=== PATIENT | male | born 1950 | race Caucasian/White ===

== ENCOUNTER → 2016-08-03 | Outpatient (CLI) | payer MEDICARE, MEDICAID ==
[~2016-08-03] MED LIST: /ACETCOD2T PO; /RANI15TA PO; /WARF5TA PO; ALLO100T PO; AMIT8CAP4 PO; BACL10TA2 PO; CELE10TA PO; CIPR500T89 PO; CITA20TA2 PO; CLOP75TA2 PO; COLA100C PO; COUM1TAB17 PO; CYCL10TA PO; EYEDRO OU; FLEX10TA2 PO; FLOM5CAP PO; GABA400C PO; HYDR-3713 PO; LIDO4CRE2 EX; LOVE0.8I SC; MIRA3350 PO; MIRA33504 PO; NEUR600T PO; OMEG100011 PO; OMEG10002 PO; PRAV40TA2 PO; RANI15TA PO; SALINE EYE OU; SOMA250T PO; TRAM50TA2 PO; VALI5TAB PO; VOLT1GEL24 TD; WARF-18 PO; miralax PO; stool softener PO
--- NOTE | 2016-08-25 00:33 | ECWPNPC ---
PATIENT NAME: MARY MOODY : 1950 GENDER: MALE VISIT DATE: 08/03/2016 DISCHARGE DATE: 08/03/16 1048 VISIT LOCKED DATE TIME: PHYSICIAN: SKYLAR FERGUSON RESOURCE: SKYLAR FERGUSON REASON FOR APPOINTMENT 1. BACK HISTORY OF PRESENT ILLNESS HISTORY OF PRESENT ILLNESS: PAIN THE PATIENT DESCRIBES THE PAIN... FALL RISK SCREENING: SCREENING :NO FALLS IN THE PAST YEAR TODAY'S VISIT: NOTES: SAW DR JO FOR FURTHER EVALUATION FOR POSSIBLE LUMBAR FUSION - THEY THOUGHT IT OVER AND DECIDED NOT TO PROCEDE WITH THIS. PT REPORTS THAT HE HAS BEEN HAVING INCREASING DISCOMFORT ACROSS LOW BACK. NOTES THAT IT IS VERY TIGHT AND VERY DIFFICULT TO MOVE. NO RECENT FALLS. SOME DIFFICULTY WITH GETTING TO SLEEP BUT TAKES LONG AFTERNOON NAP. CURRENT MEDICATIONS TAKING NFTSO-9-URND ETHYL ESTERS 1 GM CAPSULE ORAL DAILY, NOTES: 05/15/16799 TAKING POLYETHYLENE GLYCOL 3350 POWDER ORAL Q 3 DAYS, NOTES: 05/14/16799 TAKING ALLOPURINOL 100 MG TABLET TAKE 1 TABLET BY MOUTH ONCE DAILY ORAL , NOTES: 05/15/16799 TAKING TAMSULOSIN HCL 0.4 MG CAPSULE ORAL DAILY, NOTES: 05/14/161999 TAKING WARFARIN SODIUM 5 MG TABLET TAKE 1 TABLET BY MOUTH ONCE DAILY ORAL , NOTES: 05/14/161699 TAKING PRAVASTATIN SODIUM 40 MG TABLET ORAL Q P.M., NOTES: 05/14/161999 TAKING GABAPENTIN 600 MG TABLET TAKE 1 TABLET BY MOUTH THREE TIMES A DAY ORAL , NOTES: 05/14/161699 TAKING CITALOPRAM HYDROBROMIDE 20 MG TABLET TAKE 1 TABLET BY MOUTH ONCE DAILY ORAL , NOTES: 05/14/161999 TAKING RANITIDINE HCL 150 MG TABLET ORAL BID, NOTES: 05/15/16799 TAKING VALIUM 5 MG TABLET 1 TABLET NEEDED ORALLY TWICE A DAY, NOTES: 05/14/161999 TAKING BACLOFEN 10 MG TABLET 1 TAB ORAL TID FOR SPASM TAKING LIDOCAINE 5 % OINTMENT 1 STRIP EXTERNAL Q 6 HRS PRN PAIN - APPLY TO LOW BACK TAKING TRAMADOL HCL 50 MG TABLET 1 TAB ORALLY EVERY 6 HOURS NEEDED/MMD#4 TAKING ALBUTEROL SULFATE (2.5 MG/3ML) 0.083% NEBULIZATION SOLUTION 3 ML INHALATION THREE TIMES A DAY PRN MEDICATION LIST REVIEWED AND RECONCILED WITH THE PATIENT PAST MEDICAL HISTORY 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 SOCIAL HISTORY GENERAL: TOBACCO USE ARE YOU A:NONSMOKER LEARNING BARRIERS / SPECIAL NEEDS ORIENTED TO PLAN OF CARE: PATIENT, PAIN MANAGEMENT PATIENT, ORIENTED TO PLAN OF CARE: PATIENT, PAIN MANAGEMENT PATIENT. NEW PATIENT PAIN DIARY TODAY'S VISITNOTES FROM 0-10, WHAT LEVEL IS YOUR PAIN TODAY?0 PAIN CLINIC PFS, CLERGY, PUBLIC HEALTH REFERRALS PFS REFERRAL NEEDED?NO CLERGY REFERRAL NEEDED?NO PUBLIC HEALTH REFERRAL NEEDED?NO WAS THE PROVIDER NOTIFIED OF ANY PERTINENT INFO?NO PFS REFERRAL NEEDED?NO CLERGY REFERRAL NEEDED?NO PUBLIC HEALTH REFERRAL NEEDED?NO WAS THE PROVIDER NOTIFIED OF ANY PERTINENT INFO?NO REVIEW OF SYSTEMS CONSTITUTIONAL: ANY CHANGE IN YOUR MEDICAL CONDITION? NO . CHILLS NO . FEVER NO . INFECTION: DO YOU HAVE NEW INFECTIONS? NO . DO YOU HAVE HISTORY OF MRSA? NO . MUSCULOSKELETAL: ANY NEW PATTERNS OF PAIN OR NUMBNESS? NO . GASTROENTEROLOGY: ANY NEW CHANGE IN BOWEL CONTROL? NO . GENITOURINARY: ANY NEW CHANGE IN BLADDER CONTROL? NO . IS THERE A CHANCE YOU COULD BE ? NO . HEMATOLOGY/LYMPH: DO YOU TAKE ANY BLOOD THINNERS? (FOR EXAMPLE- COUMADIN, PLAVIX, AGGRENOX, PLATEL, PRADAXA, OR XARELTO) YES . WHEN WAS YOUR LAST DOSE? DATE: TIME: . NEUROLOGY: HAVE YOU FALLEN IN THE PAST 6 MONTHS? NO . ANY NEW EXTREMITY NUMBNESS OR WEAKNESS? NO . STROKES NO NEW STROKE SYMPTOMS . CARDIOLOGY: DO YOU HAVE A PACEMAKER OR DEFIBRILLATOR? NO . CHEST PAIN PATIENT DENIES . RESPIRATORY: HAVE YOU BEEN SICK IN THE PAST WEEK? YES PNEUMONIA LEFT LUNG, ON ANTIBIOTIC(CEFUROXIME X 10 DAYS, ZPACK) AND PREDNISONE, ALSO ALBUTEROL NEB PRN . FEVER NO . FLU LIKE SYMPTOMS? NO . COUGH YES, YELLOW SPUTUM , WHITE SPUTUM , PRODUCTIVE BUT IMPROVING. ABX FINISHED TODAY . INTEGUMENTARY: DO YOU HAVE ANY RASHES OR OPEN SORES? NO . ALLERGIC/IMMUNO: ARE YOU ALLERGIC TO SHELLFISH OR IV DYE? NO . ANY NEW ALLERGIES? NO . PSYCHIATRIC: DO YOU HAVE THOUGHTS OF HURTING YOURSELF OR SOMEONE ELSE? NO . ARE YOU ABUSED, NEGLECTED, OR IN AN UNSAFE ENVIRONMENT? NO . ENDOCRINOLOGY: ARE YOU DIABETIC? NO . OTHER: DO YOU NEED ANY PRESCRIPTIONS? YES LIDOCAINE, TRAMADOL . IF YES, PLEASE LIST: ____ . ANY NEW PROBLEMS WITH YOUR MEDICATIONS? NO . WHEN DID YOU LAST EAT? ____ . WHEN DID YOU LAST DRINK? ____ . WHAT DID YOU LAST DRINK? ____ . NAME OF PERSON DRIVING YOU HOME? ____ . DO YOU HAVE ANY OTHER QUESTIONS OR CONCERNS NO . REVIEWED BY: PROVIDER: SKYLAR REDMAN . VITAL SIGNS WT 219 LBS, HT 5 FT 8 IN, BMI 33.30 INDEX, BP 136/86 MM HG, HR 77 /MIN, RR 16 /MIN, TEMP 97.4 F, OXYGEN SAT % 95, NA INITIALS TL 1003, REVIEWED BY: AD. EXAMINATION GENERAL EXAMINATION: PSYCHSPEACH MONOTONE, ALERT , ORIENTED X 3 , APPROPRIATE MOOD AND AFFECT . LUNGS:BILATERAL SCATTERD WHEEZES. SLIGHT DECREASE AT BASES.. MUSCULOSKELETAL:TENDER OVER LUMBAR PARAVEREBRAL MUSCLES, RIGHT GREATER THAN LEFT. CANE USED FOR BALANCE., TRIGGER POINTS:, ELICITED WITH PALPATION OVER LUMBAR PARAVERTEBRAL MUSCLES AND INTO THE SECRUM. RESTRICTION OF ROM IN THIS AREA. ASSESSMENTS LOW BACK PAIN - M54.5 (PRIMARY) MYALGIA - M79.1 LUMBAR FACET ARTHROPATHY - M46.96 TREATMENT LOW BACK PAIN REFILL TRAMADOL HCL TABLET, 50 MG, 1 TAB, ORALLY, EVERY 6 HOURS NEEDED/MMD#4, 30 DAYS, 120, REFILLS 2 REFILL LIDOCAINE OINTMENT, 5 %, 1 STRIP, EXTERNAL, Q 6 HRS PRN PAIN - APPLY TO LOW BACK, 30 DAY(S), 3 TUBE, REFILLS 2 TRIGGER POINT 3 + SKYLAR MARCIAL 08/03/2016 10:28:38 AM > LOW BACK, RIGHT SIDE NOTES: CONTINUE EXERCISES AND STRETCHES DO NOT STOP COUMADIN FOR INJECTION,TRIGGER POINT INJECTION MATERIAL WAS PRINTED,TRIGGER POINT INJECTION: YOUR EXPERIENCE MATERIAL WAS PRINTED, FALLS CARE PLAN: 1. RECOMMEND REMOVING ALL THROW RUGS. 2. RECOMMEND NIGHT LIGHTS 3. RECOMMEND WEARING RUBBER SOLED SHOES AND TO NOT GO BAREFOOT. 4.. ADVISED TO CHANGE POSITION SLOWLY FROM SUPINE TO STANDING TO AVOID DIZZINESS. 5. ADVISED TO USE ASSISTIVE DEVICE SUCH CANE OR WALKER 6. USE [employer] OR KEEP PORTABLE PHONE READILY AVAILABLE, #128 - SCREENING BMI AND F/U PLAN IN : BMI ABOVE NORMAL TODAY. DISCUSSED WITH PATIENT NUTRITIONAL FOOD CHOICES TO ASSIST WITH WEIGHT LOSS. RECCOMMENDED REDUCING SALT, SUGAR, SODA INTAKE. RECOMMEND INCREASE ACTIVITY TO INCLUDE WALKING ON A REGULAR BASIS. PROCEDURE CODES FA211 ESTABILISHED PATIENT [facility] CHARGE G8783 BP SCR PRFRM RCMDD DEFIND SCR INTVL G8730 PAIN ASSESS POS TOOL F/U PLAN DOC 3016F PT SCRND UNHLTHY [place] USE 1124F ACP DISCUSS-NO DSCNMKR DOCD 1036F TOBACCO NON-USER 0518F FALL PLAN OF CARE DOCD G8427 DOC MEDS VERIFIED W/PT OR RE G8417 BMI >=30 CALCUATE W/FOLLOWUP 3288F FALL RISK ASSESSMENT DOCD FOLLOW UP AFTER INJECTION (REASON: CHECK AUTH FOR LUMBAR TPI - ON COUMADIN) ELECTRONICALLY SIGNED BY JOSH GANN ON 08/24/2016 AT 01:42 PM EST DISCLAIMER : THIS IS A VISIT SUMMARY EXTRACTED FROM THE [employer] CHART. IT IS NOT A COPY OF THE [employer] PROGRESS NOTE. MTDD
== END ==
LOC: M PAIN 09:20
PROVIDERS: ATTEND Nurse Practitioner Family
DX: Z09 Encounter for follow-up examination after completed treatment for conditions other than malignant neoplasm (principal); G89.29 Other chronic pain; M54.5 Low back pain; M79.1 Myalgia; M46.96 Unspecified inflammatory spondylopathy, lumbar region; I69.951 Hemiplegia and hemiparesis following unspecified cerebrovascular disease affecting right dominant side; G62.9 Polyneuropathy, unspecified; E78.00 Pure hypercholesterolemia, unspecified; F32.9 Major depressive disorder, single episode, unspecified; M48.00 Spinal stenosis, site unspecified; Z79.01 Long term (current) use of anticoagulants; Z79.891 Long term (current) use of opiate analgesic; Z79.899 Other long term (current) drug therapy

== ENCOUNTER → 2016-08-14 | Outpatient (CLI) | payer MEDICARE, MEDICAID ==
[~2016-08-14] MED LIST changes: +BUPIVACAINE HCL 0.25% 10 ML VIAL As Ordered ONE; +BUPIVACAINE HCL 0.25% 30 ML VIAL As Ordered ONE; +TRIAMCINOLONE ACETONIDE SUSP 40 MG/ML VIAL (J3301) As Ordered ONE
--- NOTE | 2016-08-19 23:46 | ECWPNPC ---
PATIENT NAME: MARY MOODY : 1950 GENDER: MALE VISIT DATE: 08/14/2016 DISCHARGE DATE: 08/14/16 1149 VISIT LOCKED DATE TIME: PHYSICIAN: PRATEEK CARRILLO RESOURCE: PRATEEK CARRILLO REASON FOR APPOINTMENT 1. TPI HISTORY OF PRESENT ILLNESS HISTORY OF PRESENT ILLNESS: PAIN THE PATIENT DESCRIBES THE PAIN... FALL RISK SCREENING: SCREENING :NO FALLS IN THE PAST YEAR CURRENT MEDICATIONS TAKING QUERU-5-RMZF ETHYL ESTERS 1 GM CAPSULE ORAL DAILY, NOTES: 08/13/16 0600 TAKING POLYETHYLENE GLYCOL 3350 POWDER ORAL Q 3 DAYS, NOTES: 08/13/16 06 TAKING ALLOPURINOL 100 MG TABLET TAKE 1 TABLET BY MOUTH ONCE DAILY ORAL , NOTES: 08/13/16 06 TAKING TAMSULOSIN HCL 0.4 MG CAPSULE ORAL DAILY, NOTES: 08/13/16 0600 TAKING WARFARIN SODIUM 5 MG TABLET TAKE 1 TABLET BY MOUTH ONCE DAILY ORAL , NOTES: 08/13/16 1800 TAKING PRAVASTATIN SODIUM 40 MG TABLET ORAL Q P.M., NOTES: 08/13/16 1800 TAKING GABAPENTIN 600 MG TABLET TAKE 1 TABLET BY MOUTH THREE TIMES A DAY ORAL , NOTES: 08/13/16 1800 TAKING CITALOPRAM HYDROBROMIDE 20 MG TABLET TAKE 1 TABLET BY MOUTH ONCE DAILY ORAL , NOTES: 08/13/16 1800 TAKING RANITIDINE HCL 150 MG TABLET ORAL BID, NOTES: 08/13/16 1800 TAKING VALIUM 5 MG TABLET 1 TABLET NEEDED ORALLY TWICE A DAY, NOTES: 08/12/16 TAKING BACLOFEN 10 MG TABLET 1 TAB ORAL TID FOR SPASM, NOTES: 08/13/162099 TAKING ALBUTEROL SULFATE (2.5 MG/3ML) 0.083% NEBULIZATION SOLUTION 3 ML INHALATION THREE TIMES A DAY PRN, NOTES: NONE RECENTLY TAKING TRAMADOL HCL 50 MG TABLET 1 TAB ORALLY EVERY 6 HOURS NEEDED/MMD#4, NOTES: 08/13/161999 TAKING LIDOCAINE 5 % OINTMENT 1 STRIP EXTERNAL Q 6 HRS PRN PAIN - APPLY TO LOW BACK, NOTES: 08/13/161999 MEDICATION LIST REVIEWED AND RECONCILED WITH THE PATIENT PAST MEDICAL HISTORY 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 SOCIAL HISTORY GENERAL: TOBACCO USE ARE YOU A:NONSMOKER LEARNING BARRIERS / SPECIAL NEEDS ORIENTED TO PLAN OF CARE: PATIENT, PAIN MANAGEMENT PATIENT, ORIENTED TO PLAN OF CARE: PATIENT, PAIN MANAGEMENT PATIENT. NEW PATIENT PAIN DIARY TODAY'S VISITNOTES FROM 0-10, WHAT LEVEL IS YOUR PAIN TODAY?0 PAIN CLINIC PFS, CLERGY, PUBLIC HEALTH REFERRALS PFS REFERRAL NEEDED?NO CLERGY REFERRAL NEEDED?NO PUBLIC HEALTH REFERRAL NEEDED?NO WAS THE PROVIDER NOTIFIED OF ANY PERTINENT INFO?NO PFS REFERRAL NEEDED?NO CLERGY REFERRAL NEEDED?NO PUBLIC HEALTH REFERRAL NEEDED?NO WAS THE PROVIDER NOTIFIED OF ANY PERTINENT INFO?NO REVIEW OF SYSTEMS CONSTITUTIONAL: ANY CHANGE IN YOUR MEDICAL CONDITION? NO . CHILLS NO . FEVER NO . INFECTION: DO YOU HAVE NEW INFECTIONS? NO . DO YOU HAVE HISTORY OF MRSA? NO . MUSCULOSKELETAL: ANY NEW PATTERNS OF PAIN OR NUMBNESS? NO . GASTROENTEROLOGY: ANY NEW CHANGE IN BOWEL CONTROL? NO . GENITOURINARY: ANY NEW CHANGE IN BLADDER CONTROL? NO . IS THERE A CHANCE YOU COULD BE ? NO . HEMATOLOGY/LYMPH: DO YOU TAKE ANY BLOOD THINNERS? (FOR EXAMPLE- COUMADIN, PLAVIX, AGGRENOX, PLATEL, PRADAXA, OR XARELTO) YES COUMADIN . WHEN WAS YOUR LAST DOSE? DATE: TIME: 08/13/161799 . NEUROLOGY: HAVE YOU FALLEN IN THE PAST 6 MONTHS? NO . ANY NEW EXTREMITY NUMBNESS OR WEAKNESS? NO . CARDIOLOGY: DO YOU HAVE A PACEMAKER OR DEFIBRILLATOR? NO . RESPIRATORY: HAVE YOU BEEN SICK IN THE PAST WEEK? NO . FEVER NO . FLU LIKE SYMPTOMS? NO . COUGH NO . INTEGUMENTARY: DO YOU HAVE ANY RASHES OR OPEN SORES? NO . ALLERGIC/IMMUNO: ARE YOU ALLERGIC TO SHELLFISH OR IV DYE? NO . ANY NEW ALLERGIES? NO . PSYCHIATRIC: DO YOU HAVE THOUGHTS OF HURTING YOURSELF OR SOMEONE ELSE? NO . ARE YOU ABUSED, NEGLECTED, OR IN AN UNSAFE ENVIRONMENT? NO . ENDOCRINOLOGY: ARE YOU DIABETIC? NO . OTHER: DO YOU NEED ANY PRESCRIPTIONS? NO . IF YES, PLEASE LIST: ____ . ANY NEW PROBLEMS WITH YOUR MEDICATIONS? NO . WHEN DID YOU LAST EAT? ____08/13/16 1800 . WHEN DID YOU LAST DRINK? ____08/13/161999 . WHAT DID YOU LAST DRINK? ____COFFEE . NAME OF PERSON DRIVING YOU HOME? ____SANDY . DO YOU HAVE ANY OTHER QUESTIONS OR CONCERNS NO . REVIEWED BY: PROVIDER: . VITAL SIGNS WT 215 LBS, HT 5 FT 8 IN, BMI 32.69 INDEX, BP 120/79 MM HG, HR 64 /MIN, RR 16 /MIN, TEMP 96.0 F, OXYGEN SAT % 93%, NA INITIALS SC 09:01, REVIEWED BY: MLF. ASSESSMENTS MYALGIA - M79.1 (PRIMARY) PROCEDURES PN TRIGGER POINT INJECTION WITH STEROIDS PRE PROCEDURE DIAGNOSIS 1. MYALGIA 2. PAIN AT RIGHT LOWER BACK AREA POST PROCEDURE DIAGNOSIS 1. MYALGIA 2. PAIN AT RIGHT LOWER BACK AREA PROCEDURE TRIGGER POINT INJECTION AT RIGHT LOWER BACK AREA SURGEON DR. PRATEEK CARRILLO CERTIFIED SURGICAL FIRST ASSISTANT NONE ANESTHESIA LOCAL PRE PROCEDURE NOTE THE PATIENT HAS A HISTORY OF CHRONIC PAIN AT THE RIGHT LOWER BACK AREA. I EVALUATE THE PATIENT AND REVIEWED THE CHART. THERE IS EVIDENCE OF BANDS OF TISSUE WITH RESTRICTION OF MOVEMENT AND PRESENCE OF TRIGGER POINT AT THE AFFECTED AREA. I WENT OVER THE RISKS, ALTERNATIVES, AND BENEFITS ASSOCIATED WITH THIS PROCEDURE. THE PATIENT WOULD LIKE TO PROCEED AND GIVE CONSENT TO PERFORMED THE PROCEDURE. THE PATIENT DENIES UNEXPLAINABLE WEIGHT LOSS, FEVER, CHILLS, OR NEW CHANGES IN URINARY OR BOWEL CONTROL DESCRIPTION OF PROCEDURE THE PATIENT WAS BROUGHT TO THE PROCEDURE ROOM AND PLACED IN THE SITTING POSITION. THE AREA WAS CLEANED WITH ALCOHOL. THE PROCEDURE WAS DONE USING ASEPTIC STERILE TECHNIQUE. I CHECKED LATERALITY AND THE LEVEL WHERE THE PROCEDURE WAS GOING TO BE PERFORMED WITH THE PATIENT AND THE SUPPORTING STAFF AT THE MOMENT OF THE TIME OUT IN THE PROCEDURE ROOM. USING A 25-GAUGE NEEDLE, TRIGGER POINTS WERE INJECTED AT THE RIGHT LOWER BACK AREA WITH A TOTAL OF 40 ML OF BUPIVACAINE 0.25% AND KENALOG 40 MG. THERE WAS NO EVIDENCE OF BLOOD, PARESTHESIA OR CEREBROSPINAL FLUID DURING THE PROCEDURE. THE PATIENT WAS SENT TO THE RECOVERY ROOM. THE PATIENT WAS MOVING THE EXTREMITIES AND DOING WELL. THERE WAS NO COMPLICATION DURING THE PROCEDURE POST PROCEDURE NOTE THE PATIENT WILL BE SEEN IN A FOLLOW UP IN THE NEXT FEW WEEKS. INSTRUCTIONS WERE GIVEN, QUESTIONS WERE ANSWERED, AND THE PATIENT EXPRESSED UNDERSTANDING AND AGREES WITH THE PLAN. INSTRUCTIONS WERE GIVEN, QUESTIONS WERE ANSWERED, PATIENT REPORTS UNDERSTANDING AND AGREES WITH THE PLAN. I, MO BISWAS, DOCUMENTED THE ABOVE INFORMATION ACTING A SCRIBE FOR DR. CARRILLO. I HAVE REVIEWED THE ABOVE DOCUMENT, WRITTEN BY MO CARL AND I VERIFY THAT IT IS ACCURATE. PROCEDURE CODES 57967 INJ TRIGGER POINT /2 MUSCL FOLLOW UP 3 WEEKS ELECTRONICALLY SIGNED BY PRATEEK CARRILLO MD ON 08/19/2016 AT 07:52 PM EST DISCLAIMER : THIS IS A VISIT SUMMARY EXTRACTED FROM THE [employer] CHART. IT IS NOT A COPY OF THE [employer] PROGRESS NOTE. INO
== END ==
LOC: M PAIN 09:00
PROVIDERS: ATTEND Anesthesiology
DX: G89.29 Other chronic pain (principal); M79.1 Myalgia; M54.5 Low back pain; Z79.891 Long term (current) use of opiate analgesic; Z79.899 Other long term (current) drug therapy; Z09 Encounter for follow-up examination after completed treatment for conditions other than malignant neoplasm; Z86.73 Personal history of transient ischemic attack (TIA), and cerebral infarction without residual deficits; G62.9 Polyneuropathy, unspecified; E78.00 Pure hypercholesterolemia, unspecified; F32.9 Major depressive disorder, single episode, unspecified; M48.00 Spinal stenosis, site unspecified
CPT/HCPCS: 20552; J3301

== ENCOUNTER 2016-09-18 15:50 | Emergency (ER) | payer MEDICAID, MEDICARE ==
[~2016-09-18] VITALS: Ht 172.7 cm; Wt 99.3 kg
[~2016-09-18 15:50] MED LIST changes: -BUPIVACAINE HCL 0.25% 10 ML VIAL As Ordered ONE; -BUPIVACAINE HCL 0.25% 30 ML VIAL As Ordered ONE; -TRIAMCINOLONE ACETONIDE SUSP 40 MG/ML VIAL (J3301) As Ordered ONE
[2016-09-18 18:44] LABS: MEAN CORPUSCULAR HEMOGLOBIN 30.7 pg (27.0-33.0); MEAN CORPUSCULAR HGB CONC 34.1 g/dl (32.0-36.5); RED CELL DISTRIBUTION WIDTH 13.1 % (11.5-14.5); WHITE BLOOD COUNT 6.5 K/mm3 (4.0-10.0)
[2016-09-18 18:49] LABS: INR 1.7
--- NOTE | 2016-09-18 19:20 | REPUSA ---
CLINICAL HISTORY: Right upper extremity edema COMMENTS: Real time sonography with duplex doppler of the right upper extremity was performed with attention to the major deep venous structures. The right internal jugular, cephalic, basilic, radial and ulnar veins all reveal complete lumen compr essibility without intraluminal thrombus. The right subclavian and axillary veins are also clear of t hrombus. There is normal spontaneous phasic flow and augmentation throughout the deep veins. IMPRESSION: No evidence of DVT in the right upper extremity. Thank you for your kind referral of this patient. Continuing I 11
[2016-09-18 19:46] VITALS: BP 138/79
== END 2016-09-18 19:59 | disposition home or self-care (01) ==
LOC: M ED 18:40
DX: M54.12 Radiculopathy, cervical region (principal); I25.2 Old myocardial infarction; Z79.01 Long term (current) use of anticoagulants

== ENCOUNTER → 2016-09-25 | Outpatient (CLI) | payer MEDICARE, MEDICAID ==
--- NOTE | 2016-09-29 00:23 | ECWPNPC ---
PATIENT NAME: MARY MOODY : 1950 GENDER: MALE VISIT DATE: 09/25/2016 DISCHARGE DATE: 09/25/16940 VISIT LOCKED DATE TIME: PHYSICIAN: SKYLAR FERGUSON RESOURCE: SKYLAR FERGUSON REASON FOR APPOINTMENT 1. POST PROCEDURE, BACK HISTORY OF PRESENT ILLNESS HISTORY OF PRESENT ILLNESS: PAIN THE PATIENT DESCRIBES THE PAIN... FALL RISK SCREENING: SCREENING :NO FALLS IN THE PAST YEAR TODAY'S VISIT: NOTES: RATES PAIN TODAY 4/10 IN LOW BACK. DESCRIBES PAIN CONSTANT AND ACHING . IS S/P TRIGGER POINT INJECTION ON 08/14/16 TO THE LOW BACK AREA. THIS DECREASED THE PAIN IN THIS AREA BU GREATER THAN 50%.. HAS RECENTLY BEEN HAVING SHOOTING PAIN AND NUMBNESS TO THE RIGHT ARM.HAS NOTED SOME RESTRICTION IN MOVEMENT IN RIGHT SHOULDER. . CURRENT MEDICATIONS TAKING HLHDN-2-MIUY ETHYL ESTERS 1 GM CAPSULE ORAL DAILY, NOTES: 08/13/16 0600 TAKING POLYETHYLENE GLYCOL 3350 POWDER ORAL Q 3 DAYS, NOTES: 08/13/16 0600 TAKING ALLOPURINOL 100 MG TABLET TAKE 1 TABLET BY MOUTH ONCE DAILY ORAL , NOTES: 08/13/16 06 TAKING TAMSULOSIN HCL 0.4 MG CAPSULE ORAL DAILY, NOTES: 08/13/16 0600 TAKING WARFARIN SODIUM 5 MG TABLET TAKE 1 TABLET BY MOUTH ONCE DAILY ORAL , NOTES: 08/13/16 1800 TAKING PRAVASTATIN SODIUM 40 MG TABLET ORAL Q P.M., NOTES: 08/13/16 1800 TAKING GABAPENTIN 600 MG TABLET TAKE 1 TABLET BY MOUTH THREE TIMES A DAY ORAL , NOTES: 08/13/16 1800 TAKING CITALOPRAM HYDROBROMIDE 20 MG TABLET TAKE 1 TABLET BY MOUTH ONCE DAILY ORAL , NOTES: 08/13/16 1800 TAKING RANITIDINE HCL 150 MG TABLET ORAL BID, NOTES: 08/13/16 1800 TAKING VALIUM 5 MG TABLET 1 TABLET NEEDED ORALLY TWICE A DAY, NOTES: 08/12/16 TAKING BACLOFEN 10 MG TABLET 1 TAB ORAL TID FOR SPASM, NOTES: 08/13/162099 TAKING ALBUTEROL SULFATE (2.5 MG/3ML) 0.083% NEBULIZATION SOLUTION 3 ML INHALATION THREE TIMES A DAY PRN, NOTES: NONE RECENTLY TAKING TRAMADOL HCL 50 MG TABLET 1 TAB ORALLY EVERY 6 HOURS NEEDED/MMD#4, NOTES: 08/13/161999 TAKING LIDOCAINE 5 % OINTMENT 1 STRIP EXTERNAL Q 6 HRS PRN PAIN - APPLY TO LOW BACK, NOTES: 08/13/161999 MEDICATION LIST REVIEWED AND RECONCILED WITH THE PATIENT PAST MEDICAL HISTORY 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 SOCIAL HISTORY GENERAL: TOBACCO USE ARE YOU A:NONSMOKER LEARNING BARRIERS / SPECIAL NEEDS ORIENTED TO PLAN OF CARE: PATIENT, PAIN MANAGEMENT PATIENT, ORIENTED TO PLAN OF CARE: PATIENT, PAIN MANAGEMENT PATIENT. NEW PATIENT PAIN DIARY TODAY'S VISITNOTES FROM 0-10, WHAT LEVEL IS YOUR PAIN TODAY?0 PAIN CLINIC PFS, CLERGY, PUBLIC HEALTH REFERRALS PFS REFERRAL NEEDED?NO CLERGY REFERRAL NEEDED?NO PUBLIC HEALTH REFERRAL NEEDED?NO WAS THE PROVIDER NOTIFIED OF ANY PERTINENT INFO?NO PFS REFERRAL NEEDED?NO CLERGY REFERRAL NEEDED?NO PUBLIC HEALTH REFERRAL NEEDED?NO WAS THE PROVIDER NOTIFIED OF ANY PERTINENT INFO?NO REVIEW OF SYSTEMS CONSTITUTIONAL: ANY CHANGE IN YOUR MEDICAL CONDITION? YES 09/18/16 ED VISIT FOR NECK PAIN THAT RADIATED TO RIGHT ARM. . CHILLS NO . FEVER NO . INFECTION: DO YOU HAVE NEW INFECTIONS? NO . DO YOU HAVE HISTORY OF MRSA? NO . MUSCULOSKELETAL: ANY NEW PATTERNS OF PAIN OR NUMBNESS? YES PT STATES NEW RIGHT SIDED NECK PAIN THAT RADIATES TO RIGHT HAND. ALSO NOTES TINGLING WITH PAIN IN RIGHT HAND. STATES STARTED 2 WKS AGO. . GASTROENTEROLOGY: ANY NEW CHANGE IN BOWEL CONTROL? NO . GENITOURINARY: ANY NEW CHANGE IN BLADDER CONTROL? NO . IS THERE A CHANCE YOU COULD BE ? NO . HEMATOLOGY/LYMPH: DO YOU TAKE ANY BLOOD THINNERS? (FOR EXAMPLE- COUMADIN, PLAVIX, AGGRENOX, PLATEL, PRADAXA, OR XARELTO) YES COUMADIN . WHEN WAS YOUR LAST DOSE? DATE: TIME: . NEUROLOGY: HAVE YOU FALLEN IN THE PAST 6 MONTHS? NO . ANY NEW EXTREMITY NUMBNESS OR WEAKNESS? YES RIGHT SIDED NECK PAIN THAT RADIATES TO RIGHT ARM/HAND WITH TINGLING IN RIGHT HAND X 2 WKS. . CARDIOLOGY: DO YOU HAVE A PACEMAKER OR DEFIBRILLATOR? NO . RESPIRATORY: HAVE YOU BEEN SICK IN THE PAST WEEK? NO . FEVER NO . FLU LIKE SYMPTOMS? NO . COUGH NO . INTEGUMENTARY: DO YOU HAVE ANY RASHES OR OPEN SORES? NO . ALLERGIC/IMMUNO: ARE YOU ALLERGIC TO SHELLFISH OR IV DYE? NO . ANY NEW ALLERGIES? NO . PSYCHIATRIC: DO YOU HAVE THOUGHTS OF HURTING YOURSELF OR SOMEONE ELSE? NO . ARE YOU ABUSED, NEGLECTED, OR IN AN UNSAFE ENVIRONMENT? NO . ENDOCRINOLOGY: ARE YOU DIABETIC? NO . OTHER: DO YOU NEED ANY PRESCRIPTIONS? NO . IF YES, PLEASE LIST: ____ . ANY NEW PROBLEMS WITH YOUR MEDICATIONS? NO . WHEN DID YOU LAST EAT? ____ . WHEN DID YOU LAST DRINK? ____ . WHAT DID YOU LAST DRINK? ____ . NAME OF PERSON DRIVING YOU HOME? ____ . DO YOU HAVE ANY OTHER QUESTIONS OR CONCERNS NO . UROLOGY: GENERAL NOCTURIA X 3. SLEEP IS IMPAIRED TO THIS . REVIEWED BY: PROVIDER: SKYLAR REDMAN . VITAL SIGNS WT 215.8 LBS, HT 5 FT 8 IN, BMI 32.81 INDEX, BP 117/83 MM HG, HR 67 /MIN, RR 18 /MIN, TEMP 95.8 F, OXYGEN SAT % 97%, REVIEWED BY: MLF. EXAMINATION GENERAL EXAMINATION: PSYCHSPEACH MONOTONE, ALERT , ORIENTED X 3 , APPROPRIATE MOOD AND AFFECT . LUNGS:BILATERAL SCATTERD WHEEZES. SLIGHT DECREASE AT BASES.. MUSCULOSKELETAL:TENDER OVER LUMBAR PARAVEREBRAL MUSCLES, RIGHT GREATER THAN LEFT. CANE USED FOR BALANCE., TRIGGER POINTS:, ELICITED WITH PALPATION OVER LUMBAR PARAVERTEBRAL MUSCLES AND INTO THE SECRUM. RESTRICTION OF ROM IN THIS AREA. ASSESSMENTS MYALGIA - M79.1 (PRIMARY) LOW BACK PAIN - M54.5 LUMBAR FACET ARTHROPATHY - M46.96 CERVICALGIA - M54.2 TREATMENT MYALGIA LRY SPINE CERVICAL W/AP/FLEX/[id number] TRIGGER POINT 3 + SKYLAR MARCIAL 09/25/2016 9:24:59 AM > NECK, RIGHT SHOULDER AREA NOTES: CALL WHEN REFILLS NEEDED. DO NOT HOLD COUMADIN FOR INJECTION THERAPY,TRIGGER POINT INJECTION MATERIAL WAS PRINTED, FALLS CARE PLAN: 1. RECOMMEND REMOVING ALL THROW RUGS. 2. RECOMMEND NIGHT LIGHTS 3. RECOMMEND WEARING RUBBER SOLED SHOES AND TO NOT GO BAREFOOT. 4.. ADVISED TO CHANGE POSITION SLOWLY FROM SUPINE TO STANDING TO AVOID DIZZINESS. 5. ADVISED TO USE ASSISTIVE DEVICE SUCH CANE OR WALKER 6. USE [employer] OR KEEP PORTABLE PHONE READILY AVAILABLE, #128 - SCREENING BMI AND F/U PLAN IN : BMI ABOVE NORMAL TODAY. DISCUSSED WITH PATIENT NUTRITIONAL FOOD CHOICES TO ASSIST WITH WEIGHT LOSS. RECCOMMENDED REDUCING SALT, SUGAR, SODA INTAKE. RECOMMEND INCREASE ACTIVITY TO INCLUDE WALKING ON A REGULAR BASIS. PROCEDURE CODES FA211 ESTABILISHED PATIENT [facility] F[facility] CHARGE L5124 PAIN ASSESS POS TOOL F/U PLAN DOC G8427 DOC MEDS VERIFIED W/PT OR RE FA211 ESTABILISHED PATIENT [facility] FAC[facility] CHARGE T1030 BP SCR PRFRM RCMDD DEFIND SCR INTVL 3016F PT SCRND UNHLTHY [place] USE 1124F ACP DISCUSS-NO DSCNMKR DOCD 1036F TOBACCO NON-USER 0518F FALL PLAN OF CARE DOCD G8417 BMI >=30 CALCUATE W/FOLLOWUP 3288F FALL RISK ASSESSMENT DOCD DISPOSITION & COMMUNICATION FOLLOW UP AFTER INJECTION (REASON: CHECK AUTH FOR TRIGGER POINTS) ELECTRONICALLY SIGNED BY JOSH GANN ON 09/28/2016 AT 07:30 PM EDT DISCLAIMER : THIS IS A VISIT SUMMARY EXTRACTED FROM THE [employer] CHART. IT IS NOT A COPY OF THE [employer] PROGRESS NOTE. MTDD
== END ==
LOC: M PAIN 08:40
PROVIDERS: ATTEND Nurse Practitioner Family
DX: Z09 Encounter for follow-up examination after completed treatment for conditions other than malignant neoplasm (principal); G89.29 Other chronic pain; M79.1 Myalgia; M54.5 Low back pain; M46.96 Unspecified inflammatory spondylopathy, lumbar region; M54.2 Cervicalgia; I69.920 Aphasia following unspecified cerebrovascular disease; G62.9 Polyneuropathy, unspecified; E78.00 Pure hypercholesterolemia, unspecified; F32.9 Major depressive disorder, single episode, unspecified; M48.00 Spinal stenosis, site unspecified; Z79.01 Long term (current) use of anticoagulants; Z79.891 Long term (current) use of opiate analgesic; Z79.899 Other long term (current) drug therapy

== ENCOUNTER → 2016-10-15 | Outpatient (CLI) | payer MEDICARE, MEDICAID ==
[~2016-10-15] MED LIST changes: +BUPIVACAINE HCL 0.25% 10 ML VIAL As Ordered ONE; +BUPIVACAINE HCL 0.25% 30 ML VIAL As Ordered ONE; -COLA100C PO; +COLA100C3 PO; +TRIAMCINOLONE ACETONIDE SUSP 40 MG/ML VIAL (J3301) As Ordered ONE; +diazePAM 5 MG TAB As Ordered ONE; +oxyCODONE 5MG TAB As Ordered ONE
--- NOTE | 2016-10-21 23:41 | ECWPNPC ---
PATIENT NAME: MARY MOODY : 1950 GENDER: MALE VISIT DATE: 10/15/2016 DISCHARGE DATE: 10/15/16 1556 VISIT LOCKED DATE TIME: PHYSICIAN: PRATEEK CARRILLO RESOURCE: PRATEEK CARRILLO REASON FOR APPOINTMENT 1. BACK HISTORY OF PRESENT ILLNESS HISTORY OF PRESENT ILLNESS: PAIN THE PATIENT DESCRIBES THE PAIN... FALL RISK SCREENING: SCREENING :NO FALLS IN THE PAST YEAR CURRENT MEDICATIONS TAKING [id number]-6-[id number] ETHYL ESTERS 1 GM CAPSULE ORAL DAILY, NOTES: 10/15 8AM TAKING POLYETHYLENE GLYCOL 3350 POWDER ORAL Q 3 DAYS, NOTES: 10/15 8AM TAKING ALLOPURINOL 100 MG TABLET TAKE 1 TABLET BY MOUTH ONCE DAILY ORAL , NOTES: 10/15 8AM TAKING TAMSULOSIN HCL 0.4 MG CAPSULE ORAL DAILY, NOTES: 10/14 6PM TAKING WARFARIN SODIUM 5 MG TABLET TAKE 1 TABLET BY MOUTH ONCE DAILY ORAL , NOTES: 10/14 6PM TAKING PRAVASTATIN SODIUM 40 MG TABLET ORAL Q P.M., NOTES: 10/14 6PM TAKING GABAPENTIN 600 MG TABLET TAKE 1 TABLET BY MOUTH THREE TIMES A DAY ORAL , NOTES: 10/15 8AM TAKING CITALOPRAM HYDROBROMIDE 20 MG TABLET TAKE 1 TABLET BY MOUTH ONCE DAILY ORAL , NOTES: 08/13/16 80787/ 6PM TAKING RANITIDINE HCL 150 MG TABLET ORAL BID, NOTES: 10/15 8AM TAKING VALIUM 5 MG TABLET 1 TABLET NEEDED ORALLY TWICE A DAY, NOTES: WHEN NEEDED TAKING BACLOFEN 10 MG TABLET 1 TAB ORAL TID FOR SPASM, NOTES: 10/15 8AM TAKING ALBUTEROL SULFATE (2.5 MG/3ML) 0.083% NEBULIZATION SOLUTION 3 ML INHALATION THREE TIMES A DAY PRN, NOTES: NONE RECENTLY TAKING TRAMADOL HCL 50 MG TABLET 1 TAB ORALLY EVERY 6 HOURS NEEDED/MMD#4, NOTES: 10/14 6PM TAKING LIDOCAINE 5 % OINTMENT 1 STRIP EXTERNAL Q 6 HRS PRN PAIN - APPLY TO LOW BACK, NOTES: 10/14 6PM MEDICATION LIST REVIEWED AND RECONCILED WITH THE PATIENT PAST MEDICAL HISTORY 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 SOCIAL HISTORY GENERAL: PAIN CLINIC PFS, CLERGY, PUBLIC HEALTH REFERRALS CLERGY REFERRAL NEEDED?NO WAS THE PROVIDER NOTIFIED OF ANY PERTINENT INFO?NO PFS REFERRAL NEEDED?NO PUBLIC HEALTH REFERRAL NEEDED?NO PATIENT: ____. REVIEW OF SYSTEMS CONSTITUTIONAL: ANY CHANGE IN YOUR MEDICAL CONDITION? NO . CHILLS NO . FEVER NO . INFECTION: DO YOU HAVE NEW INFECTIONS? NO . DO YOU HAVE HISTORY OF MRSA? NO . MUSCULOSKELETAL: ANY NEW PATTERNS OF PAIN OR NUMBNESS? NO . GASTROENTEROLOGY: ANY NEW CHANGE IN BOWEL CONTROL? NO . GENITOURINARY: ANY NEW CHANGE IN BLADDER CONTROL? NO . IS THERE A CHANCE YOU COULD BE ? NO . HEMATOLOGY/LYMPH: DO YOU TAKE ANY BLOOD THINNERS? (FOR EXAMPLE- COUMADIN, PLAVIX, AGGRENOX, PLATEL, PRADAXA, OR XARELTO) COUMADIN 10/14 6:30PM . WHEN WAS YOUR LAST DOSE? DATE: TIME: . NEUROLOGY: HAVE YOU FALLEN IN THE PAST 6 MONTHS? NO . ANY NEW EXTREMITY NUMBNESS OR WEAKNESS? NO . CARDIOLOGY: DO YOU HAVE A PACEMAKER OR DEFIBRILLATOR? NO . RESPIRATORY: HAVE YOU BEEN SICK IN THE PAST WEEK? NO . FEVER NO . FLU LIKE SYMPTOMS? NO . COUGH NO . INTEGUMENTARY: DO YOU HAVE ANY RASHES OR OPEN SORES? NO . ALLERGIC/IMMUNO: ARE YOU ALLERGIC TO SHELLFISH OR IV DYE? NO . ANY NEW ALLERGIES? NO . PSYCHIATRIC: DO YOU HAVE THOUGHTS OF HURTING YOURSELF OR SOMEONE ELSE? NO . ARE YOU ABUSED, NEGLECTED, OR IN AN UNSAFE ENVIRONMENT? NO . ENDOCRINOLOGY: ARE YOU DIABETIC? NO . OTHER: DO YOU NEED ANY PRESCRIPTIONS? NO . IF YES, PLEASE LIST: ____ . ANY NEW PROBLEMS WITH YOUR MEDICATIONS? NO . WHEN DID YOU LAST EAT? 10/15 8AM . WHEN DID YOU LAST DRINK? 10/15 8:30AM . WHAT DID YOU LAST DRINK? COFFEE . NAME OF PERSON DRIVING YOU HOME? ONEIL- . DO YOU HAVE ANY OTHER QUESTIONS OR CONCERNS NO . REVIEWED BY: PROVIDER: . VITAL SIGNS WT 212.0 LBS, HT 68", BMI 32.23 INDEX, BP 133/75 MM HG, HR 66 /MIN, RR 16 /MIN, TEMP 98.1 F, OXYGEN SAT % 94%, SAFE IN ENV? (Y/N) Y, NA INITIALS TL 1418, REVIEWED BY: HENRRY. ASSESSMENTS MYALGIA - M79.1 (PRIMARY) PROCEDURES PN TRIGGER POINT INJECTION WITH STEROIDS PRE PROCEDURE DIAGNOSIS 1. MYALGIA 2. PAIN AT RIGHT SHOULDER AREA AND RIGHT NECK AREA POST PROCEDURE DIAGNOSIS 1. MYALGIA 2. PAIN AT RIGHT SHOULDER AREA AND RIGHT NECK AREA PROCEDURE TRIGGER POINT INJECTION AT RIGHT SHOULDER AREA AND RIGHT NECK AREA SURGEON DR. PRATEEK CARRILLO FUTURES TRADER NONE ANESTHESIA LOCAL PRE PROCEDURE NOTE THE PATIENT HAS A HISTORY OF CHRONIC PAIN AT THE RIGHT SHOULDER AREA AND RIGHT NECK AREA. I EVALUATE THE PATIENT AND REVIEWED THE CHART. THERE IS EVIDENCE OF BANDS OF TISSUE WITH RESTRICTION OF MOVEMENT AND PRESENCE OF TRIGGER POINT AT THE AFFECTED AREA. I WENT OVER THE RISKS, ALTERNATIVES, AND BENEFITS ASSOCIATED WITH THIS PROCEDURE. THE PATIENT WOULD LIKE TO PROCEED AND GIVE CONSENT TO PERFORMED THE PROCEDURE. THE PATIENT DENIES UNEXPLAINABLE WEIGHT LOSS, FEVER, CHILLS, OR NEW CHANGES IN URINARY OR BOWEL CONTROL DESCRIPTION OF PROCEDURE THE PATIENT WAS BROUGHT TO THE PROCEDURE ROOM AND PLACED IN THE SITTING POSITION. THE AREA WAS CLEANED WITH ALCOHOL. THE PROCEDURE WAS DONE USING ASEPTIC STERILE TECHNIQUE. I CHECKED LATERALITY AND THE LEVEL WHERE THE PROCEDURE WAS GOING TO BE PERFORMED WITH THE PATIENT AND THE SUPPORTING STAFF AT THE MOMENT OF THE TIME OUT IN THE PROCEDURE ROOM. USING A 25-GAUGE NEEDLE, TRIGGER POINTS WERE INJECTED AT THE RIGHT SHOULDER AREA AND RIGHT NECK AREA WITH A TOTAL OF 40 ML OF BUPIVACAINE 0.25% AND KENALOG 40 MG. THERE WAS NO EVIDENCE OF BLOOD, PARESTHESIA OR CEREBROSPINAL FLUID DURING THE PROCEDURE. THE PATIENT WAS SENT TO THE RECOVERY ROOM. THE PATIENT WAS MOVING THE EXTREMITIES AND DOING WELL. THERE WAS NO COMPLICATION DURING THE PROCEDURE POST PROCEDURE NOTE THE PATIENT WILL BE SEEN IN A FOLLOW UP IN THE NEXT FEW WEEKS. INSTRUCTIONS WERE GIVEN, QUESTIONS WERE ANSWERED, AND THE PATIENT EXPRESSED UNDERSTANDING AND AGREES WITH THE PLAN. I, MO BISWAS, DOCUMENTED THE ABOVE INFORMATION ACTING A SCRIBE FOR DR. CARRILLO. I HAVE REVIEWED THE ABOVE DOCUMENT, WRITTEN BY MO CARL AND I VERIFY THAT IT IS ACCURATE. PROCEDURE CODES 11193 INJECT TRIGGER POINTS 3/> DISPOSITION & COMMUNICATION FOLLOW UP 3 WEEKS ELECTRONICALLY SIGNED BY PRATEEK CARRILLO MD ON 10/21/2016 AT 09:28 PM EDT DISCLAIMER : THIS IS A VISIT SUMMARY EXTRACTED FROM THE [employer] CHART. IT IS NOT A COPY OF THE [employer] PROGRESS NOTE. [facility] HEALTH SERVICESLuis M
== END ==
LOC: M PAIN 14:20
PROVIDERS: ATTEND Anesthesiology
DX: G89.29 Other chronic pain (principal); M79.1 Myalgia; M54.2 Cervicalgia; M25.511 Pain in right shoulder; Z79.891 Long term (current) use of opiate analgesic; Z79.899 Other long term (current) drug therapy
CPT/HCPCS: 20552; J3301

== ENCOUNTER → 2016-11-16 | Outpatient (CLI) | payer MEDICARE, MEDICAID ==
[~2016-11-16] MED LIST changes: -BUPIVACAINE HCL 0.25% 10 ML VIAL As Ordered ONE; -BUPIVACAINE HCL 0.25% 30 ML VIAL As Ordered ONE; -TRIAMCINOLONE ACETONIDE SUSP 40 MG/ML VIAL (J3301) As Ordered ONE; -diazePAM 5 MG TAB As Ordered ONE; -oxyCODONE 5MG TAB As Ordered ONE
--- NOTE | 2016-12-10 23:59 | ECWPNPC ---
PATIENT NAME: MARY MOODY : 1950 GENDER: MALE VISIT DATE: 11/16/2016 DISCHARGE DATE: 11/16/16 1056 VISIT LOCKED DATE TIME: PHYSICIAN: SKYLAR FERGUSON RESOURCE: SKYLAR FERGUSON REASON FOR APPOINTMENT 1. POST TPI HISTORY OF PRESENT ILLNESS HISTORY OF PRESENT ILLNESS: PAIN THE PATIENT DESCRIBES THE PAIN... FALL RISK SCREENING: SCREENING :NO FALLS IN THE PAST YEAR TODAY'S VISIT: NOTES: S/P TPI TO RIGHT SHOULDER AND NECK COMPLETED ON 10/15/16 WITH GOOD IMPROVEMENT TO NECK AND SHOULDER AREA PAIN. IS HAVING SOME PAIN IN LOW BACK. RATES PAIN 5/10. CAN ONLY WALK A SHORT DISTANCE. DOES USE CANE FOR SUPPRT.. CURRENT MEDICATIONS TAKING [id number]-[id number] ETHYL ESTERS 1 GM CAPSULE ORAL DAILY, NOTES: 10/15 8AM TAKING POLYETHYLENE GLYCOL 3350 POWDER ORAL Q 3 DAYS, NOTES: 10/15 8AM TAKING ALLOPURINOL 100 MG TABLET TAKE 1 TABLET BY MOUTH ONCE DAILY ORAL , NOTES: 10/15 8AM TAKING TAMSULOSIN HCL 0.4 MG CAPSULE ORAL DAILY, NOTES: 10/14 6PM TAKING WARFARIN SODIUM 5 MG TABLET TAKE 1 TABLET BY MOUTH ONCE DAILY ORAL , NOTES: 10/14 6PM TAKING PRAVASTATIN SODIUM 40 MG TABLET ORAL Q P.M., NOTES: 10/14 6PM TAKING GABAPENTIN 600 MG TABLET TAKE 1 TABLET BY MOUTH THREE TIMES A DAY ORAL , NOTES: 10/15 8AM TAKING CITALOPRAM HYDROBROMIDE 20 MG TABLET TAKE 1 TABLET BY MOUTH ONCE DAILY ORAL , NOTES: 08/13/16 99273/2 6PM TAKING RANITIDINE HCL 150 MG TABLET ORAL BID, NOTES: 10/15 8AM TAKING VALIUM 5 MG TABLET 1 TABLET NEEDED ORALLY TWICE A DAY, NOTES: WHEN NEEDED TAKING BACLOFEN 10 MG TABLET 1 TAB ORAL TID FOR SPASM, NOTES: 10/15 8AM TAKING ALBUTEROL SULFATE (2.5 MG/3ML) 0.083% NEBULIZATION SOLUTION 3 ML INHALATION THREE TIMES A DAY PRN, NOTES: NONE RECENTLY TAKING TRAMADOL HCL 50 MG TABLET 1 TAB ORALLY EVERY 6 HOURS NEEDED/MMD#4, NOTES: 10/14 6PM TAKING LIDOCAINE 5 % OINTMENT 1 STRIP EXTERNAL Q 6 HRS PRN PAIN - APPLY TO LOW BACK, NOTES: 10/14 6PM MEDICATION LIST REVIEWED AND RECONCILED WITH THE PATIENT PAST MEDICAL HISTORY 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 REVIEW OF SYSTEMS CONSTITUTIONAL: ANY CHANGE IN YOUR MEDICAL CONDITION? NO . CHILLS NO . FEVER NO . INFECTION: DO YOU HAVE NEW INFECTIONS? NO . DO YOU HAVE HISTORY OF MRSA? NO . MUSCULOSKELETAL: ANY NEW PATTERNS OF PAIN OR NUMBNESS? YES PT HAD TPI RIGHT SHOULDER/RIGHT NECK AREA 10/15/16. REPORTS GOOD RESULTS FOR A MONTH, WITH PAIN DOWN TO A 10/22. . GASTROENTEROLOGY: ANY NEW CHANGE IN BOWEL CONTROL? NO . GENITOURINARY: ANY NEW CHANGE IN BLADDER CONTROL? NO . IS THERE A CHANCE YOU COULD BE ? NO . HEMATOLOGY/LYMPH: DO YOU TAKE ANY BLOOD THINNERS? (FOR EXAMPLE- COUMADIN, PLAVIX, AGGRENOX, PLATEL, PRADAXA, OR XARELTO) YES . WHEN WAS YOUR LAST DOSE? DATE: TIME: . NEUROLOGY: HAVE YOU FALLEN IN THE PAST 6 MONTHS? NO . ANY NEW EXTREMITY NUMBNESS OR WEAKNESS? NO . CARDIOLOGY: DO YOU HAVE A PACEMAKER OR DEFIBRILLATOR? NO . RESPIRATORY: HAVE YOU BEEN SICK IN THE PAST WEEK? NO . FEVER NO . FLU LIKE SYMPTOMS? NO . COUGH NO . INTEGUMENTARY: DO YOU HAVE ANY RASHES OR OPEN SORES? NO . ALLERGIC/IMMUNO: ARE YOU ALLERGIC TO SHELLFISH OR IV DYE? NO . ANY NEW ALLERGIES? NO . PSYCHIATRIC: DO YOU HAVE THOUGHTS OF HURTING YOURSELF OR SOMEONE ELSE? NO . ARE YOU ABUSED, NEGLECTED, OR IN AN UNSAFE ENVIRONMENT? NO . ENDOCRINOLOGY: ARE YOU DIABETIC? NO . OTHER: DO YOU NEED ANY PRESCRIPTIONS? NO . IF YES, PLEASE LIST: ____ . ANY NEW PROBLEMS WITH YOUR MEDICATIONS? NO . WHEN DID YOU LAST EAT? ____ . WHEN DID YOU LAST DRINK? ____ . WHAT DID YOU LAST DRINK? ____ . NAME OF PERSON DRIVING YOU HOME? ____ . DO YOU HAVE ANY OTHER QUESTIONS OR CONCERNS NO . REVIEWED BY: PROVIDER: SKYLAR FERGUSON CULTURED [employer] MAKER . VITAL SIGNS WT 217.6 LBS, HT 68", BMI 33.08 INDEX, BP 137/79 MM HG, HR 76 /MIN, RR 16 /MIN, TEMP 97.7 F, OXYGEN SAT % 93%, SAFE IN ENV? (Y/N) YES, NA INITIALS AW 0944, REVIEWED BY: DANA. EXAMINATION GENERAL EXAMINATION: PSYCHSPEACH MONOTONE, ALERT , ORIENTED X 3 , APPROPRIATE MOOD AND AFFECT . LUNGS:BILATERAL SCATTERD WHEEZES. SLIGHT DECREASE AT BASES.. MUSCULOSKELETAL:TENDER OVER LUMBAR PARAVEREBRAL MUSCLES, RIGHT GREATER THAN LEFT. CANE USED FOR BALANCE., TRIGGER POINTS:, ELICITED WITH PALPATION OVER LUMBAR PARAVERTEBRAL MUSCLES AND INTO THE SECRUM. RESTRICTION OF ROM IN THIS AREA. ASSESSMENTS MYALGIA - M79.1 (PRIMARY) LOW BACK PAIN - M54.5 LUMBAR FACET ARTHROPATHY - M46.96 CERVICALGIA - M54.2 TREATMENT MYALGIA REFILL GABAPENTIN TABLET, 600 MG, TAKE 1 TABLET BY MOUTH THREE TIMES A DAY, ORAL, THREE TIMES A DAY, 90, 270, REFILLS 3 NOTES: CONTINUE EXERCISES AND DSTRETCHES. PROCEDURE CODES FA211 ESTABILISHED PATIENT [facility] CHARGE G8730 PAIN ASSESS POS TOOL F/U PLAN DOC G8427 DOC MEDS VERIFIED W/PT OR RE DISPOSITION & COMMUNICATION FOLLOW UP 3 MONTHS ELECTRONICALLY SIGNED BY JOSH GANN ON 12/10/2016 AT 05:09 PM EDT DISCLAIMER : THIS IS A VISIT SUMMARY EXTRACTED FROM THE [employer] CHART. IT IS NOT A COPY OF THE [employer] PROGRESS NOTE. [employer]
== END ==
LOC: M PAIN 09:40
PROVIDERS: ATTEND Nurse Practitioner Family
DX: M79.1 Myalgia (principal); M54.5 Low back pain; M46.96 Unspecified inflammatory spondylopathy, lumbar region; M54.2 Cervicalgia; Z79.891 Long term (current) use of opiate analgesic; Z79.899 Other long term (current) drug therapy

== ENCOUNTER → 2017-02-13 | Outpatient (CLI) | payer MEDICARE, MEDICAID ==
[~2017-02-13] MED LIST changes: +CIPR-249 PO; -CIPR500T89 PO; -COLA100C3 PO; +COLA100C5 PO; +VOLT1GEL15 TD; -VOLT1GEL24 TD
--- NOTE | 2017-03-09 23:39 | ECWPNPC ---
PATIENT NAME: MARY MOODY : 1950 GENDER: MALE VISIT DATE: 02/13/2017 DISCHARGE DATE: 02/13/17 1239 VISIT LOCKED DATE TIME: PHYSICIAN: SKYLAR FERGUSON RESOURCE: SKYLAR FERGUSON HISTORY OF PRESENT ILLNESS HISTORY OF PRESENT ILLNESS: PAIN THE PATIENT DESCRIBES THE PAIN... FALL RISK SCREENING: SCREENING :NO FALLS IN THE PAST YEAR TODAY'S VISIT: NOTES: RATES PAIN TODAY 7/10 PAIN IS IN RIGHT ANTERIOR SHOULDER AND LOW BACK RIGHT SIDE. TRAMADOL HEL WITH PAIN CONTROL. HAS NO ADVERSE SIDE EFFECTS FROM THIS. GABAPENTIN WAS INCREASED TO 800MG.. CURRENT MEDICATIONS TAKING GVPUU-1-EORX ETHYL ESTERS 1 GM CAPSULE ORAL DAILY TAKING POLYETHYLENE GLYCOL 3350 POWDER ORAL Q 3 DAYS TAKING ALLOPURINOL 100 MG TABLET TAKE 1 TABLET BY MOUTH ONCE DAILY ORAL TAKING TAMSULOSIN HCL 0.4 MG CAPSULE ORAL DAILY TAKING WARFARIN SODIUM 5 MG TABLET TAKE 1 TABLET BY MOUTH ONCE DAILY ORAL TAKING PRAVASTATIN SODIUM 40 MG TABLET ORAL Q P.M. TAKING CITALOPRAM HYDROBROMIDE 20 MG TABLET TAKE 1 TABLET BY MOUTH ONCE DAILY ORAL TAKING RANITIDINE HCL 150 MG TABLET ORAL BID TAKING VALIUM 5 MG TABLET 1 TABLET NEEDED ORALLY TWICE A DAY TAKING ALBUTEROL SULFATE (2.5 MG/3ML) 0.083% NEBULIZATION SOLUTION 3 ML INHALATION THREE TIMES A DAY PRN TAKING TRAMADOL HCL 50 MG TABLET 1 TAB ORALLY EVERY 6 HOURS NEEDED/MMD#4 TAKING LIDOCAINE 5 % OINTMENT 1 STRIP EXTERNAL Q 6 HRS PRN PAIN - APPLY TO LOW BACK TAKING GABAPENTIN 800 MG TABLET ORALLY THREE TIMES A DAY TAKING BACLOFEN 10 MG TABLET 1 TAB ORAL TID FOR SPASM MEDICATION LIST REVIEWED AND RECONCILED WITH THE PATIENT PAST MEDICAL HISTORY 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 REVIEW OF SYSTEMS REVIEWED BY: PROVIDER: SKYLAR REDMAN . CONSTITUTIONAL: ANY CHANGE IN YOUR MEDICAL CONDITION? YES, CURRENTLY BEING CHECKED FOR MS. GOES TO [facility] ON THE FOR TESTING . CHILLS NO . FEVER NO . INFECTION: DO YOU HAVE NEW INFECTIONS? NO . DO YOU HAVE HISTORY OF MRSA? NO . MUSCULOSKELETAL: ANY NEW PATTERNS OF PAIN OR NUMBNESS? NO . GASTROENTEROLOGY: ANY NEW CHANGE IN BOWEL CONTROL? NO . GENITOURINARY: ANY NEW CHANGE IN BLADDER CONTROL? NO . IS THERE A CHANCE YOU COULD BE ? NO . HEMATOLOGY/LYMPH: DO YOU TAKE ANY BLOOD THINNERS? (FOR EXAMPLE- COUMADIN, PLAVIX, AGGRENOX, PLATEL, PRADAXA, OR XARELTO) YES . WHEN WAS YOUR LAST DOSE? DATE: TIME: . NEUROLOGY: HAVE YOU FALLEN IN THE PAST 6 MONTHS? NO . ANY NEW EXTREMITY NUMBNESS OR WEAKNESS? NO . CARDIOLOGY: DO YOU HAVE A PACEMAKER OR DEFIBRILLATOR? NO . RESPIRATORY: HAVE YOU BEEN SICK IN THE PAST WEEK? NO . FEVER NO . FLU LIKE SYMPTOMS? NO . COUGH NO . INTEGUMENTARY: DO YOU HAVE ANY RASHES OR OPEN SORES? NO . ALLERGIC/IMMUNO: ARE YOU ALLERGIC TO SHELLFISH OR IV DYE? NO . ANY NEW ALLERGIES? NO . PSYCHIATRIC: DO YOU HAVE THOUGHTS OF HURTING YOURSELF OR SOMEONE ELSE? NO . ARE YOU ABUSED, NEGLECTED, OR IN AN UNSAFE ENVIRONMENT? NO . ENDOCRINOLOGY: ARE YOU DIABETIC? NO . OTHER: DO YOU NEED ANY PRESCRIPTIONS? NO . IF YES, PLEASE LIST: ____ . ANY NEW PROBLEMS WITH YOUR MEDICATIONS? NO . WHEN DID YOU LAST EAT? ____ . WHEN DID YOU LAST DRINK? ____ . WHAT DID YOU LAST DRINK? ____ . NAME OF PERSON DRIVING YOU HOME? ____ . DO YOU HAVE ANY OTHER QUESTIONS OR CONCERNS NO . VITAL SIGNS WT 215 LBS, HT 68", BMI 32.69 INDEX, BP 123/80 MM HG, HR 66 /MIN, RR 16 /MIN, TEMP 98.3 F, OXYGEN SAT % 93%, NA INITIALS AW 1144, REVIEWED BY: NL. EXAMINATION GENERAL EXAMINATION: PSYCHSPEACH MONOTONE, ALERT , ORIENTED X 3 , APPROPRIATE MOOD AND AFFECT . LUNGS:BILATERAL SCATTERD WHEEZES. SLIGHT DECREASE AT BASES.. MUSCULOSKELETAL:TENDER OVER LUMBAR PARAVEREBRAL MUSCLES, RIGHT GREATER THAN LEFT. CANE USED FOR BALANCE., TRIGGER POINTS:, ELICITED WITH PALPATION OVER LUMBAR PARAVERTEBRAL MUSCLES AND INTO THE SECRUM. RESTRICTION OF ROM IN THIS AREA. ASSESSMENTS MYALGIA - M79.1 (PRIMARY) LOW BACK PAIN - M54.5 LUMBAR FACET ARTHROPATHY - M46.96 CERVICALGIA - M54.2 TREATMENT MYALGIA START PERCOCET TABLET, 5-325 MG, 1 TABLET NEEDED, ORALLY, DAILY NEEDED FOR SEVERE PAIN MDD=1, 30 DAY(S), 20, REFILLS 0 REFILL TRAMADOL HCL TABLET, 50 MG, 1 TAB, ORALLY, EVERY 6 HOURS NEEDED/MMD#4, 30 DAYS, 120, REFILLS 2 TRIGGER POINT 3 + SKYLAR MARCIAL 02/13/2017 12:24:29 PM > ALONG INCISION TO LOW BACKRIGHT SIDE NOTES: WILL GET AUTH FROM PCP BENITO CEJA AT [facility] TO PUT COUMDIN ON HOLD. DO NOT STOP COUMADIN FOR TRIGGERS. CLINICAL NOTES: ISTOP REGISTRY REVIEWED AND DEMNOSTRATES COMPLLIANCE. BRINGS IN MEDICATIONS WHICH IS APPROPRIATE FOR WHAT WAS DISPENSED. PREVENTIVE MEDICINE DISCUSSED PRE PROCEDURE CARE WITH PT AND FAMILY / UNDERSTANDING EXPRESSED. PROCEDURE CODES FA211 ESTABILISHED PATIENT [facility] FACILITY CHARGE [id number] PAIN ASSESS POS TOOL F/U PLAN DOC G8427 DOC MEDS VERIFIED W/PT OR RE DISPOSITION & COMMUNICATION FOLLOW UP AFTER INJECTION (REASON: CHECK AUTH FOR TPI) ELECTRONICALLY SIGNED BY JOSH GANN ON 03/09/2017 AT 02:37 PM EDT DISCLAIMER : THIS IS A VISIT SUMMARY EXTRACTED FROM THE [employer] CHART. IT IS NOT A COPY OF THE [employer] PROGRESS NOTE. MTDD
== END ==
LOC: M PAIN 11:00
PROVIDERS: ATTEND Nurse Practitioner Family
DX: M79.1 Myalgia (principal); M54.5 Low back pain; M46.96 Unspecified inflammatory spondylopathy, lumbar region; M54.2 Cervicalgia; Z79.891 Long term (current) use of opiate analgesic; Z79.899 Other long term (current) drug therapy; Z79.01 Long term (current) use of anticoagulants

== ENCOUNTER → 2017-02-27 | Outpatient (CLI) | payer MEDICARE, MEDICAID ==
[~2017-02-27] MED LIST changes: +BUPIVACAINE HCL 0.25% 10 ML VIAL As Ordered ONE; +BUPIVACAINE HCL 0.25% 30 ML VIAL As Ordered ONE; +TRIAMCINOLONE ACETONIDE SUSP 40 MG/ML VIAL (J3301) As Ordered ONE; +diazePAM 5 MG TAB As Ordered ONE; +oxyCODONE 5MG TAB As Ordered ONE
--- NOTE | 2017-03-03 23:48 | ECWPNPC ---
PATIENT NAME: MARY MOODY : 1950 GENDER: MALE VISIT DATE: 02/27/2017 DISCHARGE DATE: 02/27/171534 VISIT LOCKED DATE TIME: PHYSICIAN: PRATEEK CARRILLO RESOURCE: PRATEEK CARRILLO REASON FOR APPOINTMENT 1. TPI RIGHT SHOULDER AND BILATERAL LOWER BACK HISTORY OF PRESENT ILLNESS HISTORY OF PRESENT ILLNESS: PAIN THE PATIENT DESCRIBES THE PAIN... FALL RISK SCREENING: SCREENING :NO FALLS IN THE PAST YEAR CURRENT MEDICATIONS TAKING [id number]-1-[id number] ETHYL ESTERS 1 GM CAPSULE ORAL DAILY, NOTES: 02-27-17899 TAKING POLYETHYLENE GLYCOL 3350 POWDER ORAL Q 3 DAYS, NOTES: 02-27-17899 TAKING ALLOPURINOL 100 MG TABLET TAKE 1 TABLET BY MOUTH ONCE DAILY ORAL , NOTES: 02-27-17899 TAKING TAMSULOSIN HCL 0.4 MG CAPSULE ORAL DAILY, NOTES: 02-27-17899 TAKING WARFARIN SODIUM 5 MG TABLET TAKE 1 TABLET BY MOUTH ONCE DAILY ORAL , NOTES: 02-26-17 6PM TAKING PRAVASTATIN SODIUM 40 MG TABLET ORAL Q P.M., NOTES: 02-26-17 6PM TAKING CITALOPRAM HYDROBROMIDE 20 MG TABLET TAKE 1 TABLET BY MOUTH ONCE DAILY ORAL , NOTES: 02-26-17 6PM TAKING RANITIDINE HCL 150 MG TABLET ORAL BID, NOTES: 02-27-17899 TAKING VALIUM 5 MG TABLET 1 TABLET NEEDED ORALLY TWICE A DAY, NOTES: NONE TODAY TAKING ALBUTEROL SULFATE (2.5 MG/3ML) 0.083% NEBULIZATION SOLUTION 3 ML INHALATION THREE TIMES A DAY PRN, NOTES: NONE TAKING GABAPENTIN 800 MG TABLET ORALLY THREE TIMES A DAY, NOTES: 02-27-17899 TAKING BACLOFEN 10 MG TABLET 1 TAB ORAL TID FOR SPASM, NOTES: 02-27-17899 TAKING PERCOCET 5-325 MG TABLET 1 TABLET NEEDED ORALLY DAILY NEEDED FOR SEVERE PAIN MDD=1, NOTES: NONE TAKING TRAMADOL HCL 50 MG TABLET 1 TAB ORALLY EVERY 6 HOURS NEEDED/MMD#4, NOTES: 02-27-17899 TAKING LIDOCAINE 5 % OINTMENT 1 STRIP EXTERNAL Q 6 HRS PRN PAIN - APPLY TO LOW BACK, NOTES: 02-26-17 PM MEDICATION LIST REVIEWED AND RECONCILED WITH THE PATIENT PAST MEDICAL HISTORY 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 REVIEW OF SYSTEMS REVIEWED BY: PROVIDER: . CONSTITUTIONAL: ANY CHANGE IN YOUR MEDICAL CONDITION? NO . CHILLS NO . FEVER NO . INFECTION: DO YOU HAVE NEW INFECTIONS? NO . DO YOU HAVE HISTORY OF MRSA? NO . MUSCULOSKELETAL: ANY NEW PATTERNS OF PAIN OR NUMBNESS? NO . GASTROENTEROLOGY: ANY NEW CHANGE IN BOWEL CONTROL? NO . GENITOURINARY: ANY NEW CHANGE IN BLADDER CONTROL? NO . IS THERE A CHANCE YOU COULD BE ? NO . HEMATOLOGY/LYMPH: DO YOU TAKE ANY BLOOD THINNERS? (FOR EXAMPLE- COUMADIN, PLAVIX, AGGRENOX, PLATEL, PRADAXA, OR XARELTO) YES, COUMADIN . WHEN WAS YOUR LAST DOSE? DATE: TIME: 02-26-17 6PM . NEUROLOGY: HAVE YOU FALLEN IN THE PAST 6 MONTHS? NO . ANY NEW EXTREMITY NUMBNESS OR WEAKNESS? NO . CARDIOLOGY: DO YOU HAVE A PACEMAKER OR DEFIBRILLATOR? NO . RESPIRATORY: HAVE YOU BEEN SICK IN THE PAST WEEK? NO . FEVER NO . FLU LIKE SYMPTOMS? NO . COUGH NO . INTEGUMENTARY: DO YOU HAVE ANY RASHES OR OPEN SORES? NO . ALLERGIC/IMMUNO: ARE YOU ALLERGIC TO SHELLFISH OR IV DYE? NO . ANY NEW ALLERGIES? NO . PSYCHIATRIC: DO YOU HAVE THOUGHTS OF HURTING YOURSELF OR SOMEONE ELSE? NO . ARE YOU ABUSED, NEGLECTED, OR IN AN UNSAFE ENVIRONMENT? NO . ENDOCRINOLOGY: ARE YOU DIABETIC? NO . OTHER: DO YOU NEED ANY PRESCRIPTIONS? YES . IF YES, PLEASE LIST: LIDOCAINE. NEEDS PRIOR AUTH . ANY NEW PROBLEMS WITH YOUR MEDICATIONS? NO . WHEN DID YOU LAST EAT? 02-27-17899 . WHEN DID YOU LAST DRINK? 02-27-17899 . WHAT DID YOU LAST DRINK? WATER . NAME OF PERSON DRIVING YOU HOME? ONEIL . DO YOU HAVE ANY OTHER QUESTIONS OR CONCERNS NO . VITAL SIGNS WT 215 LBS, HT 68", BMI 32.69 INDEX, BP 110/66 MM HG, HR 73 /MIN, RR 16 /MIN, TEMP 98.3 F, OXYGEN SAT % 92%, NA INITIALS AW 1344, REVIEWED BY: CM. ASSESSMENTS MYALGIA - M79.1 (PRIMARY) PROCEDURES PN TRIGGER POINT INJECTION WITH STEROIDS PRE PROCEDURE DIAGNOSIS 1. MYALGIA 2. PAIN AT RIGHT SHOULDER AND BILATERAL LOWER BACK POST PROCEDURE DIAGNOSIS 1. MYALGIA 2. PAIN AT RIGHT SHOULDER AND BILATERAL LOWER BACK PROCEDURE TRIGGER POINT INJECTION AT RIGHT SHOULDER AND AT BILATERAL LOWER BACK AREA SURGEON DR. PRATEEK CARRILLO GUARD SUPERVISOR NONE ANESTHESIA LOCAL PRE PROCEDURE NOTE THE PATIENT HAS A HISTORY OF CHRONIC PAIN AT THE RIGHT SHOULDER AREA AND AT THE RIGHT AND LEFT LOWER BACK AREA. I EVALUATE THE PATIENT AND REVIEWED THE CHART. THERE IS EVIDENCE OF BANDS OF TISSUE WITH RESTRICTION OF MOVEMENT AND PRESENCE OF TRIGGER POINT AT THE AFFECTED AREA. I WENT OVER THE RISKS, ALTERNATIVES, AND BENEFITS ASSOCIATED WITH THIS PROCEDURE. THE PATIENT WOULD LIKE TO PROCEED AND GIVE CONSENT TO PERFORMED THE PROCEDURE. THE PATIENT DENIES UNEXPLAINABLE WEIGHT LOSS, FEVER, CHILLS, OR NEW CHANGES IN URINARY OR BOWEL CONTROL DESCRIPTION OF PROCEDURE THE PATIENT WAS BROUGHT TO THE PROCEDURE ROOM AND PLACED IN THE SITTING POSITION. THE AREA WAS CLEANED WITH ALCOHOL. THE PROCEDURE WAS DONE USING ASEPTIC STERILE TECHNIQUE. I CHECKED LATERALITY AND THE LEVEL WHERE THE PROCEDURE WAS GOING TO BE PERFORMED WITH THE PATIENT AND THE SUPPORTING STAFF AT THE MOMENT OF THE TIME OUT IN THE PROCEDURE ROOM. USING A 25-GAUGE NEEDLE, TRIGGER POINTS WERE INJECTED AT THE RIGHT SHOULDER AREA AND AT THE RIGHT AND LEFT LOWER BACK AREA WITH A TOTAL OF 40 ML OF BUPIVACAINE 0.25% AND KENALOG 40 MG. THERE WAS NO EVIDENCE OF BLOOD, PARESTHESIA OR CEREBROSPINAL FLUID DURING THE PROCEDURE. THE PATIENT WAS SENT TO THE RECOVERY ROOM. THE PATIENT WAS MOVING THE EXTREMITIES AND DOING WELL. THERE WAS NO COMPLICATION DURING THE PROCEDURE POST PROCEDURE NOTE THE PATIENT WILL BE SEEN IN A FOLLOW UP IN THE NEXT FEW WEEKS. INSTRUCTIONS WERE GIVEN, QUESTIONS WERE ANSWERED, AND THE PATIENT EXPRESSED UNDERSTANDING AND AGREES WITH THE PLAN. I YOVANI TRIPATHI DOCUMENTED THE ABOVE INFORMATION ACTING A EXTRUDER OPERATOR HELPER FOR DR. CARRILLO. I HAVE REVIEWED THE ABOVE DOCUMENT WRITTEN BY YOVANI TRIPATHI SCRIBDawna AND I VERIFY THAT IT IS ACCURATE. PROCEDURE CODES 32642 INJECT TRIGGER POINTS 3/> DISPOSITION & COMMUNICATION FOLLOW UP 3 WEEKS ELECTRONICALLY SIGNED BY PRATEEK CARRILLO MD ON 03/03/2017 AT 12:53 PM EDT DISCLAIMER : THIS IS A VISIT SUMMARY EXTRACTED FROM THE [employer] CHART. IT IS NOT A COPY OF THE [employer] PROGRESS NOTE. [facility]
== END ==
LOC: M PAIN 13:30
PROVIDERS: ATTEND Anesthesiology
DX: G89.29 Other chronic pain (principal); M79.1 Myalgia; M25.511 Pain in right shoulder; M54.5 Low back pain; Z79.891 Long term (current) use of opiate analgesic; Z79.01 Long term (current) use of anticoagulants; Z79.899 Other long term (current) drug therapy
CPT/HCPCS: 20553; J3301

== ENCOUNTER → 2017-03-13 | Outpatient (CLI) | payer MEDICARE, MEDICAID ==
[~2017-03-13] MED LIST changes: -BUPIVACAINE HCL 0.25% 10 ML VIAL As Ordered ONE; -BUPIVACAINE HCL 0.25% 30 ML VIAL As Ordered ONE; -TRIAMCINOLONE ACETONIDE SUSP 40 MG/ML VIAL (J3301) As Ordered ONE; -diazePAM 5 MG TAB As Ordered ONE; -oxyCODONE 5MG TAB As Ordered ONE
--- NOTE | 2017-03-27 01:22 | ECWPNPC ---
PATIENT NAME: MARY MOODY : 1950 GENDER: MALE VISIT DATE: 03/13/2017 DISCHARGE DATE: 03/13/17 0916 VISIT LOCKED DATE TIME: PHYSICIAN: SKYLAR FERGUSON RESOURCE: SKYLAR FERGUSON REASON FOR APPOINTMENT 1. POST TPI HISTORY OF PRESENT ILLNESS HISTORY OF PRESENT ILLNESS: PAIN THE PATIENT DESCRIBES THE PAIN... FALL RISK SCREENING: SCREENING :NO FALLS IN THE PAST YEAR TODAY'S VISIT: NOTES: RATES PAIN LEVEL TODAY 5/10. IS S/P TRIGGER POINT INJECTIONS TO RIGHT SHOULDER AND BILATERAL LOW BACK WITH STEROIDS COMPLETED ON 02/27/17. IS NOTING IMPROVEMENT IN PAIN OVER RIGHT SCAPULA . TODAY NOTES THE WORST PAIN IS CENTERED IN RIGHT AC JOINT AND IS WORSE WITH MOVEMENT. SOME IMPROVEMET IN PIN IN LOW BACK MUSCLES BUT AREA IS STILL SENSITVE. SLEEP IS FAIRLY GOOD - NOCTURIA X 2. . CURRENT MEDICATIONS TAKING [id number] ETHYL ESTERS 1 GM CAPSULE ORAL DAILY TAKING POLYETHYLENE GLYCOL 3350 POWDER ORAL Q 3 DAYS TAKING ALLOPURINOL 100 MG TABLET TAKE 1 TABLET BY MOUTH ONCE DAILY ORAL TAKING TAMSULOSIN HCL 0.4 MG CAPSULE ORAL DAILY TAKING WARFARIN SODIUM 5 MG TABLET TAKE 1 TABLET BY MOUTH ONCE DAILY ORAL TAKING PRAVASTATIN SODIUM 40 MG TABLET ORAL Q P.M. TAKING CITALOPRAM HYDROBROMIDE 20 MG TABLET TAKE 1 TABLET BY MOUTH ONCE DAILY ORAL TAKING RANITIDINE HCL 150 MG TABLET ORAL BID TAKING VALIUM 5 MG TABLET 1 TABLET NEEDED ORALLY TWICE A DAY TAKING ALBUTEROL SULFATE (2.5 MG/3ML) 0.083% NEBULIZATION SOLUTION 3 ML INHALATION THREE TIMES A DAY PRN TAKING GABAPENTIN 800 MG TABLET ORALLY THREE TIMES A DAY TAKING BACLOFEN 10 MG TABLET 1 TAB ORAL TID FOR SPASM TAKING PERCOCET 5-325 MG TABLET 1 TABLET NEEDED ORALLY DAILY NEEDED FOR SEVERE PAIN MDD=1 TAKING TRAMADOL HCL 50 MG TABLET 1 TAB ORALLY EVERY 6 HOURS NEEDED/MMD#4 TAKING LIDOCAINE 5 % OINTMENT 1 STRIP EXTERNAL Q 6 HRS PRN PAIN - APPLY TO LOW BACK MEDICATION LIST REVIEWED AND RECONCILED WITH THE PATIENT PAST MEDICAL HISTORY 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 SURGICAL HISTORY L4-5 AND L3-4 DECOMPRESSIVE LUMBAR SPINE SURGURY RIGHT ROTATOR CUFF SURGURY REVIEW OF SYSTEMS REVIEWED BY: PROVIDER: SKYLAR LESTERP . CONSTITUTIONAL: ANY CHANGE IN YOUR MEDICAL CONDITION? NO . CHILLS NO . FEVER NO . INFECTION: DO YOU HAVE NEW INFECTIONS? NO . DO YOU HAVE HISTORY OF MRSA? NO . MUSCULOSKELETAL: ANY NEW PATTERNS OF PAIN OR NUMBNESS? NO . GASTROENTEROLOGY: ANY NEW CHANGE IN BOWEL CONTROL? NO . GENITOURINARY: ANY NEW CHANGE IN BLADDER CONTROL? NO . IS THERE A CHANCE YOU COULD BE ? NO . HEMATOLOGY/LYMPH: DO YOU TAKE ANY BLOOD THINNERS? (FOR EXAMPLE- COUMADIN, PLAVIX, AGGRENOX, PLATEL, PRADAXA, OR XARELTO) YES, COUMADIN . WHEN WAS YOUR LAST DOSE? DATE: TIME: . NEUROLOGY: HAVE YOU FALLEN IN THE PAST 6 MONTHS? NO . ANY NEW EXTREMITY NUMBNESS OR WEAKNESS? NO . CARDIOLOGY: DO YOU HAVE A PACEMAKER OR DEFIBRILLATOR? NO . RESPIRATORY: HAVE YOU BEEN SICK IN THE PAST WEEK? NO . FEVER NO . FLU LIKE SYMPTOMS? NO . COUGH NO . INTEGUMENTARY: DO YOU HAVE ANY RASHES OR OPEN SORES? NO . ALLERGIC/IMMUNO: ARE YOU ALLERGIC TO SHELLFISH OR IV DYE? NO . ANY NEW ALLERGIES? NO . PSYCHIATRIC: DO YOU HAVE THOUGHTS OF HURTING YOURSELF OR SOMEONE ELSE? NO . ARE YOU ABUSED, NEGLECTED, OR IN AN UNSAFE ENVIRONMENT? NO . ENDOCRINOLOGY: ARE YOU DIABETIC? NO . OTHER: DO YOU NEED ANY PRESCRIPTIONS? YES, [place] WAS ORDERED BUT PT STILL HASN'T RECEIVED IT YET FOR PRIOR AUTHORIZATION&NBSP;. IF YES, PLEASE LIST: &NBSP;&NBSP; ____&NBSP;. ANY NEW PROBLEMS WITH YOUR MEDICATIONS? &NBSP;&NBSP; NO&NBSP;. WHEN DID YOU LAST EAT? &NBSP;&NBSP; ____&NBSP;. WHEN DID YOU LAST DRINK? &NBSP;&NBSP; ____&NBSP;. WHAT DID YOU LAST DRINK? &NBSP;&NBSP; ____&NBSP;. NAME OF PERSON DRIVING YOU HOME? &NBSP;&NBSP; ____&NBSP;. DO YOU HAVE ANY OTHER QUESTIONS OR CONCERNS &NBSP;&NBSP; NO&NBSP;. VITAL SIGNS WT 214 LBS, HT 68", BMI 32.54 INDEX, BP 120/76 MM HG, HR 63 /MIN, RR 16 /MIN, TEMP 977.6 F, OXYGEN SAT % 92, REVIEWED BY: EM. EXAMINATION GENERAL EXAMINATION: PSYCHSPEACH MONOTONE, ALERT , ORIENTED X 3 , APPROPRIATE MOOD AND AFFECT . LUNGS:BILATERAL SCATTERD WHEEZES. SLIGHT DECREASE AT BASES.. MUSCULOSKELETAL:TENDER OVER LUMBAR PARAVERTEBRAL MUSCLES, RIGHT GREATER THAN LEFT. CANE USED FOR BALANCE., TRIGGER POINTS:, ELICITED WITH PALPATION OVER LUMBAR PARAVERTEBRAL MUSCLES AND INTO THE SACRUM. RESTRICTION OF ROM IN THIS AREA. ASSESSMENTS MYALGIA - M79.1 (PRIMARY) LOW BACK PAIN - M54.5 TREATMENT MYALGIA REFILL LIDOCAINE CREAM, 4 %, ONE APPLICATION, EXTERNALLY, Q 6 HRS PRN PAIN - APPLY TO LOW BACK, 30 DAY(S), 3 TUBE, REFILLS 2 TRIGGER POINT 3 + SKYLAR MARCIAL 03/13/2017 9:06:22 AM > LOW BACK NOTES: CALL TO GET APPOINTMENT AT [facility] FOR SHOULDER JOINT. PROCEDURE CODES FA211 ESTABILISHED PATIENT [facility] FACILITY CHARGE G8730 PAIN ASSESS POS TOOL F/U PLAN DOC G8427 DOC MEDS VERIFIED W/PT OR RE DISPOSITION & COMMUNICATION FOLLOW UP SCHED TPI FOR LATE MAR (REASON: CHECK AUTH FOR TPI) ELECTRONICALLY SIGNED BY JOSH GANN ON 03/26/2017 AT 08:48 AM EDT DISCLAIMER : THIS IS A VISIT SUMMARY EXTRACTED FROM THE [employer] [facility] CHART. IT IS NOT A COPY OF THE [employer] PROGRESS NOTE. INO
== END ==
LOC: M PAIN 08:30
PROVIDERS: ATTEND Nurse Practitioner Family
DX: M79.1 Myalgia (principal); M54.5 Low back pain; E78.00 Pure hypercholesterolemia, unspecified; F32.9 Major depressive disorder, single episode, unspecified; I69.891 Dysphagia following other cerebrovascular disease; I69.898 Other sequelae of other cerebrovascular disease; G62.9 Polyneuropathy, unspecified; Z79.01 Long term (current) use of anticoagulants; Z79.891 Long term (current) use of opiate analgesic; Z79.899 Other long term (current) drug therapy

== ENCOUNTER → 2017-05-22 | Outpatient (CLI) | payer MEDICARE, MEDICAID ==
--- NOTE | 2017-06-13 01:47 | ECWPNPC ---
PATIENT NAME: MARY MOODY : 1950 GENDER: MALE VISIT DATE: 05/22/2017 DISCHARGE DATE: 05/22/17 1242 VISIT LOCKED DATE TIME: PHYSICIAN: SKYLAR FERGUSON RESOURCE: SKYLAR FERGUSON REASON FOR APPOINTMENT 1. POST PROCEDURE HISTORY OF PRESENT ILLNESS HISTORY OF PRESENT ILLNESS: PAIN THE PATIENT DESCRIBES THE PAIN... FALL RISK SCREENING: SCREENING :NO FALLS IN THE PAST YEAR TODAY'S VISIT: NOTES: S/P TPI WITH GOOD IMPROVEMENT IN PAIN IN LOW BACK ABLE TO WALK FARTHER AND STAND LONGER. CURRENT MEDICATIONS TAKING [id number] ETHYL ESTERS 1 GM CAPSULE ORAL DAILY TAKING POLYETHYLENE GLYCOL 3350 POWDER ORAL Q 3 DAYS TAKING ALLOPURINOL 100 MG TABLET TAKE 1 TABLET BY MOUTH ONCE DAILY ORAL TAKING TAMSULOSIN HCL 0.4 MG CAPSULE ORAL DAILY TAKING WARFARIN SODIUM 5 MG TABLET TAKE 1 TABLET BY MOUTH ONCE DAILY ORAL TAKING PRAVASTATIN SODIUM 40 MG TABLET ORAL Q P.M. TAKING CITALOPRAM HYDROBROMIDE 20 MG TABLET TAKE 1 TABLET BY MOUTH ONCE DAILY ORAL TAKING RANITIDINE HCL 150 MG TABLET ORAL BID TAKING VALIUM 5 MG TABLET 1 TABLET NEEDED ORALLY TWICE A DAY TAKING ALBUTEROL SULFATE (2.5 MG/3ML) 0.083% NEBULIZATION SOLUTION 3 ML INHALATION THREE TIMES A DAY PRN TAKING GABAPENTIN 800 MG TABLET ORALLY DAILY TAKING PERCOCET 5-325 MG TABLET 1 TABLET NEEDED ORALLY DAILY NEEDED FOR SEVERE PAIN MDD=1 TAKING TRAMADOL HCL 50 MG TABLET 1 TAB ORALLY EVERY 6 HOURS NEEDED/MMD#4 TAKING LIDOCAINE 4 % CREAM ONE APPLICATION EXTERNALLY Q 6 HRS PRN PAIN - APPLY TO LOW BACK TAKING BACLOFEN 10 MG TABLET 1 TAB ORAL TID FOR SPASM TAKING LYRICA 100 MG CAPSULE 1 CAPSULE ORALLY BID MEDICATION LIST REVIEWED AND RECONCILED WITH THE PATIENT PAST MEDICAL HISTORY STROKE WITH RIGHT SIDED WEAKNESS AND SPEECH APHASIA ALSO CHRONIC NUMBNESS AND TINGLING TO RIGHTLEG AND FOOT PERIPHERAL NEUROPATHY HYPECHOLESTEROLEMIA DEPRESSION SPINAL STENOSIS ALLERGIES NO[ALLERGIES VERIFIED] REVIEW OF SYSTEMS REVIEWED BY: PROVIDER: . CONSTITUTIONAL: ANY CHANGE IN YOUR MEDICAL CONDITION? NO . CHILLS NO . FEVER NO . INFECTION: DO YOU HAVE NEW INFECTIONS? NO . DO YOU HAVE HISTORY OF MRSA? NO . MUSCULOSKELETAL: ANY NEW PATTERNS OF PAIN OR NUMBNESS? NO . GASTROENTEROLOGY: ANY NEW CHANGE IN BOWEL CONTROL? NO . GENITOURINARY: ANY NEW CHANGE IN BLADDER CONTROL? NO . IS THERE A CHANCE YOU COULD BE ? NO . HEMATOLOGY/LYMPH: DO YOU TAKE ANY BLOOD THINNERS? (FOR EXAMPLE- COUMADIN, PLAVIX, AGGRENOX, PLATEL, PRADAXA, OR XARELTO) YES, COUMADIN . WHEN WAS YOUR LAST DOSE? DATE: TIME: . NEUROLOGY: HAVE YOU FALLEN IN THE PAST 6 MONTHS? NO . ANY NEW EXTREMITY NUMBNESS OR WEAKNESS? NO . CARDIOLOGY: DO YOU HAVE A PACEMAKER OR DEFIBRILLATOR? NO . RESPIRATORY: HAVE YOU BEEN SICK IN THE PAST WEEK? NO . FEVER NO . FLU LIKE SYMPTOMS? NO . COUGH NO . INTEGUMENTARY: DO YOU HAVE ANY RASHES OR OPEN SORES? NO . ALLERGIC/IMMUNO: ARE YOU ALLERGIC TO SHELLFISH OR IV DYE? NO . ANY NEW ALLERGIES? NO . PSYCHIATRIC: DO YOU HAVE THOUGHTS OF HURTING YOURSELF OR SOMEONE ELSE? NO . ARE YOU ABUSED, NEGLECTED, OR IN AN UNSAFE ENVIRONMENT? NO . ENDOCRINOLOGY: ARE YOU DIABETIC? NO . OTHER: DO YOU NEED ANY PRESCRIPTIONS? NO . IF YES, PLEASE LIST: ____ . ANY NEW PROBLEMS WITH YOUR MEDICATIONS? NO . WHEN DID YOU LAST EAT? ____ . WHEN DID YOU LAST DRINK? ____ . WHAT DID YOU LAST DRINK? ____ . NAME OF PERSON DRIVING YOU HOME? ____ . DO YOU HAVE ANY OTHER QUESTIONS OR CONCERNS NO . VITAL SIGNS WT 214.2 LBS, HT 68", BMI 32.57 INDEX, BP 105/80 MM HG, HR 60 /MIN, RR 16 /MIN, TEMP 96.8 F, OXYGEN SAT % 94%, NA INITIALS TL 1158. EXAMINATION GENERAL EXAMINATION: MUSCULOSKELETAL:MIN TO NO PAIN WITH PALPATION OVER LOW BACK. CANE USED FOR BALANCE. ASSESSMENTS MYALGIA - M79.1 (PRIMARY) LOW BACK PAIN - M54.5 TREATMENT MYALGIA TRIGGER POINT 3 + SKYLAR MARCIAL 05/22/2017 12:34:27 PM > LOW BACK NOTES: CONTINUE WALKING TOLERATED. CALL IF SCRIPTS NEEDED. OK TO TRY BIOFREEZE TO BACK IF NEEDED. PROCEDURE CODES FA211 ESTABILISHED PATIENT [facility] CHARGE DISPOSITION & COMMUNICATION FOLLOW UP JUL FOR TPI (REASON: CHECK AUTH FOR TPI FOR JULY) ELECTRONICALLY SIGNED BY JOSH GANN ON 06/11/2017 AT 08:36 AM EST DISCLAIMER : THIS IS A VISIT SUMMARY EXTRACTED FROM THE [employer] CHART. IT IS NOT A COPY OF THE [employer] PROGRESS NOTE. INO
== END ==
LOC: M PAIN 11:00
PROVIDERS: ATTEND Nurse Practitioner Family
DX: M79.1 Myalgia (principal); M54.5 Low back pain; Z79.891 Long term (current) use of opiate analgesic; Z79.899 Other long term (current) drug therapy; Z79.01 Long term (current) use of anticoagulants

== ENCOUNTER → 2017-07-17 | Outpatient (CLI) | payer MEDICARE, MEDICAID ==
[~2017-07-17] MED LIST changes: -/ACETCOD2T PO; -/RANI15TA PO; -/WARF5TA PO; -ALLO100T PO; -AMIT8CAP4 PO; -BACL10TA2 PO; +BUPIVACAINE HCL 0.25% 10 ML VIAL As Ordered; +BUPIVACAINE HCL 0.25% 30 ML VIAL As Ordered; -CELE10TA PO; -CIPR-249 PO; -CITA20TA2 PO; -CLOP75TA2 PO; -COLA100C5 PO; -COUM1TAB17 PO; -CYCL10TA PO; -EYEDRO OU; -FLEX10TA2 PO; -FLOM5CAP PO; -GABA400C PO; -HYDR-3713 PO; -LIDO4CRE2 EX; -LOVE0.8I SC; -MIRA3350 PO; -MIRA33504 PO; -NEUR600T PO; -OMEG100011 PO; -OMEG10002 PO; -PRAV40TA2 PO; -RANI15TA PO; -SALINE EYE OU; -SOMA250T PO; -TRAM50TA2 PO; +TRIAMCINOLONE ACETONIDE SUSP 40 MG/ML VIAL (J3301) As Ordered; -VALI5TAB PO; -VOLT1GEL15 TD; -WARF-18 PO; +diazePAM 5 MG TAB As Ordered; -miralax PO; +oxyCODONE 5MG TAB As Ordered; -stool softener PO
== END ==
LOC: M PAIN 13:00
DX: G89.29 Other chronic pain (principal); M54.5 Low back pain; M79.1 Myalgia; E78.00 Pure hypercholesterolemia, unspecified; F32.9 Major depressive disorder, single episode, unspecified; M48.07 Spinal stenosis, lumbosacral region; I69.951 Hemiplegia and hemiparesis following unspecified cerebrovascular disease affecting right dominant side; Z79.01 Long term (current) use of anticoagulants; Z79.899 Other long term (current) drug therapy
CPT/HCPCS: J3301

== ENCOUNTER → 2017-07-31 | Outpatient (CLI) | payer MEDICARE, MEDICAID | LOC: M PAIN 10:00 | DX: M79.1 Myalgia (principal); M54.5 Low back pain; I69.351 Hemiplegia and hemiparesis following cerebral infarction affecting right dominant side; R47.01 Aphasia; G90.09 Other idiopathic peripheral autonomic neuropathy; E78.00 Pure hypercholesterolemia, unspecified; F32.9 Major depressive disorder, single episode, unspecified; M48.00 Spinal stenosis, site unspecified; Z79.01 Long term (current) use of anticoagulants; Z79.899 Other long term (current) drug therapy; Z86.79 Personal history of other diseases of the circulatory system | CPT/HCPCS: G0463 ==

== ENCOUNTER → 2017-11-01 | Outpatient (CLI) | payer MEDICARE, MEDICAID | END | disposition home or self-care (01) | LOC: M PAIN 10:45 | DX: M79.1 Myalgia (principal); G89.29 Other chronic pain; G62.9 Polyneuropathy, unspecified; E78.00 Pure hypercholesterolemia, unspecified; F33.9 Major depressive disorder, recurrent, unspecified; M48.00 Spinal stenosis, site unspecified; Z86.73 Personal history of transient ischemic attack (TIA), and cerebral infarction without residual deficits; Z79.899 Other long term (current) drug therapy; Z79.01 Long term (current) use of anticoagulants | CPT/HCPCS: J3301 ==

== ENCOUNTER → 2017-11-18 | Outpatient (CLI) | payer MEDICARE, MEDICAID | LOC: M PAIN 11:30 | DX: M79.1 Myalgia (principal); M54.5 Low back pain; G62.9 Polyneuropathy, unspecified; E78.00 Pure hypercholesterolemia, unspecified; F32.9 Major depressive disorder, single episode, unspecified; Z79.01 Long term (current) use of anticoagulants; Z79.899 Other long term (current) drug therapy; Z86.73 Personal history of transient ischemic attack (TIA), and cerebral infarction without residual deficits; Z86.79 Personal history of other diseases of the circulatory system | CPT/HCPCS: G0463 ==

== ENCOUNTER → 2018-02-12 | Outpatient (CLI) | payer MEDICARE, MEDICAID | LOC: M PAIN 09:45 | DX: M79.1 Myalgia (principal); M54.5 Low back pain; G62.9 Polyneuropathy, unspecified; E78.00 Pure hypercholesterolemia, unspecified; F32.9 Major depressive disorder, single episode, unspecified; Z79.01 Long term (current) use of anticoagulants; Z79.899 Other long term (current) drug therapy; Z86.73 Personal history of transient ischemic attack (TIA), and cerebral infarction without residual deficits | CPT/HCPCS: G0463 ==

== ENCOUNTER → 2018-02-28 | Outpatient (CLI) | payer MEDICARE, MEDICAID | LOC: M PAIN 10:00 | DX: G89.29 Other chronic pain (principal); M79.1 Myalgia; E78.00 Pure hypercholesterolemia, unspecified; F32.9 Major depressive disorder, single episode, unspecified; Z79.01 Long term (current) use of anticoagulants; Z79.891 Long term (current) use of opiate analgesic; Z79.899 Other long term (current) drug therapy | CPT/HCPCS: J3301 ==

== ENCOUNTER → 2018-04-30 | Outpatient (CLI) | payer MEDICARE, MEDICAID | LOC: M PAIN 09:45 | DX: M79.18 Myalgia, other site (principal); M54.5 Low back pain; I69.351 Hemiplegia and hemiparesis following cerebral infarction affecting right dominant side; G62.9 Polyneuropathy, unspecified; E78.00 Pure hypercholesterolemia, unspecified; F32.9 Major depressive disorder, single episode, unspecified; Z79.01 Long term (current) use of anticoagulants; Z79.899 Other long term (current) drug therapy | CPT/HCPCS: G0463 ==

== ENCOUNTER → 2018-07-02 | Outpatient (CLI) | payer MEDICARE, MEDICAID ==
[~2018-07-02] MED LIST changes: +/ACETCOD2T PO; +/RANI15TA PO; +/WARF5TA PO; +ALLO100T PO; +AMIT8CAP4 PO; +BACL10TA2 PO; -BUPIVACAINE HCL 0.25% 10 ML VIAL As Ordered; +BUPIVACAINE HCL 0.25% 10 ML VIAL As Ordered ONE; -BUPIVACAINE HCL 0.25% 30 ML VIAL As Ordered; +BUPIVACAINE HCL 0.25% 30 ML VIAL As Ordered ONE; +CELE10TA PO; +CIPR-249 PO; +CITA20TA2 PO; +CLOP75TA2 PO; +COLA100C5 PO; +COUM1TAB17 PO; +CYCL10TA PO; +EYEDRO OU; +FLEX10TA2 PO; +FLOM0.4C39 PO; +GABA400C PO; +HYDR-3713 PO; +LIDO4CRE2 EX; +LOVE0.8I SC; +MIRA3350 PO; +MIRA33504 PO; +NEUR600T PO; +OMEG100011 PO; +OMEG10002 PO; +PRAV40TA2 PO; +RANI15TA PO; +SALINE EYE OU; +SOMA250T PO; +TRAM50TA2 PO; -TRIAMCINOLONE ACETONIDE SUSP 40 MG/ML VIAL (J3301) As Ordered; +TRIAMCINOLONE ACETONIDE SUSP 40 MG/ML VIAL (J3301) As Ordered ONE; +VALI5TAB PO; +VOLT1GEL15 TD; +WARF-18 PO; -diazePAM 5 MG TAB As Ordered; +diazePAM 5 MG TAB As Ordered ONE; +miralax PO; -oxyCODONE 5MG TAB As Ordered; +oxyCODONE 5MG TAB As Ordered ONE; +stool softener PO
--- NOTE | 2018-07-21 00:10 | ECWPNPC ---
PATIENT NAME: MARY MOODY : 1950 GENDER: MALE VISIT DATE: 07/02/2018 DISCHARGE DATE: 07/02/18 1052 VISIT LOCKED DATE TIME: PHYSICIAN: PRATEEK CARRILLO MD RESOURCE: PRATEEK CARRILLO MD REASON FOR APPOINTMENT 1. TPI HISTORY OF PRESENT ILLNESS HISTORY OF PRESENT ILLNESS: PAIN THE PATIENT DESCRIBES THE PAIN... FALL RISK SCREENING: SCREENING :NO FALLS IN THE PAST YEAR CURRENT MEDICATIONS TAKING [id number] ETHYL ESTERS 1 GM CAPSULE ORAL TWICE DAILY, NOTES: 07/01 1830 TAKING POLYETHYLENE GLYCOL 3350 POWDER ORAL Q 3 DAYS, NOTES: 07/01 1000 TAKING ALLOPURINOL 100 MG TABLET TAKE 1 TABLET BY MOUTH ONCE DAILY ORAL , NOTES: 07/01 1000 TAKING TAMSULOSIN HCL 0.4 MG CAPSULE ORAL DAILY, NOTES: 07/01 1000 TAKING WARFARIN SODIUM 5 MG TABLET TAKE 1 TABLET BY MOUTH ONCE DAILY ORAL , NOTES: 07/01 1830 TAKING PRAVASTATIN SODIUM 40 MG TABLET ORAL Q P.M., NOTES: 07/01 1830 TAKING CITALOPRAM HYDROBROMIDE 20 MG TABLET TAKE 1 TABLET BY MOUTH ONCE DAILY ORAL , NOTES: 07/01 1830 TAKING RANITIDINE HCL 150 MG TABLET ORAL BID, NOTES: 07/01 1830 TAKING VALIUM 5 MG TABLET 1 TABLET NEEDED ORALLY TWICE A DAY, NOTES: 07/01 1830 TAKING ALBUTEROL SULFATE (2.5 MG/3ML) 0.083% NEBULIZATION SOLUTION 3 ML INHALATION THREE TIMES A DAY PRN, NOTES: NONE RECENT TAKING PERCOCET 5-325 MG TABLET 1 TABLET NEEDED ORALLY DAILY NEEDED FOR SEVERE PAIN MDD=1, NOTES: NONE RECENT TAKING LIDOCAINE 4 % CREAM ONE APPLICATION EXTERNALLY Q 6 HRS PRN PAIN - APPLY TO LOW BACK, NOTES: 07/01 1830 TAKING LYRICA 100 MG CAPSULE 1 CAPSULE ORALLY BID, NOTES: 07/01 1830 TAKING TRAMADOL HCL 50 MG TABLET 1 TAB ORALLY EVERY 6 HOURS NEEDED/MMD#4, NOTES: 07/01 1830 TAKING BACLOFEN 10 MG TABLET 1 TAB ORAL TID FOR SPASM, NOTES: 07/01 1830 MEDICATION LIST REVIEWED AND RECONCILED WITH THE PATIENT PAST MEDICAL HISTORY STROKE WITH RIGHT SIDED WEAKNESS AND SPEECH APHASIA ALSO CHRONIC NUMBNESS AND TINGLING TO RIGHTLEG AND FOOT PERIPHERAL NEUROPATHY HYPECHOLESTEROLEMIA DEPRESSION SPINAL STENOSIS TIA ALLERGIES N.K.D.A. SURGICAL HISTORY L4-5 AND L3-4 DECOMPRESSIVE LUMBAR SPINE SURGURY RIGHT ROTATOR CUFF SURGURY FAMILY HISTORY FATHER: 82 YRS, DIAGNOSED WITH STROKE MOTHER: 59 YRS, DIAGNOSED WITH CANCER 2DAUGHTER(S) - HEALTHY. MOM-LUNG CABROTHER-- HAD MS. SOCIAL HISTORY GENERAL: TOBACCO USE ARE YOU A:NONSMOKER ALCOHOL SCREENING DID YOU HAVE A DRINK CONTAINING ALCOHOL IN THE PAST YEAR?NO POINTS0 INTERPRETATIONNEGATIVE RECREATIONAL DRUG USE DRUG USE?NO CAFFEINE CAFFEINE USE?NO RESTORATIONIST [id number] [employer]ANG[employer] LANGUAGES SPOKEN:SWEDISH EDUCATION LEVEL OF EDUCATION:HIGH SCHOOL LEARNING BARRIERS / SPECIAL NEEDS BARRIERS TO LEARNING?NO HEARING IMPAIRED?YES : HARD OF HEARING BILATERAL EARS VISION IMPAIRED?YES :CORRECTIVE LENSES COGNITIVELY IMPAIRED?NO READINESS TO LEARN?YES LEARNING PREFERENCES?YES :TAPES/VIDEOS, DEMONSTRATION/VERBAL INSTRUCTION LEARNING CAPABILITIES PRESENT?YES EMOTIONAL BARRIERS?NO SPECIAL DEVICES?YES :CANE NEWSPAPER WRITER NEEDED?NO DOMESTIC VIOLENCE DO YOU FEEL SAFE IN YOUR ENVIRONMENT?YES NEW PATIENT PAIN DIARY FROM 0-10, WHAT LEVEL IS YOUR PAIN TODAY?6 PAIN CLINIC PFS, CLERGY, PUBLIC HEALTH REFERRALS PFS REFERRAL NEEDED?NO CLERGY REFERRAL NEEDED?NO PUBLIC HEALTH REFERRAL NEEDED?NO WAS THE PROVIDER NOTIFIED OF ANY PERTINENT INFO? N/A HAS THE PATIENT BEEN EDUCATED REGARDING HIS/HER PLAN OF CARE?YES HAS THE PATIENT BEEN EDUCATED REGARDING PAIN, THE RISK FOR PAIN, THE IMPORTANCE OF EFFECTIVE PAIN MANAGEMENT, AND THE PAIN ASSESSMENT PROCESS?YES ADVANCE DIRECTIVE ADVANCE DIRECTIVE DISCUSSED WITH PATIENT:YES 07/02/18 PT HAS HCP AND POA -SKY [phone] REVIEWED WITH PATIENT 04/30/18 1051 07/02/18 REVIEWED WITH PT. AD. HOSPITALIZATION/MAJOR DIAGNOSTIC PROCEDURE TORN ROTATOR CUFF STROKE SURGERIES REVIEW OF SYSTEMS REVIEWED BY: PROVIDER: . CONSTITUTIONAL: ANY CHANGE IN YOUR MEDICAL CONDITION? NO . CHILLS NO . FEVER NO . INFECTION: DO YOU HAVE NEW INFECTIONS? NO . DO YOU HAVE HISTORY OF MRSA? NO . MUSCULOSKELETAL: ANY NEW PATTERNS OF PAIN OR NUMBNESS? NO . GASTROENTEROLOGY: ANY NEW CHANGE IN BOWEL CONTROL? NO . GENITOURINARY: ANY NEW CHANGE IN BLADDER CONTROL? NO . IS THERE A CHANCE YOU COULD BE ? NO . HEMATOLOGY/LYMPH: DO YOU TAKE ANY BLOOD THINNERS? (FOR EXAMPLE- COUMADIN, PLAVIX, AGGRENOX, PLATEL, PRADAXA, OR XARELTO) YES COUMADIN . WHEN WAS YOUR LAST DOSE? DATE: TIME: 07/01/181829 . NEUROLOGY: HAVE YOU FALLEN IN THE PAST 6 MONTHS? NO . ANY NEW EXTREMITY NUMBNESS OR WEAKNESS? NO . CARDIOLOGY: DO YOU HAVE A PACEMAKER OR DEFIBRILLATOR? NO . RESPIRATORY: HAVE YOU BEEN SICK IN THE PAST WEEK? NO . FEVER NO . FLU LIKE SYMPTOMS? NO . COUGH NO . INTEGUMENTARY: DO YOU HAVE ANY RASHES OR OPEN SORES? NO . ALLERGIC/IMMUNO: ARE YOU ALLERGIC TO SHELLFISH OR IV DYE? NO . ANY NEW ALLERGIES? NO . PSYCHIATRIC: DO YOU HAVE THOUGHTS OF HURTING YOURSELF OR SOMEONE ELSE? NO . ARE YOU ABUSED, NEGLECTED, OR IN AN UNSAFE ENVIRONMENT? NO . ENDOCRINOLOGY: ARE YOU DIABETIC? NO . OTHER: DO YOU NEED ANY PRESCRIPTIONS? NO . IF YES, PLEASE LIST: ____ . ANY NEW PROBLEMS WITH YOUR MEDICATIONS? NO . WHEN DID YOU LAST EAT? 07/01 1830 . WHEN DID YOU LAST DRINK? 07/01 2200 . WHAT DID YOU LAST DRINK? WATER . NAME OF PERSON DRIVING YOU HOME? -[facility] . DO YOU HAVE ANY OTHER QUESTIONS OR CONCERNS NO PT HAS NOT HAD ANY VACCINES IN THE PAST [address] CARRILLO AWARE THAT PT TOOK ALLOPURINOL YEST. HE DISCUSSED HOLDING THIS FOR 3 DAYS PRIOR AND 3 DAYS AFTER PROCEDURE NEXT TIME AND PT AND VERBALIZED UNDERSTANDING. OKAY TO PROCEED TODAY WITH TRIGGER POINT INJECTIONS . VITAL SIGNS WT 216.4 LBS, HT 68", BMI 32.90 INDEX, BP 125/75 MM HG, HR 62 /MIN, RR 16 /MIN, TEMP 97.0 F, OXYGEN SAT % 92%, SAFE IN ENV? (Y/N) Y, NA INITIALS OH 08:32, REVIEWED BY: AD. ASSESSMENTS MYALGIA, OTHER SITE - M79.18 (PRIMARY) PROCEDURES PN TRIGGER POINT INJECTION WITH STEROIDS PRE PROCEDURE DIAGNOSIS 1. MYALGIA 2. PAIN AT RIGHT SHOULDER AREA AND BILATERAL LOW BACK AREA POST PROCEDURE DIAGNOSIS 1. MYALGIA 2. PAIN AT RIGHT SHOULDER AREA AND BILATERAL LOW BACK AREA PROCEDURE TRIGGER POINT INJECTION AT RIGHT SHOULDER AREA AND BILATERAL LOW BACK AREA SURGEON DR. PRATEEK CARRILLO ALTERNATIVE FINANCING SPECIALIST NONE ANESTHESIA LOCAL PRE PROCEDURE NOTE THE PATIENT HAS A HISTORY OF CHRONIC PAIN AT THE RIGHT SHOULDER AREA AND RIGHT AND LEFT LOW BACK AREA. I EVALUATE THE PATIENT AND REVIEWED THE CHART. THERE IS EVIDENCE OF BANDS OF TISSUE WITH RESTRICTION OF MOVEMENT AND PRESENCE OF TRIGGER POINT AT THE AFFECTED AREA. I WENT OVER THE RISKS, ALTERNATIVES, AND BENEFITS ASSOCIATED WITH THIS PROCEDURE. THE PATIENT WOULD LIKE TO PROCEED AND GIVE CONSENT TO PERFORMED THE PROCEDURE. THE PATIENT DENIES UNEXPLAINABLE WEIGHT LOSS, FEVER, CHILLS, OR NEW CHANGES IN URINARY OR BOWEL CONTROL DESCRIPTION OF PROCEDURE THE PATIENT WAS BROUGHT TO THE PROCEDURE ROOM AND PLACED IN THE SITTING POSITION. THE AREA WAS CLEANED WITH ALCOHOL. THE PROCEDURE WAS DONE USING ASEPTIC STERILE TECHNIQUE. I CHECKED LATERALITY AND THE LEVEL WHERE THE PROCEDURE WAS GOING TO BE PERFORMED WITH THE PATIENT AND THE SUPPORTING STAFF AT THE MOMENT OF THE TIME OUT IN THE PROCEDURE ROOM. USING A 25-GAUGE NEEDLE, TRIGGER POINTS WERE INJECTED AT THE RIGHT SHOULDER AREA AND RIGHT AND LEFT LOW BACK AREA WITH A TOTAL OF 40 ML OF BUPIVACAINE 0.25% AND KENALOG 40 MG. THERE WAS NO EVIDENCE OF BLOOD, PARESTHESIA OR CEREBROSPINAL FLUID DURING THE PROCEDURE. THE PATIENT WAS SENT TO THE RECOVERY ROOM. THE PATIENT WAS MOVING THE EXTREMITIES AND DOING WELL. THERE WAS NO COMPLICATION DURING THE PROCEDURE POST PROCEDURE NOTE THE PATIENT WILL BE SEEN IN A FOLLOW UP IN THE NEXT FEW WEEKS. INSTRUCTIONS WERE GIVEN, QUESTIONS WERE ANSWERED, AND THE PATIENT EXPRESSED UNDERSTANDING AND AGREES WITH THE PLAN. I, TEMO HU, DOCUMENTED THE ABOVE INFORMATION ACTING A SCRIBE FOR DR. CARRILLO. I HAVE REVIEWED THE ABOVE DOCUMENT, WRITTEN BY TEMO CARL AND I VERIFY THAT IT IS ACCURATE. PROCEDURE CODES 45179 INJECT TRIGGER POINTS 3/> DISPOSITION & COMMUNICATION FOLLOW UP 3 WEEKS ELECTRONICALLY SIGNED BY PRATEEK CARRILLO MD, MD ON 07/20/2018 AT 02:11 PM EST DISCLAIMER : THIS IS A VISIT SUMMARY EXTRACTED FROM THE [employer] CHART. IT IS NOT A COPY OF THE [employer] PROGRESS NOTE. INO
== END ==
LOC: M PAIN 08:30
PROVIDERS: ATTEND Anesthesiology
DX: M79.18 Myalgia, other site (principal); I69.351 Hemiplegia and hemiparesis following cerebral infarction affecting right dominant side; I69.320 Aphasia following cerebral infarction; I69.398 Other sequelae of cerebral infarction; G62.9 Polyneuropathy, unspecified; E78.00 Pure hypercholesterolemia, unspecified; F32.9 Major depressive disorder, single episode, unspecified; Z79.01 Long term (current) use of anticoagulants; Z79.899 Other long term (current) drug therapy
CPT/HCPCS: 20553; J3301

== ENCOUNTER → 2018-08-04 | Outpatient (CLI) | payer MEDICARE, MEDICAID ==
[~2018-08-04] MED LIST changes: -BUPIVACAINE HCL 0.25% 10 ML VIAL As Ordered ONE; -BUPIVACAINE HCL 0.25% 30 ML VIAL As Ordered ONE; -TRIAMCINOLONE ACETONIDE SUSP 40 MG/ML VIAL (J3301) As Ordered ONE; -diazePAM 5 MG TAB As Ordered ONE; -oxyCODONE 5MG TAB As Ordered ONE
--- NOTE | 2018-08-06 01:57 | ECWPNPC ---
PATIENT NAME: MARY MOODY : 1950 GENDER: MALE VISIT DATE: 08/04/2018 DISCHARGE DATE: 08/04/18 1443 VISIT LOCKED DATE TIME: PHYSICIAN: ALEJANDRO MALDONADO RESOURCE: ALEJANDRO MALDONADO REASON FOR APPOINTMENT 1. POST TPI PT OF SW HISTORY OF PRESENT ILLNESS HISTORY OF PRESENT ILLNESS: HERE FOR F/U OF CHRONIC RIGHT NECK AREA AND ACROSS LOW BACK.KRYSTINA FOR POST PROCEDURE F/U.HAD TPI ON 07/02/18 RIGHT SHOULDER AND BILATERAL LOW BACK.FINDS TPI HELPFUL AT REDUCING PAIN AND THEN PAIN GRADUALLY RETURNS TO BASELINE.USING TRAMADOL 50MG QID FOR CHRONIC PAIN AND FINDS THIS SOMEWHAT HELPFUL.DISCUSSED TREATMENT OPTIONS.RATING PAIN VAS 5/10. PAIN THE PATIENT DESCRIBES THE PAIN... FALL RISK SCREENING: SCREENING :NO FALLS IN THE PAST YEAR CURRENT MEDICATIONS TAKING [id number] ETHYL ESTERS 1 GM CAPSULE ORAL TWICE DAILY TAKING POLYETHYLENE GLYCOL 3350 POWDER ORAL Q 3 DAYS TAKING ALLOPURINOL 100 MG TABLET TAKE 1 TABLET BY MOUTH ONCE DAILY ORAL TAKING TAMSULOSIN HCL 0.4 MG CAPSULE ORAL DAILY TAKING WARFARIN SODIUM 5 MG TABLET TAKE 1 TABLET BY MOUTH ONCE DAILY ORAL TAKING PRAVASTATIN SODIUM 40 MG TABLET ORAL Q P.M. TAKING CITALOPRAM HYDROBROMIDE 20 MG TABLET TAKE 1 TABLET BY MOUTH ONCE DAILY ORAL TAKING RANITIDINE HCL 150 MG TABLET ORAL BID TAKING VALIUM 5 MG TABLET 1 TABLET NEEDED ORALLY TWICE A DAY TAKING ALBUTEROL SULFATE (2.5 MG/3ML) 0.083% NEBULIZATION SOLUTION 3 ML INHALATION THREE TIMES A DAY PRN, NOTES: NONE RECENT TAKING PERCOCET 5-325 MG TABLET 1 TABLET NEEDED ORALLY DAILY NEEDED FOR SEVERE PAIN MDD=1, NOTES: NONE RECENT TAKING LIDOCAINE 4 % CREAM ONE APPLICATION EXTERNALLY Q 6 HRS PRN PAIN - APPLY TO LOW BACK, NOTES: 07/01 1830 TAKING LYRICA 100 MG CAPSULE 1 CAPSULE ORALLY BID, NOTES: 07/01 1830 TAKING TRAMADOL HCL 50 MG TABLET 1 TAB ORALLY EVERY 6 HOURS NEEDED/MMD#4, NOTES: 07/01 1830 TAKING BACLOFEN 10 MG TABLET 1 TAB ORAL TID FOR SPASM, NOTES: 07/01 1830 MEDICATION LIST REVIEWED AND RECONCILED WITH THE PATIENT PAST MEDICAL HISTORY STROKE WITH RIGHT SIDED WEAKNESS AND SPEECH APHASIA ALSO CHRONIC NUMBNESS AND TINGLING TO RIGHTLEG AND FOOT PERIPHERAL NEUROPATHY HYPECHOLESTEROLEMIA DEPRESSION SPINAL STENOSIS TIA ALLERGIES N.K.D.A. SURGICAL HISTORY L4-5 AND L3-4 DECOMPRESSIVE LUMBAR SPINE SURGURY RIGHT ROTATOR CUFF SURGURY FAMILY HISTORY FATHER: 82 YRS, DIAGNOSED WITH STROKE MOTHER: 59 YRS, DIAGNOSED WITH CANCER 2DAUGHTER(S) - HEALTHY. MOM-LUNG CABROTHER-- HAD MS. HOSPITALIZATION/MAJOR DIAGNOSTIC PROCEDURE TORN ROTATOR CUFF STROKE SURGERIES REVIEW OF SYSTEMS REVIEWED BY: PROVIDER: ALEJANDRO REDMAN . CONSTITUTIONAL: ANY CHANGE IN YOUR MEDICAL CONDITION? INCREASED RIGHT SHOULDER . CHILLS NO . FEVER NO . INFECTION: DO YOU HAVE NEW INFECTIONS? NO . DO YOU HAVE HISTORY OF MRSA? NO . MUSCULOSKELETAL: ANY NEW PATTERNS OF PAIN OR NUMBNESS? NO . GASTROENTEROLOGY: ANY NEW CHANGE IN BOWEL CONTROL? NO . GENITOURINARY: ANY NEW CHANGE IN BLADDER CONTROL? NO . IS THERE A CHANCE YOU COULD BE ? NO . HEMATOLOGY/LYMPH: DO YOU TAKE ANY BLOOD THINNERS? (FOR EXAMPLE- COUMADIN, PLAVIX, AGGRENOX, PLATEL, PRADAXA, OR XARELTO) NO . WHEN WAS YOUR LAST DOSE? DATE: TIME: . NEUROLOGY: HAVE YOU FALLEN IN THE PAST 6 MONTHS? NO . ANY NEW EXTREMITY NUMBNESS OR WEAKNESS? NO . CARDIOLOGY: DO YOU HAVE A PACEMAKER OR DEFIBRILLATOR? NO . RESPIRATORY: HAVE YOU BEEN SICK IN THE PAST WEEK? NO . FEVER NO . FLU LIKE SYMPTOMS? NO . COUGH NO . INTEGUMENTARY: DO YOU HAVE ANY RASHES OR OPEN SORES? NO . ALLERGIC/IMMUNO: ARE YOU ALLERGIC TO SHELLFISH OR IV DYE? NO . ANY NEW ALLERGIES? NO . PSYCHIATRIC: DO YOU HAVE THOUGHTS OF HURTING YOURSELF OR SOMEONE ELSE? NO . ARE YOU ABUSED, NEGLECTED, OR IN AN UNSAFE ENVIRONMENT? NO . ENDOCRINOLOGY: ARE YOU DIABETIC? NO . OTHER: DO YOU NEED ANY PRESCRIPTIONS? NO . IF YES, PLEASE LIST: ____ . ANY NEW PROBLEMS WITH YOUR MEDICATIONS? NO . WHEN DID YOU LAST EAT? ____ . WHEN DID YOU LAST DRINK? ____ . WHAT DID YOU LAST DRINK? ____ . NAME OF PERSON DRIVING YOU HOME? ____ . DO YOU HAVE ANY OTHER QUESTIONS OR CONCERNS NO . VITAL SIGNS WT 217 LBS, HT 68", BMI 32.99 INDEX, BP 125/70 MM HG, HR 70 /MIN, RR 16 /MIN, TEMP 97.5 F, OXYGEN SAT % 94%, NA INITIALS SC 13:13. EXAMINATION GENERAL EXAMINATION: GENERAL APPEARANCE:AWAKE,ALERT ,PLEAASANT . PSYCHAFFECT NORMAL . LUNGS:LUNG CASEY ARE CLEAR TO AUSCULTATION BILATERALLY. GOOD MOVEMENT OF AIR . HEART:S1, S2 IN A REGULAR RATE AND RHYTHM. NO SIGNIFICANT MURMURS, RUBS OR GALLOPS NOTED . MUSCULOSKELETAL:MUSCLE STRENGTH TESTING 4/5 BILATERAL LOWER EXTREMITIES. LUMBAR SACRAL SPINETRIGGER POINTS:, ELICITED WITH PALPATION OVER RIGHT LUMBAR PARAVERTEBRAL MUSCLES. RESTRICTION OF ROM IN THIS AREA NOTED. ASSESSMENTS MYALGIA - M79.1 (PRIMARY) LOW BACK PAIN - M54.5 TREATMENT MYALGIA CONTINUE TRAMADOL HCL TABLET, 50 MG, 1 TAB, ORALLY, EVERY 6 HOURS NEEDED/MMD#4, NOTES: 07/01 1830 CONTINUE BACLOFEN TABLET, 10 MG, 1 TAB, ORAL, TID FOR SPASM, NOTES: 07/01 1830 NOTES: TPI LOW BACK BILAT., ISTOP REGISTRY REVIEWED AND DEMONSTRATES COMPLLIANCE. , [facility] NARCOTIC AGREEMENT WAS REVIEWED AND SIGNED TODAY BY THE PATIENT. SEE ATTACHED DOCUMENT FOR FULL DETAILS; SPECIFIC ISSUES WERE REVIEWED: 1) KEEP PAIN MEDS IN THEIR ORIGINAL BOTTLES AND ANY WEEKLY PLANNERS ARE TO BE BROUGHT TO THE PAIN CENTER AT EVERY VISIT. 2) THE PATIENT IS NOT TO INCREASE DOSING OR TIMING OF THEIR PAIN MEDICATION WITHOUT SPECIFIC DIRECTION OF THEIR PAIN CENTERPROVIDER (NOT ER OR OTHER PROVIDERS). 3) ALL PAIN MEDS ARE TO BE KEPT SECURED, IN A LOCKED BOX. 4) NO PAIN MEDS ARE TO BE SHARED WITH ANY OTHER PERSON FOR ANY REASON. 5) NO PAIN MEDS MAY BE TAKEN FROM ANY FRIENDS OR RELATIVES FOR ANY REASON 6) NO MEDS OR SUBSTANCES WHICH ARE NOT LEGAL ARE TO BE USED- NO MARIJUANA, NO COCAINE, AMPHETAMINES, HEROIN, OR OTHERS ARE EVER TO BE USED. 7)URINE TESTING IS DONE TO ACCOUNT FOR MEDS AND SUBSTANCES BEING TAKEN AND WILL BE DONE RANDOMLY. PROCEDURE CODES [id number] ESTABILISHED PATIENT [facility] CHARGE DISPOSITION & COMMUNICATION FOLLOW UP POST (REASON: TPI LOW BACK BILAT.) ELECTRONICALLY SIGNED BY FEROZ HIGGINBOTHAM ON 08/04/2018 AT 02:41 PM EST DISCLAIMER : THIS IS A VISIT SUMMARY EXTRACTED FROM THE [employer] CHART. IT IS NOT A COPY OF THE [employer] PROGRESS NOTE. INO
== END ==
LOC: M PAIN 13:30
PROVIDERS: ATTEND Nurse Practitioner Family
DX: M79.10 Myalgia, unspecified site (principal); M54.5 Low back pain; I69.351 Hemiplegia and hemiparesis following cerebral infarction affecting right dominant side; R47.01 Aphasia; G90.09 Other idiopathic peripheral autonomic neuropathy; E78.00 Pure hypercholesterolemia, unspecified; F32.9 Major depressive disorder, single episode, unspecified; Z79.01 Long term (current) use of anticoagulants; Z79.899 Other long term (current) drug therapy

== ENCOUNTER → 2018-09-01 | Outpatient (CLI) | payer OTHER, MEDICARE, MEDICAID ==
[~2018-09-01] MED LIST changes: -/ACETCOD2T PO; -/RANI15TA PO; -/WARF5TA PO; +ACET1TAB15 PO; +BUPIVACAINE HCL 0.25% 10 ML VIAL As Ordered ONE; +BUPIVACAINE HCL 0.25% 30 ML VIAL As Ordered ONE; +RANI1TAB17 PO; +TRIAMCINOLONE ACETONIDE SUSP 40 MG/ML VIAL (J3301) As Ordered ONE; +diazePAM 5 MG TAB As Ordered ONE; +oxyCODONE 5MG TAB As Ordered ONE
--- NOTE | 2018-09-16 01:45 | ECWPNPC ---
PATIENT NAME: MARY MOODY : 1950 GENDER: MALE VISIT DATE: 09/01/2018 DISCHARGE DATE: 09/01/18 1118 VISIT LOCKED DATE TIME: PHYSICIAN: PRATEEK CARRILLO MD RESOURCE: PRATEEK CARRILLO MD REASON FOR APPOINTMENT 1. TPI HISTORY OF PRESENT ILLNESS HISTORY OF PRESENT ILLNESS: PAIN THE PATIENT DESCRIBES THE PAIN... FALL RISK SCREENING: SCREENING : NO FALLS IN THE PAST YEAR. CURRENT MEDICATIONS TAKING [id number]-[id number] ETHYL ESTERS 1 GM CAPSULE ORAL TWICE DAILY, NOTES: 08-31 6:30PM TAKING POLYETHYLENE GLYCOL 3350 POWDER ORAL Q 3 DAYS, NOTES: 08/31 7AM TAKING ALLOPURINOL 100 MG TABLET TAKE 1 TABLET BY MOUTH ONCE DAILY ORAL , NOTES: 08/31 7AM TAKING TAMSULOSIN HCL 0.4 MG CAPSULE ORAL DAILY, NOTES: 08/31 7AM TAKING WARFARIN SODIUM 5 MG TABLET TAKE 1 TABLET BY MOUTH ONCE DAILY ORAL , NOTES: 08-31 6:30PM TAKING PRAVASTATIN SODIUM 40 MG TABLET ORAL Q P.M., NOTES: 08/31 6PM TAKING CITALOPRAM HYDROBROMIDE 20 MG TABLET TAKE 1 TABLET BY MOUTH ONCE DAILY ORAL , NOTES: 08/31 6PM TAKING RANITIDINE HCL 150 MG TABLET ORAL BID, NOTES: 08/31 6PM TAKING VALIUM 5 MG TABLET 1 TABLET NEEDED ORALLY TWICE A DAY, NOTES: 4 DAYS AGO TAKING ALBUTEROL SULFATE (2.5 MG/3ML) 0.083% NEBULIZATION SOLUTION 3 ML INHALATION THREE TIMES A DAY PRN, NOTES: NONE RECENT TAKING PERCOCET 5-325 MG TABLET 1 TABLET NEEDED ORALLY DAILY NEEDED FOR SEVERE PAIN MDD=1, NOTES: 5 DAYS TAKING LIDOCAINE 4 % CREAM ONE APPLICATION EXTERNALLY Q 6 HRS PRN PAIN - APPLY TO LOW BACK, NOTES: 08/300 TAKING LYRICA 100 MG CAPSULE 1 CAPSULE ORALLY BID, NOTES: 08/31 7PM TAKING TRAMADOL HCL 50 MG TABLET 1 TAB ORALLY EVERY 6 HOURS NEEDED/MMD#4, NOTES: 08/31 7PM TAKING BACLOFEN 10 MG TABLET 1 TAB ORAL TID FOR SPASM, NOTES: 08/31 7PM MEDICATION LIST REVIEWED AND RECONCILED WITH THE PATIENT PAST MEDICAL HISTORY STROKE WITH RIGHT SIDED WEAKNESS AND SPEECH APHASIA ALSO CHRONIC NUMBNESS AND TINGLING TO RIGHTLEG AND FOOT PERIPHERAL NEUROPATHY HYPECHOLESTEROLEMIA DEPRESSION SPINAL STENOSIS TIA ALLERGIES N.K.D.A. SURGICAL HISTORY L4-5 AND L3-4 DECOMPRESSIVE LUMBAR SPINE SURGURY RIGHT ROTATOR CUFF SURGURY FAMILY HISTORY FATHER: 82 YRS, DIAGNOSED WITH STROKE MOTHER: 59 YRS, DIAGNOSED WITH CANCER 2DAUGHTER(S) - HEALTHY. MOM-LUNG CABROTHER-- HAD MS. SOCIAL HISTORY GENERAL: TOBACCO USE ARE YOU A:NONSMOKER ALCOHOL SCREENING DID YOU HAVE A DRINK CONTAINING ALCOHOL IN THE PAST YEAR?NO POINTS0 INTERPRETATIONNEGATIVE RECREATIONAL DRUG USE DRUG USE?NO CAFFEINE CAFFEINE USE?NO YAZIDI [id number] [employer] LANGUAGE LANGUAGES SPOKEN:LITHUANIAN EDUCATION LEVEL OF EDUCATION:HIGH SCHOOL LEARNING BARRIERS / SPECIAL NEEDS BARRIERS TO LEARNING?NO HEARING IMPAIRED?YES : HARD OF HEARING BILATERAL EARS VISION IMPAIRED?YES :CORRECTIVE LENSES COGNITIVELY IMPAIRED?NO READINESS TO LEARN?YES LEARNING PREFERENCES?YES :TAPES/VIDEOS, DEMONSTRATION/VERBAL INSTRUCTION LEARNING CAPABILITIES PRESENT?YES EMOTIONAL BARRIERS?NO 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 BOOKS NEEDED?NO DOMESTIC VIOLENCE DO YOU FEEL SAFE IN YOUR ENVIRONMENT?YES NEW PATIENT PAIN DIARY FROM 0-10, WHAT LEVEL IS YOUR PAIN TODAY?6 PAIN CLINIC PFS, CLERGY, PUBLIC HEALTH REFERRALS PFS REFERRAL NEEDED?NO CLERGY REFERRAL NEEDED?NO PUBLIC HEALTH REFERRAL NEEDED?NO WAS THE PROVIDER NOTIFIED OF ANY PERTINENT INFO?YES N/A HAS THE PATIENT BEEN EDUCATED REGARDING HIS/HER PLAN OF CARE?YES HAS THE PATIENT BEEN EDUCATED REGARDING PAIN, THE RISK FOR PAIN, THE IMPORTANCE OF EFFECTIVE PAIN MANAGEMENT, AND THE PAIN ASSESSMENT PROCESS?YES ADVANCE DIRECTIVE ADVANCE DIRECTIVE DISCUSSED WITH PATIENT:YES PT HAS HCP AND POA -SKY [phone] REVIEWED WITH PATIENT 04/30/18 1051 JS07/02/18 REVIEWED WITH PT. AD. HOSPITALIZATION/MAJOR DIAGNOSTIC PROCEDURE TORN ROTATOR CUFF STROKE SURGERIES REVIEW OF SYSTEMS REVIEWED BY: PROVIDER: . CONSTITUTIONAL: ANY CHANGE IN YOUR MEDICAL CONDITION? NO . CHILLS NO . FEVER NO . INFECTION: DO YOU HAVE NEW INFECTIONS? NO . DO YOU HAVE HISTORY OF MRSA? NO . MUSCULOSKELETAL: ANY NEW PATTERNS OF PAIN OR NUMBNESS? NO . GASTROENTEROLOGY: ANY NEW CHANGE IN BOWEL CONTROL? NO . GENITOURINARY: ANY NEW CHANGE IN BLADDER CONTROL? NO . IS THERE A CHANCE YOU COULD BE ? NO . HEMATOLOGY/LYMPH: DO YOU TAKE ANY BLOOD THINNERS? (FOR EXAMPLE- COUMADIN, PLAVIX, AGGRENOX, PLATEL, PRADAXA, OR XARELTO) YES, COUMADIN 08-31-18 1830 LAST DOSE . WHEN WAS YOUR LAST DOSE? DATE: TIME: . NEUROLOGY: HAVE YOU FALLEN IN THE PAST 12 MONTHS? NO . ANY NEW EXTREMITY NUMBNESS OR WEAKNESS? NO . CARDIOLOGY: DO YOU HAVE A PACEMAKER OR DEFIBRILLATOR? NO . RESPIRATORY: HAVE YOU BEEN SICK IN THE PAST WEEK? NO . FEVER NO . FLU LIKE SYMPTOMS? NO . COUGH NO . INTEGUMENTARY: DO YOU HAVE ANY RASHES OR OPEN SORES? NO . ALLERGIC/IMMUNO: ARE YOU ALLERGIC TO IV DYE? NO . ANY NEW ALLERGIES? NO . PSYCHIATRIC: DO YOU HAVE THOUGHTS OF HURTING YOURSELF OR SOMEONE ELSE? NO . ARE YOU ABUSED, NEGLECTED, OR IN AN UNSAFE ENVIRONMENT? NO . ENDOCRINOLOGY: ARE YOU DIABETIC? NO . OTHER: DO YOU NEED ANY PRESCRIPTIONS? NO . IF YES, PLEASE LIST: ____ . ANY NEW PROBLEMS WITH YOUR MEDICATIONS? NO . WHEN DID YOU LAST EAT? 08-31-18 6:30PM . WHEN DID YOU LAST DRINK? 08-31-18 10PM . WHAT DID YOU LAST DRINK? WATER . NAME OF PERSON DRIVING YOU HOME? ONEIL - . DO YOU HAVE ANY OTHER QUESTIONS OR CONCERNS NO . VITAL SIGNS WT 217 LBS, HT 68", BMI 32.99 INDEX, BP 133/72 MM HG, HR 61 /MIN, RR 16 /MIN, TEMP 97.6 F, OXYGEN SAT % 93%, SAFE IN ENV? (Y/N) Y, NA INITIALS AW 0932, REVIEWED BY: DS. ASSESSMENTS MYALGIA, OTHER SITE - M79.18 (PRIMARY) PROCEDURES PN TRIGGER POINT INJECTION WITH STEROIDS PRE PROCEDURE DIAGNOSIS 1. MYALGIA 2. PAIN AT RIGHT SHOULDER AREA AND RIGHT LOW BACK AREA POST PROCEDURE DIAGNOSIS 1. MYALGIA 2. PAIN AT RIGHT SHOULDER AREA AND RIGHT LOW BACK AREA PROCEDURE TRIGGER POINT INJECTION AT RIGHT SHOULDER AREA AND RIGHT LOW BACK AREA SURGEON DR. PRATEEK CARRILLO AUTOMATIC PACKER OPERATOR NONE ANESTHESIA LOCAL PRE PROCEDURE NOTE THE PATIENT HAS A HISTORY OF CHRONIC PAIN AT THE RIGHT SHOULDER AREA AND RIGHT LOW BACK AREA. I EVALUATE THE PATIENT AND REVIEWED THE CHART. THERE IS EVIDENCE OF BANDS OF TISSUE WITH RESTRICTION OF MOVEMENT AND PRESENCE OF TRIGGER POINT AT THE AFFECTED AREA. I WENT OVER THE RISKS, ALTERNATIVES, AND BENEFITS ASSOCIATED WITH THIS PROCEDURE. THE PATIENT WOULD LIKE TO PROCEED AND GIVE CONSENT TO PERFORMED THE PROCEDURE. THE PATIENT DENIES UNEXPLAINABLE WEIGHT LOSS, FEVER, CHILLS, OR NEW CHANGES IN URINARY OR BOWEL CONTROL DESCRIPTION OF PROCEDURE THE PATIENT WAS BROUGHT TO THE PROCEDURE ROOM AND PLACED IN THE SITTING POSITION. THE AREA WAS CLEANED WITH ALCOHOL. THE PROCEDURE WAS DONE USING ASEPTIC STERILE TECHNIQUE. I CHECKED LATERALITY AND THE LEVEL WHERE THE PROCEDURE WAS GOING TO BE PERFORMED WITH THE PATIENT AND THE SUPPORTING STAFF AT THE MOMENT OF THE TIME OUT IN THE PROCEDURE ROOM. USING A 25-GAUGE NEEDLE, TRIGGER POINTS WERE INJECTED AT THE RIGHT SHOULDER AREA AND RIGHT LOW BACK AREA WITH A TOTAL OF 40 ML OF BUPIVACAINE 0.25% AND KENALOG 40 MG. THERE WAS NO EVIDENCE OF BLOOD, PARESTHESIA OR CEREBROSPINAL FLUID DURING THE PROCEDURE. THE PATIENT WAS SENT TO THE RECOVERY ROOM. THE PATIENT WAS MOVING THE EXTREMITIES AND DOING WELL. THERE WAS NO COMPLICATION DURING THE PROCEDURE POST PROCEDURE NOTE THE PATIENT WILL BE SEEN IN A FOLLOW UP IN THE NEXT FEW WEEKS. INSTRUCTIONS WERE GIVEN, QUESTIONS WERE ANSWERED, AND THE PATIENT EXPRESSED UNDERSTANDING AND AGREES WITH THE PLAN. I, TEMO HU, DOCUMENTED THE ABOVE INFORMATION ACTING A SCRIBE FOR DR. CARRILLO. I HAVE REVIEWED THE ABOVE DOCUMENT, WRITTEN BY TEMO KURTZIBDawna AND I VERIFY THAT IT IS ACCURATE. PROCEDURE CODES 96590 INJ TRIGGER POINT 07/16 [facility] [place] [facility] COMMUNICATION FOLLOW UP 3 WEEKS ELECTRONICALLY SIGNED BY PRATEEK CARRILLO MD, MD ON 09/15/2018 AT 09:39 PM EST DISCLAIMER : THIS IS A VISIT SUMMARY EXTRACTED FROM THE [facility] CHART. IT IS NOT A COPY OF THE [facility] PROGRESS NOTE. MTDLuis M
== END ==
LOC: M PAIN 09:30
PROVIDERS: ATTEND Anesthesiology
DX: M79.18 Myalgia, other site (principal); M25.511 Pain in right shoulder; M54.5 Low back pain; I69.351 Hemiplegia and hemiparesis following cerebral infarction affecting right dominant side; G62.9 Polyneuropathy, unspecified; E78.00 Pure hypercholesterolemia, unspecified; F32.9 Major depressive disorder, single episode, unspecified; Z79.01 Long term (current) use of anticoagulants; Z79.899 Other long term (current) drug therapy
CPT/HCPCS: 20552; J3301

== ENCOUNTER → 2018-10-07 | Outpatient (CLI) | payer MEDICARE, MEDICAID ==
[~2018-10-07] MED LIST changes: -BUPIVACAINE HCL 0.25% 10 ML VIAL As Ordered ONE; -BUPIVACAINE HCL 0.25% 30 ML VIAL As Ordered ONE; -TRIAMCINOLONE ACETONIDE SUSP 40 MG/ML VIAL (J3301) As Ordered ONE; -diazePAM 5 MG TAB As Ordered ONE; -oxyCODONE 5MG TAB As Ordered ONE
--- NOTE | 2018-10-21 00:55 | ECWPNPC ---
PATIENT NAME: MARY MOODY : 1950 GENDER: MALE VISIT DATE: 10/07/2018 DISCHARGE DATE: 10/07/18 1055 VISIT LOCKED DATE TIME: PHYSICIAN: ALEJANDRO MALDONADO RESOURCE: ALEJANDRO MALDONADO REASON FOR APPOINTMENT 1. POST TPI HISTORY OF PRESENT ILLNESS HISTORY OF PRESENT ILLNESS: HERE FOR POST PROCEDURE F/U.HAD TPI RIGHT SHOULDER AND LOW BACK ON 09/01/18.CONTINUES TO BENEFIT FROM INJECTION.USING TRAMADOL 50MG Q6H PRN THAT IS HELPFUL.REPORTING ADEQUATE SLEEP AND ABILITY TO TOLERATE ADL"S WITH CURRENT MEDICATION FOR CHRONIC PAIN. PAIN THE PATIENT DESCRIBES THE PAIN... FALL RISK SCREENING: SCREENING :NO FALLS REPORTED IN THE LAST YEAR CURRENT MEDICATIONS TAKING SMYMT-2-HGSI ETHYL ESTERS 1 GM CAPSULE ORAL TWICE DAILY TAKING POLYETHYLENE GLYCOL 3350 POWDER ORAL Q 3 DAYS TAKING ALLOPURINOL 100 MG TABLET TAKE 1 TABLET BY MOUTH ONCE DAILY ORAL TAKING TAMSULOSIN HCL 0.4 MG CAPSULE ORAL DAILY TAKING WARFARIN SODIUM 5 MG TABLET TAKE 1 TABLET BY MOUTH ONCE DAILY ORAL TAKING PRAVASTATIN SODIUM 40 MG TABLET ORAL Q P.M. TAKING CITALOPRAM HYDROBROMIDE 20 MG TABLET TAKE 1 TABLET BY MOUTH ONCE DAILY ORAL TAKING RANITIDINE HCL 150 MG TABLET ORAL BID TAKING VALIUM 5 MG TABLET 1 TABLET NEEDED ORALLY TWICE A DAY TAKING ALBUTEROL SULFATE (2.5 MG/3ML) 0.083% NEBULIZATION SOLUTION 3 ML INHALATION THREE TIMES A DAY PRN TAKING PERCOCET 5-325 MG TABLET 1 TABLET NEEDED ORALLY DAILY NEEDED FOR SEVERE PAIN MDD=1 TAKING LIDOCAINE 4 % CREAM ONE APPLICATION EXTERNALLY Q 6 HRS PRN PAIN - APPLY TO LOW BACK TAKING TRAMADOL HCL 50 MG TABLET 1 TAB ORALLY EVERY 6 HOURS NEEDED/MMD#4 TAKING BACLOFEN 10 MG TABLET 1 TAB ORAL TID FOR SPASM TAKING LYRICA 100 MG CAPSULE 1 CAPSULE ORALLY BID MEDICATION LIST REVIEWED AND RECONCILED WITH THE PATIENT PAST MEDICAL HISTORY STROKE WITH RIGHT SIDED WEAKNESS AND SPEECH APHASIA ALSO CHRONIC NUMBNESS AND TINGLING TO RIGHTLEG AND FOOT PERIPHERAL NEUROPATHY HYPECHOLESTEROLEMIA DEPRESSION SPINAL STENOSIS TIA ALLERGIES N.K.D.A. SURGICAL HISTORY L4-5 AND L3-4 DECOMPRESSIVE LUMBAR SPINE SURGURY RIGHT ROTATOR CUFF SURGURY FAMILY HISTORY FATHER: 82 YRS, DIAGNOSED WITH STROKE MOTHER: 59 YRS, CANCER 2DAUGHTER(S) - HEALTHY. MOM-LUNG CA\\NBROTHER-- HAD MS. SOCIAL HISTORY GENERAL: TOBACCO USE ARE YOU A:NONSMOKER LATEX QUESTIONNAIRE LATEX ALLERGY : HAVE YOU EVER DEVELOPED ANY TYPE OF REACTION AFTER HANDLING LATEX PRODUCTS SUCH RUBBER GLOVES, CONDOMS, DIAPHRAGMS, BALLOONS, SOCKS, OR UNDERWEAR?NO LATEX ALLERGY : HAVE YOU EVER DEVELOPED ANY TYPE OF REACTION DURING OR AFTER DENTAL APPOINTMENT, VAGINAL/RECTAL EXAMINATION, SURGICAL PROCEDURE, OR ANY OTHER EXPOSURE?NO LATEX RISK : HAVE YOU EVER HAD ANY DIFFICULTY BREATHING OR HIVES AFTER EATING OR HANDLING ANY FRUITS, OR VEGETABLES; SUCH KIWI, BANANAS, STONE FRUITS, OR CHESTNUTSNO LATEX RISK : DO YOU HAVE A PREVIOUS PERSONAL HISTORY OF MORE THAN NINE SURGERIES, SPINA BIFIDA, OR REPEATED CATHERTIZATIONS? NO LATEX RISK : ARE YOU FREQUENTLY EXPOSED TO LATEX PRODUCTS IN YOUR OCCUPATION?NO DATE ASKED : 10/07/2018 ALCOHOL SCREENING DID YOU HAVE A DRINK CONTAINING ALCOHOL IN THE PAST YEAR?NO POINTS0 INTERPRETATIONNEGATIVE RECREATIONAL DRUG USE DRUG USE?NO CAFFEINE CAFFEINE USE?NO AMISH [id number] [employer] LANGUAGE LANGUAGES SPOKEN:FRENCH EDUCATION LEVEL OF EDUCATION:HIGH SCHOOL LEARNING BARRIERS / SPECIAL NEEDS BARRIERS TO LEARNING?NO HEARING IMPAIRED?YES : HARD OF HEARING BILATERAL EARS VISION IMPAIRED?YES :CORRECTIVE LENSES COGNITIVELY IMPAIRED?NO READINESS TO LEARN?YES LEARNING PREFERENCES?YES :TAPES/VIDEOS, DEMONSTRATION/VERBAL INSTRUCTION LEARNING CAPABILITIES PRESENT?YES EMOTIONAL BARRIERS?NO 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 NEEDED?NO DOMESTIC VIOLENCE DO YOU FEEL SAFE IN YOUR ENVIRONMENT?YES NEW PATIENT PAIN DIARY FROM 0-10, WHAT LEVEL IS YOUR PAIN TODAY?6 PAIN CLINIC PFS, CLERGY, PUBLIC HEALTH REFERRALS PFS REFERRAL NEEDED?NO CLERGY REFERRAL NEEDED?NO PUBLIC HEALTH REFERRAL NEEDED?NO WAS THE PROVIDER NOTIFIED OF ANY PERTINENT INFO?YES N/A HAS THE PATIENT BEEN EDUCATED REGARDING HIS/HER PLAN OF CARE?YES HAS THE PATIENT BEEN EDUCATED REGARDING PAIN, THE RISK FOR PAIN, THE IMPORTANCE OF EFFECTIVE PAIN MANAGEMENT, AND THE PAIN ASSESSMENT PROCESS?YES ADVANCE DIRECTIVE ADVANCE DIRECTIVE DISCUSSED WITH PATIENT:YES PT HAS HCP AND POA -SKY [phone] REVIEWED WITH PATIENT 04/30/18 1051 JS07/02/18 REVIEWED WITH PT. BUBBAWED WITH PATIENT 10/07/18 1037 JS. HOSPITALIZATION/MAJOR DIAGNOSTIC PROCEDURE TORN ROTATOR CUFF STROKE SURGERIES REVIEW OF SYSTEMS REVIEWED BY: PROVIDER: ALEJANDRO REDMAN . CONSTITUTIONAL: ANY CHANGE IN YOUR MEDICAL CONDITION? NO . CHILLS NO . FEVER NO . INFECTION: DO YOU HAVE NEW INFECTIONS? NO . DO YOU HAVE HISTORY OF MRSA? NO . MUSCULOSKELETAL: ANY NEW PATTERNS OF PAIN OR NUMBNESS? NO . GASTROENTEROLOGY: ANY NEW CHANGE IN BOWEL CONTROL? NO . GENITOURINARY: ANY NEW CHANGE IN BLADDER CONTROL? NO . IS THERE A CHANCE YOU COULD BE ? NO . HEMATOLOGY/LYMPH: DO YOU TAKE ANY BLOOD THINNERS? (FOR EXAMPLE- COUMADIN, PLAVIX, AGGRENOX, PLATEL, PRADAXA, OR XARELTO) YES, COUMADIN . WHEN WAS YOUR LAST DOSE? DATE: 10/06/18TIME: 1830 . NEUROLOGY: HAVE YOU FALLEN IN THE PAST 12 MONTHS? NO . ANY NEW EXTREMITY NUMBNESS OR WEAKNESS? NO . CARDIOLOGY: DO YOU HAVE A PACEMAKER OR DEFIBRILLATOR? NO . RESPIRATORY: HAVE YOU BEEN SICK IN THE PAST WEEK? NO . FEVER NO . FLU LIKE SYMPTOMS? NO . COUGH NO . INTEGUMENTARY: DO YOU HAVE ANY RASHES OR OPEN SORES? NO . ALLERGIC/IMMUNO: ARE YOU ALLERGIC TO IV DYE? NO . ANY NEW ALLERGIES? NO . PSYCHIATRIC: DO YOU HAVE THOUGHTS OF HURTING YOURSELF OR SOMEONE ELSE? NO . ARE YOU ABUSED, NEGLECTED, OR IN AN UNSAFE ENVIRONMENT? NO . ENDOCRINOLOGY: ARE YOU DIABETIC? NO . OTHER: DO YOU NEED ANY PRESCRIPTIONS? NO . IF YES, PLEASE LIST: ____ . ANY NEW PROBLEMS WITH YOUR MEDICATIONS? NO . WHEN DID YOU LAST EAT? ____ . WHEN DID YOU LAST DRINK? ____ . WHAT DID YOU LAST DRINK? ____ . NAME OF PERSON DRIVING YOU HOME? ____ . DO YOU HAVE ANY OTHER QUESTIONS OR CONCERNS NO . VITAL SIGNS WT 216.8 LBS, HT 68", BMI 32.96 INDEX, BP 114/73 MM HG, HR 72 /MIN, RR 18 /MIN, TEMP 97.5 F, OXYGEN SAT % 95%, SAFE IN ENV? (Y/N) YES, NA INITIALS MD 10:22, REVIEWED BY: ILENE. EXAMINATION GENERAL EXAMINATION: GENERAL APPEARANCE:AWAKE,ALERT ,PLEAASANT . PSYCHAFFECT NORMAL . LUNGS:LUNG CASEY ARE CLEAR TO AUSCULTATION BILATERALLY. GOOD MOVEMENT OF AIR . HEART:S1, S2 IN A REGULAR RATE AND RHYTHM. NO SIGNIFICANT MURMURS, RUBS OR GALLOPS NOTED . ASSESSMENTS MYALGIA - M79.1 (PRIMARY) LOW BACK PAIN - M54.5 TREATMENT MYALGIA CONTINUE TRAMADOL HCL TABLET, 50 MG, 1 TAB, ORALLY, EVERY 6 HOURS NEEDED/MMD#4 CONTINUE BACLOFEN TABLET, 10 MG, 1 TAB, ORAL, TID FOR SPASM CONTINUE LYRICA CAPSULE, 100 MG, 1 CAPSULE, ORALLY, BID NOTES: ISTOP REGISTRY REVIEWED AND DEMONSTRATES COMPLLIANCE. BRINGS IN MEDICATIONS WHICH IS APPROPRIATE FOR WHAT WAS DISPENSED. RECENT URINE TOXICOLOGY REVIEWED. NO UNAUTHORIZED MEDICATIONS. NO ILLICIT SUBSTANCES AND PRESCRIBED MEDICATIONS WERE PRESENT. , RISKS AND BENEFITS OF NARCOTIC/OPIOD MEDICATIONS WERE REVIEWED WITH PATIENT - THIS INCLUDES BUT IS NOT LIMITED TO RISK OF DEPENDANCE/DEVELOPMENT OF ADDICTION, MOOD DISTURBANCE AND DEPRESSION, OSTEOPOROSIS, HORMONAL AND LABIDAL CHANGES, RESPIRATORY DEPRESSION AND . PATIENT IS ADVISED NOT TO DRIVE OR DRINK ALCOHOL WHILE ON THESE MEDICATIONS. PROCEDURE CODES FA211 ESTABILISHED PATIENT [facility] CHARGE DISPOSITION & COMMUNICATION FOLLOW UP 3 MONTHS ELECTRONICALLY SIGNED BY FEROZ HIGGINBOTHAM ON 10/20/2018 AT 04:37 PM EDT DISCLAIMER : THIS IS A VISIT SUMMARY EXTRACTED FROM THE [facility] CHART. IT IS NOT A COPY OF THE [facility] PROGRESS NOTE. INO
== END ==
LOC: M PAIN 09:45
PROVIDERS: ATTEND Nurse Practitioner Family
DX: M79.18 Myalgia, other site (principal); M54.5 Low back pain; Z86.79 Personal history of other diseases of the circulatory system; G62.9 Polyneuropathy, unspecified; E78.00 Pure hypercholesterolemia, unspecified; Z86.59 Personal history of other mental and behavioral disorders; Z79.01 Long term (current) use of anticoagulants; Z79.899 Other long term (current) drug therapy

== ENCOUNTER 2018-12-18 20:58 | Emergency (ER) | payer MEDICAID, MEDICARE ==
[~2018-12-18] VITALS: Ht 170.2 cm; Wt 98.6 kg
[2018-12-18] MEDS ORDERED: PREG100CA PO (21:07)
[2018-12-18] MEDS ORDERED: MORPHINE 2 MG/ML 1ML SYRINGE (J2270) IV ONE (23:00)
[2018-12-19 00:18] LABS: BASO # 0.1 10^3/uL (0.0-0.2); BASO % 0.7 % (0.0-1.0); EOS # 0.4 10^3/uL (0.0-0.50); EOS % 5.2 % (0.0-3.0); HEMATOCRIT 45.4 % (42.0-52.0); HEMOGLOBIN 15.4 g/dl (13.5-17.5); LYMPH # 2.4 10^3/uL (1.5-4.5); LYMPH % 33.5 % (24.0-44.0); MEAN CORPUSCULAR HEMOGLOBIN 30.6 pg (27.0-33.0); MEAN CORPUSCULAR HGB CONC 33.9 g/dl (32.0-36.5); MEAN CORPUSCULAR VOLUME 90.3 fl (80.0-96.0); MONO # 0.7 10^3/uL (0.0-0.8); MONO % 9.1 % (0.0-5.0); NEUTROPHILS # 3.7 10^3/uL (1.8-7.7); NEUTROPHILS % 50.9 % (36.0-66.0); PLATELET COUNT, AUTOMATED 131 10^3/uL (150-450); RED BLOOD COUNT 5.03 10^6/uL (4.30-6.10); WHITE BLOOD COUNT 7.3 10^3/uL (4.0-10.0)
--- NOTE | 2018-12-19 00:25 | REPVR ---
EXAM: CT Abdomen and Pelvis Without Contrast EXAM DATE/TIME: 12/18/2018 11:12 PM CLINICAL HISTORY: 68 years old, male; Abdominal pain; Flank; Right; Additional Info: R flank pain TECHNIQUE: Imaging protocol: Axial computed tomography images of the abdomen and pelvis without contrast. Coronal and sagittal reformatted images were created and reviewed. Radiation optimization: All CT scans at this facility use at least one of these dose optimization techniques: automated exposure control; mA and/or kV adjustment per patient size (includes targeted exams where dose is matched to clinical indication); or iterative reconstruction. COMPARISON: CT ABD PELVIS WITH CONTRAST 09/19/2015 2:25 PM FINDINGS: Lungs: Dependent atelectasis in the lung. Coronary arteries: Mild coronary artery calcification. ABDOMEN: Liver: Normal. No mass. Gallbladder and bile ducts: Normal. No calcified stones. No ductal dilation. Pancreas: Normal. No ductal dilation. Spleen: Normal. No splenomegaly. Adrenals: Normal. No mass. Kidneys and ureters: Normal. No hydronephrosis. Stomach and bowel: Sigmoid diverticulosis without diverticulitis. Copious stool throughout the colon. No abnormal bowel dilatation. No abnormal bowel wall thickening. Appendix: The appendix is not seen. However, there is no evidence of appendicitis. PELVIS: Bladder: Unremarkable as visualized. Reproductive: Prostate is moderately enlarged. ABDOMEN and PELVIS: Intraperitoneal space: Normal. No free air. No significant fluid collection. Bones/joints: Severe degenerative spine. Severe spondylitic spinal stenosis at L3-L4. No acute fracture. Soft tissues: Unremarkable. Vasculature: Mild calcified atherosclerotic disease. No aortic aneurysm. Lymph nodes: Normal. No enlarged lymph nodes. IMPRESSION: 1. No hydronephrosis or renal stones. 2. Copious stool throughout the colon. 3. Sigmoid diverticulosis without diverticulitis. 4. Prostate is moderately enlarged. Electronically signed by: Evelin Styles On 12/19/2018 00:24:53 AM
[2018-12-19 00:32] LABS: ALBUMIN 3.5 GM/DL (3.2-5.2); ALT/SGPT 48 U/L (12-78); BILIRUBIN,DIRECT 0.1 MG/DL (0.0-0.2); BILIRUBIN,TOTAL 0.5 MG/DL (0.2-1.0); BLOOD UREA NITROGEN 14 MG/DL (7-18); CALCIUM LEVEL 8.2 MG/DL (8.8-10.2); CARBON DIOXIDE LEVEL 26 MEQ/L (21-32); CHLORIDE LEVEL 109 MEQ/L (98-107); CREATININE FOR GFR 0.94 MG/DL (0.70-1.30); GLOMERULAR FILTRATION RATE > 60.0 (>49); GLUCOSE, FASTING 110 MG/DL (70-100); LIPASE 162 U/L (73-393); POTASSIUM SERUM 4.1 MEQ/L (3.5-5.1); SODIUM LEVEL 142 MEQ/L (136-145); TOTAL PROTEIN 6.4 GM/DL (6.4-8.2)
[2018-12-19 01:30] VITALS: BP 133/70
--- NOTE | 2018-12-19 09:13 | REP ---
PELVIS AND RIGHT HIP: AP view of the pelvis and AP and frog leg views of the right hip are performed. There is no acute fracture or dislocation. There is mild degenerative change at each hip joint more so on the right than on the left, with joint space narrowing, subchondral sclerosis and spurring. There is mild sclerosis at the sacroiliac joints. Electronically Signed by Calderon Sam MD 12/22/2018 05:01 P
== END 2018-12-19 02:02 | disposition home or self-care (01) ==
LOC: M ED 20:58
DX: M25.551 Pain in right hip (principal); Z86.73 Personal history of transient ischemic attack (TIA), and cerebral infarction without residual deficits; G90.09 Other idiopathic peripheral autonomic neuropathy; M48.00 Spinal stenosis, site unspecified; I69.351 Hemiplegia and hemiparesis following cerebral infarction affecting right dominant side; Z79.01 Long term (current) use of anticoagulants; Z79.899 Other long term (current) drug therapy
CPT/HCPCS: 36415; 51701; 73502; 74176; 80048; 80076; 81001; 83690; 85025; 96374; 99284; J2270

== ENCOUNTER → 2019-01-22 | Outpatient (CLI) | payer MEDICARE, MEDICAID ==
[~2019-01-22] MED LIST changes: +PREG100CA PO
== END ==
LOC: M PAIN 10:00
PROVIDERS: ATTEND Nurse Practitioner Family
DX: M54.5 Low back pain (principal); Z53.21 Procedure and treatment not carried out due to patient leaving prior to being seen by health care provider

== ENCOUNTER → 2019-01-28 | Outpatient (CLI) | payer MEDICARE, MEDICAID ==
--- NOTE | 2019-02-12 00:41 | ECWPNPC ---
PATIENT NAME: MARY MOODY : 1950 GENDER: MALE VISIT DATE: 01/28/2019 DISCHARGE DATE: 01/28/19 0959 VISIT LOCKED DATE TIME: PHYSICIAN: ALEJANDRO MALDONADO RESOURCE: ALEJANDRO MALDONADO REASON FOR APPOINTMENT 1. BACK/SHOULDER HISTORY OF PRESENT ILLNESS HISTORY OF PRESENT ILLNESS: HERE FOR F/U OF CHRONIC RIGHT NECK AREA AND ACROSS LOW BACK.HAD TPI ON 09/25/18 RIGHT SHOULDER AND BILATERAL LOW BACK.PAIN HAS ESCALATED OVER THE PAST 3 MONTHS.FINDS TPI HELPFUL AT REDUCING PAIN .USING TRAMADOL 50MG QID FOR CHRONIC PAIN AND FINDS THIS SOMEWHAT HELPFUL.DISCUSSED TREATMENT OPTIONS.RATING PAIN VAS 7/10. PAIN THE PATIENT DESCRIBES THE PAIN... THE PATIENT DESCRIBES THE PAIN... FALL RISK SCREENING: SCREENING :NO FALLS REPORTED IN THE LAST YEAR CURRENT MEDICATIONS TAKING [id number] ETHYL ESTERS 1 GM CAPSULE ORAL TWICE DAILY TAKING POLYETHYLENE GLYCOL 3350 POWDER ORAL Q 3 DAYS TAKING ALLOPURINOL 100 MG TABLET TAKE 1 TABLET BY MOUTH ONCE DAILY ORAL TAKING TAMSULOSIN HCL 0.4 MG CAPSULE ORAL DAILY TAKING WARFARIN SODIUM 5 MG TABLET TAKE 1 TABLET BY MOUTH ONCE DAILY ORAL TAKING PRAVASTATIN SODIUM 40 MG TABLET ORAL Q P.M. TAKING CITALOPRAM HYDROBROMIDE 20 MG TABLET TAKE 1 TABLET BY MOUTH ONCE DAILY ORAL TAKING RANITIDINE HCL 150 MG TABLET ORAL BID TAKING VALIUM 5 MG TABLET 1 TABLET NEEDED ORALLY TWICE A DAY TAKING ALBUTEROL SULFATE (2.5 MG/3ML) 0.083% NEBULIZATION SOLUTION 3 ML INHALATION THREE TIMES A DAY PRN TAKING PERCOCET 5-325 MG TABLET 1 TABLET NEEDED ORALLY DAILY NEEDED FOR SEVERE PAIN MDD=1 TAKING LYRICA 100 MG CAPSULE 1 CAPSULE ORALLY BID TAKING BACLOFEN 10 MG TABLET 1 TAB ORAL NEEDED TID FOR SPASM TAKING TRAMADOL HCL 50 MG TABLET 1 TAB ORALLY EVERY 6 HOURS NEEDED/MMD#4 NOT-TAKING LIDOCAINE 4 % CREAM ONE APPLICATION EXTERNALLY Q 6 HRS PRN PAIN - APPLY TO LOW BACK MEDICATION LIST REVIEWED AND RECONCILED WITH THE PATIENT PAST MEDICAL HISTORY STROKE WITH RIGHT SIDED WEAKNESS AND SPEECH APHASIA ALSO CHRONIC NUMBNESS AND TINGLING TO RIGHTLEG AND FOOT PERIPHERAL NEUROPATHY HYPECHOLESTEROLEMIA DEPRESSION SPINAL STENOSIS TIA ALLERGIES N.K.D.A. SURGICAL HISTORY L4-5 AND L3-4 DECOMPRESSIVE LUMBAR SPINE SURGURY RIGHT ROTATOR CUFF SURGURY FAMILY HISTORY FATHER: 82 YRS, DIAGNOSED WITH STROKE MOTHER: 59 YRS, CANCER 2DAUGHTER(S) - HEALTHY. MOM-LUNG CA\\NBROTHER-- HAD MS. SOCIAL HISTORY GENERAL: TOBACCO USE ARE YOU A:NONSMOKER EDUCATION LEVEL OF EDUCATION:HIGH SCHOOL LANGUAGE LANGUAGES SPOKEN:[place] DOMESTIC VIOLENCE DO YOU FEEL SAFE IN YOUR ENVIRONMENT?YES NEW PATIENT PAIN DIARY FROM 0-10, WHAT LEVEL IS YOUR PAIN TODAY?6 RECREATIONAL DRUG USE DRUG USE?NO LEARNING BARRIERS / SPECIAL NEEDS BARRIERS TO LEARNING?NO HEARING IMPAIRED?YES : HARD OF HEARING BILATERAL EARS VISION IMPAIRED?YES :CORRECTIVE LENSES COGNITIVELY IMPAIRED?NO READINESS TO LEARN?YES LEARNING PREFERENCES?YES :TAPES/VIDEOS, DEMONSTRATION/VERBAL INSTRUCTION LEARNING CAPABILITIES PRESENT?YES EMOTIONAL BARRIERS?NO SPECIAL DEVICES?YES :CANE ECONOMIC MANAGER NEEDED?NO PAIN CLINIC PFS, CLERGY, PUBLIC HEALTH REFERRALS PFS REFERRAL NEEDED?NO CLERGY REFERRAL NEEDED?NO PUBLIC HEALTH REFERRAL NEEDED?NO WAS THE PROVIDER NOTIFIED OF ANY PERTINENT INFO?YES N/A HAS THE PATIENT BEEN EDUCATED REGARDING HIS/HER PLAN OF CARE?YES HAS THE PATIENT BEEN EDUCATED REGARDING PAIN, THE RISK FOR PAIN, THE IMPORTANCE OF EFFECTIVE PAIN MANAGEMENT, AND THE PAIN ASSESSMENT PROCESS?YES LATEX QUESTIONNAIRE LATEX ALLERGY : HAVE YOU EVER DEVELOPED ANY TYPE OF REACTION AFTER HANDLING LATEX PRODUCTS SUCH RUBBER GLOVES, CONDOMS, DIAPHRAGMS, BALLOONS, SOCKS, OR UNDERWEAR?NO LATEX ALLERGY : HAVE YOU EVER DEVELOPED ANY TYPE OF REACTION DURING OR AFTER DENTAL APPOINTMENT, VAGINAL/RECTAL EXAMINATION, SURGICAL PROCEDURE, OR ANY OTHER EXPOSURE?NO LATEX RISK : HAVE YOU EVER HAD ANY DIFFICULTY BREATHING OR HIVES AFTER EATING OR HANDLING ANY FRUITS, OR VEGETABLES; SUCH KIWI, BANANAS, STONE FRUITS, OR CHESTNUTSNO LATEX RISK : DO YOU HAVE A PREVIOUS PERSONAL HISTORY OF MORE THAN NINE SURGERIES, SPINA BIFIDA, OR REPEATED CATHERIZATIONS? NO LATEX RISK : ARE YOU FREQUENTLY EXPOSED TO LATEX PRODUCTS IN YOUR OCCUPATION?NO DATE ASKED : 10/07/2018 CAFFEINE CAFFEINE USE?NO ADVANCE DIRECTIVE ADVANCE DIRECTIVE DISCUSSED WITH PATIENT:YES PT HAS HCP AND POA -SKY [phone] PROTESTANT [id number] JUDAISM ALCOHOL SCREENING DID YOU HAVE A DRINK CONTAINING ALCOHOL IN THE PAST YEAR?NO POINTS0 INTERPRETATIONNEGATIVE REVIEWED WITH PATIENT 04/30/18 1051 JS07/02/18 REVIEWED WITH PT. ADREVIEWED WITH PATIENT 10/07/18 1037 JSREVIEWED WITH PT 01/28/19 0932 BV. HOSPITALIZATION/MAJOR DIAGNOSTIC PROCEDURE TORN ROTATOR CUFF STROKE SURGERIES REVIEW OF SYSTEMS REVIEWED BY: PROVIDER: ALEJANDRO REDMAN . CONSTITUTIONAL: ANY CHANGE IN YOUR MEDICAL CONDITION? NO . CHILLS NO . FEVER NO . INFECTION: DO YOU HAVE NEW INFECTIONS? NO . DO YOU HAVE HISTORY OF MRSA? NO . MUSCULOSKELETAL: ANY NEW PATTERNS OF PAIN OR NUMBNESS? NO . GASTROENTEROLOGY: ANY NEW CHANGE IN BOWEL CONTROL? NO . GENITOURINARY: ANY NEW CHANGE IN BLADDER CONTROL? NO . IS THERE A CHANCE YOU COULD BE ? NO . HEMATOLOGY/LYMPH: DO YOU TAKE ANY BLOOD THINNERS? (FOR EXAMPLE- COUMADIN, PLAVIX, AGGRENOX, PLATEL, PRADAXA, OR XARELTO) NO . WHEN WAS YOUR LAST DOSE? DATE: TIME: . NEUROLOGY: HAVE YOU FALLEN IN THE PAST 12 MONTHS? NO . ANY NEW EXTREMITY NUMBNESS OR WEAKNESS? NO . CARDIOLOGY: DO YOU HAVE A PACEMAKER OR DEFIBRILLATOR? NO . RESPIRATORY: HAVE YOU BEEN SICK IN THE PAST WEEK? NO . FEVER NO . FLU LIKE SYMPTOMS? NO . COUGH NO . INTEGUMENTARY: DO YOU HAVE ANY RASHES OR OPEN SORES? NO . ALLERGIC/IMMUNO: ARE YOU ALLERGIC TO IV DYE? NO . ANY NEW ALLERGIES? NO . PSYCHIATRIC: DO YOU HAVE THOUGHTS OF HURTING YOURSELF OR SOMEONE ELSE? NO . ARE YOU ABUSED, NEGLECTED, OR IN AN UNSAFE ENVIRONMENT? NO . ENDOCRINOLOGY: ARE YOU DIABETIC? NO . OTHER: DO YOU NEED ANY PRESCRIPTIONS? YES, TRAMADOL, BACLOFEN . IF YES, PLEASE LIST: ____ . ANY NEW PROBLEMS WITH YOUR MEDICATIONS? NO . WHEN DID YOU LAST EAT? ____ . WHEN DID YOU LAST DRINK? ____ . WHAT DID YOU LAST DRINK? ____ . NAME OF PERSON DRIVING YOU HOME? ____ . DO YOU HAVE ANY OTHER QUESTIONS OR CONCERNS NO . VITAL SIGNS WT 219.2 LBS, HT 68", BMI 33.33 INDEX, BP 118/68 MM HG, HR 66 /MIN, RR 18 /MIN, TEMP 97.6 F, OXYGEN SAT % 91%, NA INITIALS AW 0915, REVIEWED BY: BV. EXAMINATION GENERAL EXAMINATION: GENERALAWAKE,ALERT ,PLEAASANT . PSYCHAFFECT NORMAL . LUNGS:LUNG CASEY ARE CLEAR TO AUSCULTATION BILATERALLY. GOOD MOVEMENT OF AIR . HEART:S1, S2 IN A REGULAR RATE AND RHYTHM. NO SIGNIFICANT MURMURS, RUBS OR GALLOPS NOTED . MUSCULOSKELETAL:MUSCLE STRENGTH TESTING 4/5 BILATERAL LOWER EXTREMITIES. LUMBAR SACRAL SPINETRIGGER POINTS:, ELICITED WITH PALPATION OVER RIGHT LUMBAR PARAVERTEBRAL MUSCLES. RESTRICTION OF ROM IN THIS AREA NOTED. ASSESSMENTS MYALGIA, OTHER SITE - M79.18 (PRIMARY) MYALGIA OF MUSCLE OF NECK - M79.18 TREATMENT MYALGIA, OTHER SITE REFILL TRAMADOL HCL TABLET, 50 MG, 1 TAB, ORALLY, EVERY 6 HOURS NEEDED/MMD#4, 30 DAYS, 120, REFILLS 2 REFILL BACLOFEN TABLET, 10 MG, 1 TAB, ORAL NEEDED, TID FOR SPASM, 30 DAYS, 90, REFILLS 2 NOTES: TPI RIGHT NECK AND RIGHT LOW BACK, ISTOP REGISTRY REVIEWED AND DEMONSTRATES COMPLLIANCE. PREVENTIVE MEDICINE PAIN CLINIC TEACHING: PROCEDURE TEACHING PT GIVEN WRITTEN AND VERBAL PRE PROCEDURE INSTRUCTIONS. BOTH PT AND VERBALIZE UNDERSTANDING OF ALL INSTRUCTIONS. TERESA VILLALOBOS 01/28/2019 9:58:33 AM > . PROCEDURE CODES FA211 ESTABILISHED PATIENT [facility] CHARGE DISPOSITION & COMMUNICATION FOLLOW UP POST (REASON: TPI RIGHT NECK AND RIGHT LOW BACK) ELECTRONICALLY SIGNED BY FEROZ HIGGINBOTHAM ON 02/11/2019 AT 03:56 PM EDT DISCLAIMER : THIS IS A VISIT SUMMARY EXTRACTED FROM THE [employer] CHART. IT IS NOT A COPY OF THE [employer] PROGRESS NOTE. MTDD
== END ==
LOC: M PAIN 09:15
PROVIDERS: ATTEND Nurse Practitioner Family
DX: M79.18 Myalgia, other site (principal); E78.00 Pure hypercholesterolemia, unspecified; F32.9 Major depressive disorder, single episode, unspecified; M48.00 Spinal stenosis, site unspecified; I69.351 Hemiplegia and hemiparesis following cerebral infarction affecting right dominant side; I69.320 Aphasia following cerebral infarction; Z79.01 Long term (current) use of anticoagulants; Z79.891 Long term (current) use of opiate analgesic; Z79.899 Other long term (current) drug therapy

== ENCOUNTER → 2019-03-17 | Outpatient (CLI) | payer MEDICARE, MEDICAID ==
[~2019-03-17] MED LIST changes: +BUPIVACAINE HCL 0.25% 10 ML VIAL As Ordered ONE; +BUPIVACAINE HCL 0.25% 30 ML VIAL As Ordered ONE; +TRIAMCINOLONE ACETONIDE SUSP 40 MG/ML VIAL (J3301) As Ordered ONE; +diazePAM 5 MG TAB As Ordered ONE; +oxyCODONE 5MG TAB As Ordered ONE
--- NOTE | 2019-03-29 23:23 | ECWPNPC ---
PATIENT NAME: MARY MOODY : 1950 GENDER: MALE VISIT DATE: 03/17/2019 DISCHARGE DATE: 03/17/19 1002 VISIT LOCKED DATE TIME: PHYSICIAN: PRATEEK CARRILLO MD RESOURCE: PRATEEK CARRILLO MD REASON FOR APPOINTMENT 1. TPI RIGHT SHOULDER AND RIGHT LOW BACK HISTORY OF PRESENT ILLNESS HISTORY OF PRESENT ILLNESS: PAIN THE PATIENT DESCRIBES THE PAIN... FALL RISK SCREENING: SCREENING :NO FALLS REPORTED IN THE LAST YEAR CURRENT MEDICATIONS TAKING [id number] ETHYL ESTERS 1 GM CAPSULE ORAL TWICE DAILY TAKING POLYETHYLENE GLYCOL 3350 POWDER ORAL Q 3 DAYS TAKING ALLOPURINOL 100 MG TABLET TAKE 1 TABLET BY MOUTH ONCE DAILY ORAL TAKING TAMSULOSIN HCL 0.4 MG CAPSULE ORAL DAILY TAKING WARFARIN SODIUM 5 MG TABLET TAKE 1 TABLET BY MOUTH ONCE DAILY ORAL , NOTES: LAST TAKEN 03/16/19 1830 TAKING PRAVASTATIN SODIUM 40 MG TABLET ORAL Q P.M. TAKING CITALOPRAM HYDROBROMIDE 20 MG TABLET TAKE 1 TABLET BY MOUTH ONCE DAILY ORAL TAKING RANITIDINE HCL 150 MG TABLET ORAL BID TAKING VALIUM 5 MG TABLET 1 TABLET NEEDED ORALLY TWICE A DAY TAKING ALBUTEROL SULFATE (2.5 MG/3ML) 0.083% NEBULIZATION SOLUTION 3 ML INHALATION THREE TIMES A DAY PRN TAKING LYRICA 100 MG CAPSULE 1 CAPSULE ORALLY BID TAKING TRAMADOL HCL 50 MG TABLET 1 TAB ORALLY EVERY 6 HOURS NEEDED/MMD#4 TAKING BACLOFEN 10 MG TABLET 1 TAB ORAL NEEDED TID FOR SPASM NOT-TAKING PERCOCET 5-325 MG TABLET 1 TABLET NEEDED ORALLY DAILY NEEDED FOR SEVERE PAIN MDD=1 NOT-TAKING LIDOCAINE 4 % CREAM ONE APPLICATION EXTERNALLY Q 6 HRS PRN PAIN - APPLY TO LOW BACK MEDICATION LIST REVIEWED AND RECONCILED WITH THE PATIENT PAST MEDICAL HISTORY STROKE WITH RIGHT SIDED WEAKNESS AND SPEECH APHASIA ALSO CHRONIC NUMBNESS AND TINGLING TO RIGHTLEG AND FOOT PERIPHERAL NEUROPATHY HYPECHOLESTEROLEMIA DEPRESSION SPINAL STENOSIS TIA ALLERGIES N.K.D.A. SURGICAL HISTORY L4-5 AND L3-4 DECOMPRESSIVE LUMBAR SPINE SURGURY RIGHT ROTATOR CUFF SURGURY FAMILY HISTORY FATHER: 82 YRS, DIAGNOSED WITH UNSPECIFIED CEREBRAL ARTERY OCCLUSION WITH CEREBRAL INFARCTION MOTHER: 59 YRS, OTHER MALIGNANT NEOPLASM OF UNSPECIFIED SITE 2DAUGHTER(S) - HEALTHY. MOM-LUNG CA\\NBROTHER-- HAD MS. SOCIAL HISTORY GENERAL: TOBACCO USE ARE YOU A:NONSMOKER EDUCATION LEVEL OF EDUCATION:HIGH SCHOOL LANGUAGE LANGUAGES SPOKEN:[place] DOMESTIC VIOLENCE DO YOU FEEL SAFE IN YOUR ENVIRONMENT?YES NEW PATIENT PAIN DIARY FROM 0-10, WHAT LEVEL IS YOUR PAIN TODAY?6 RECREATIONAL DRUG USE DRUG USE?NO LEARNING BARRIERS / SPECIAL NEEDS BARRIERS TO LEARNING?NO HEARING IMPAIRED?YES VISION IMPAIRED?YES COGNITIVELY IMPAIRED?NO : HARD OF HEARING BILATERAL EARS :CORRECTIVE LENSES READINESS TO LEARN?YES LEARNING PREFERENCES?YES :TAPES/VIDEOS, DEMONSTRATION/VERBAL INSTRUCTION LEARNING CAPABILITIES PRESENT?YES EMOTIONAL BARRIERS?NO SPECIAL DEVICES?YES :CANE COMMUNICATIONS COORDINATOR NEEDED?NO PAIN CLINIC PFS, CLERGY, PUBLIC HEALTH REFERRALS PFS REFERRAL NEEDED?NO CLERGY REFERRAL NEEDED?NO PUBLIC HEALTH REFERRAL NEEDED?NO WAS THE PROVIDER NOTIFIED OF ANY PERTINENT INFO?YES N/A HAS THE PATIENT BEEN EDUCATED REGARDING HIS/HER PLAN OF CARE?YES HAS THE PATIENT BEEN EDUCATED REGARDING PAIN, THE RISK FOR PAIN, THE IMPORTANCE OF EFFECTIVE PAIN MANAGEMENT, AND THE PAIN ASSESSMENT PROCESS?YES LATEX QUESTIONNAIRE LATEX ALLERGY : HAVE YOU EVER DEVELOPED ANY TYPE OF REACTION AFTER HANDLING LATEX PRODUCTS SUCH RUBBER GLOVES, CONDOMS, DIAPHRAGMS, BALLOONS, SOCKS, OR UNDERWEAR?NO LATEX ALLERGY : HAVE YOU EVER DEVELOPED ANY TYPE OF REACTION DURING OR AFTER DENTAL APPOINTMENT, VAGINAL/RECTAL EXAMINATION, SURGICAL PROCEDURE, OR ANY OTHER EXPOSURE?NO DATE ASKED : 10/07/2018 LATEX RISK : HAVE YOU EVER HAD ANY DIFFICULTY BREATHING OR HIVES AFTER EATING OR HANDLING ANY FRUITS, OR VEGETABLES; SUCH KIWI, BANANAS, STONE FRUITS, OR CHESTNUTSNO LATEX RISK : DO YOU HAVE A PREVIOUS PERSONAL HISTORY OF MORE THAN NINE SURGERIES, SPINA BIFIDA, OR REPEATED CATHERIZATIONS? NO LATEX RISK : ARE YOU FREQUENTLY EXPOSED TO LATEX PRODUCTS IN YOUR OCCUPATION?NO CAFFEINE CAFFEINE USE?NO ADVANCE DIRECTIVE ADVANCE DIRECTIVE DISCUSSED WITH PATIENT:YES PT HAS HCP AND POA -SKY [phone] RESTORATIONISM [id number] DENOMINATIONAL ALCOHOL SCREENING DID YOU HAVE A DRINK CONTAINING ALCOHOL IN THE PAST YEAR?NO POINTS0 INTERPRETATIONNEGATIVE REVIEWED WITH PATIENT 04/30/18 1051 JS07/02/18 REVIEWED WITH PT. ADREVIEWED WITH PATIENT 10/07/18 1037 JSREVIEWED WITH PT 01/28/19 0928 BVREVIEWED WITH PT 03/17/19 0900 BV. HOSPITALIZATION/MAJOR DIAGNOSTIC PROCEDURE TORN ROTATOR CUFF STROKE SURGERIES REVIEW OF SYSTEMS REVIEWED BY: PROVIDER: . CONSTITUTIONAL: ANY CHANGE IN YOUR MEDICAL CONDITION? NO . CHILLS NO . FEVER NO . INFECTION: DO YOU HAVE NEW INFECTIONS? NO . DO YOU HAVE HISTORY OF MRSA? NO . MUSCULOSKELETAL: ANY NEW PATTERNS OF PAIN OR NUMBNESS? NO . GASTROENTEROLOGY: ANY NEW CHANGE IN BOWEL CONTROL? NO . GENITOURINARY: ANY NEW CHANGE IN BLADDER CONTROL? NO . IS THERE A CHANCE YOU COULD BE ? NO . HEMATOLOGY/LYMPH: DO YOU TAKE ANY BLOOD THINNERS? (FOR EXAMPLE- COUMADIN, PLAVIX, AGGRENOX, PLATEL, PRADAXA, OR XARELTO) YES, COUMADIN 03/16/19 1830 . WHEN WAS YOUR LAST DOSE? DATE: TIME: . NEUROLOGY: HAVE YOU FALLEN IN THE PAST 12 MONTHS? NO . ANY NEW EXTREMITY NUMBNESS OR WEAKNESS? NO . CARDIOLOGY: DO YOU HAVE A PACEMAKER OR DEFIBRILLATOR? NO . RESPIRATORY: HAVE YOU BEEN SICK IN THE PAST WEEK? NO . FEVER NO . FLU LIKE SYMPTOMS? NO . COUGH NO . INTEGUMENTARY: DO YOU HAVE ANY RASHES OR OPEN SORES? NO . ALLERGIC/IMMUNO: ARE YOU ALLERGIC TO IV DYE? NO . ANY NEW ALLERGIES? NO . PSYCHIATRIC: DO YOU HAVE THOUGHTS OF HURTING YOURSELF OR SOMEONE ELSE? NO . ARE YOU ABUSED, NEGLECTED, OR IN AN UNSAFE ENVIRONMENT? NO . ENDOCRINOLOGY: ARE YOU DIABETIC? NO . OTHER: DO YOU NEED ANY PRESCRIPTIONS? NO . IF YES, PLEASE LIST: ____ . ANY NEW PROBLEMS WITH YOUR MEDICATIONS? NO . WHEN DID YOU LAST EAT? ____ . WHEN DID YOU LAST DRINK? ____ . WHAT DID YOU LAST DRINK? ____ . NAME OF PERSON DRIVING YOU HOME? ____ . DO YOU HAVE ANY OTHER QUESTIONS OR CONCERNS NO . VITAL SIGNS WT 215.8 LBS, HT 68", BMI 32.81 INDEX, BP 111/73 MM HG, HR 66 /MIN, RR 18 /MIN, TEMP 97.3 F, OXYGEN SAT % 94%, NA INITIALS SC 09:04, REVIEWED BY: BV. ASSESSMENTS MYALGIA, OTHER SITE - M79.18 (PRIMARY) PROCEDURES PN TRIGGER POINT INJECTION WITH STEROIDS PRE PROCEDURE DIAGNOSIS 1. MYALGIA 2. PAIN AT RIGHT SHOULDER AREA AND RIGHT LUMBAR AREA. POST PROCEDURE DIAGNOSIS 1. MYALGIA 2. PAIN AT RIGHT SHOULDER AREA AND RIGHT LUMBAR AREA. PROCEDURE TRIGGER POINT INJECTION AT RIGHT SHOULDER AREA AND RIGHT LUMBAR AREA. SURGEON DR. PRATEEK CARRILLO SERGER NONE ANESTHESIA LOCAL PRE PROCEDURE NOTE THE PATIENT HAS A HISTORY OF CHRONIC PAIN AT THE RIGHT SHOULDER AREA AND RIGHT LUMBAR AREA. I EVALUATED THE PATIENT AND REVIEWED THE CHART. THERE IS EVIDENCE OF BANDS OF TISSUE WITH RESTRICTION OF MOVEMENT AND PRESENCE OF TRIGGER POINT AT THE AFFECTED AREA. I WENT OVER THE RISKS, ALTERNATIVES, AND BENEFITS ASSOCIATED WITH THIS PROCEDURE. THE PATIENT WOULD LIKE TO PROCEED AND GIVES CONSENT TO PERFORM THE PROCEDURE. THE PATIENT DENIES UNEXPLAINABLE WEIGHT LOSS, FEVER, CHILLS, OR NEW CHANGES IN URINARY OR BOWEL CONTROL DESCRIPTION OF PROCEDURE THE PATIENT WAS BROUGHT TO THE PROCEDURE ROOM AND PLACED IN THE SITTING POSITION. THE AREA WAS CLEANED WITH ALCOHOL. THE PROCEDURE WAS DONE USING ASEPTIC STERILE TECHNIQUE. I CHECKED LATERALITY AND THE LEVEL WHERE THE PROCEDURE WAS GOING TO BE PERFORMED WITH THE PATIENT AND THE SUPPORTING STAFF AT THE MOMENT OF THE TIME OUT IN THE PROCEDURE ROOM. USING A 25-GAUGE NEEDLE, TRIGGER POINTS WERE INJECTED AT THE RIGHT SHOULDER AREA AND RIGHT LUMBAR AREA WITH A TOTAL OF 40 ML OF BUPIVACAINE 0.25% AND KENALOG 40 MG. THERE WAS NO EVIDENCE OF BLOOD, PARESTHESIA OR CEREBROSPINAL FLUID DURING THE PROCEDURE. THE PATIENT WAS SENT TO THE RECOVERY ROOM. THE PATIENT WAS MOVING THE EXTREMITIES AND DOING WELL. THERE WAS NO COMPLICATION DURING THE PROCEDURE POST PROCEDURE NOTE THE PATIENT WILL BE SEEN IN A FOLLOW UP IN THE NEXT FEW WEEKS. INSTRUCTIONS WERE GIVEN, QUESTIONS WERE ANSWERED, AND THE PATIENT EXPRESSED UNDERSTANDING AND AGREES WITH THE PLAN. I, DARWIN BEE, DOCUMENTED THE ABOVE INFORMATION ACTING A SCRIBE FOR DR. CARRILLO. I HAVE REVIEWED THE ABOVE DOCUMENT, WRITTEN BY DARWIN CARL AND I VERIFY THAT IT IS ACCURATE. PROCEDURE CODES 93612 INJ TRIGGER POINT / MUSC DISPOSITION & COMMUNICATION FOLLOW UP 3 WEEKS ELECTRONICALLY SIGNED BY PRATEEK CARRILLO MD, MD ON 03/29/2019 AT 12:23 PM EDT DISCLAIMER : THIS IS A VISIT SUMMARY EXTRACTED FROM THE [email or web address] CHART. IT IS NOT A COPY OF THE [email or web address] PROGRESS NOTE. INO
== END ==
LOC: M PAIN 08:45
PROVIDERS: ATTEND Anesthesiology
DX: M79.18 Myalgia, other site (principal); G62.9 Polyneuropathy, unspecified; E78.00 Pure hypercholesterolemia, unspecified; F32.9 Major depressive disorder, single episode, unspecified; I69.351 Hemiplegia and hemiparesis following cerebral infarction affecting right dominant side; I69.320 Aphasia following cerebral infarction; I69.398 Other sequelae of cerebral infarction; R20.0 Anesthesia of skin; Z79.01 Long term (current) use of anticoagulants; Z79.891 Long term (current) use of opiate analgesic; Z79.899 Other long term (current) drug therapy
CPT/HCPCS: 20552; J3301

== ENCOUNTER → 2019-04-08 | Outpatient (CLI) | payer MEDICARE, MEDICAID ==
[~2019-04-08] MED LIST changes: -BUPIVACAINE HCL 0.25% 10 ML VIAL As Ordered ONE; -BUPIVACAINE HCL 0.25% 30 ML VIAL As Ordered ONE; -TRIAMCINOLONE ACETONIDE SUSP 40 MG/ML VIAL (J3301) As Ordered ONE; -diazePAM 5 MG TAB As Ordered ONE; -oxyCODONE 5MG TAB As Ordered ONE
--- NOTE | 2019-04-09 23:35 | ECWPNPC ---
PATIENT NAME: MARY MOODY : 1950 GENDER: MALE VISIT DATE: 04/08/2019 DISCHARGE DATE: 04/08/19 1011 VISIT LOCKED DATE TIME: PHYSICIAN: LYNDSEY SWARTZ RESOURCE: LYNDSEY SWARTZ REASON FOR APPOINTMENT 1. POST TPI HISTORY OF PRESENT ILLNESS HISTORY OF PRESENT ILLNESS: PAIN THE PATIENT DESCRIBES THE PAIN... 68-YEAR-OLD MALE IN FOR POST TPI FOLLOW-UP. HE RATES HIS PAIN PREPROCEDURE AT AN 8-9 OUT OF 10 AND POSTPROCEDURE AT A 4/10 AND STATES THIS LASTED FOR APPROXIMATELY 2 WEEKS. HE RATES HIS PAIN CURRENTLY AT A 6 OUT OF 10 AND DESCRIBES IT SORE, STABBING, AND TENDER. FALL RISK SCREENING: SCREENING :NO FALLS REPORTED IN THE LAST YEAR CURRENT MEDICATIONS TAKING [id number] ETHYL ESTERS 1 GM CAPSULE ORAL TWICE DAILY TAKING POLYETHYLENE GLYCOL 3350 POWDER ORAL Q 3 DAYS TAKING ALLOPURINOL 100 MG TABLET TAKE 1 TABLET BY MOUTH ONCE DAILY ORAL TAKING TAMSULOSIN HCL 0.4 MG CAPSULE ORAL DAILY TAKING WARFARIN SODIUM 5 MG TABLET TAKE 1 TABLET BY MOUTH ONCE DAILY ORAL TAKING PRAVASTATIN SODIUM 40 MG TABLET ORAL Q P.M. TAKING CITALOPRAM HYDROBROMIDE 20 MG TABLET TAKE 1 TABLET BY MOUTH ONCE DAILY ORAL TAKING RANITIDINE HCL 150 MG TABLET ORAL BID TAKING VALIUM 5 MG TABLET 1 TABLET NEEDED ORALLY TWICE A DAY TAKING ALBUTEROL SULFATE (2.5 MG/3ML) 0.083% NEBULIZATION SOLUTION 3 ML INHALATION THREE TIMES A DAY PRN TAKING LYRICA 100 MG CAPSULE 1 CAPSULE ORALLY BID TAKING TRAMADOL HCL 50 MG TABLET 1 TAB ORALLY EVERY 6 HOURS NEEDED/MMD#4 TAKING BACLOFEN 10 MG TABLET 1 TAB ORAL NEEDED TID FOR SPASM NOT-TAKING PERCOCET 5-325 MG TABLET 1 TABLET NEEDED ORALLY DAILY NEEDED FOR SEVERE PAIN MDD=1 NOT-TAKING LIDOCAINE 4 % CREAM ONE APPLICATION EXTERNALLY Q 6 HRS PRN PAIN - APPLY TO LOW BACK MEDICATION LIST REVIEWED AND RECONCILED WITH THE PATIENT PAST MEDICAL HISTORY STROKE WITH RIGHT SIDED WEAKNESS AND SPEECH APHASIA ALSO CHRONIC NUMBNESS AND TINGLING TO RIGHTLEG AND FOOT PERIPHERAL NEUROPATHY HYPECHOLESTEROLEMIA DEPRESSION SPINAL STENOSIS TIA MYALGIA NECK AND LOW BACK BACK RIGHT SHOULDER PAIN ALLERGIES N.K.D.A. SURGICAL HISTORY L4-5 AND L3-4 DECOMPRESSIVE LUMBAR SPINE SURGURY RIGHT ROTATOR CUFF SURGURY FAMILY HISTORY FATHER: 82 YRS, DIAGNOSED WITH UNSPECIFIED CEREBRAL ARTERY OCCLUSION WITH CEREBRAL INFARCTION MOTHER: 59 YRS, OTHER MALIGNANT NEOPLASM OF UNSPECIFIED SITE SIBLINGS: ALIVE, BROTHER-PROSTATE CA 2DAUGHTER(S) - HEALTHY. MOM-LUNG CA\\NBROTHER-- HAD MS. SOCIAL HISTORY GENERAL: TOBACCO USE ARE YOU A:NONSMOKER PAIN CLINIC PFS, CLERGY, PUBLIC HEALTH REFERRALS PFS REFERRAL NEEDED?NO CLERGY REFERRAL NEEDED?NO PUBLIC HEALTH REFERRAL NEEDED?NO WAS THE PROVIDER NOTIFIED OF ANY PERTINENT INFO? N/A HAS THE PATIENT BEEN EDUCATED REGARDING HIS/HER PLAN OF CARE?YES HAS THE PATIENT BEEN EDUCATED REGARDING PAIN, THE RISK FOR PAIN, THE IMPORTANCE OF EFFECTIVE PAIN MANAGEMENT, AND THE PAIN ASSESSMENT PROCESS?YES LATEX QUESTIONNAIRE LATEX ALLERGY : HAVE YOU EVER DEVELOPED ANY TYPE OF REACTION AFTER HANDLING LATEX PRODUCTS SUCH RUBBER GLOVES, CONDOMS, DIAPHRAGMS, BALLOONS, SOCKS, OR UNDERWEAR?NO LATEX ALLERGY : HAVE YOU EVER DEVELOPED ANY TYPE OF REACTION DURING OR AFTER DENTAL APPOINTMENT, VAGINAL/RECTAL EXAMINATION, SURGICAL PROCEDURE, OR ANY OTHER EXPOSURE?NO LATEX RISK : HAVE YOU EVER HAD ANY DIFFICULTY BREATHING OR HIVES AFTER EATING OR HANDLING ANY FRUITS, OR VEGETABLES; SUCH KIWI, BANANAS, STONE FRUITS, OR CHESTNUTSNO LATEX RISK : DO YOU HAVE A PREVIOUS PERSONAL HISTORY OF MORE THAN NINE SURGERIES, SPINA BIFIDA, OR REPEATED CATHERIZATIONS? NO LATEX RISK : ARE YOU FREQUENTLY EXPOSED TO LATEX PRODUCTS IN YOUR OCCUPATION?NO DATE ASKED : 04/08/2019 CAFFEINE CAFFEINE USE?NO ADVANCE DIRECTIVE ADVANCE DIRECTIVE DISCUSSED WITH PATIENT:YES PT HAS HCP AND POA -SKY [phone] EDUCATION LEVEL OF EDUCATION:HIGH SCHOOL LATTER-DAY [id number] LANGUAGE LANGUAGES SPOKEN:TURKMEN DOMESTIC VIOLENCE DO YOU FEEL SAFE IN YOUR ENVIRONMENT?YES ALCOHOL SCREENING DID YOU HAVE A DRINK CONTAINING ALCOHOL IN THE PAST YEAR?NO POINTS0 INTERPRETATIONNEGATIVE RECREATIONAL DRUG USE DRUG USE?NO LEARNING BARRIERS / SPECIAL NEEDS BARRIERS TO LEARNING?NO HEARING IMPAIRED?YES : HARD OF HEARING BILATERAL EARS VISION IMPAIRED?YES :CORRECTIVE LENSES COGNITIVELY IMPAIRED?NO READINESS TO LEARN?YES LEARNING PREFERENCES?YES :TAPES/VIDEOS, DEMONSTRATION/VERBAL INSTRUCTION LEARNING CAPABILITIES PRESENT?YES EMOTIONAL BARRIERS?NO SPECIAL DEVICES?YES :CANE PATIENT DAY COORDINATOR NEEDED?NO REVIEWED WITH PATIENT 04/30/18 1051 07/02/18 REVIEWED WITH PT. ADREVIEWED WITH PATIENT 10/07/18 1037 JSREVIEWED WITH PT 01/28/19 0928 BVREVIEWED WITH PT 03/17/19 0900 BV04/08/19 REVIEWED WITH PT. AD. HOSPITALIZATION/MAJOR DIAGNOSTIC PROCEDURE TORN ROTATOR CUFF STROKE SURGERIES REVIEW OF SYSTEMS REVIEWED BY: PROVIDER: RADU MORENO . CONSTITUTIONAL: ANY CHANGE IN YOUR MEDICAL CONDITION? NO . CHILLS NO . FEVER NO . INFECTION: DO YOU HAVE NEW INFECTIONS? NO . DO YOU HAVE HISTORY OF MRSA? NO . MUSCULOSKELETAL: ANY NEW PATTERNS OF PAIN OR NUMBNESS? NO . GASTROENTEROLOGY: ANY NEW CHANGE IN BOWEL CONTROL? NO . GENITOURINARY: ANY NEW CHANGE IN BLADDER CONTROL? NO . IS THERE A CHANCE YOU COULD BE ? NO . HEMATOLOGY/LYMPH: DO YOU TAKE ANY BLOOD THINNERS? (FOR EXAMPLE- COUMADIN, PLAVIX, AGGRENOX, PLATEL, PRADAXA, OR XARELTO) YES, COUMADIN . WHEN WAS YOUR LAST DOSE? DATE: TIME: 04/07/19 1800 . NEUROLOGY: HAVE YOU FALLEN IN THE PAST 12 MONTHS? NO . ANY NEW EXTREMITY NUMBNESS OR WEAKNESS? NO . CARDIOLOGY: DO YOU HAVE A PACEMAKER OR DEFIBRILLATOR? NO . RESPIRATORY: HAVE YOU BEEN SICK IN THE PAST WEEK? NO . FEVER NO . FLU LIKE SYMPTOMS? NO . COUGH NO . INTEGUMENTARY: DO YOU HAVE ANY RASHES OR OPEN SORES? NO . ALLERGIC/IMMUNO: ARE YOU ALLERGIC TO IV DYE? NO . ANY NEW ALLERGIES? NO . PSYCHIATRIC: DO YOU HAVE THOUGHTS OF HURTING YOURSELF OR SOMEONE ELSE? NO . ARE YOU ABUSED, NEGLECTED, OR IN AN UNSAFE ENVIRONMENT? NO . ENDOCRINOLOGY: ARE YOU DIABETIC? NO . OTHER: DO YOU NEED ANY PRESCRIPTIONS? NO . IF YES, PLEASE LIST: ____ . ANY NEW PROBLEMS WITH YOUR MEDICATIONS? NO . WHEN DID YOU LAST EAT? ____ . WHEN DID YOU LAST DRINK? ____ . WHAT DID YOU LAST DRINK? ____ . NAME OF PERSON DRIVING YOU HOME? ____ . DO YOU HAVE ANY OTHER QUESTIONS OR CONCERNS NO . VITAL SIGNS WT 215.6 LBS, HT 68", BMI 32.78 INDEX, BP 116/72 MM HG, HR 80 /MIN, RR 18 /MIN, TEMP 97.1 F, OXYGEN SAT % 94%, SAFE IN ENV? (Y/N) Y, NA INITIALS AW 0933, REVIEWED BY: AD. EXAMINATION GENERAL EXAMINATION: GENERALNO ACUTE DISTRESS, WELL NOURISHED AND HYDRATED. PSYCHAPPROPRIATE MOOD AND AFFECT . LUNGS:CLEAR TO AUSCULTATION BILATERALLY, NO WHEEZES, RHONCHI, RALES. HEART:NO MURMURS, REGULAR RATE AND RHYTHM. BACK:POINT TENDER RIGHT POSTERIOR SHOULDER AND RIGHT LOW BACK SURROUNDING SKIN SHOWS NO ERYTHEMA, ECCHYMOSIS, INCREASED WARMTH, AND/OR SKIN ERUPTIONS NOTED. . ASSESSMENTS MYALGIA, OTHER SITE - M79.18 (PRIMARY) TREATMENT MYALGIA, OTHER SITE START TIZANIDINE HCL TABLET, 4 MG, 1 TABLET NEEDED, ORALLY, THREE TIMES A DAY, 30 DAYS, 90 TABLET, REFILLS 2 STOP BACLOFEN TABLET, 10 MG, 1 TAB, ORAL NEEDED, TID FOR SPASM NOTES: TPI RIGHT SHOULDER RIGHT LOW BACK. CLINICAL NOTES: 60-YEAR-OLD MALE IN FOR POST TPI FOLLOW-UP. GIVEN PRESENTING SYMPTOMS AND RESULTS PHYSICAL EXAMINATION RECOMMENDED REPEAT TPI, STARTING BACLOFEN, AND STARTING TIZANIDINE. PATIENT HAS EXPRESSED UNDERSTANDING OF AND WAS IN AGREEMENT WITH TREATMENT PLAN. GIVEN TIME TO ASK QUESTIONS AND EXPRESS CONCERNS., ISTOP REGISTRY REVIEWED AND DEMONSTRATES COMPLLIANCE. (REF # [id number] ) BRINGS IN MEDICATIONS WHICH IS APPROPRIATE FOR WHAT WAS DISPENSED. RECENT URINE TOXICOLOGY REVIEWED. NO UNAUTHORIZED MEDICATIONS. NO ILLICIT SUBSTANCES AND PRESCRIBED MEDICATIONS WERE PRESENT. PREVENTIVE MEDICINE PAIN CLINIC TEACHING: MEDICATIONS PRINTED INFORMATION ON TIZANIDINE GIVEN TO AND REVIEWED WITH PT AND AND BOTH VERBALIZED UNDERSTANDING. THEY ALSO VERBALLIZED THAT HE IS TO STOP THE BACLOFEN. AD. PROCEDURE TEACHING PT. DECLINED PRINTED INFORMATION ON TRIGGER POINT INJECTIONS STATING HE HAS HAD THEM AND IS FAMILIAR WITH IT. PRINTED PRE-PROCEDURE INFORMATION GIVEN TO AND REVIEWED WITH PT AND HE VERBALIZED UNDERSTANDING. AD. PROCEDURE CODES FA211 ESTABILISHED PATIENT [facility] CHARGE DISPOSITION & COMMUNICATION FOLLOW UP POSTPROCEDURE (REASON: TPI OF THE RIGHT SHOULDER AND RIGHT LOW BACK) ELECTRONICALLY SIGNED BY FEROZ MCQUEEN ON 04/09/2019 AT 08:51 AM EDT DISCLAIMER : THIS IS A VISIT SUMMARY EXTRACTED FROM THE [employer] CHART. IT IS NOT A COPY OF THE [employer] PROGRESS NOTE. INO
== END ==
LOC: M PAIN 09:30
PROVIDERS: ATTEND Family Medicine
DX: M79.18 Myalgia, other site (principal); G62.9 Polyneuropathy, unspecified; E78.00 Pure hypercholesterolemia, unspecified; Z86.59 Personal history of other mental and behavioral disorders; Z86.73 Personal history of transient ischemic attack (TIA), and cerebral infarction without residual deficits; Z79.01 Long term (current) use of anticoagulants; Z79.899 Other long term (current) drug therapy

== ENCOUNTER → 2019-05-11 | Outpatient (CLI) | payer OTHER, MEDICARE, MEDICAID ==
[~2019-05-11] MED LIST changes: +BUPIVACAINE HCL 0.25% 10 ML VIAL As Ordered ONE; +BUPIVACAINE HCL 0.25% 30 ML VIAL As Ordered ONE; +TRIAMCINOLONE ACETONIDE SUSP 40 MG/ML VIAL (J3301) As Ordered ONE; +diazePAM 5 MG TAB As Ordered ONE; +oxyCODONE 5MG TAB As Ordered ONE
--- NOTE | 2019-05-19 01:47 | ECWPNPC ---
PATIENT NAME: MARY MOODY : 1950 GENDER: MALE VISIT DATE: 05/11/2019 DISCHARGE DATE: 05/11/19 1007 VISIT LOCKED DATE TIME: PHYSICIAN: PRATEEK CARRILLO MD RESOURCE: PRATEEK CARRILLO MD REASON FOR APPOINTMENT 1. TPI OF THE RIGHT SHOULDER AND RIGHT LOW BACK HISTORY OF PRESENT ILLNESS HISTORY OF PRESENT ILLNESS: PAIN THE PATIENT DESCRIBES THE PAIN... FALL RISK SCREENING: SCREENING :NO FALLS REPORTED IN THE LAST YEAR CURRENT MEDICATIONS TAKING [id number] ETHYL ESTERS 1 GM CAPSULE ORAL TWICE DAILY, NOTES: 05/10 1800 TAKING POLYETHYLENE GLYCOL 3350 POWDER ORAL Q 3 DAYS, NOTES: 05/10 1000 TAKING ALLOPURINOL 100 MG TABLET TAKE 1 TABLET BY MOUTH ONCE DAILY ORAL , NOTES: 05/10 1000 TAKING TAMSULOSIN HCL 0.4 MG CAPSULE ORAL DAILY, NOTES: 05/10 0800 TAKING WARFARIN SODIUM 5 MG TABLET TAKE 1 TABLET BY MOUTH ONCE DAILY ORAL , NOTES: 05/10 1800 TAKING PRAVASTATIN SODIUM 40 MG TABLET ORAL Q P.M., NOTES: 05/10 1800 TAKING CITALOPRAM HYDROBROMIDE 20 MG TABLET TAKE 1 TABLET BY MOUTH ONCE DAILY ORAL , NOTES: 05/10 1800 TAKING RANITIDINE HCL 150 MG TABLET ORAL BID, NOTES: 05/10 1800 TAKING VALIUM 5 MG TABLET 1 TABLET NEEDED ORALLY TWICE A DAY, NOTES: NONE RECENT TAKING ALBUTEROL SULFATE (2.5 MG/3ML) 0.083% NEBULIZATION SOLUTION 3 ML INHALATION THREE TIMES A DAY PRN, NOTES: NONE RECENT TAKING LYRICA 100 MG CAPSULE 1 CAPSULE ORALLY BID, NOTES: 05/10 1800 TAKING TRAMADOL HCL 50 MG TABLET 1 TAB ORALLY EVERY 6 HOURS NEEDED/MMD#4, NOTES: 05/10 1930 TAKING TIZANIDINE HCL 4 MG TABLET 1 TABLET NEEDED ORALLY THREE TIMES A DAY, NOTES: 05/10 1800 NOT-TAKING PERCOCET 5-325 MG TABLET 1 TABLET NEEDED ORALLY DAILY NEEDED FOR SEVERE PAIN MDD=1 NOT-TAKING LIDOCAINE 4 % CREAM ONE APPLICATION EXTERNALLY Q 6 HRS PRN PAIN - APPLY TO LOW BACK MEDICATION LIST REVIEWED AND RECONCILED WITH THE PATIENT PAST MEDICAL HISTORY STROKE WITH RIGHT SIDED WEAKNESS AND SPEECH APHASIA ALSO CHRONIC NUMBNESS AND TINGLING TO RIGHTLEG AND FOOT PERIPHERAL NEUROPATHY HYPECHOLESTEROLEMIA DEPRESSION SPINAL STENOSIS TIA MYALGIA NECK AND LOW BACK BACK RIGHT SHOULDER PAIN ALLERGIES N.K.D.A. SURGICAL HISTORY L4-5 AND L3-4 DECOMPRESSIVE LUMBAR SPINE SURGURY RIGHT ROTATOR CUFF SURGURY FAMILY HISTORY FATHER: 82 YRS, DIAGNOSED WITH UNSPECIFIED CEREBRAL ARTERY OCCLUSION WITH CEREBRAL INFARCTION MOTHER: 59 YRS, OTHER MALIGNANT NEOPLASM OF UNSPECIFIED SITE SIBLINGS: ALIVE, BROTHER-PROSTATE CA 2DAUGHTER(S) - HEALTHY. MOM-LUNG CA\\NBROTHER-- HAD MS. SOCIAL HISTORY GENERAL: TOBACCO USE ARE YOU A:NONSMOKER PAIN CLINIC PFS, CLERGY, PUBLIC HEALTH REFERRALS PFS REFERRAL NEEDED?NO CLERGY REFERRAL NEEDED?NO PUBLIC HEALTH REFERRAL NEEDED?NO WAS THE PROVIDER NOTIFIED OF ANY PERTINENT INFO? N/A HAS THE PATIENT BEEN EDUCATED REGARDING HIS/HER PLAN OF CARE?YES HAS THE PATIENT BEEN EDUCATED REGARDING PAIN, THE RISK FOR PAIN, THE IMPORTANCE OF EFFECTIVE PAIN MANAGEMENT, AND THE PAIN ASSESSMENT PROCESS?YES LATEX QUESTIONNAIRE LATEX ALLERGY : HAVE YOU EVER DEVELOPED ANY TYPE OF REACTION AFTER HANDLING LATEX PRODUCTS SUCH RUBBER GLOVES, CONDOMS, DIAPHRAGMS, BALLOONS, SOCKS, OR UNDERWEAR?NO LATEX ALLERGY : HAVE YOU EVER DEVELOPED ANY TYPE OF REACTION DURING OR AFTER DENTAL APPOINTMENT, VAGINAL/RECTAL EXAMINATION, SURGICAL PROCEDURE, OR ANY OTHER EXPOSURE?NO LATEX RISK : HAVE YOU EVER HAD ANY DIFFICULTY BREATHING OR HIVES AFTER EATING OR HANDLING ANY FRUITS, OR VEGETABLES; SUCH KIWI, BANANAS, STONE FRUITS, OR CHESTNUTSNO LATEX RISK : DO YOU HAVE A PREVIOUS PERSONAL HISTORY OF MORE THAN NINE SURGERIES, SPINA BIFIDA, OR REPEATED CATHERIZATIONS? NO LATEX RISK : ARE YOU FREQUENTLY EXPOSED TO LATEX PRODUCTS IN YOUR OCCUPATION?NO DATE ASKED : 05/11/2019 CAFFEINE CAFFEINE USE?NO ADVANCE DIRECTIVE ADVANCE DIRECTIVE DISCUSSED WITH PATIENT:YES PT HAS HCP AND POA -SKY [phone] EDUCATION LEVEL OF EDUCATION:HIGH SCHOOL GNOSTICISM [id number] LANGUAGE LANGUAGES SPOKEN:CAMBODIAN DOMESTIC VIOLENCE DO YOU FEEL SAFE IN YOUR ENVIRONMENT?YES ALCOHOL SCREENING DID YOU HAVE A DRINK CONTAINING ALCOHOL IN THE PAST YEAR?NO POINTS0 INTERPRETATIONNEGATIVE RECREATIONAL DRUG USE DRUG USE?NO LEARNING BARRIERS / SPECIAL NEEDS BARRIERS TO LEARNING?YES COMMENTS DIFFICULTY REMEMBERING SINCE THE STROKE HEARING IMPAIRED?YES : HARD OF HEARING BILATERAL EARS VISION IMPAIRED?YES :CORRECTIVE LENSES COGNITIVELY IMPAIRED?YES DIFF. REMEMBERING THINGS SINCE THE STROKE READINESS TO LEARN?YES LEARNING PREFERENCES?YES :TAPES/VIDEOS, DEMONSTRATION/VERBAL INSTRUCTION LEARNING CAPABILITIES PRESENT?YES EMOTIONAL BARRIERS?NO SPECIAL DEVICES?YES :CANE JET PILOT NEEDED?NO REVIEWED WITH PATIENT 04/30/18 1051 JS07/02/18 REVIEWED WITH PT. ADREVIEWED WITH PATIENT 10/07/18 1037 JSREVIEWED WITH PT 01/28/19 0928 BVREVIEWED WITH PT 03/17/19 0900 BV04/08/19 REVIEWED WITH PT. AD05/11/19 REVIEWED WITH PT AND . AD. HOSPITALIZATION/MAJOR DIAGNOSTIC PROCEDURE TORN ROTATOR CUFF STROKE SURGERIES REVIEW OF SYSTEMS REVIEWED BY: PROVIDER: . CONSTITUTIONAL: ANY CHANGE IN YOUR MEDICAL CONDITION? NO . CHILLS NO . FEVER NO . INFECTION: DO YOU HAVE NEW INFECTIONS? NO . DO YOU HAVE HISTORY OF MRSA? NO . MUSCULOSKELETAL: ANY NEW PATTERNS OF PAIN OR NUMBNESS? NO . GASTROENTEROLOGY: ANY NEW CHANGE IN BOWEL CONTROL? NO . GENITOURINARY: ANY NEW CHANGE IN BLADDER CONTROL? NO . IS THERE A CHANCE YOU COULD BE ? NO . HEMATOLOGY/LYMPH: DO YOU TAKE ANY BLOOD THINNERS? (FOR EXAMPLE- COUMADIN, PLAVIX, AGGRENOX, PLATEL, PRADAXA, OR XARELTO) YES, COUMADIN . WHEN WAS YOUR LAST DOSE? DATE: TIME: . NEUROLOGY: HAVE YOU FALLEN IN THE PAST 12 MONTHS? NO . ANY NEW EXTREMITY NUMBNESS OR WEAKNESS? NO . CARDIOLOGY: DO YOU HAVE A PACEMAKER OR DEFIBRILLATOR? NO . RESPIRATORY: HAVE YOU BEEN SICK IN THE PAST WEEK? NO . FEVER NO . FLU LIKE SYMPTOMS? NO . COUGH NO . INTEGUMENTARY: DO YOU HAVE ANY RASHES OR OPEN SORES? NO . ALLERGIC/IMMUNO: ARE YOU ALLERGIC TO IV DYE? NO . ANY NEW ALLERGIES? NO . PSYCHIATRIC: DO YOU HAVE THOUGHTS OF HURTING YOURSELF OR SOMEONE ELSE? NO . ARE YOU ABUSED, NEGLECTED, OR IN AN UNSAFE ENVIRONMENT? NO . ENDOCRINOLOGY: ARE YOU DIABETIC? NO . OTHER: DO YOU NEED ANY PRESCRIPTIONS? NO . IF YES, PLEASE LIST: ____ . ANY NEW PROBLEMS WITH YOUR MEDICATIONS? NO . WHEN DID YOU LAST EAT? 05/10 1800 . WHEN DID YOU LAST DRINK? 05/11 2100 . WHAT DID YOU LAST DRINK? WATER . NAME OF PERSON DRIVING YOU HOME? ONEIL . DO YOU HAVE ANY OTHER QUESTIONS OR CONCERNS NO . VITAL SIGNS WT 214.4 LBS, HT 68", BMI 32.60 INDEX, BP 117/85 MM HG, HR 67 /MIN, RR 18 /MIN, TEMP 97.2 F, OXYGEN SAT % 93%, SAFE IN ENV? (Y/N) Y, NA INITIALS WA 08:45, REVIEWED BY: EUN. ASSESSMENTS MYALGIA, OTHER SITE - M79.18 (PRIMARY) PROCEDURES PN TRIGGER POINT INJECTION WITH STEROIDS PRE PROCEDURE DIAGNOSIS 1. MYALGIA 2. PAIN AT RIGHT SHOULDER AREA AND RIGHT LOWER BACK AREA. POST PROCEDURE DIAGNOSIS 1. MYALGIA 2. PAIN AT RIGHT SHOULDER AREA AND RIGHT LOWER BACK AREA. PROCEDURE TRIGGER POINT INJECTION AT RIGHT SHOULDER AREA AND RIGHT LOWER BACK AREA. SURGEON DR. PRATEEK CARRILLO CAR WASH MANAGER NONE ANESTHESIA LOCAL PRE PROCEDURE NOTE THE PATIENT HAS A HISTORY OF CHRONIC PAIN AT THE RIGHT SHOULDER AREA AND RIGHT LOWER BACK AREA. I EVALUATED THE PATIENT AND REVIEWED THE CHART. THERE IS EVIDENCE OF BANDS OF TISSUE WITH RESTRICTION OF MOVEMENT AND PRESENCE OF TRIGGER POINT AT THE AFFECTED AREA. I WENT OVER THE RISKS, ALTERNATIVES, AND BENEFITS ASSOCIATED WITH THIS PROCEDURE. THE PATIENT WOULD LIKE TO PROCEED AND GIVES CONSENT TO PERFORM THE PROCEDURE. THE PATIENT DENIES UNEXPLAINABLE WEIGHT LOSS, FEVER, CHILLS, OR NEW CHANGES IN URINARY OR BOWEL CONTROL DESCRIPTION OF PROCEDURE THE PATIENT WAS BROUGHT TO THE PROCEDURE ROOM AND PLACED IN THE SITTING POSITION. THE AREA WAS CLEANED WITH ALCOHOL. THE PROCEDURE WAS DONE USING ASEPTIC STERILE TECHNIQUE. I CHECKED LATERALITY AND THE LEVEL WHERE THE PROCEDURE WAS GOING TO BE PERFORMED WITH THE PATIENT AND THE SUPPORTING STAFF AT THE MOMENT OF THE TIME OUT IN THE PROCEDURE ROOM. USING A 25-GAUGE NEEDLE, TRIGGER POINTS WERE INJECTED AT THE RIGHT SHOULDER AREA AND RIGHT LOWER BACK AREA WITH A TOTAL OF 40 ML OF BUPIVACAINE 0.25% AND KENALOG 40 MG. THERE WAS NO EVIDENCE OF BLOOD, PARESTHESIA OR CEREBROSPINAL FLUID DURING THE PROCEDURE. THE PATIENT WAS SENT TO THE RECOVERY ROOM. THE PATIENT WAS MOVING THE EXTREMITIES AND DOING WELL. THERE WAS NO COMPLICATION DURING THE PROCEDURE POST PROCEDURE NOTE THE PATIENT WILL BE SEEN IN A FOLLOW UP IN THE NEXT FEW WEEKS. INSTRUCTIONS WERE GIVEN, QUESTIONS WERE ANSWERED, AND THE PATIENT EXPRESSED UNDERSTANDING AND AGREES WITH THE PLAN. I, DARWIN BEE, DOCUMENTED THE ABOVE INFORMATION ACTING A SCRIBE FOR DR. CARRILLO. I HAVE REVIEWED THE ABOVE DOCUMENT, WRITTEN BY DARWIN CARL AND I VERIFY THAT IT IS ACCURATE. PROCEDURE CODES 88694 INJ TRIGGER POINT / MUSCL DISPOSITION & COMMUNICATION FOLLOW UP 3 WEEKS ELECTRONICALLY SIGNED BY PRATEEK CARRILLO MD, MD ON 05/18/2019 AT 10:58 AM EST DISCLAIMER : THIS IS A VISIT SUMMARY EXTRACTED FROM THE [employer] CHART. IT IS NOT A COPY OF THE [employer] PROGRESS NOTE. INO
== END ==
LOC: M PAIN 08:45
PROVIDERS: ATTEND Anesthesiology
DX: M79.18 Myalgia, other site (principal); I69.351 Hemiplegia and hemiparesis following cerebral infarction affecting right dominant side; I69.320 Aphasia following cerebral infarction; I69.398 Other sequelae of cerebral infarction; G62.9 Polyneuropathy, unspecified; E78.00 Pure hypercholesterolemia, unspecified; F32.9 Major depressive disorder, single episode, unspecified; M54.2 Cervicalgia; M54.5 Low back pain; M25.511 Pain in right shoulder; Z79.01 Long term (current) use of anticoagulants; Z79.891 Long term (current) use of opiate analgesic; Z79.899 Other long term (current) drug therapy
CPT/HCPCS: 20552; J3301

== ENCOUNTER 2019-07-15 22:41 | Emergency (ER) | payer MEDICAID, MEDICARE ==
[~2019-07-15] VITALS: Ht 175.3 cm; Wt 97.5 kg
[~2019-07-15 22:41] MED LIST changes: -BUPIVACAINE HCL 0.25% 10 ML VIAL As Ordered ONE; -BUPIVACAINE HCL 0.25% 30 ML VIAL As Ordered ONE; -TRIAMCINOLONE ACETONIDE SUSP 40 MG/ML VIAL (J3301) As Ordered ONE; -diazePAM 5 MG TAB As Ordered ONE; -oxyCODONE 5MG TAB As Ordered ONE
[2019-07-15 23:15] LABS: BASO % 0.6 % (0.0-1.0); EOS # 0.3 10^3/uL (0.0-0.5); EOS % 4.5 % (0.0-3.0); HEMATOCRIT 48.6 % (42.0-52.0); HEMOGLOBIN 15.9 g/dl (13.5-17.5); LYMPH % 30.9 % (24.0-44.0); MEAN CORPUSCULAR HEMOGLOBIN 29.4 pg (27.0-33.0); MEAN CORPUSCULAR HGB CONC 32.7 g/dl (32.0-36.5); MEAN CORPUSCULAR VOLUME 89.8 fl (80.0-96.0); MONO # 0.6 10^3/uL (0.0-0.8); MONO % 9.3 % (0.0-5.0); NEUTROPHILS # 3.5 10^3/uL (1.5-8.5); NEUTROPHILS % 54.2 % (36.0-66.0); PLATELET COUNT, AUTOMATED 127 10^3/uL (150-450); RED BLOOD COUNT 5.41 10^6/uL (4.30-6.10); WHITE BLOOD COUNT 6.5 10^3/uL (4.0-10.0)
[2019-07-15] MEDS ORDERED: ONDANSETRON 4MG/2ML VIAL (J2405) IV ONE (23:15)
[2019-07-15] MEDS ORDERED: NS 1,000 ML IV ONE (23:15)
[2019-07-15] MEDS ORDERED: ISOVUE-370 76% 100ML VIAL (Q9967) As Ordered ONE (23:17)
[2019-07-15] MEDS: MORPHINE 4 MG/ML 1ML VIAL/SYRINGE (J2270) IV PRN (23:20)
[2019-07-15 23:34] LABS: ALBUMIN 3.7 GM/DL (3.2-5.2); ALT/SGPT 48 U/L (12-78); BILIRUBIN,DIRECT 0.2 MG/DL (0.0-0.2); BILIRUBIN,TOTAL 0.7 MG/DL (0.2-1.0); BLOOD UREA NITROGEN 12 MG/DL (7-18); CALCIUM LEVEL 8.6 MG/DL (8.8-10.2); CARBON DIOXIDE LEVEL 27 MEQ/L (21-32); CHLORIDE LEVEL 108 MEQ/L (98-107); CREATININE FOR GFR 0.87 MG/DL (0.70-1.30); GLOMERULAR FILTRATION RATE > 60.0 (>49); GLUCOSE, FASTING 100 MG/DL (70-100); LIPASE 208 U/L (73-393); POTASSIUM SERUM 4.2 MEQ/L (3.5-5.1); SODIUM LEVEL 141 MEQ/L (136-145); TOTAL PROTEIN 7.1 GM/DL (6.4-8.2)
[2019-07-16] MEDS: MORPHINE 4 MG/ML 1ML VIAL/SYRINGE (J2270) IV PRN (00:31)
--- NOTE | 2019-07-16 01:04 | REPVR ---
PROCEDURE INFORMATION: Exam: CT Abdomen And Pelvis With Contrast Exam date and time: 07/15/2019 11:09 PM Age: 68 years old Clinical indication: Right lower quadrant abdominal pain. TECHNIQUE: Imaging protocol: Computed tomography of the abdomen and pelvis with intravenous contrast. Radiation optimization: All CT scans at this facility use at least one of these dose optimization techniques: automated exposure control; mA and/or kV adjustment per patient size (includes targeted exams where dose is matched to clinical indication); or iterative reconstruction. Contrast material: ISO; Contrast volume: 100 ml; Contrast route: AC; COMPARISON: CT ABD PELVIS W/O CONTRAST 12/18/2018 11:05 PM FINDINGS: Lungs: There is mild dependent atelectasis in both lower lobes. Heart: No cardiomegaly. No pericardial effusion. Diaphragm: There is eventration of the right hemidiaphragm that is similar in appearance compared to the prior CT on 12/18/2018. Liver: Unremarkable. No liver lesion is seen. The contour of the liver is smooth. No hepatomegaly is noted. Gallbladder and bile ducts: No calcified gallstones are seen. No gallbladder wall thickening, pericholecystic fluid, or pericholecystic inflammatory changes are identified. No dilation of the intrahepatic or extrahepatic bile ducts is noted. Pancreas: Normal. No ductal dilation. Spleen: Normal. No splenomegaly. Adrenals: Normal. No mass. Kidneys and ureters: The kidneys are normal in appearance. No renal lesion is identified. No calculi are seen in the kidneys or ureters. There is no hydronephrosis or hydroureter. There are no wedge-shaped areas of low attenuation in the kidneys to suggest pyelonephritis. There is no renal abscess or perinephric fluid collection. Stomach and bowel: There is colonic diverticulosis most severe involving the sigmoid colon without evidence for diverticulitis. There is no evidence for a bowel obstruction, colitis, pneumatosis intestinalis, intussusception, volvulus, or perforated viscus. Appendix: Normal. No evidence for appendicitis. Intraperitoneal space: Unremarkable. No fluid collection. No free air. Retroperitoneal space: Unremarkable. No fluid collection. No mass. Vasculature: The abdominal aorta is patent, normal in caliber, and there is no dissection. There are mild atherosclerotic calcifications. The renal arteries, celiac artery, superior mesenteric artery, inferior mesenteric artery, iliac arteries, and common femoral arteries are patent. The splenic vein and renal veins are patent. Incidental note is made of a circumaortic left renal vein. Lymph nodes: Normal. No enlarged lymph nodes. Bladder: The distended urinary bladder is normal in appearance. No stones or masses are seen in the bladder. The contour of the bladder is normal. Reproductive: The prostate gland is enlarged. The seminal vesicles are unremarkable. There are vas deferens calcifications. Bones/joints: No acute fracture. There is no suspicious osteolytic lesion. Incidental note is made of small bone islands in the right acetabulum and left femoral head, which are unchanged compared to the prior CT on 12/18/2018. There are degenerative changes in the lumbar spine and a mild levoscoliosis of the lumbar spine. There is a left laminotomy defect at the L3-L4 level. There is a mild retrolisthesis of L2 on L3. There is a grade 1 anterolisthesis of L3 on L4 secondary to severe osteoarthritis of the L3-L4 facet joints. Endplate spurs are noted in the lower thoracic spine. 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 Soft tissues: There is scarring of the subcutaneous tissues posteriorly along the midline of the lumbar spine. No soft tissue fluid collection is noted. There is a small fat containing umbilical hernia, which is similar in appearance compared to the prior CT on 12/18/2018. IMPRESSION: 1. No acute findings in the abdomen or pelvis. Normal appendix. 2. Colonic diverticulosis without evidence for diverticulitis. 3. Enlarged prostate. 4. Small fat containing umbilical hernia, which is similar in appearance compared to the prior CT on 12/18/2018. Electronically signed by: Deonte Harley On 07/16/2019 01:04:06 AM
[2019-07-16 02:05] VITALS: BP 110/57
== END 2019-07-16 02:12 | disposition home or self-care (01) ==
LOC: M ED 22:41
DX: R10.9 Unspecified abdominal pain (principal); I69.320 Aphasia following cerebral infarction; K42.9 Umbilical hernia without obstruction or gangrene; K57.30 Diverticulosis of large intestine without perforation or abscess without bleeding; N40.1 Benign prostatic hyperplasia with lower urinary tract symptoms; Z79.01 Long term (current) use of anticoagulants; Z79.891 Long term (current) use of opiate analgesic; Z79.899 Other long term (current) drug therapy
CPT/HCPCS: 74177; 80048; 80076; 81001; 83690; 85025; 93041; 96374; 96375; 99284; J2270; J2405; Q9967

== ENCOUNTER → 2019-11-17 | Outpatient (CLI) | payer MEDICARE, MEDICAID ==
[~2019-11-17] MED LIST changes: +CYCL-707 PO; -CYCL10TA PO
--- NOTE | 2019-11-19 01:11 | ECWPNPC ---
PATIENT NAME: MARY MOODY : 1950 GENDER: MALE VISIT DATE: 11/17/2019 DISCHARGE DATE: 11/17/19 1144 VISIT LOCKED DATE TIME: PHYSICIAN: LYNDSEY SWARTZ RESOURCE: LYNDSEY SWARTZ REASON FOR APPOINTMENT 1. BACK [phone], PAT COMPLETED WITH . PT. HAS STROKE(APHASIA) HISTORY OF PRESENT ILLNESS HISTORY OF PRESENT ILLNESS: PAIN THE PATIENT DESCRIBES THE PAINDURING THE LAST MONTH SEVERITY - PAIN SCORE OF10/10 LOCATIONSLOWER BACK DURATIONCONTINUOUS, CONSTANT, ALL DAY PAIN IS INCREASED BY:ACTIVITIES PERMISSION REQUESTED AND RECEIVED FROM PATIENT TO PERFORM TELEPHONE VISIT. 69-YEAR-OLD MALE IN FOR CHRONIC PAIN FOLLOW-UP. HE RATES HIS PAIN CURRENTLY AT A 6 OUT OF 10 AND DESCRIBES IT SHARP, DULL, AND CONSTANT. HE FEELS MEDICATIONS ARE WORKING WELL AND DENIES MED SIDE EFFECTS AT THIS TIME. FALL RISK SCREENING: SCREENING :NO FALLS REPORTED IN THE LAST YEAR CURRENT MEDICATIONS TAKING [id number] ETHYL ESTERS 1 GM CAPSULE ORAL TWICE DAILY, NOTES: 05/10 1800 TAKING LYRICA 150 MG CAPSULE 1 CAPSULE ORALLY BID, NOTES: 05/10 1800 TAKING POLYETHYLENE GLYCOL 3350 POWDER ORAL Q 3 DAYS, NOTES: 05/10 1000 TAKING ALLOPURINOL 100 MG TABLET TAKE 1 TABLET BY MOUTH ONCE DAILY ORAL , NOTES: 05/10 1000 TAKING TAMSULOSIN HCL 0.4 MG CAPSULE ORAL DAILY, NOTES: 05/10 0800 TAKING WARFARIN SODIUM 5 MG TABLET TAKE 1 TABLET BY MOUTH ONCE DAILY ORAL , NOTES: 05/10 1800 TAKING PRAVASTATIN SODIUM 40 MG TABLET ORAL Q P.M., NOTES: 05/10 1800 TAKING CITALOPRAM HYDROBROMIDE 20 MG TABLET TAKE 1 TABLET BY MOUTH ONCE DAILY ORAL , NOTES: 05/10 1800 TAKING RANITIDINE HCL 150 MG TABLET ORAL BID, NOTES: 05/10 1800 TAKING VALIUM 5 MG TABLET 1 TABLET NEEDED ORALLY TWICE A DAY, NOTES: NONE RECENT TAKING ALBUTEROL SULFATE (2.5 MG/3ML) 0.083% NEBULIZATION SOLUTION 3 ML INHALATION THREE TIMES A DAY PRN, NOTES: NONE RECENT TAKING TRAMADOL HCL 50 MG TABLET 1 TAB ORALLY EVERY 6 HOURS NEEDED/MMD#4, NOTES: 05/10 1930 TAKING TIZANIDINE HCL 4 MG TABLET 1 TABLET NEEDED ORALLY THREE TIMES A DAY, NOTES: 05/10 1800 NOT-TAKING PERCOCET 5-325 MG TABLET 1 TABLET NEEDED ORALLY DAILY NEEDED FOR SEVERE PAIN MDD=1 NOT-TAKING LIDOCAINE 4 % CREAM ONE APPLICATION EXTERNALLY Q 6 HRS PRN PAIN - APPLY TO LOW BACK MEDICATION LIST REVIEWED AND RECONCILED WITH THE PATIENT PAST MEDICAL HISTORY STROKE WITH RIGHT SIDED WEAKNESS AND SPEECH APHASIA ALSO CHRONIC NUMBNESS AND TINGLING TO RIGHTLEG AND FOOT PERIPHERAL NEUROPATHY HYPECHOLESTEROLEMIA DEPRESSION SPINAL STENOSIS TIA MYALGIA NECK AND LOW BACK BACK RIGHT SHOULDER PAIN ALLERGIES N.K.D.A. SURGICAL HISTORY L4-5 AND L3-4 DECOMPRESSIVE LUMBAR SPINE SURGURY RIGHT ROTATOR CUFF SURGURY FAMILY HISTORY FATHER: 82 YRS, DIAGNOSED WITH UNSPECIFIED CEREBRAL ARTERY OCCLUSION WITH CEREBRAL INFARCTION MOTHER: 59 YRS, OTHER MALIGNANT NEOPLASM OF UNSPECIFIED SITE SIBLINGS: ALIVE, BROTHER-PROSTATE CA 2DAUGHTER(S) - HEALTHY. MOM-LUNG CA\NBROTHER-- HAD MS. SOCIAL HISTORY GENERAL: TOBACCO USE ARE YOU A:NONSMOKER LATEX QUESTIONNAIRE LATEX ALLERGY : HAVE YOU EVER DEVELOPED ANY TYPE OF REACTION AFTER HANDLING LATEX PRODUCTS SUCH RUBBER GLOVES, CONDOMS, DIAPHRAGMS, BALLOONS, SOCKS, OR UNDERWEAR?NO LATEX ALLERGY : HAVE YOU EVER DEVELOPED ANY TYPE OF REACTION DURING OR AFTER DENTAL APPOINTMENT, VAGINAL/RECTAL EXAMINATION, SURGICAL PROCEDURE, OR ANY OTHER EXPOSURE?NO DATE ASKED : 05/11/2019 LATEX RISK : HAVE YOU EVER HAD ANY DIFFICULTY BREATHING OR HIVES AFTER EATING OR HANDLING ANY FRUITS, OR VEGETABLES; SUCH KIWI, BANANAS, STONE FRUITS, OR CHESTNUTSNO LATEX RISK : DO YOU HAVE A PREVIOUS PERSONAL HISTORY OF MORE THAN NINE SURGERIES, SPINA BIFIDA, OR REPEATED CATHERIZATIONS? NO LATEX RISK : ARE YOU FREQUENTLY EXPOSED TO LATEX PRODUCTS IN YOUR OCCUPATION?NO ALCOHOL SCREENING DID YOU HAVE A DRINK CONTAINING ALCOHOL IN THE PAST YEAR?NO POINTS0 INTERPRETATIONNEGATIVE RECREATIONAL DRUG USE DRUG USE?NO CAFFEINE CAFFEINE USE?NO RESTORATION [id number] JEW LANGUAGE LANGUAGES SPOKEN:BULGARIAN EDUCATION LEVEL OF EDUCATION:HIGH SCHOOL LEARNING BARRIERS / SPECIAL NEEDS BARRIERS TO LEARNING?YES COMMENTS DIFFICULTY REMEMBERING SINCE THE STROKE HEARING IMPAIRED?YES VISION IMPAIRED?YES COGNITIVELY IMPAIRED?YES DIFF. REMEMBERING THINGS SINCE THE STROKE : HARD OF HEARING BILATERAL EARS :CORRECTIVE LENSES READINESS TO LEARN?YES LEARNING PREFERENCES?YES :TAPES/VIDEOS, DEMONSTRATION/VERBAL INSTRUCTION LEARNING CAPABILITIES PRESENT?YES EMOTIONAL BARRIERS?NO SPECIAL DEVICES?YES :CANE VAULT CASHIER NEEDED?NO DOMESTIC VIOLENCE DO YOU FEEL SAFE IN YOUR ENVIRONMENT?YES PAIN CLINIC PFS, CLERGY, PUBLIC HEALTH REFERRALS PFS REFERRAL NEEDED?NO CLERGY REFERRAL NEEDED?NO PUBLIC HEALTH REFERRAL NEEDED?NO WAS THE PROVIDER NOTIFIED OF ANY PERTINENT INFO? N/A HAS THE PATIENT BEEN EDUCATED REGARDING HIS/HER PLAN OF CARE?YES HAS THE PATIENT BEEN EDUCATED REGARDING PAIN, THE RISK FOR PAIN, THE IMPORTANCE OF EFFECTIVE PAIN MANAGEMENT, AND THE PAIN ASSESSMENT PROCESS?YES ADVANCE DIRECTIVE ADVANCE DIRECTIVE DISCUSSED WITH PATIENT:YES PT HAS HCP AND POA -SKY [phone] REVIEWED WITH PATIENT 04/30/18 1051 JS07/02/18 REVIEWED WITH PT. ADREVIEWED WITH PATIENT 10/07/18 1037 JSREVIEWED WITH PT 01/28/19 0928 BVREVIEWED WITH PT 03/17/19 0900 BV04/08/19 REVIEWED WITH PT. AD05/11/19 REVIEWED WITH PT AND . AD. 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 CONSTITUTIONAL: ANY CHANGE IN YOUR MEDICAL CONDITION? NO . CHILLS NO . FEVER NO . INFECTION: DO YOU HAVE NEW INFECTIONS? NO . DO YOU HAVE HISTORY OF MRSA? NO . MUSCULOSKELETAL: ANY NEW PATTERNS OF PAIN OR NUMBNESS? NO . GASTROENTEROLOGY: ANY NEW CHANGE IN BOWEL CONTROL? NO . GENITOURINARY: ANY NEW CHANGE IN BLADDER CONTROL? NO . IS THERE A CHANCE YOU COULD BE ? NO . HEMATOLOGY/LYMPH: DO YOU TAKE ANY BLOOD THINNERS? (FOR EXAMPLE- COUMADIN, PLAVIX, AGGRENOX, PLATEL, PRADAXA, OR XARELTO) YES, WARFARIN . WHEN WAS YOUR LAST DOSE? DATE: 11/15/19 TIME:6PM , . NEUROLOGY: HAVE YOU FALLEN IN THE PAST 12 MONTHS? NO . ANY NEW EXTREMITY NUMBNESS OR WEAKNESS? NO . CARDIOLOGY: DO YOU HAVE A PACEMAKER OR DEFIBRILLATOR? NO . RESPIRATORY: HAVE YOU BEEN SICK IN THE PAST WEEK? NO . FEVER NO . FLU LIKE SYMPTOMS? NO . COUGH NO . INTEGUMENTARY: DO YOU HAVE ANY RASHES OR OPEN SORES? NO . ALLERGIC/IMMUNO: ARE YOU ALLERGIC TO IV DYE? NO . ANY NEW ALLERGIES? NO . PSYCHIATRIC: DO YOU HAVE THOUGHTS OF HURTING YOURSELF OR SOMEONE ELSE? NO . ARE YOU ABUSED, NEGLECTED, OR IN AN UNSAFE ENVIRONMENT? NO . ENDOCRINOLOGY: ARE YOU DIABETIC? NO . OTHER: DO YOU NEED ANY PRESCRIPTIONS? YES, REFILL TRAMADOL, LYRICA . IF YES, PLEASE LIST: ____ . ANY NEW PROBLEMS WITH YOUR MEDICATIONS? NO . WHEN DID YOU LAST EAT? ____ . WHEN DID YOU LAST DRINK? ____ . WHAT DID YOU LAST DRINK? ____ . NAME OF PERSON DRIVING YOU HOME? ____ . DO YOU HAVE ANY OTHER QUESTIONS OR CONCERNS NO . EXAMINATION GENERAL EXAMINATION: PSYCHAPPROPRIATE MOOD AND AFFECT , ORIENTED X 3. ASSESSMENTS LUMBAR FACET ARTHROPATHY - M46.96 (PRIMARY) TREATMENT LUMBAR FACET ARTHROPATHY REFILL TRAMADOL HCL TABLET, 50 MG, 1 TAB, ORALLY, EVERY 6 HOURS NEEDED/MMD#4, 30 DAYS, 120, NOTES: 05/10 1930 CLINICAL NOTES: 69-YEAR-OLD MALE IN FOR CHRONIC PAIN FOLLOW-UP. GIVEN PRESENTING SYMPTOMS RECOMMENDED CONTINUATION OF CURRENT MEDICATION REGIMEN WITH FOLLOW-UP IN 3 MONTHS. PATIENT HAS EXPRESSED UNDERSTANDING OF AND WAS IN AGREEMENT WITH TREATMENT PLAN. GIVEN TIME TO ASK QUESTIONS AND EXPRESS CONCERNS. , ISTOP REGISTRY REVIEWED AND DEMONSTRATES COMPLLIANCE. (REF # [id number] ) BRINGS IN MEDICATIONS WHICH IS APPROPRIATE FOR WHAT WAS DISPENSED. RECENT URINE TOXICOLOGY REVIEWED. NO UNAUTHORIZED MEDICATIONS. NO ILLICIT SUBSTANCES AND PRESCRIBED MEDICATIONS WERE PRESENT. VISIT TO BE BILLED BASED ON TIME SPENT WITH PATIENT. TIME SPENT WITH PATIENT 11 MINUTES. OTHERS NOTES: VIATLS NOT OBTAINED DUE TO VIRTUAL VISIT, PRE SCREENING COMPLETED. DISPOSITION & COMMUNICATION FOLLOW UP 3 MONTHS (REASON: BACK PAIN) ELECTRONICALLY SIGNED BY FEROZ MCQUEEN ON 11/18/2019 AT 09:27 AM EDT DISCLAIMER : THIS IS A VISIT SUMMARY EXTRACTED FROM THE [employer] CHART. IT IS NOT A COPY OF THE [employer] PROGRESS NOTE. INO
== END ==
LOC: M PAIN 10:30
PROVIDERS: ATTEND Family Medicine
DX: M46.96 Unspecified inflammatory spondylopathy, lumbar region (principal); G89.29 Other chronic pain; Z86.59 Personal history of other mental and behavioral disorders; M79.10 Myalgia, unspecified site; Z79.01 Long term (current) use of anticoagulants; Z79.899 Other long term (current) drug therapy

== ENCOUNTER → 2020-02-15 | Outpatient (CLI) | payer MEDICARE, MEDICAID | LOC: M PAIN 11:00 | PROVIDERS: ATTEND Family Medicine | DX: M46.96 Unspecified inflammatory spondylopathy, lumbar region (principal) ==

== ENCOUNTER → 2020-05-10 | Outpatient (CLI) | payer MEDICARE, MEDICAID ==
--- NOTE | 2020-05-12 01:19 | ECWPNPC ---
PATIENT NAME: MARY MOODY : 1950 GENDER: MALE VISIT DATE: 05/10/2020 DISCHARGE DATE: 05/10/20 1114 VISIT LOCKED DATE TIME: PHYSICIAN: LYNDSEY SWARTZ RESOURCE: LYNDSEY SWARTZ REASON FOR APPOINTMENT 1. BACK/SHOULDER HISTORY OF PRESENT ILLNESS DEPRESSION SCREENING: PHQ-9 LITTLE INTEREST OR PLEASURE IN DOING THINGSNEARLY EVERY DAY FEELING DOWN, DEPRESSED, OR HOPELESSNEARLY EVERY DAY TROUBLE FALLING OR STAYING ASLEEP, OR SLEEPING TOO MUCHNOT AT ALL FEELING TIRED OR HAVING LITTLE ENERGYSEVERAL DAYS POOR APPETITE OR OVEREATING NOT AT ALL FEELING BAD ABOUT YOURSELF-OR THAT YOU ARE A FAILURE OR HAVE LET YOURSELF OR YOUR FAMILY DOWN NOT AT ALL TROUBLE CONCENTRATING ON THINGS, SUCH READING THE NEWSPAPER OR WATCHING TELEVISION NEARLY EVERY DAY MOVING OR SPEAKING SO SLOWLY THAT OTHER PEOPLE COULD HAVE NOTICED. OR THE OPPOSITE- BEING SO FIDGETY OR RESTLESS THAT YOU HAVE BEEN MOVING AROUND A LOT MORE THAN USUALSEVERAL DAYS THOUGHTS THAT YOU WOULD BE BETTER OFF , OR OF HURTING YOURSELF IN SOME WAY?NOT AT ALL TOTAL SCORE:11 INTERPRETATIONMODERATE DEPRESSION PHQ-2 (2015 EDITION) LITTLE INTEREST OR PLEASURE IN DOING THINGS?NEARLY EVERY DAY FEELING DOWN, DEPRESSED, OR HOPELESS?SEVERAL DAYS TOTAL SCORE4 69-YEAR-OLD MALE IN FOR CHRONIC PAIN FOLLOW-UP. HE RATES HIS PAIN CURRENTLY AT A 7 OUT OF 10 AND DESCRIBES IT ACHING, CONTINUOUS, SHARP, AND TENDER. PATIENT HAS HAD TRIGGER POINT INJECTIONS IN THE PAST WITH GOOD RELIEF AND WE WILL DISCUSS REPEAT PROCEDURES TODAY. GENERAL: -. FALL RISK SCREENING: SCREENING :NO FALLS REPORTED IN THE LAST YEAR PAIN SCREENING: PATIENT HAS A COMPLAINT OF ACUTE OR CHRONIC PAIN :YES LOCATION OF PAIN:LOW BACK INTENSITY OF PAIN (SCALE OF 1 TO 10):7 WHAT DOES YOUR PAIN FEEL LIKE:ACHING, CONTINOUS, SHARP, TENDER DURATION:CONTINOUS, CONSTANT, ALL DAY PAIN IS INCREASED BY:ACTIVITIES, PROLONGED STANDING PAIN IS DECREASED BY:USE OF PAIN MEDICATIONS, OTHERS HEAT NURSING NOTE: -. PAIN CENTER INTAKE QUESTIONS: DO YOU HAVE A HISTORY OF MRSA? :NO DO YOU TAKE A BLOOD THINNERS? :YES COUMADIN DO YOU HAVE ANY BLEEDING DISORDERS? :NO ANY NEW NUMBNESS OR WEAKNESS IN YOUR LEGS OR ARMS? :NO ANY PACEMAKER,DEFIBRILLATOR, OR DORSAL COLUMN STIMULATOR? :NO DO YOU HAVE ANY RASHES OR OPEN SORES? :NO ARE YOU ALLERGIC TO IV DYE? :NO ARE YOU DIABETIC? :NO ANY NEW PROBLEMS WITH YOUR MEDICATIONS? :NO HAVE YOU RECEIVED A VACCINE IN THE PAST 30 DAYS? :NO DO YOU PLAN TO RECEIVE A VACCINE IN THE NEXT 21 DAYS? :NO DO YOU NEED ANY PRESCRIPTION? :NO DO YOU TAKE ANY IMMUNOSUPPRESSIVE MEDICATIONS? :NO IS THERE A CHANCE YOU COULD BE ? :NO ARE YOU BREAST FEEDING? :NO CURRENT MEDICATIONS TAKING [id number] ETHYL ESTERS 1 GM CAPSULE ORAL TWICE DAILY TAKING POLYETHYLENE GLYCOL 3350 POWDER ORAL Q 3 DAYS TAKING ALLOPURINOL 100 MG TABLET TAKE 1 TABLET BY MOUTH ONCE DAILY ORAL TAKING TAMSULOSIN HCL 0.4 MG CAPSULE ORAL DAILY TAKING WARFARIN SODIUM 5 MG TABLET TAKE 1 TABLET BY MOUTH ONCE DAILY ORAL TAKING PRAVASTATIN SODIUM 40 MG TABLET ORAL Q P.M. TAKING CITALOPRAM HYDROBROMIDE 20 MG TABLET TAKE 1 TABLET BY MOUTH ONCE DAILY ORAL TAKING VALIUM 5 MG TABLET 1 TABLET NEEDED ORALLY TWICE A DAY TAKING ALBUTEROL SULFATE (2.5 MG/3ML) 0.083% NEBULIZATION SOLUTION 3 ML INHALATION THREE TIMES A DAY PRN TAKING TRAMADOL HCL 50 MG TABLET 1 TAB ORALLY EVERY 6 HOURS NEEDED/MMD#4 TAKING LYRICA 150 MG CAPSULE 1 CAPSULE ORALLY BID TAKING TIZANIDINE HCL 4 MG TABLET 1 TABLET NEEDED ORALLY THREE TIMES A DAY NOT-TAKING RANITIDINE HCL 150 MG TABLET ORAL BID NOT-TAKING PERCOCET 5-325 MG TABLET 1 TABLET NEEDED ORALLY DAILY NEEDED FOR SEVERE PAIN MDD=1 NOT-TAKING LIDOCAINE 4 % CREAM ONE APPLICATION EXTERNALLY Q 6 HRS PRN PAIN - APPLY TO LOW BACK MEDICATION LIST REVIEWED AND RECONCILED WITH THE PATIENT PAST MEDICAL HISTORY STROKE WITH RIGHT SIDED WEAKNESS AND SPEECH APHASIA ALSO CHRONIC NUMBNESS AND TINGLING TO RIGHTLEG AND FOOT PERIPHERAL NEUROPATHY HYPECHOLESTEROLEMIA DEPRESSION SPINAL STENOSIS TIA MYALGIA NECK AND LOW BACK BACK RIGHT SHOULDER PAIN ALLERGIES N.K.D.A. SURGICAL HISTORY L4-5 AND L3-4 DECOMPRESSIVE LUMBAR SPINE SURGURY RIGHT ROTATOR CUFF SURGURY FAMILY HISTORY FATHER: 82 YRS, DIAGNOSED WITH UNSPECIFIED CEREBRAL ARTERY OCCLUSION WITH CEREBRAL INFARCTION MOTHER: 59 YRS, OTHER MALIGNANT NEOPLASM OF UNSPECIFIED SITE SIBLINGS: ALIVE, BROTHER-PROSTATE CA 2DAUGHTER(S) - HEALTHY. MOM-LUNG CA\\NBROTHER-- HAD MS. SOCIAL HISTORY GENERAL: TOBACCO USE ARE YOU A:NONSMOKER LATEX QUESTIONNAIRE LATEX ALLERGY : HAVE YOU EVER DEVELOPED ANY TYPE OF REACTION AFTER HANDLING LATEX PRODUCTS SUCH RUBBER GLOVES, CONDOMS, DIAPHRAGMS, BALLOONS, SOCKS, OR UNDERWEAR?NO LATEX ALLERGY : HAVE YOU EVER DEVELOPED ANY TYPE OF REACTION DURING OR AFTER DENTAL APPOINTMENT, VAGINAL/RECTAL EXAMINATION, SURGICAL PROCEDURE, OR ANY OTHER EXPOSURE?NO LATEX RISK : HAVE YOU EVER HAD ANY DIFFICULTY BREATHING OR HIVES AFTER EATING OR HANDLING ANY FRUITS, OR VEGETABLES; SUCH KIWI, BANANAS, STONE FRUITS, OR CHESTNUTSNO LATEX RISK : DO YOU HAVE A PREVIOUS PERSONAL HISTORY OF MORE THAN NINE SURGERIES, SPINA BIFIDA, OR REPEATED CATHERIZATIONS? NO LATEX RISK : ARE YOU FREQUENTLY EXPOSED TO LATEX PRODUCTS IN YOUR OCCUPATION?NO DATE ASKED : 05/10/2020 ALCOHOL SCREENING DID YOU HAVE A DRINK CONTAINING ALCOHOL IN THE PAST YEAR?NO POINTS0 INTERPRETATIONNEGATIVE RECREATIONAL DRUG USE DRUG USE?NO CAFFEINE CAFFEINE USE?NO SCIENTOLOGY [id number] ORIENT[employer] LANGUAGE LANGUAGES SPOKEN:LITHUANIAN EDUCATION LEVEL OF EDUCATION:HIGH SCHOOL LEARNING BARRIERS / SPECIAL NEEDS BARRIERS TO LEARNING?YES COMMENTS DIFFICULTY REMEMBERING SINCE THE STROKE HEARING IMPAIRED?YES : HARD OF HEARING BILATERAL EARS VISION IMPAIRED?YES :CORRECTIVE LENSES COGNITIVELY IMPAIRED?YES DIFF. REMEMBERING THINGS SINCE THE STROKE READINESS TO LEARN?YES LEARNING PREFERENCES?YES :TAPES/VIDEOS, DEMONSTRATION/VERBAL INSTRUCTION LEARNING CAPABILITIES PRESENT?YES EMOTIONAL BARRIERS?NO SPECIAL DEVICES?YES :CANE SATURATION EQUIPMENT OPERATOR NEEDED?NO DOMESTIC VIOLENCE DO YOU FEEL SAFE IN YOUR ENVIRONMENT?YES PAIN CLINIC PFS, CLERGY, PUBLIC HEALTH REFERRALS PFS REFERRAL NEEDED?NO CLERGY REFERRAL NEEDED?NO PUBLIC HEALTH REFERRAL NEEDED?NO WAS THE PROVIDER NOTIFIED OF ANY PERTINENT INFO? N/A HAS THE PATIENT BEEN EDUCATED REGARDING HIS/HER PLAN OF CARE?YES HAS THE PATIENT BEEN EDUCATED REGARDING PAIN, THE RISK FOR PAIN, THE IMPORTANCE OF EFFECTIVE PAIN MANAGEMENT, AND THE PAIN ASSESSMENT PROCESS?YES ADVANCE DIRECTIVE ADVANCE DIRECTIVE DISCUSSED WITH PATIENT:YES PT HAS HCP AND POA -SKY [phone] HOSPITALIZATION/MAJOR DIAGNOSTIC PROCEDURE TORN ROTATOR CUFF STROKE SURGERIES REVIEW OF SYSTEMS CONSTITUTIONAL: ANY RECENT FEVER NO . CHILLS NO . WEIGHT CHANGE OF UNKNOWN REASONS NO . GASTROENTEROLOGY: NEW UNEXPLAINABLE CHANGES IN BOWEL CONTROL NO . CONSTIPATION NO . GENITOURINARY: ANY NEW CHANGE IN BLADDER CONTROL? NO . NEUROLOGY: NEW ONSET DIZZINESS OR NEUROLOGICAL CHANGES NOT MENTIONED NO . NEW NUMBNESS OR PAIN PATTERNS NOT MENTIONED AND PERTINENT TO TODAY'S VISIT NO . CARDIOLOGY: NEW CHEST PRESSURE NO . NEW CHEST PAIN NO . RESPIRATORY: UNEXPLAINABLE COUGH NO . NEW SHORTNESS OF BREATH NO . VITAL SIGNS WT 225.4 LBS, HT 68", BMI 34.27 INDEX, BP 130/70 MM HG, HR 75 /MIN, RR 18 /MIN, TEMP 97.6 F, OXYGEN SAT % 95%, SAFE IN ENV? (Y/N) YES, NA INITIALS SC 10:20, REVIEWED BY: MANUELA. EXAMINATION GENERAL EXAMINATION: GENERALNO ACUTE DISTRESS, WELL NOURISHED AND HYDRATED. PSYCHAPPROPRIATE MOOD AND AFFECT . LUNGS:CLEAR TO AUSCULTATION BILATERALLY, NO WHEEZES, RHONCHI, RALES. HEART:NO MURMURS, REGULAR RATE AND RHYTHM. BACK:POINT TENDER BILATERAL LOW BACK, SURROUNDING SKIN SHOWS NO ERYTHEMA, ECCHYMOSIS, INCREASED WARMTH, AND/OR SKIN ERUPTIONS NOTED. BANDS OF RESTRICTIVE TISSUE NOTED OVER TRIGGER POINTS . ASSESSMENTS MYALGIA, OTHER SITE - M79.18 (PRIMARY) TREATMENT MYALGIA, OTHER SITE NOTES: 69-YEAR-OLD MALE IN FOR CHRONIC PAIN FOLLOW-UP. GIVEN PRESENTING SYMPTOMS AND RESULTS OF PHYSICAL EXAMINATION RECOMMEND BILATERAL LOW BACK TRIGGER POINT INJECTIONS WITH POSTPROCEDURAL FOLLOW-UP. DISCUSSED DEPRESSION WITH PATIENT AND HE ADMITS TO BEING ON ANTIDEPRESSENTS TO HELP HIS SYMPTOMS. PATIENT HAS EXPRESSED UNDERSTANDING OF AND WAS IN AGREEMENT WITH TREATMENT PLAN. GIVEN TIME TO ASK QUESTIONS AND EXPRESS CONCERNS. , ISTOP REGISTRY REVIEWED AND DEMONSTRATES COMPLLIANCE. (REF #[id number] ) BRINGS IN MEDICATIONS WHICH IS APPROPRIATE FOR WHAT WAS DISPENSED. RECENT URINE TOXICOLOGY REVIEWED. NO UNAUTHORIZED MEDICATIONS. NO ILLICIT SUBSTANCES AND PRESCRIBED MEDICATIONS WERE PRESENT. PROCEDURE CODES [id number] ESTABILISHED PATIENT [facility] CHARGE DISPOSITION & COMMUNICATION FOLLOW UP POSTPROCEDURE (REASON: BILATERAL LOW BACK TRIGGER POINT INJECTIONS) ELECTRONICALLY SIGNED BY FEROZ MCQUEEN ON 05/11/2020 AT 08:55 AM EDT DISCLAIMER : THIS IS A VISIT SUMMARY EXTRACTED FROM THE [employer] CHART. IT IS NOT A COPY OF THE [employer] PROGRESS NOTE. INO
== END ==
LOC: M PAIN 10:30
PROVIDERS: ATTEND Family Medicine
DX: M79.18 Myalgia, other site (principal); I69.351 Hemiplegia and hemiparesis following cerebral infarction affecting right dominant side; E78.00 Pure hypercholesterolemia, unspecified; F32.9 Major depressive disorder, single episode, unspecified; M25.511 Pain in right shoulder; Z79.01 Long term (current) use of anticoagulants; Z79.899 Other long term (current) drug therapy

== ENCOUNTER → 2020-05-28 | Outpatient (CLI) | payer MEDICARE, MEDICAID | LOC: M LABSMTC 09:49 | PROVIDERS: ATTEND Anesthesiology | DX: Z20.828 Contact with and (suspected) exposure to other viral communicable diseases (principal) ==

== ENCOUNTER → 2020-06-02 | Outpatient (CLI) | payer MEDICARE, MEDICAID ==
[~2020-06-02] MED LIST changes: +BUPIVACAINE HCL 0.25% 10ML VIAL As Ordered ONE; +BUPIVACAINE HCL 0.25% 30ML VIAL As Ordered ONE; +TRIAMCINOLONE ACETONIDE SUSP 40 MG/ML VIAL (J3301) As Ordered ONE; +diazePAM 5 MG TAB As Ordered ONE; +oxyCODONE 5MG TAB As Ordered ONE
--- NOTE | 2020-06-03 02:28 | ECWPNPC ---
PATIENT NAME: MARY MOODY : 1950 GENDER: MALE VISIT DATE: 06/02/2020 DISCHARGE DATE: 06/02/20 1154 VISIT LOCKED DATE TIME: PHYSICIAN: PRATEEK CARRILLO MD RESOURCE: PRATEEK CARRILLO MD REASON FOR APPOINTMENT 1. BILATERAL LOW BACK TRIGGER POINT INJECTIONS HISTORY OF PRESENT ILLNESS GENERAL: -. FALL RISK SCREENING: SCREENING :NO FALLS REPORTED IN THE LAST YEAR PAIN SCREENING: PATIENT HAS A COMPLAINT OF ACUTE OR CHRONIC PAIN :YES LOCATION OF PAIN:LOW BACK INTENSITY OF PAIN (SCALE OF 1 TO 10):8 WHAT DOES YOUR PAIN FEEL LIKE:ACHING, BURNING, CONTINOUS, SHARP, TENDER, SORE DURATION:CONTINOUS, CONSTANT PAIN IS INCREASED BY:ACTIVITIES PAIN IS DECREASED BY:USE OF PAIN MEDICATIONS, OTHERS RESTING NURSING NOTE: -. PAIN CENTER INTAKE QUESTIONS: DO YOU HAVE A HISTORY OF MRSA? :NO DO YOU TAKE A BLOOD THINNERS? :YES COUMADIN. INR 2.6 05/27/20 PER PT'S WITH HOME TESTING. DO YOU HAVE ANY BLEEDING DISORDERS? :NO ANY NEW NUMBNESS OR WEAKNESS IN YOUR LEGS OR ARMS? :NO ANY PACEMAKER,DEFIBRILLATOR, OR DORSAL COLUMN STIMULATOR? :NO DO YOU HAVE ANY RASHES OR OPEN SORES? :NO ARE YOU ALLERGIC TO IV DYE? :NO ARE YOU DIABETIC? :NO ANY NEW PROBLEMS WITH YOUR MEDICATIONS? :NO HAVE YOU RECEIVED A VACCINE IN THE PAST 30 DAYS? :NO DO YOU PLAN TO RECEIVE A VACCINE IN THE NEXT 21 DAYS? :NO DO YOU TAKE ANY IMMUNOSUPPRESSIVE MEDICATIONS? :NO ANY HISTORY OF SEIZURES? :NO ANY HISTORY OF CARDIAC ISSUES OR EVENTS? :NO DO YOU HAVE SLEEP APNEA? :NO ANY RECENT HEAD INJURY? :NO DO YOU HAVE ANY NEW INFECTIONS? :NO IS THERE A CHANCE YOU COULD BE ? :NO ARE YOU BREAST FEEDING? :NO WHEN DID YOU LAST EAT? : -06/01 1900 WHEN DID YOU LAST DRINK? : 06/01 2100 WHAT DID YOU LAST DRINK? : -WATER NAME OF PERSON DRIVING YOU HOME? : -[place]- DO YOU HAVE ANY OTHER QUESTIONS OR CONCERNS? : - CURRENT MEDICATIONS TAKING HTION-1-CHIV ETHYL ESTERS 1 GM CAPSULE ORAL TWICE DAILY, NOTES: 06/01 TAKING POLYETHYLENE GLYCOL 3350 POWDER ORAL Q 3 DAYS, NOTES: 06/01 TAKING ALLOPURINOL 100 MG TABLET TAKE 1 TABLET BY MOUTH ONCE DAILY ORAL , NOTES: 06/01 TAKING TAMSULOSIN HCL 0.4 MG CAPSULE ORAL DAILY, NOTES: 06/01 TAKING WARFARIN SODIUM 5 MG TABLET TAKE 1 TABLET BY MOUTH ONCE DAILY ORAL TUESDAYS 2.5MG, NOTES: TUESDAYS 2.5MG 5MG 06/01 TAKING PRAVASTATIN SODIUM 40 MG TABLET ORAL Q P.M., NOTES: 06/01 1900 TAKING CITALOPRAM HYDROBROMIDE 20 MG TABLET TAKE 1 TABLET BY MOUTH ONCE DAILY ORAL , NOTES: 06/01 1900 TAKING VALIUM 5 MG TABLET 1 TABLET NEEDED ORALLY TWICE A DAY, NOTES: NONE IN PAST WEEK TAKING ALBUTEROL SULFATE (2.5 MG/3ML) 0.083% NEBULIZATION SOLUTION 3 ML INHALATION THREE TIMES A DAY PRN, NOTES: NONE IN PAST WEEK TAKING TRAMADOL HCL 50 MG TABLET 1 TAB ORALLY EVERY 6 HOURS NEEDED/MMD#4, NOTES: 06/01 TAKING LYRICA 150 MG CAPSULE 1 CAPSULE ORALLY BID, NOTES: 06/01 TAKING TIZANIDINE HCL 4 MG TABLET 1 TABLET NEEDED ORALLY THREE TIMES A DAY, NOTES: 06/01 NOT-TAKING RANITIDINE HCL 150 MG TABLET ORAL BID NOT-TAKING PERCOCET 5-325 MG TABLET 1 TABLET NEEDED ORALLY DAILY NEEDED FOR SEVERE PAIN MDD=1 NOT-TAKING LIDOCAINE 4 % CREAM ONE APPLICATION EXTERNALLY Q 6 HRS PRN PAIN - APPLY TO LOW BACK MEDICATION LIST REVIEWED AND RECONCILED WITH THE PATIENT PAST MEDICAL HISTORY STROKE WITH RIGHT SIDED WEAKNESS AND SPEECH APHASIA ALSO CHRONIC NUMBNESS AND TINGLING TO RIGHTLEG AND FOOT PERIPHERAL NEUROPATHY HYPECHOLESTEROLEMIA DEPRESSION SPINAL STENOSIS TIA MYALGIA NECK AND LOW BACK BACK RIGHT SHOULDER PAIN ALLERGIES N.K.D.A. SURGICAL HISTORY L4-5 AND L3-4 DECOMPRESSIVE LUMBAR SPINE SURGURY RIGHT ROTATOR CUFF SURGURY FAMILY HISTORY FATHER: 82 YRS, DIAGNOSED WITH UNSPECIFIED CEREBRAL ARTERY OCCLUSION WITH CEREBRAL INFARCTION MOTHER: 59 YRS, OTHER MALIGNANT NEOPLASM OF UNSPECIFIED SITE SIBLINGS: ALIVE, BROTHER-PROSTATE CA 2DAUGHTER(S) - HEALTHY. MOM-LUNG CA\\NBROTHER-- HAD MS. SOCIAL HISTORY GENERAL: TOBACCO USE ARE YOU A:NONSMOKER LATEX QUESTIONNAIRE LATEX ALLERGY : HAVE YOU EVER DEVELOPED ANY TYPE OF REACTION AFTER HANDLING LATEX PRODUCTS SUCH RUBBER GLOVES, CONDOMS, DIAPHRAGMS, BALLOONS, SOCKS, OR UNDERWEAR?NO LATEX ALLERGY : HAVE YOU EVER DEVELOPED ANY TYPE OF REACTION DURING OR AFTER DENTAL APPOINTMENT, VAGINAL/RECTAL EXAMINATION, SURGICAL PROCEDURE, OR ANY OTHER EXPOSURE?NO LATEX RISK : HAVE YOU EVER HAD ANY DIFFICULTY BREATHING OR HIVES AFTER EATING OR HANDLING ANY FRUITS, OR VEGETABLES; SUCH KIWI, BANANAS, STONE FRUITS, OR CHESTNUTSNO LATEX RISK : DO YOU HAVE A PREVIOUS PERSONAL HISTORY OF MORE THAN NINE SURGERIES, SPINA BIFIDA, OR REPEATED CATHERIZATIONS? NO LATEX RISK : ARE YOU FREQUENTLY EXPOSED TO LATEX PRODUCTS IN YOUR OCCUPATION?NO DATE ASKED : 05/31/2020 ALCOHOL SCREENING DID YOU HAVE A DRINK CONTAINING ALCOHOL IN THE PAST YEAR?NO POINTS0 INTERPRETATIONNEGATIVE RECREATIONAL DRUG USE DRUG USE?NO CAFFEINE CAFFEINE USE?NO YAZDANISM [id number] SABIANISM LANGUAGE LANGUAGES SPOKEN:KENYAN EDUCATION LEVEL OF EDUCATION:HIGH SCHOOL LEARNING BARRIERS / SPECIAL NEEDS BARRIERS TO LEARNING?YES COMMENTS DIFFICULTY REMEMBERING SINCE THE STROKE HEARING IMPAIRED?YES : HARD OF HEARING BILATERAL EARS VISION IMPAIRED?YES :CORRECTIVE LENSES COGNITIVELY IMPAIRED?YES DIFF. REMEMBERING THINGS SINCE THE STROKE READINESS TO LEARN?YES LEARNING PREFERENCES?YES :TAPES/VIDEOS, DEMONSTRATION/VERBAL INSTRUCTION LEARNING CAPABILITIES PRESENT?YES EMOTIONAL BARRIERS?NO SPECIAL DEVICES?YES :CANE CENTRAL OFFICE REPAIRER NEEDED?NO DOMESTIC VIOLENCE DO YOU FEEL SAFE IN YOUR ENVIRONMENT?YES PAIN CLINIC PFS, CLERGY, PUBLIC HEALTH REFERRALS PFS REFERRAL NEEDED?NO CLERGY REFERRAL NEEDED?NO PUBLIC HEALTH REFERRAL NEEDED?NO WAS THE PROVIDER NOTIFIED OF ANY PERTINENT INFO? N/A HAS THE PATIENT BEEN EDUCATED REGARDING HIS/HER PLAN OF CARE?YES HAS THE PATIENT BEEN EDUCATED REGARDING PAIN, THE RISK FOR PAIN, THE IMPORTANCE OF EFFECTIVE PAIN MANAGEMENT, AND THE PAIN ASSESSMENT PROCESS?YES ADVANCE DIRECTIVE ADVANCE DIRECTIVE DISCUSSED WITH PATIENT:YES PT HAS HCP AND POA -SKY [phone] HOSPITALIZATION/MAJOR DIAGNOSTIC PROCEDURE TORN ROTATOR CUFF STROKE SURGERIES VITAL SIGNS WT 223.4 LBS, HT 68", BMI 33.96 INDEX, BP 125/64 MM HG, HR 75 /MIN, RR 18 /MIN, TEMP 97.6 F, OXYGEN SAT % 94%, SAFE IN ENV? (Y/N) YES, NA INITIALS SC 08:34, REVIEWED BY: MANUELA RN @0843. EXAMINATION GENERAL EXAMINATION: THE PATIENT IS ALERT, ORIENTED TIMES THREE AND COOPERATIVE. HEART SHOWS REGULAR RHYTHM, NO MURMURS AND NO GALLOPS. LUNGS ARE CLEAR TO AUSCULTATION. ASSESSMENTS MYALGIA - M79.1 (PRIMARY) TREATMENT MYALGIA MEDICATION: VALIUM TAB 10MG ORALLY (DIAZEPAM)ARNOLD FRAGA 06/02/2020 9:23:00 AM > VALIUM LOT# [id number]. EXP 02/01. OLAYINKA JARVIS RN 06/02/2020 9:24:32 AM > VERIFIED ARNOLD RFAGA 06/02/2020 9:26:58 AM > ADMINISTERED 09 MEDICATION: OXYCODONE HCL TAB 10MG ORALLYFLAKITO,ARNOLD 06/02/2020 9:23:40 AM > OXYCODONE LOT# [id number]. EXP 08/2021 OLAYINKA JARVIS RN 06/02/2020 9:24:45 AM > VERIFIED ARNOLD FRAGA 06/02/2020 9:27:50 AM > ADMINISTERED 09 NOTES: DISCHARGE INSTRUCTIONS REVIEWED WITH PATIENT AND DUE TO COGNITIVE IMPAIRMENT DUE TO HX OF CVA. PATIENT AND VERBALIZE UNDERSTANDING OF DISCHARGE INSTRUCTIONS. PROCEDURES PAIN NURSING RECORD PRE-PROCEDURE IV SITE N/A, PRE-PROCEDURE ORAL MEDICATIONS PER MD ORDER PROCEDURE IN ROOM 0830, PHYSICIAN IN ROOM 0949, START 0953, FINISH 0955, PHYSICIAN OUT OF ROOM 0955, OUT OF ROOM 1009, STEROID KENALOG, O2 N/A, ECG N/A, PATIENT SHIELDED NO, SAFETY STRAP NO, PREP ALCOHOL BY DR CARRILLO, IV INFUSED N/A, DRESSING TEGADERM BY Javy FRAGA RN LOC: 1. ALERT, ORIENTED RESP: 1. REGULAR, NO DYSPNEA COLOR: 1. PINK SKIN: 1. WARM, DRY POSITION: 4. OTHER SITTING VITALS: ARNOLD FRAGA 06/02/2020 10:03:06 AM > 126/77 HR80 16 95% D/C V/S DISCHARGE: POST PAIN 4, DRESSING SITE DRY AND INTACT, IV N/A, GAIT STEADY, TEACHING COMPLETED, PATIENT ACKNOWLEDGES UNDERSTANDING YES, PATIENT DISCHARGED AT 1009 PN TRIGGER POINT INJECTION WITH STEROIDS PRE PROCEDURE DIAGNOSIS 1. MYALGIA 2. PAIN AT BILATERAL LOWER BACK AREA POST PROCEDURE DIAGNOSIS 1. MYALGIA 2. PAIN AT BILATERAL LOWER BACK AREA PROCEDURE TRIGGER POINT INJECTION AT BILATERAL LOWER BACK AREA SURGEON DR. PRATEEK CARRILLO BODY TECHNICIAN NONE ANESTHESIA LOCAL PRE PROCEDURE NOTE THE PATIENT HAS A HISTORY OF CHRONIC PAIN AT THE RIGHT AND LEFT LOWER BACK AREA. I EVALUATED THE PATIENT AND REVIEWED THE CHART. THERE IS EVIDENCE OF BANDS OF TISSUE WITH RESTRICTION OF MOVEMENT AND PRESENCE OF TRIGGER POINT AT THE RIGHT AND LEFT LOWER BACK AREA. I WENT OVER THE RISKS, ALTERNATIVES, AND BENEFITS ASSOCIATED WITH THIS PROCEDURE. THE PATIENT WOULD LIKE TO PROCEED AND GIVE CONSENT TO PERFORMED THE PROCEDURE. I DISCUSSED THAT THE USE OF STEROIDS MAY CONTRIBUTE TO IMMUNOSUPPRESSION OF THE PATIENT'S BODY AGAINST INFECTIONS SUCH COVID-19. THE PATIENT IS AWARE OF THE POTENTIAL COMPLICATIONS ASSOCIATED WITH THIS VIRUS, INCLUDING, BUT NOT LIMITED TO, . THE PATIENT DENIES UNEXPLAINABLE WEIGHT LOSS, FEVER, CHILLS, OR NEW CHANGES IN URINARY OR BOWEL CONTROL. THE PATIENT IS COVID-19 NEGATIVE DESCRIPTION OF PROCEDURE THE PATIENT WAS BROUGHT TO THE PROCEDURE ROOM AND PLACED IN THE SITTING POSITION. THE AREA WAS CLEANED WITH ALCOHOL. THE PROCEDURE WAS DONE USING ASEPTIC STERILE TECHNIQUE. A TIMEOUT WAS PERFORMED WHERE LATERALITY AND THE SITE OF THE PROCEDURE WERE CHECKED AND CONFIRMED WITH EVERYONE IN THE ROOM. USING A 25-GAUGE NEEDLE, TRIGGER POINTS WERE INJECTED AT THE RIGHT AND LEFT LOWER BACK AREA WITH A TOTAL OF 40 ML OF BUPIVACAINE 0.25% AND KENALOG 40 MG. THE MEDICATIONS WERE VERIFIED WITH THE NURSE. THERE WAS NO EVIDENCE OF BLOOD OR PARESTHESIA DURING THE PROCEDURE. THE PATIENT WAS SENT TO THE RECOVERY ROOM. THE PATIENT WAS MOVING THE EXTREMITIES AND DOING WELL. THERE WERE NO COMPLICATIONS DURING THE PROCEDURE. ESTIMATED BLOOD LOSS WAS LESS THAN 5 ML POST PROCEDURE NOTE THE PROCEDURE DONE WAS DISCUSSED WITH THE PATIENT. THE PATIENT WILL BE SEEN IN A FOLLOW UP IN THE NEXT FEW WEEKS. I AM LOOKING FOR LONG LASTING PAIN RELIEF FOR THE PATIENT WITH THIS INTERVENTION. INSTRUCTIONS WERE GIVEN, QUESTIONS WERE ANSWERED, AND THE PATIENT EXPRESSED UNDERSTANDING AND AGREES WITH THE PLAN. I, MAURY PEMBERTON, DOCUMENTED THE ABOVE INFORMATION ACTING A SCRIBE FOR DR. CARRILLO. I HAVE REVIEWED THE ABOVE DOCUMENT, WRITTEN BY MAURY PEMBERTON, STUDIO CONTROL OPERATOR, AND I VERIFY THAT IT IS ACCURATE PROCEDURE CODES 60589 INJ TRIGGER POINT 07/16 MUSCL DISPOSITION & COMMUNICATION FOLLOW UP FOLLOW UP WITH TETRYL DISSOLVER OPERATOR (REASON: POST TPI BILATERAL LOWER BACK) ELECTRONICALLY SIGNED BY PRATEEK CARRILLO MD, MD ON 06/02/2020 AT 02:19 PM EST DISCLAIMER : THIS IS A VISIT SUMMARY EXTRACTED FROM THE [facility] CHART. IT IS NOT A COPY OF THE [facility] PROGRESS NOTE. INO
== END ==
LOC: M PAIN 08:30
PROVIDERS: ATTEND Anesthesiology
DX: M79.18 Myalgia, other site (principal); I69.351 Hemiplegia and hemiparesis following cerebral infarction affecting right dominant side; I69.320 Aphasia following cerebral infarction; I69.398 Other sequelae of cerebral infarction; R20.0 Anesthesia of skin; G62.9 Polyneuropathy, unspecified; E78.00 Pure hypercholesterolemia, unspecified; F32.9 Major depressive disorder, single episode, unspecified; Z79.01 Long term (current) use of anticoagulants; Z79.899 Other long term (current) drug therapy
CPT/HCPCS: 20552; J3301

== ENCOUNTER → 2020-06-29 | Outpatient (CLI) | payer MEDICARE, MEDICAID ==
[~2020-06-29] MED LIST changes: -BUPIVACAINE HCL 0.25% 10ML VIAL As Ordered ONE; -BUPIVACAINE HCL 0.25% 30ML VIAL As Ordered ONE; -TRIAMCINOLONE ACETONIDE SUSP 40 MG/ML VIAL (J3301) As Ordered ONE; -diazePAM 5 MG TAB As Ordered ONE; -oxyCODONE 5MG TAB As Ordered ONE
--- NOTE | 2020-07-01 01:57 | ECWPNPC ---
PATIENT NAME: MARY MOODY : 1950 GENDER: MALE VISIT DATE: 06/29/2020 DISCHARGE DATE: 06/29/20 1112 VISIT LOCKED DATE TIME: PHYSICIAN: LYNDSEY SWARTZ RESOURCE: LYNDSEY SWARTZ REASON FOR APPOINTMENT 1. POST TRIGGER POINT INJECTION HISTORY OF PRESENT ILLNESS GENERAL: - 69-YEAR-OLD MALE IN FOR POST TRIGGER POINT INJECTION FOLLOW-UP. HE FEELS THE PROCEDURE WAS UNSUCCESSFUL RATING HIS PAIN PREPROCEDURE AT AN 8 OUT OF 10 AND POSTPROCEDURE AT A 4 OUT OF 10. FURTHER STATING THE PROCEDURE ONLY HELPED APPROXIMATELY 2 DAYS. HE RATES PAIN CURRENTLY AT A 5 OUT OF 10 AND DESCRIBES IT ACHING. FALL RISK SCREENING: SCREENING :NO FALLS REPORTED IN THE LAST YEAR PAIN SCREENING: PATIENT HAS A COMPLAINT OF ACUTE OR CHRONIC PAIN :YES LOCATION OF PAIN:LOW BACK INTENSITY OF PAIN (SCALE OF 1 TO 10):5 WHAT DOES YOUR PAIN FEEL LIKE:ACHING, SHARP, STABBING DURATION:CONTINOUS, CONSTANT PAIN IS INCREASED BY:ACTIVITIES PAIN IS DECREASED BY:USE OF PAIN MEDICATIONS TREATMENT/MEDICATIONS USED TO MANAGE PAIN:OPIOIDS LEVEL OF RELIEF FROM PAIN TREATMENTS IN THE PAST:75% PAIN HAS INTERFERED WITH THE FOLLOWING:BATHING/DRESSING, WALKING ABILITY, HOUSEWORK, SLEEP, TRANSPORTATION, TOILETING NURSING NOTE: -. PAIN CENTER INTAKE QUESTIONS: DO YOU HAVE A HISTORY OF MRSA? :NO DO YOU TAKE A BLOOD THINNERS? :YES COUMADIN, FOR STROKE DO YOU HAVE ANY BLEEDING DISORDERS? :NO ANY NEW NUMBNESS OR WEAKNESS IN YOUR LEGS OR ARMS? :YES WEAKNESS AND NUMBNESS IN RIGHT ARM ANY PACEMAKER,DEFIBRILLATOR, OR DORSAL COLUMN STIMULATOR? :YES DO YOU HAVE ANY RASHES OR OPEN SORES? :NO ARE YOU ALLERGIC TO IV DYE? :NO ARE YOU DIABETIC? :NO ANY NEW PROBLEMS WITH YOUR MEDICATIONS? :NO HAVE YOU RECEIVED A VACCINE IN THE PAST 30 DAYS? :NO DO YOU PLAN TO RECEIVE A VACCINE IN THE NEXT 21 DAYS? :YES IF SO WHAT VACCINE AND WHEN? FLU VACCINE DO YOU NEED ANY PRESCRIPTION? :YES TRAMADOL DO YOU TAKE ANY IMMUNOSUPPRESSIVE MEDICATIONS? :NO IS THERE A CHANCE YOU COULD BE ? :NO ARE YOU BREAST FEEDING? :NO CURRENT MEDICATIONS TAKING ZBPON-0-CCAS ETHYL ESTERS 1 GM CAPSULE ORAL TWICE DAILY TAKING POLYETHYLENE GLYCOL 3350 POWDER ORAL Q 3 DAYS TAKING ALLOPURINOL 100 MG TABLET TAKE 1 TABLET BY MOUTH ONCE DAILY ORAL TAKING TAMSULOSIN HCL 0.4 MG CAPSULE ORAL DAILY TAKING WARFARIN SODIUM 5 MG TABLET TAKE 1 TABLET BY MOUTH ONCE DAILY ORAL TUESDAYS 2.5MG TAKING PRAVASTATIN SODIUM 40 MG TABLET ORAL Q P.M. TAKING CITALOPRAM HYDROBROMIDE 20 MG TABLET TAKE 1 TABLET BY MOUTH ONCE DAILY ORAL TAKING VALIUM 5 MG TABLET 1 TABLET NEEDED ORALLY TWICE A DAY TAKING ALBUTEROL SULFATE (2.5 MG/3ML) 0.083% NEBULIZATION SOLUTION 3 ML INHALATION THREE TIMES A DAY PRN TAKING TRAMADOL HCL 50 MG TABLET 1 TAB ORALLY EVERY 6 HOURS NEEDED/MMD#4 TAKING LYRICA 150 MG CAPSULE 1 CAPSULE ORALLY BID TAKING TIZANIDINE HCL 4 MG TABLET 1 TABLET NEEDED ORALLY THREE TIMES A DAY NOT-TAKING RANITIDINE HCL 150 MG TABLET ORAL BID NOT-TAKING PERCOCET 5-325 MG TABLET 1 TABLET NEEDED ORALLY DAILY NEEDED FOR SEVERE PAIN MDD=1 NOT-TAKING LIDOCAINE 4 % CREAM ONE APPLICATION EXTERNALLY Q 6 HRS PRN PAIN - APPLY TO LOW BACK MEDICATION LIST REVIEWED AND RECONCILED WITH THE PATIENT PAST MEDICAL HISTORY STROKE WITH RIGHT SIDED WEAKNESS AND SPEECH APHASIA ALSO CHRONIC NUMBNESS AND TINGLING TO RIGHTLEG AND FOOT PERIPHERAL NEUROPATHY HYPECHOLESTEROLEMIA DEPRESSION SPINAL STENOSIS TIA MYALGIA NECK AND LOW BACK BACK RIGHT SHOULDER PAIN ALLERGIES N.K.D.A. SURGICAL HISTORY L4-5 AND L3-4 DECOMPRESSIVE LUMBAR SPINE SURGURY RIGHT ROTATOR CUFF SURGURY FAMILY HISTORY FATHER: 82 YRS, DIAGNOSED WITH UNSPECIFIED CEREBRAL ARTERY OCCLUSION WITH CEREBRAL INFARCTION MOTHER: 59 YRS, OTHER MALIGNANT NEOPLASM OF UNSPECIFIED SITE SIBLINGS: ALIVE, BROTHER-PROSTATE CA 2DAUGHTER(S) - HEALTHY. MOM-LUNG CA\\NBROTHER-- HAD MS. SOCIAL HISTORY GENERAL: TOBACCO USE ARE YOU A:NONSMOKER LATEX QUESTIONNAIRE LATEX ALLERGY : HAVE YOU EVER DEVELOPED ANY TYPE OF REACTION AFTER HANDLING LATEX PRODUCTS SUCH RUBBER GLOVES, CONDOMS, DIAPHRAGMS, BALLOONS, SOCKS, OR UNDERWEAR?NO LATEX ALLERGY : HAVE YOU EVER DEVELOPED ANY TYPE OF REACTION DURING OR AFTER DENTAL APPOINTMENT, VAGINAL/RECTAL EXAMINATION, SURGICAL PROCEDURE, OR ANY OTHER EXPOSURE?NO DATE ASKED : 05/31/2020 LATEX RISK : HAVE YOU EVER HAD ANY DIFFICULTY BREATHING OR HIVES AFTER EATING OR HANDLING ANY FRUITS, OR VEGETABLES; SUCH KIWI, BANANAS, STONE FRUITS, OR CHESTNUTSNO LATEX RISK : DO YOU HAVE A PREVIOUS PERSONAL HISTORY OF MORE THAN NINE SURGERIES, SPINA BIFIDA, OR REPEATED CATHERIZATIONS? NO LATEX RISK : ARE YOU FREQUENTLY EXPOSED TO LATEX PRODUCTS IN YOUR OCCUPATION?NO ALCOHOL SCREENING DID YOU HAVE A DRINK CONTAINING ALCOHOL IN THE PAST YEAR?NO POINTS0 INTERPRETATIONNEGATIVE RECREATIONAL DRUG USE DRUG USE?NO CAFFEINE CAFFEINE USE?NO JEWISH [id number] HOAHAOISM LANGUAGE LANGUAGES SPOKEN:INDIAN EDUCATION LEVEL OF EDUCATION:HIGH SCHOOL LEARNING BARRIERS / SPECIAL NEEDS BARRIERS TO LEARNING?YES COMMENTS DIFFICULTY REMEMBERING SINCE THE STROKE HEARING IMPAIRED?YES VISION IMPAIRED?YES COGNITIVELY IMPAIRED?YES DIFF. REMEMBERING THINGS SINCE THE STROKE : HARD OF HEARING BILATERAL EARS :CORRECTIVE LENSES READINESS TO LEARN?YES LEARNING PREFERENCES?YES :TAPES/VIDEOS, DEMONSTRATION/VERBAL INSTRUCTION LEARNING CAPABILITIES PRESENT?YES EMOTIONAL BARRIERS?NO SPECIAL DEVICES?YES :CANE ENVIRONMENTAL COMPLIANCE ENGINEER NEEDED?NO DOMESTIC VIOLENCE DO YOU FEEL SAFE IN YOUR ENVIRONMENT?YES PAIN CLINIC PFS, CLERGY, PUBLIC HEALTH REFERRALS PFS REFERRAL NEEDED?NO CLERGY REFERRAL NEEDED?NO PUBLIC HEALTH REFERRAL NEEDED?NO WAS THE PROVIDER NOTIFIED OF ANY PERTINENT INFO? N/A HAS THE PATIENT BEEN EDUCATED REGARDING HIS/HER PLAN OF CARE?YES HAS THE PATIENT BEEN EDUCATED REGARDING PAIN, THE RISK FOR PAIN, THE IMPORTANCE OF EFFECTIVE PAIN MANAGEMENT, AND THE PAIN ASSESSMENT PROCESS?YES ADVANCE DIRECTIVE ADVANCE DIRECTIVE DISCUSSED WITH PATIENT:YES PT HAS HCP AND POA -SKY [phone] HOSPITALIZATION/MAJOR DIAGNOSTIC PROCEDURE TORN ROTATOR CUFF STROKE SURGERIES REVIEW OF SYSTEMS CONSTITUTIONAL: ANY RECENT FEVER NO . CHILLS NO . WEIGHT CHANGE OF UNKNOWN REASONS NO . GASTROENTEROLOGY: NEW UNEXPLAINABLE CHANGES IN BOWEL CONTROL NO . CONSTIPATION NO . GENITOURINARY: ANY NEW CHANGE IN BLADDER CONTROL? NO . NEUROLOGY: NEW ONSET DIZZINESS OR NEUROLOGICAL CHANGES NOT MENTIONED NO . NEW NUMBNESS OR PAIN PATTERNS NOT MENTIONED AND PERTINENT TO TODAY'S VISIT NO . CARDIOLOGY: NEW CHEST PRESSURE NO . NEW CHEST PAIN NO . RESPIRATORY: UNEXPLAINABLE COUGH NO . NEW SHORTNESS OF BREATH NO . VITAL SIGNS WT 220.2 LBS, HT 68", BMI 33.48 INDEX, BP 117/70 MM HG, HR 74 /MIN, RR 18 /MIN, TEMP 97.0 F, OXYGEN SAT % 94%, SAFE IN ENV? (Y/N) Y, NA INITIALS MA 10:22, REVIEWED BY: EM. EXAMINATION GENERAL EXAMINATION: GENERALNO ACUTE DISTRESS, WELL NOURISHED AND HYDRATED. PSYCHAPPROPRIATE MOOD AND AFFECT . LUNGS:CLEAR TO AUSCULTATION BILATERALLY, NO WHEEZES, RHONCHI, RALES. HEART:NO MURMURS, REGULAR RATE AND RHYTHM. ASSESSMENTS OTHER CHRONIC PAIN - G89.29 (PRIMARY) MYALGIA, OTHER SITE - M79.18 TREATMENT OTHER CHRONIC PAIN REFILL TRAMADOL HCL TABLET, 50 MG, 1 TAB, ORALLY, EVERY 8 HOURS NEEDED/MMD#3, 30 DAYS, 90 PAIN PROCEDURE LOGDATE OF [id number]/19/20PROCEDURE:BILATERAL LOW BACK TRIGGER POINT INJECTIONAMOUNT OF PRE SEDATEVALIUM 10MG, OXYCODONE 10MGRESULT:PRE 02/21 POST 10/22 X 2 DAYS NOTES: 69-YEAR-OLD MALE IN FOR POST TRIGGER POINT INJECTION FOLLOW-UP. GIVEN PRESENTING SYMPTOMS RECOMMEND PATIENT TO TRY TO TAKE TRAMADOL 3 TIMES A DAY NEEDED. IT WAS PREVIOUSLY PRESCRIBED AT 4 TIMES A DAY AND PATIENT'S ADMITS THAT HE WAS ONLY TAKING IT TWICE DAILY. GIVEN LEVEL OF SEDATION DURING THE DAY RECOMMENDED TAKING TIZANIDINE AT NIGHT PRIOR TO BED. PATIENT AND HIS EXPRESSED UNDERSTANDING OF AND WAS IN AGREEMENT WITH TREATMENT PLAN. GIVEN TIME TO ASK QUESTIONS AND EXPRESS CONCERNS. , [employer] REGISTRY REVIEWED AND DEMONSTRATES COMPLLIANCE. (REF # [id number] ). PROCEDURE CODES FA211 ESTABILISHED PATIENT [facility] CHARGE DISPOSITION & COMMUNICATION FOLLOW UP 4 WEEKS (REASON: MYALGIA) ELECTRONICALLY SIGNED BY FEROZ MCQUEEN ON 06/30/2020 AT 01:08 PM EST DISCLAIMER : THIS IS A VISIT SUMMARY EXTRACTED FROM THE [facility] CHART. IT IS NOT A COPY OF THE [facility] PROGRESS NOTE. MTDD
== END ==
LOC: M PAIN 10:30
PROVIDERS: ATTEND Family Medicine
DX: G89.29 Other chronic pain (principal); M79.18 Myalgia, other site; I69.351 Hemiplegia and hemiparesis following cerebral infarction affecting right dominant side; I69.320 Aphasia following cerebral infarction; I69.398 Other sequelae of cerebral infarction; G62.9 Polyneuropathy, unspecified; E78.00 Pure hypercholesterolemia, unspecified; F32.9 Major depressive disorder, single episode, unspecified; Z79.01 Long term (current) use of anticoagulants; Z79.899 Other long term (current) drug therapy

== ENCOUNTER → 2020-07-27 | Outpatient (CLI) | payer MEDICARE, MEDICAID ==
--- NOTE | 2020-07-29 00:23 | ECWPNPC ---
PATIENT NAME: MARY MOODY : 1950 GENDER: MALE VISIT DATE: 07/27/2020 DISCHARGE DATE: 07/27/20 1157 VISIT LOCKED DATE TIME: PHYSICIAN: LYNDSEY SWARTZ RESOURCE: LYNDSEY SWARTZ REASON FOR APPOINTMENT 1. MYALGIA HISTORY OF PRESENT ILLNESS GENERAL: - 69-YEAR-OLD MALE IN FOR CHRONIC PAIN FOLLOW-UP. HE RATES HIS PAIN CURRENTLY AT A 6 OUT OF 10 AND DESCRIBES IT CONTINUOUS, SHARP, AND THROBBING. HE FEELS MEDICATIONS ARE HELPFUL AND DENIES MED SIDE EFFECTS AT THIS TIME. PATIENT HAS HAD TRIGGER POINT INJECTIONS IN THE PAST WITH GOOD RELIEF AND WE WILL DISCUSS REPEAT PROCEDURES TODAY. FALL RISK SCREENING: SCREENING :NO FALLS REPORTED IN THE LAST YEAR PAIN SCREENING: PATIENT HAS A COMPLAINT OF ACUTE OR CHRONIC PAIN :YES LOCATION OF PAIN:LOW BACK INTENSITY OF PAIN (SCALE OF 1 TO 10):6 WHAT DOES YOUR PAIN FEEL LIKE:CONTINOUS, SHARP, THROBBING DURATION:CONTINOUS, CONSTANT, ALL DAY PAIN IS INCREASED BY:ACTIVITIES, PROLONGED STANDING PAIN IS DECREASED BY:USE OF PAIN MEDICATIONS, OTHERS HEAT AND ICE PACK TREATMENT/MEDICATIONS USED TO MANAGE PAIN:OPIOIDS LEVEL OF RELIEF FROM PAIN TREATMENTS IN THE PAST:50% PAIN HAS INTERFERED WITH THE FOLLOWING:BATHING/DRESSING, WALKING ABILITY, SLEEP NURSING NOTE: -. PAIN CENTER INTAKE QUESTIONS: DO YOU HAVE A HISTORY OF MRSA? :NO DO YOU TAKE A BLOOD THINNERS? :YES DO YOU HAVE ANY BLEEDING DISORDERS? :YES ANY NEW NUMBNESS OR WEAKNESS IN YOUR LEGS OR ARMS? :NO ANY PACEMAKER,DEFIBRILLATOR, OR DORSAL COLUMN STIMULATOR? :NO DO YOU HAVE ANY RASHES OR OPEN SORES? :NO ARE YOU ALLERGIC TO IV DYE? :NO ARE YOU DIABETIC? :NO ANY NEW PROBLEMS WITH YOUR MEDICATIONS? :NO HAVE YOU RECEIVED A VACCINE IN THE PAST 30 DAYS? :YES IF SO WHAT VACCINE AND WHEN? FLU SHOT DO YOU PLAN TO RECEIVE A VACCINE IN THE NEXT 21 DAYS? :NO DO YOU NEED ANY PRESCRIPTION? :NO DO YOU TAKE ANY IMMUNOSUPPRESSIVE MEDICATIONS? :YES ALLOPURINOL IS THERE A CHANCE YOU COULD BE ? :NO ARE YOU BREAST FEEDING? :NO CURRENT MEDICATIONS TAKING [id number] ETHYL ESTERS 1 GM CAPSULE ORAL TWICE DAILY TAKING POLYETHYLENE GLYCOL 3350 POWDER ORAL Q 3 DAYS TAKING ALLOPURINOL 100 MG TABLET TAKE 1 TABLET BY MOUTH ONCE DAILY ORAL TAKING TAMSULOSIN HCL 0.4 MG CAPSULE ORAL DAILY TAKING WARFARIN SODIUM 5 MG TABLET TAKE 1 TABLET BY MOUTH ONCE DAILY ORAL TUESDAYS 2.5MG TAKING PRAVASTATIN SODIUM 40 MG TABLET ORAL Q P.M. TAKING CITALOPRAM HYDROBROMIDE 20 MG TABLET TAKE 1 TABLET BY MOUTH ONCE DAILY ORAL TAKING VALIUM 5 MG TABLET 1 TABLET NEEDED ORALLY TWICE A DAY TAKING ALBUTEROL SULFATE (2.5 MG/3ML) 0.083% NEBULIZATION SOLUTION 3 ML INHALATION THREE TIMES A DAY PRN TAKING LYRICA 150 MG CAPSULE 1 CAPSULE ORALLY BID TAKING TIZANIDINE HCL 4 MG TABLET 1 TABLET NEEDED ORALLY THREE TIMES A DAY TAKING TRAMADOL HCL 50 MG TABLET 1 TAB ORALLY EVERY 8 HOURS NEEDED/MMD#3 TAKING VITAMIN A & D 5000-400 UNIT CAPSULE DIRECTED ORALLY NOT-TAKING RANITIDINE HCL 150 MG TABLET ORAL BID NOT-TAKING PERCOCET 5-325 MG TABLET 1 TABLET NEEDED ORALLY DAILY NEEDED FOR SEVERE PAIN MDD=1 NOT-TAKING LIDOCAINE 4 % CREAM ONE APPLICATION EXTERNALLY Q 6 HRS PRN PAIN - APPLY TO LOW BACK MEDICATION LIST REVIEWED AND RECONCILED WITH THE PATIENT PAST MEDICAL HISTORY STROKE WITH RIGHT SIDED WEAKNESS AND SPEECH APHASIA ALSO CHRONIC NUMBNESS AND TINGLING TO RIGHTLEG AND FOOT PERIPHERAL NEUROPATHY HYPECHOLESTEROLEMIA DEPRESSION SPINAL STENOSIS TIA MYALGIA NECK AND LOW BACK BACK RIGHT SHOULDER PAIN ALLERGIES N.K.D.A. SURGICAL HISTORY L4-5 AND L3-4 DECOMPRESSIVE LUMBAR SPINE SURGURY RIGHT ROTATOR CUFF SURGURY FAMILY HISTORY FATHER: 82 YRS, DIAGNOSED WITH UNSPECIFIED CEREBRAL ARTERY OCCLUSION WITH CEREBRAL INFARCTION MOTHER: 59 YRS, OTHER MALIGNANT NEOPLASM OF UNSPECIFIED SITE SIBLINGS: ALIVE, BROTHER-PROSTATE CA 2DAUGHTER(S) - HEALTHY. MOM-LUNG CA\\NBROTHER-- HAD MS. SOCIAL HISTORY GENERAL: TOBACCO USE ARE YOU A:NONSMOKER LATEX QUESTIONNAIRE LATEX ALLERGY : HAVE YOU EVER DEVELOPED ANY TYPE OF REACTION AFTER HANDLING LATEX PRODUCTS SUCH RUBBER GLOVES, CONDOMS, DIAPHRAGMS, BALLOONS, SOCKS, OR UNDERWEAR?NO LATEX ALLERGY : HAVE YOU EVER DEVELOPED ANY TYPE OF REACTION DURING OR AFTER DENTAL APPOINTMENT, VAGINAL/RECTAL EXAMINATION, SURGICAL PROCEDURE, OR ANY OTHER EXPOSURE?NO LATEX RISK : HAVE YOU EVER HAD ANY DIFFICULTY BREATHING OR HIVES AFTER EATING OR HANDLING ANY FRUITS, OR VEGETABLES; SUCH KIWI, BANANAS, STONE FRUITS, OR CHESTNUTSNO LATEX RISK : DO YOU HAVE A PREVIOUS PERSONAL HISTORY OF MORE THAN NINE SURGERIES, SPINA BIFIDA, OR REPEATED CATHERIZATIONS? NO LATEX RISK : ARE YOU FREQUENTLY EXPOSED TO LATEX PRODUCTS IN YOUR OCCUPATION?NO DATE ASKED : 07/27/2020 ALCOHOL SCREENING DID YOU HAVE A DRINK CONTAINING ALCOHOL IN THE PAST YEAR?NO POINTS0 INTERPRETATIONNEGATIVE RECREATIONAL DRUG USE DRUG USE?NO CAFFEINE CAFFEINE USE?NO MU-ISM [id number] YARSANISM LANGUAGE LANGUAGES SPOKEN:[place] EDUCATION LEVEL OF EDUCATION:HIGH SCHOOL LEARNING BARRIERS / SPECIAL NEEDS BARRIERS TO LEARNING?YES COMMENTS DIFFICULTY REMEMBERING SINCE THE STROKE HEARING IMPAIRED?YES : HARD OF HEARING BILATERAL EARS VISION IMPAIRED?YES :CORRECTIVE LENSES COGNITIVELY IMPAIRED?YES DIFF. REMEMBERING THINGS SINCE THE STROKE READINESS TO LEARN?YES LEARNING PREFERENCES?YES :TAPES/VIDEOS, DEMONSTRATION/VERBAL INSTRUCTION LEARNING CAPABILITIES PRESENT?YES EMOTIONAL BARRIERS?NO SPECIAL DEVICES?YES :CANE WAX BALL KNOCK OUT WORKER NEEDED?NO DOMESTIC VIOLENCE DO YOU FEEL SAFE IN YOUR ENVIRONMENT?YES PAIN CLINIC PFS, CLERGY, PUBLIC HEALTH REFERRALS PFS REFERRAL NEEDED?NO CLERGY REFERRAL NEEDED?NO PUBLIC HEALTH REFERRAL NEEDED?NO WAS THE PROVIDER NOTIFIED OF ANY PERTINENT INFO? N/A HAS THE PATIENT BEEN EDUCATED REGARDING HIS/HER PLAN OF CARE?YES HAS THE PATIENT BEEN EDUCATED REGARDING PAIN, THE RISK FOR PAIN, THE IMPORTANCE OF EFFECTIVE PAIN MANAGEMENT, AND THE PAIN ASSESSMENT PROCESS?YES ADVANCE DIRECTIVE ADVANCE DIRECTIVE DISCUSSED WITH PATIENT:YES PT HAS HCP AND POA -SKY [phone] HOSPITALIZATION/MAJOR DIAGNOSTIC PROCEDURE TORN ROTATOR CUFF STROKE SURGERIES REVIEW OF SYSTEMS CONSTITUTIONAL: ANY RECENT FEVER NO . CHILLS NO . WEIGHT CHANGE OF UNKNOWN REASONS NO . GASTROENTEROLOGY: NEW UNEXPLAINABLE CHANGES IN BOWEL CONTROL NO . CONSTIPATION NO . GENITOURINARY: ANY NEW CHANGE IN BLADDER CONTROL? NO . NEUROLOGY: NEW ONSET DIZZINESS OR NEUROLOGICAL CHANGES NOT MENTIONED NO . NEW NUMBNESS OR PAIN PATTERNS NOT MENTIONED AND PERTINENT TO TODAY'S VISIT NO . CARDIOLOGY: NEW CHEST PRESSURE NO . NEW CHEST PAIN NO . RESPIRATORY: UNEXPLAINABLE COUGH NO . NEW SHORTNESS OF BREATH NO . VITAL SIGNS WT 222.2 LBS, HT 68", BMI 33.78 INDEX, BP 132/82 MM HG, HR 83 /MIN, RR 18 /MIN, TEMP 97.5 F, OXYGEN SAT % 94%Arash ARMENDARIZ RN. EXAMINATION GENERAL EXAMINATION: GENERALNO ACUTE DISTRESS, WELL NOURISHED AND HYDRATED. PSYCHAPPROPRIATE MOOD AND AFFECT . LUNGS:CLEAR TO AUSCULTATION BILATERALLY, NO WHEEZES, RHONCHI, RALES. HEART:NO MURMURS, REGULAR RATE AND RHYTHM. BACK:POINT TENDER BILATERAL LOW BACK, SURROUNDING SKIN SHOWS NO ERYTHEMA, ECCHYMOSIS, INCREASED WARMTH, AND/OR SKIN ERUPTIONS NOTED. BANDS OF RESTRICTIVRE TISSUES NOTED OVER TRIGGER POINTS . ASSESSMENTS MYALGIA, OTHER SITE - M79.18 (PRIMARY) TREATMENT MYALGIA, OTHER SITE REFILL TIZANIDINE HCL TABLET, 4 MG, 1 TABLET NEEDED, ORALLY, THREE TIMES A DAY, 30 DAYS, 90 TABLET, REFILLS 2 NOTES: 69-YEAR-OLD MALE IN FOR CHRONIC PAIN FOLLOW-UP. GIVEN PRESENTING SYMPTOMS AND RESULTS OF PHYSICAL EXAMINATION RECOMMEND BILATERAL LOW BACK TRIGGER POINT INJECTIONS WITH POSTPROCEDURAL FOLLOW-UP. PATIENT HAS EXPRESSED UNDERSTANDING OF AND WAS IN AGREEMENT WITH TREATMENT PLAN. GIVEN TIME TO ASK QUESTIONS AND EXPRESS CONCERNS. , ISTOP REGISTRY REVIEWED AND DEMONSTRATES COMPLLIANCE. (REF # [id number] ) BRINGS IN MEDICATIONS WHICH IS APPROPRIATE FOR WHAT WAS DISPENSED. RECENT URINE TOXICOLOGY REVIEWED. NO UNAUTHORIZED MEDICATIONS. NO ILLICIT SUBSTANCES AND PRESCRIBED MEDICATIONS WERE PRESENT. OTHERS REFILL LYRICA CAPSULE, 150 MG, 1 CAPSULE, ORALLY, BID, 30 DAYS, 60 CAPSULE REFILL TRAMADOL HCL TABLET, 50 MG, 1 TAB, ORALLY, EVERY 8 HOURS NEEDED/MMD#3, 30 DAYS, 90 PROCEDURE CODES [id number] ESTABILISHED PATIENT [facility] FACILITY CHARGE DISPOSITION & COMMUNICATION FOLLOW UP POST PROCEDURE (REASON: BILATERAL LOW BACK TRIGGER POINT INJECTION PLEASE OBTAIN ORDER TO HOLD PATIENT ALLOPURINOL ) ELECTRONICALLY SIGNED BY FEROZ MCQUEEN ON 07/28/2020 AT 01:57 PM EST DISCLAIMER : THIS IS A VISIT SUMMARY EXTRACTED FROM THE [employer] CHART. IT IS NOT A COPY OF THE [employer] PROGRESS NOTE. MTDD
== END ==
LOC: M PAIN 10:45
PROVIDERS: ATTEND Family Medicine
DX: M79.18 Myalgia, other site (principal); Z86.73 Personal history of transient ischemic attack (TIA), and cerebral infarction without residual deficits; Z86.59 Personal history of other mental and behavioral disorders; Z79.899 Other long term (current) drug therapy

== ENCOUNTER → 2020-08-06 | Outpatient (CLI) | payer MEDICARE, MEDICAID | LOC: M LABSMTC 08:16 | PROVIDERS: ATTEND Anesthesiology | DX: Z20.822 Contact with and (suspected) exposure to COVID-19 (principal) ==

== ENCOUNTER → 2020-08-11 | Outpatient (CLI) | payer OTHER, MEDICARE, MEDICAID ==
[~2020-08-11] MED LIST changes: +BUPIVACAINE HCL 0.25% 10ML VIAL As Ordered ONE; +BUPIVACAINE HCL 0.25% 30ML VIAL As Ordered ONE; +TRIAMCINOLONE ACETONIDE SUSP 40 MG/ML VIAL (J3301) As Ordered ONE; +diazePAM 5MG TABLET As Ordered ONE; +oxyCODONE 5MG TAB As Ordered ONE
--- NOTE | 2020-08-16 02:27 | ECWPNPC ---
PATIENT NAME: MARY MOODY : 1950 GENDER: MALE VISIT DATE: 08/11/2020 DISCHARGE DATE: 08/11/20 1308 VISIT LOCKED DATE TIME: PHYSICIAN: PRATEEK CARRILLO MD RESOURCE: PRATEEK CARRILLO MD REASON FOR APPOINTMENT 1. TRIGGER POINT INJECTIONS BILATERAL LOW BACK HISTORY OF PRESENT ILLNESS GENERAL: -. FALL RISK SCREENING: SCREENING :NO FALLS REPORTED IN THE LAST YEAR PAIN SCREENING: PATIENT HAS A COMPLAINT OF ACUTE OR CHRONIC PAIN :YES LOCATION OF PAIN:LOW BACK, LEG(S) INTENSITY OF PAIN (SCALE OF 1 TO 10):8 WHAT DOES YOUR PAIN FEEL LIKE:ACHING, STABBING, SHOOTING DURATION:CONTINOUS, CONSTANT PAIN IS INCREASED BY:ACTIVITIES PAIN IS DECREASED BY:USE OF PAIN MEDICATIONS TREATMENT/MEDICATIONS USED TO MANAGE PAIN:OPIOIDS LEVEL OF RELIEF FROM PAIN TREATMENTS IN THE PAST:75% PAIN HAS INTERFERED WITH THE FOLLOWING:BATHING/DRESSING, WALKING ABILITY, HOUSEWORK, SLEEP, TRANSPORTATION, TOILETING NURSING NOTE: -. PAIN CENTER INTAKE QUESTIONS: DO YOU HAVE A HISTORY OF MRSA? :NO DO YOU TAKE A BLOOD THINNERS? :YES COUMADIN S/P STROKE DO YOU HAVE ANY BLEEDING DISORDERS? :NO ANY NEW NUMBNESS OR WEAKNESS IN YOUR LEGS OR ARMS? :YES NUMBNESS AND WEAKNESS IN LEGS ANY PACEMAKER,DEFIBRILLATOR, OR DORSAL COLUMN STIMULATOR? :NO DO YOU HAVE ANY RASHES OR OPEN SORES? :NO ARE YOU ALLERGIC TO IV DYE? :NO ARE YOU DIABETIC? :NO ANY NEW PROBLEMS WITH YOUR MEDICATIONS? :NO HAVE YOU RECEIVED A VACCINE IN THE PAST 30 DAYS? :NO DO YOU PLAN TO RECEIVE A VACCINE IN THE NEXT 21 DAYS? :NO DO YOU TAKE ANY IMMUNOSUPPRESSIVE MEDICATIONS? :YES ALLOPURINOL ANY HISTORY OF SEIZURES? :NO ANY HISTORY OF CARDIAC ISSUES OR EVENTS? :NO DO YOU HAVE SLEEP APNEA? :YES DO YOU WEAR A CPAP? NO CPAP ANY RECENT HEAD INJURY? :NO DO YOU HAVE ANY NEW INFECTIONS? :NO IS THERE A CHANCE YOU COULD BE ? :NO ARE YOU BREAST FEEDING? :NO WHEN DID YOU LAST EAT? : 08/10/20 WHEN DID YOU LAST DRINK? : 08/10/20 WHAT DID YOU LAST DRINK? : WATER NAME OF PERSON DRIVING YOU HOME? : [employer]- DO YOU HAVE ANY OTHER QUESTIONS OR CONCERNS? : - CURRENT MEDICATIONS TAKING [id number] ETHYL ESTERS 1 GM CAPSULE ORAL TWICE DAILY TAKING POLYETHYLENE GLYCOL 3350 POWDER ORAL Q 3 DAYS TAKING ALLOPURINOL 100 MG TABLET TAKE 1 TABLET BY MOUTH ONCE DAILY ORAL , NOTES: 08/08/20 TAKING TAMSULOSIN HCL 0.4 MG CAPSULE ORAL DAILY TAKING WARFARIN SODIUM 5 MG TABLET TAKE 1 TABLET BY MOUTH ONCE DAILY ORAL TUESDAYS 2.5MG, NOTES: 08/10/20 TAKING PRAVASTATIN SODIUM 40 MG TABLET ORAL Q P.M. TAKING CITALOPRAM HYDROBROMIDE 20 MG TABLET TAKE 1 TABLET BY MOUTH ONCE DAILY ORAL TAKING VALIUM 5 MG TABLET 1 TABLET NEEDED ORALLY TWICE A DAY, NOTES: NONE LATELY TAKING ALBUTEROL SULFATE (2.5 MG/3ML) 0.083% NEBULIZATION SOLUTION 3 ML INHALATION THREE TIMES A DAY PRN TAKING VITAMIN A & D 5000-400 UNIT CAPSULE DIRECTED ORALLY TAKING LYRICA 150 MG CAPSULE 1 CAPSULE ORALLY BID, NOTES: 08/10/20 TAKING TIZANIDINE HCL 4 MG TABLET 1 TABLET NEEDED ORALLY THREE TIMES A DAY, NOTES: 08/10/20 TAKING TRAMADOL HCL 50 MG TABLET 1 TAB ORALLY EVERY 8 HOURS NEEDED/MMD#3, NOTES: 08/10/20 NOT-TAKING RANITIDINE HCL 150 MG TABLET ORAL BID NOT-TAKING PERCOCET 5-325 MG TABLET 1 TABLET NEEDED ORALLY DAILY NEEDED FOR SEVERE PAIN MDD=1 NOT-TAKING LIDOCAINE 4 % CREAM ONE APPLICATION EXTERNALLY Q 6 HRS PRN PAIN - APPLY TO LOW BACK MEDICATION LIST REVIEWED AND RECONCILED WITH THE PATIENT PAST MEDICAL HISTORY STROKE WITH RIGHT SIDED WEAKNESS AND SPEECH APHASIA ALSO CHRONIC NUMBNESS AND TINGLING TO RIGHTLEG AND FOOT PERIPHERAL NEUROPATHY HYPECHOLESTEROLEMIA DEPRESSION SPINAL STENOSIS TIA MYALGIA NECK AND LOW BACK BACK RIGHT SHOULDER PAIN ALLERGIES N.K.D.A. SURGICAL HISTORY L4-5 AND L3-4 DECOMPRESSIVE LUMBAR SPINE SURGURY RIGHT ROTATOR CUFF SURGURY SOCIAL HISTORY GENERAL: TOBACCO USE ARE YOU A:NONSMOKER LATEX QUESTIONNAIRE LATEX ALLERGY : HAVE YOU EVER DEVELOPED ANY TYPE OF REACTION AFTER HANDLING LATEX PRODUCTS SUCH RUBBER GLOVES, CONDOMS, DIAPHRAGMS, BALLOONS, SOCKS, OR UNDERWEAR?NO LATEX ALLERGY : HAVE YOU EVER DEVELOPED ANY TYPE OF REACTION DURING OR AFTER DENTAL APPOINTMENT, VAGINAL/RECTAL EXAMINATION, SURGICAL PROCEDURE, OR ANY OTHER EXPOSURE?NO DATE ASKED : 07/27/2020 LATEX RISK : HAVE YOU EVER HAD ANY DIFFICULTY BREATHING OR HIVES AFTER EATING OR HANDLING ANY FRUITS, OR VEGETABLES; SUCH KIWI, BANANAS, STONE FRUITS, OR CHESTNUTSNO LATEX RISK : DO YOU HAVE A PREVIOUS PERSONAL HISTORY OF MORE THAN NINE SURGERIES, SPINA BIFIDA, OR REPEATED CATHERIZATIONS? NO LATEX RISK : ARE YOU FREQUENTLY EXPOSED TO LATEX PRODUCTS IN YOUR OCCUPATION?NO ALCOHOL SCREENING DID YOU HAVE A DRINK CONTAINING ALCOHOL IN THE PAST YEAR?NO POINTS0 INTERPRETATIONNEGATIVE RECREATIONAL DRUG USE DRUG USE?NO CAFFEINE CAFFEINE USE?NO SCIENTOLOGIST [id number] BUDDHIST LANGUAGE LANGUAGES SPOKEN:HUNGARIAN EDUCATION LEVEL OF EDUCATION:HIGH SCHOOL LEARNING BARRIERS / SPECIAL NEEDS BARRIERS TO LEARNING?YES COMMENTS DIFFICULTY REMEMBERING SINCE THE STROKE HEARING IMPAIRED?YES VISION IMPAIRED?YES COGNITIVELY IMPAIRED?YES DIFF. REMEMBERING THINGS SINCE THE STROKE : HARD OF HEARING BILATERAL EARS :CORRECTIVE LENSES READINESS TO LEARN?YES LEARNING PREFERENCES?YES :TAPES/VIDEOS, DEMONSTRATION/VERBAL INSTRUCTION LEARNING CAPABILITIES PRESENT?YES EMOTIONAL BARRIERS?NO SPECIAL DEVICES?YES :CANE COMMUNICATIONS SUPERVISOR NEEDED?NO DOMESTIC VIOLENCE DO YOU FEEL SAFE IN YOUR ENVIRONMENT?YES - PFS REFERRAL NEEDED?NO CLERGY REFERRAL NEEDED?NO PUBLIC HEALTH REFERRAL NEEDED?NO WAS THE PROVIDER NOTIFIED OF ANY PERTINENT INFO? N/A HAS THE PATIENT BEEN EDUCATED REGARDING HIS/HER PLAN OF CARE?YES HAS THE PATIENT BEEN EDUCATED REGARDING PAIN, THE RISK FOR PAIN, THE IMPORTANCE OF EFFECTIVE PAIN MANAGEMENT, AND THE PAIN ASSESSMENT PROCESS?YES ADVANCE DIRECTIVE ADVANCE DIRECTIVE DISCUSSED WITH PATIENT:YES PT HAS HCP AND POA -SKY [phone] HOSPITALIZATION/MAJOR DIAGNOSTIC PROCEDURE TORN ROTATOR CUFF STROKE SURGERIES VITAL SIGNS WT 223.0 LBS, HT 68", BMI 33.90 INDEX, BP 151/69 MM HG, HR 63 /MIN, RR 18 /MIN, TEMP 98.0 F, OXYGEN SAT % 95%, SAFE IN ENV? (Y/N) Y, NA INITIALS AW 1046, REVIEWED BY: EM. EXAMINATION GENERAL EXAMINATION: THE PATIENT IS ALERT, ORIENTED TIMES THREE AND COOPERATIVE. LUNGS ARE CLEAR TO AUSCULTATION. HEART SHOWS REGULAR RHYTHM, NO MURMURS AND NO GALLOPS. ASSESSMENTS MYALGIA - M79.1 (PRIMARY) TREATMENT MYALGIA MEDICATION: VALIUM TAB 10MG ORALLY (DIAZEPAM)TEMO MARIE 08/11/2020 12:05:45 PM > VERIFIED JOANA TRUJILLO 08/11/2020 12:10:15 PM > ADMINISTERED MEDICATION: OXYCODONE HCL TAB 10MG ORALLYTEMO MARIE 08/11/2020 12:05:59 PM > VERIFIED JOANA TRUJILLO 08/11/2020 12:10:28 PM > ADMINISTERED COMPLETION OF PROCEDURAL VISIT WHEN MEETS CRITERIA PROCEDURES PAIN NURSING RECORD PROCEDURE IN ROOM 1050, PHYSICIAN IN ROOM 1237, START 1241, FINISH 1244, PHYSICIAN OUT OF ROOM 1245, OUT OF ROOM 1307, ECG N/A, PATIENT SHIELDED NO, SAFETY STRAP NO, PREP ALCOHOL DR CARRILLO, DRESSING TEGADERM E CASSANDRA, STERILE PRODUCTS PROCESSOR LOC: 1. ALERT, ORIENTED, JOANA TRUJILLO 08/11/2020 12:43:44 PM > RESP: 1. REGULAR, NO DYSPNEA, JOANA TRUJILLO 08/11/2020 12:43:48 PM > COLOR: 1. PINK, JOANA TRUJILLO 08/11/2020 12:43:51 PM > SKIN: 1. WARM, DRY, JOANA TRUJILLO 08/11/2020 12:43:55 PM > POSITION: 5. SITTING, JOANA TRUJILLO 08/11/2020 12:43:59 PM > VITALS: 133/81, 66, 16, 96%, JOANA TRUJILLO 08/11/2020 1:00:58 PM > COMPLETION OF PROCEDURE APPOINTMENT: POST PAIN 3, DRESSING SITE DRY AND INTACT, IV N/A, GAIT STEADY WITH CANE., TEACHING COMPLETED, PATIENT ACKNOWLEDGES UNDERSTANDING YES, PROCEDURE APPOINTMENT COMPLETED AT 1307 PN TRIGGER POINT INJECTION WITH STEROIDS PRE PROCEDURE DIAGNOSIS 1. MYALGIA 2. PAIN AT BILATERAL LOW BACK AREA POST PROCEDURE DIAGNOSIS 1. MYALGIA 2. PAIN AT BILATERAL LOW BACK AREA PROCEDURE TRIGGER POINT INJECTION AT BILATERAL LOW BACK AREA SURGEON DR. PRATEEK CARRILLO SALES AND MARKETING ENGINEER NONE ANESTHESIA LOCAL PRE PROCEDURE NOTE THE PATIENT HAS A HISTORY OF CHRONIC PAIN AT THE RIGHT AND LEFT LOW BACK AREA. I EVALUATED THE PATIENT AND REVIEWED THE CHART. THERE IS EVIDENCE OF BANDS OF TISSUE WITH RESTRICTION OF MOVEMENT AND PRESENCE OF TRIGGER POINT AT THE LEFT AND RIGHT LOW BACK AREA. I WENT OVER THE RISKS, ALTERNATIVES, AND BENEFITS ASSOCIATED WITH THIS PROCEDURE. THE PATIENT WOULD LIKE TO PROCEED AND GIVE CONSENT TO PERFORMED THE PROCEDURE. THE PATIENT DENIES UNEXPLAINABLE WEIGHT LOSS, FEVER, CHILLS, OR NEW CHANGES IN URINARY OR BOWEL CONTROL. THE PATIENT IS COVID-19 NEGATIVE DESCRIPTION OF PROCEDURE THE PATIENT WAS BROUGHT TO THE PROCEDURE ROOM AND PLACED IN THE SITTING POSITION. THE AREA WAS CLEANED WITH ALCOHOL. THE PROCEDURE WAS DONE USING ASEPTIC STERILE TECHNIQUE. A TIMEOUT WAS PERFORMED WHERE THE CONSENTED SITE WAS VERIFIED WITH EVERYONE IN THE ROOM. USING A 25-GAUGE NEEDLE, TRIGGER POINTS WERE INJECTED AT THE RIGHT AND LEFT LOW BACK AREA WITH A TOTAL OF 40 ML OF BUPIVACAINE 0.25% AND KENALOG 40 MG. THE MEDICATIONS WERE VERIFIED WITH THE NURSE. THERE WAS NO EVIDENCE OF BLOOD OR PARESTHESIA DURING THE PROCEDURE. THE PATIENT WAS SENT TO THE RECOVERY ROOM. THE PATIENT WAS MOVING THE EXTREMITIES AND DOING WELL. THERE WERE NO COMPLICATIONS DURING THE PROCEDURE. ESTIMATED BLOOD LOSS WAS LESS THAN 5 ML POST PROCEDURE NOTE THE PROCEDURE DONE WAS DISCUSSED WITH THE PATIENT. THE PATIENT WILL BE SEEN IN A FOLLOW UP IN THE NEXT FEW WEEKS. I AM LOOKING FOR LONG LASTING PAIN RELIEF FOR THE PATIENT WITH THIS INTERVENTION. INSTRUCTIONS WERE GIVEN, QUESTIONS WERE ANSWERED, AND THE PATIENT EXPRESSED UNDERSTANDING AND AGREES WITH THE PLAN. I, MAURY PEMBERTON, DOCUMENTED THE ABOVE INFORMATION ACTING A SCRIBE FOR DR. CARRILLO. I HAVE REVIEWED THE ABOVE DOCUMENT, WRITTEN BY MAURY PEMBERTON, SOLAR ENERGY SYSTEM INSTALLER HELPER, AND I VERIFY THAT IT IS ACCURATE PROCEDURE CODES 69635 INJ TRIGGER POINT 07/16 [facility] DISPOSITION & COMMUNICATION FOLLOW UP FOLLOW UP WITH RANGE MASTER (REASON: POST TRIGGER POINT INJECTIONS BILATERAL LOW BACK) ELECTRONICALLY SIGNED BY PRATEEK CARRILLO MD, MD ON 08/15/2020 AT 02:35 PM EST DISCLAIMER : THIS IS A VISIT SUMMARY EXTRACTED FROM THE [employer] CHART. IT IS NOT A COPY OF THE [employer] PROGRESS NOTE. MTDLuis M
== END ==
LOC: M PAIN 11:00
PROVIDERS: ATTEND Anesthesiology
DX: M79.18 Myalgia, other site (principal); I69.351 Hemiplegia and hemiparesis following cerebral infarction affecting right dominant side; I69.320 Aphasia following cerebral infarction; G62.9 Polyneuropathy, unspecified; E78.00 Pure hypercholesterolemia, unspecified; F32.9 Major depressive disorder, single episode, unspecified; M25.511 Pain in right shoulder; M54.2 Cervicalgia; M54.5 Low back pain; Z79.01 Long term (current) use of anticoagulants; Z79.891 Long term (current) use of opiate analgesic; Z79.899 Other long term (current) drug therapy
CPT/HCPCS: 20552; J3301

== ENCOUNTER → 2020-10-12 | Outpatient (CLI) | payer MEDICARE, MEDICAID ==
[~2020-10-12] MED LIST changes: -BUPIVACAINE HCL 0.25% 10ML VIAL As Ordered ONE; -BUPIVACAINE HCL 0.25% 30ML VIAL As Ordered ONE; -TRIAMCINOLONE ACETONIDE SUSP 40 MG/ML VIAL (J3301) As Ordered ONE; -diazePAM 5MG TABLET As Ordered ONE; -oxyCODONE 5MG TAB As Ordered ONE
--- NOTE | 2020-10-14 02:47 | ECWPNPC ---
PATIENT NAME: MARY MOODY : 1950 GENDER: MALE VISIT DATE: 10/12/2020 DISCHARGE DATE: 10/12/20 0958 VISIT LOCKED DATE TIME: PHYSICIAN: LYNDSEY SWARTZ RESOURCE: LYNDSEY SWARTZ REASON FOR APPOINTMENT 1. POST TRIGGER POINT INJECTIONS BILATERAL LOW BACK HISTORY OF PRESENT ILLNESS DEPRESSION SCREENING: PHQ-2 (2015 EDITION) LITTLE INTEREST OR PLEASURE IN DOING THINGS?SEVERAL DAYS FEELING DOWN, DEPRESSED, OR HOPELESS?NOT AT ALL TOTAL SCORE1 69-YEAR-OLD MALE IN FOR POST TRIGGER POINT INJECTION FOLLOW-UP. PATIENT FEELS THE PROCEDURE WAS UNSUCCESSFUL. HE RATES HIS PAIN CURRENTLY AT A 7 OUT OF 10. HE FEELS THE MEDICATIONS ARE HELPFUL BUT DOES ADMIT TO CONTINUED PAIN AT TIMES. GENERAL: -. FALL RISK SCREENING: SCREENING : NO FALLS REPORTED IN THE LAST YEAR. PAIN SCREENING: PATIENT HAS A COMPLAINT OF ACUTE OR CHRONIC PAIN :YES LOCATION OF PAIN:LOW BACK, RIGHT HIP INTENSITY OF PAIN (SCALE OF 1 TO 10):7 WHAT DOES YOUR PAIN FEEL LIKE:ACHING, BURNING, CONTINOUS, SHARP, STABBING, TENDER, THROBBING, SORE, SHOOTING DURATION:CONTINOUS, CONSTANT, AWAKENS FROM SLEEP PAIN IS INCREASED BY:ACTIVITIES, PROLONGED STANDING PAIN IS DECREASED BY:USE OF PAIN MEDICATIONS NURSING NOTE: -. PAIN CENTER INTAKE QUESTIONS: DO YOU HAVE A HISTORY OF MRSA? :NO DO YOU TAKE A BLOOD THINNERS? :YES COUMADIN DO YOU HAVE ANY BLEEDING DISORDERS? :NO ANY NEW NUMBNESS OR WEAKNESS IN YOUR LEGS OR ARMS? :YES RIGHT ARM NUMBNESS AND TINGLING ANY PACEMAKER,DEFIBRILLATOR, OR DORSAL COLUMN STIMULATOR? :NO DO YOU HAVE ANY RASHES OR OPEN SORES? :NO ARE YOU ALLERGIC TO IV DYE? :NO ARE YOU DIABETIC? :NO ANY NEW PROBLEMS WITH YOUR MEDICATIONS? :NO HAVE YOU RECEIVED A VACCINE IN THE PAST 30 DAYS? :YES IF SO WHAT VACCINE AND WHEN? SECOND COVID VACCINATION 10/07/2020 DO YOU PLAN TO RECEIVE A VACCINE IN THE NEXT 21 DAYS? :NO DO YOU NEED ANY PRESCRIPTION? :NO DO YOU TAKE ANY IMMUNOSUPPRESSIVE MEDICATIONS? :NO DO YOU HAVE ANY KIDNEY OR LIVER DISEASE? :NO IS THERE A CHANCE YOU COULD BE ? :NO ARE YOU BREAST FEEDING? :NO CURRENT MEDICATIONS TAKING [id number] ETHYL ESTERS 1 GM CAPSULE ORAL TWICE DAILY TAKING POLYETHYLENE GLYCOL 3350 POWDER ORAL Q 3 DAYS TAKING ALLOPURINOL 100 MG TABLET TAKE 1 TABLET BY MOUTH ONCE DAILY ORAL , NOTES: 08/08/20 TAKING TAMSULOSIN HCL 0.4 MG CAPSULE ORAL DAILY TAKING WARFARIN SODIUM 5 MG TABLET TAKE 1 TABLET BY MOUTH ONCE DAILY ORAL ESDAYS 2.5MG, NOTES: 08/10/20 TAKING PRAVASTATIN SODIUM 40 MG TABLET ORAL Q P.M. TAKING CITALOPRAM HYDROBROMIDE 20 MG TABLET TAKE 1 TABLET BY MOUTH ONCE DAILY ORAL TAKING VALIUM 5 MG TABLET 1 TABLET NEEDED ORALLY TWICE A DAY, NOTES: NONE LATELY TAKING ALBUTEROL SULFATE (2.5 MG/3ML) 0.083% NEBULIZATION SOLUTION 3 ML INHALATION THREE TIMES A DAY PRN TAKING VITAMIN A & D 5000-400 UNIT CAPSULE DIRECTED ORALLY TAKING LYRICA 200 MG CAPSULE 1 CAPSULE ORALLY BID, NOTES: 08/10/20 TAKING TIZANIDINE HCL 4 MG TABLET 1 TABLET NEEDED ORALLY THREE TIMES A DAY, NOTES: 08/10/20 TAKING TRAMADOL HCL 50 MG TABLET 1 TAB ORALLY EVERY 8 HOURS NEEDED/MMD#3, NOTES: 08/10/20 UNKNOWN RANITIDINE HCL 150 MG TABLET ORAL BID UNKNOWN PERCOCET 5-325 MG TABLET 1 TABLET NEEDED ORALLY DAILY NEEDED FOR SEVERE PAIN MDD=1 UNKNOWN LIDOCAINE 4 % CREAM ONE APPLICATION EXTERNALLY Q 6 HRS PRN PAIN - APPLY TO LOW BACK MEDICATION LIST REVIEWED AND RECONCILED WITH THE PATIENT PAST MEDICAL HISTORY STROKE WITH RIGHT SIDED WEAKNESS AND SPEECH APHASIA ALSO CHRONIC NUMBNESS AND TINGLING TO RIGHTLEG AND FOOT PERIPHERAL NEUROPATHY HYPECHOLESTEROLEMIA DEPRESSION SPINAL STENOSIS TIA MYALGIA NECK AND LOW BACK BACK RIGHT SHOULDER PAIN ALLERGIES N.K.D.A. SOCIAL HISTORY GENERAL: TOBACCO USE ARE YOU A:NONSMOKER LATEX QUESTIONNAIRE LATEX ALLERGY : HAVE YOU EVER DEVELOPED ANY TYPE OF REACTION AFTER HANDLING LATEX PRODUCTS SUCH RUBBER GLOVES, CONDOMS, DIAPHRAGMS, BALLOONS, SOCKS, OR UNDERWEAR?NO LATEX ALLERGY : HAVE YOU EVER DEVELOPED ANY TYPE OF REACTION DURING OR AFTER DENTAL APPOINTMENT, VAGINAL/RECTAL EXAMINATION, SURGICAL PROCEDURE, OR ANY OTHER EXPOSURE?NO LATEX RISK : HAVE YOU EVER HAD ANY DIFFICULTY BREATHING OR HIVES AFTER EATING OR HANDLING ANY FRUITS, OR VEGETABLES; SUCH KIWI, BANANAS, STONE FRUITS, OR CHESTNUTSNO LATEX RISK : DO YOU HAVE A PREVIOUS PERSONAL HISTORY OF MORE THAN NINE SURGERIES, SPINA BIFIDA, OR REPEATED CATHERIZATIONS? NO LATEX RISK : ARE YOU FREQUENTLY EXPOSED TO LATEX PRODUCTS IN YOUR OCCUPATION?NO DATE ASKED : 10/12/2020 ALCOHOL USE: NO. ALCOHOL SCREENING DID YOU HAVE A DRINK CONTAINING ALCOHOL IN THE PAST YEAR?NO POINTS0 INTERPRETATIONNEGATIVE RECREATIONAL DRUG USE DRUG USE?NO CAFFEINE CAFFEINE USE?NO LATTER DAY [id number] [employer] L[employer]AGE LANGUAGES SPOKEN:TANZANIAN EDUCATION LEVEL OF EDUCATION:HIGH SCHOOL LEARNING BARRIERS / SPECIAL NEEDS BARRIERS TO LEARNING?YES COMMENTS DIFFICULTY REMEMBERING SINCE THE STROKE HEARING IMPAIRED?YES : HARD OF HEARING BILATERAL EARS VISION IMPAIRED?YES :CORRECTIVE LENSES COGNITIVELY IMPAIRED?YES DIFF. REMEMBERING THINGS SINCE THE STROKE READINESS TO LEARN?YES LEARNING PREFERENCES?YES :TAPES/VIDEOS, DEMONSTRATION/VERBAL INSTRUCTION LEARNING CAPABILITIES PRESENT?YES EMOTIONAL BARRIERS?NO SPECIAL DEVICES?YES :CANE SENIOR JAVA PROGRAMMER ANALYST NEEDED?NO DOMESTIC VIOLENCE DO YOU FEEL SAFE IN YOUR ENVIRONMENT?YES - PFS REFERRAL NEEDED?NO CLERGY REFERRAL NEEDED?NO PUBLIC HEALTH REFERRAL NEEDED?NO WAS THE PROVIDER NOTIFIED OF ANY PERTINENT INFO? N/A HAS THE PATIENT BEEN EDUCATED REGARDING HIS/HER PLAN OF CARE?YES HAS THE PATIENT BEEN EDUCATED REGARDING PAIN, THE RISK FOR PAIN, THE IMPORTANCE OF EFFECTIVE PAIN MANAGEMENT, AND THE PAIN ASSESSMENT PROCESS?YES ADVANCE DIRECTIVE ADVANCE DIRECTIVE DISCUSSED WITH PATIENT:YES PT HAS HCP AND POA -SKY [phone] REVIEW OF SYSTEMS CONSTITUTIONAL: ANY RECENT FEVER NO . CHILLS NO . WEIGHT CHANGE OF UNKNOWN REASONS NO . GASTROENTEROLOGY: NEW UNEXPLAINABLE CHANGES IN BOWEL CONTROL NO . CONSTIPATION NO . GENITOURINARY: ANY NEW CHANGE IN BLADDER CONTROL? NO . NEUROLOGY: NEW ONSET DIZZINESS OR NEUROLOGICAL CHANGES NOT MENTIONED NO . NEW NUMBNESS OR PAIN PATTERNS NOT MENTIONED AND PERTINENT TO TODAY'S VISIT NO . CARDIOLOGY: NEW CHEST PRESSURE NO . PATIENT DENIES NO . RESPIRATORY: UNEXPLAINABLE COUGH NO . NEW SHORTNESS OF BREATH NO . VITAL SIGNS WT 225.8 LBS, HT 68", BMI 34.33 INDEX, BP 150/65 MM HG, HR 64 /MIN, RR 18 /MIN, TEMP 97.7 F, OXYGEN SAT % 93%, SAFE IN ENV? (Y/N) YES, NA INITIALS AW 0925, REVIEWED BY: ROBERT ROSE MA. EXAMINATION GENERAL EXAMINATION: GENERALNO ACUTE DISTRESS, WELL NOURISHED AND HYDRATED. PSYCHAPPROPRIATE MOOD AND AFFECT . LUNGS:CLEAR TO AUSCULTATION BILATERALLY, NO WHEEZES, RHONCHI, RALES. HEART:NO MURMURS, REGULAR RATE AND RHYTHM. ASSESSMENTS OTHER CHRONIC PAIN - G89.29 (PRIMARY) MYALGIA, OTHER SITE - M79.18, RISK: (NULL) TREATMENT OTHER CHRONIC PAIN PAIN PROCEDURE LOGDATE OF [id number]/28/21PROCEDURE:TRIGGER POINT INJECTION BILATERAL LOW BACK WITH STEROIDSAMOUNT OF PRE SEDATEOXYCODONE 10MG, VALIUM 10MGRESULT:UNSUCCESSFULSYLVCAMI BRITTON 10/12/2020 5:22:35 PM > LYNDSEY, COULD YOU PLEASE FILL IN THE RESULTS FOR THIS PROCEDURE LOG? THANKS! NOTES: 69-YEAR-OLD MALE IN FOR CHRONIC PAIN FOLLOW-UP. GIVEN PRESENTING SYMPTOMS RECOMMEND INCREASING TRAMADOL TO 4 TIMES A DAY DOSING WITH FOLLOW-UP IN ONE MONTH TO DETERMINE EFFICACY TREATMENT. PATIENT AND HIS HAVE EXPRESSED UNDERSTANDING OF AND WERE IN AGREEMENT WITH TREATMENT PLAN. GIVEN TIME TO ASK QUESTIONS AND EXPRESS CONCERNS. , ISTOP REGISTRY REVIEWED AND DEMONSTRATES COMPLLIANCE. (REF # [id number] ) BRINGS IN MEDICATIONS WHICH IS APPROPRIATE FOR WHAT WAS DISPENSED. RECENT URINE TOXICOLOGY REVIEWED. NO UNAUTHORIZED MEDICATIONS. NO ILLICIT SUBSTANCES AND PRESCRIBED MEDICATIONS WERE PRESENT. MYALGIA, OTHER SITE REFILL TRAMADOL HCL TABLET, 50 MG, 1 TAB, ORALLY, EVERY 6 HOURS NEEDED/MMD#4, 30 DAYS, 120, NOTES: 08/10/20 PROCEDURE CODES FA211 ESTABILISHED PATIENT [facility] CHARGE DISPOSITION & COMMUNICATION FOLLOW UP 4 WEEKS (REASON: MED INCREASE ) ELECTRONICALLY SIGNED BY FEROZ MCQUEEN ON 10/13/2020 AT 08:43 AM EDT DISCLAIMER : THIS IS A VISIT SUMMARY EXTRACTED FROM THE [employer] CHART. IT IS NOT A COPY OF THE [employer] PROGRESS NOTE. MTDD
== END ==
LOC: M PAIN 09:30
PROVIDERS: ATTEND Family Medicine
DX: M79.18 Myalgia, other site (principal); Z86.73 Personal history of transient ischemic attack (TIA), and cerebral infarction without residual deficits; Z86.59 Personal history of other mental and behavioral disorders; Z79.01 Long term (current) use of anticoagulants; Z79.899 Other long term (current) drug therapy

== ENCOUNTER → 2020-11-11 | Outpatient (CLI) | payer MEDICARE, MEDICAID ==
--- NOTE | 2020-11-15 02:38 | ECWPNPC ---
PATIENT NAME: MARY MOODY : 1950 GENDER: MALE VISIT DATE: 11/11/2020 DISCHARGE DATE: 11/11/20922 VISIT LOCKED DATE TIME: PHYSICIAN: LYNDSEY SWARTZ RESOURCE: LYNDSEY SWARTZ REASON FOR APPOINTMENT 1. LOW BACK/MED INCREASE HISTORY OF PRESENT ILLNESS PAIN CENTER INTAKE QUESTIONS: DO YOU HAVE A HISTORY OF MRSA? :NO DO YOU TAKE A BLOOD THINNERS? :YES WARFARIN DO YOU HAVE ANY BLEEDING DISORDERS? :YES ANY NEW NUMBNESS OR WEAKNESS IN YOUR LEGS OR ARMS? :YES FROM THE LOWER BACK DOWN TO THE RIGHT LEG ANY PACEMAKER,DEFIBRILLATOR, OR DORSAL COLUMN STIMULATOR? :NO DO YOU HAVE ANY RASHES OR OPEN SORES? :NO ARE YOU ALLERGIC TO IV DYE? :NO ARE YOU DIABETIC? :NO ANY NEW PROBLEMS WITH YOUR MEDICATIONS? :NO HAVE YOU RECEIVED A VACCINE IN THE PAST 30 DAYS? :NO DO YOU PLAN TO RECEIVE A VACCINE IN THE NEXT 21 DAYS? :NO DO YOU NEED ANY PRESCRIPTION? :YES DEANGELO NOT SURE ABOUT IT DO YOU TAKE ANY IMMUNOSUPPRESSIVE MEDICATIONS? :YES ALLOPURINOL DO YOU HAVE ANY KIDNEY OR LIVER DISEASE? :NO IS THERE A CHANCE YOU COULD BE ? :NO ARE YOU BREAST FEEDING? :NO GENERAL: HPI 69-YEAR-OLD MALE IN FOR CHRONIC PAIN FOLLOW-UP. AT LAST CLINIC VISIT PATIENT'S MEDICATIONS WERE INCREASED AND PATIENT AND HIS ADMITS TODAY THAT THIS HAS BEEN BENEFICIAL. PATIENT IS EXPERIENCING INCREASED PAIN AND WOULD LIKE TO DISCUSS REPEAT TRIGGER POINT INJECTIONS HE HAS HAD THEM IN THE PAST WITH GOOD RESULTS EVIDENCED BY DECREASED PAIN AND INCREASED FUNCTIONALITY.. -. FALL RISK SCREENING: SCREENING : NO FALLS REPORTED IN THE LAST YEAR. PAIN SCREENING: PATIENT HAS A COMPLAINT OF ACUTE OR CHRONIC PAIN :YES LOCATION OF PAIN:LOW BACK INTENSITY OF PAIN (SCALE OF 1 TO 10):7 WHAT DOES YOUR PAIN FEEL LIKE:ACHING, BURNING, CONTINOUS DURATION:CONTINOUS, CONSTANT, ALL DAY PAIN IS INCREASED BY:ACTIVITIES, PROLONGED STANDING PAIN IS DECREASED BY:USE OF PAIN MEDICATIONS NURSING NOTE: -. CURRENT MEDICATIONS TAKING [id number] ETHYL ESTERS 1 GM CAPSULE ORAL TWICE DAILY TAKING POLYETHYLENE GLYCOL 3350 POWDER ORAL Q 3 DAYS TAKING ALLOPURINOL 100 MG TABLET TAKE 1 TABLET BY MOUTH ONCE DAILY ORAL TAKING TAMSULOSIN HCL 0.4 MG CAPSULE ORAL DAILY TAKING WARFARIN SODIUM 5 MG TABLET TAKE 1 TABLET BY MOUTH ONCE DAILY ORAL WENDSAY AND FRIDAYS 2.5MG TAKING PRAVASTATIN SODIUM 40 MG TABLET ORAL Q P.M. TAKING CITALOPRAM HYDROBROMIDE 20 MG TABLET TAKE 1 TABLET BY MOUTH ONCE DAILY ORAL TAKING VALIUM 5 MG TABLET 1 TABLET NEEDED ORALLY TWICE A DAY, NOTES: NONE LATELY TAKING ALBUTEROL SULFATE (2.5 MG/3ML) 0.083% NEBULIZATION SOLUTION 3 ML INHALATION THREE TIMES A DAY PRN TAKING VITAMIN A & D 5000-400 UNIT CAPSULE DIRECTED ORALLY TAKING LYRICA 200 MG CAPSULE 1 CAPSULE ORALLY BID TAKING TIZANIDINE HCL 4 MG TABLET 1 TABLET NEEDED ORALLY THREE TIMES A DAY TAKING TRAMADOL HCL 50 MG TABLET 1 TAB ORALLY EVERY 6 HOURS NEEDED/MMD#4 TAKING FAMOTIDINE 20 MG TABLET 1 TABLET AT BEDTIME NEEDED ORALLY ONCE A DAY UNKNOWN RANITIDINE HCL 150 MG TABLET ORAL BID UNKNOWN PERCOCET 5-325 MG TABLET 1 TABLET NEEDED ORALLY DAILY NEEDED FOR SEVERE PAIN MDD=1 UNKNOWN LIDOCAINE 4 % CREAM ONE APPLICATION EXTERNALLY Q 6 HRS PRN PAIN - APPLY TO LOW BACK MEDICATION LIST REVIEWED AND RECONCILED WITH THE PATIENT PAST MEDICAL HISTORY STROKE WITH RIGHT SIDED WEAKNESS AND SPEECH APHASIA ALSO CHRONIC NUMBNESS AND TINGLING TO RIGHTLEG AND FOOT PERIPHERAL NEUROPATHY HYPECHOLESTEROLEMIA DEPRESSION SPINAL STENOSIS TIA MYALGIA NECK AND LOW BACK BACK PAIN RIGHT SHOULDER PAIN ALLERGIES N.K.D.A. SURGICAL HISTORY L4-5 AND L3-4 DECOMPRESSIVE LUMBAR SPINE SURGURY RIGHT ROTATOR CUFF SURGURY SOCIAL HISTORY GENERAL: TOBACCO USE ARE YOU A:NONSMOKER LATEX QUESTIONNAIRE LATEX ALLERGY : HAVE YOU EVER DEVELOPED ANY TYPE OF REACTION AFTER HANDLING LATEX PRODUCTS SUCH RUBBER GLOVES, CONDOMS, DIAPHRAGMS, BALLOONS, SOCKS, OR UNDERWEAR?NO LATEX ALLERGY : HAVE YOU EVER DEVELOPED ANY TYPE OF REACTION DURING OR AFTER DENTAL APPOINTMENT, VAGINAL/RECTAL EXAMINATION, SURGICAL PROCEDURE, OR ANY OTHER EXPOSURE?NO LATEX RISK : HAVE YOU EVER HAD ANY DIFFICULTY BREATHING OR HIVES AFTER EATING OR HANDLING ANY FRUITS, OR VEGETABLES; SUCH KIWI, BANANAS, STONE FRUITS, OR CHESTNUTSNO LATEX RISK : DO YOU HAVE A PREVIOUS PERSONAL HISTORY OF MORE THAN NINE SURGERIES, SPINA BIFIDA, OR REPEATED CATHERIZATIONS? NO LATEX RISK : ARE YOU FREQUENTLY EXPOSED TO LATEX PRODUCTS IN YOUR OCCUPATION?NO DATE ASKED : 11/11/2020 ALCOHOL USE: NO. ALCOHOL SCREENING DID YOU HAVE A DRINK CONTAINING ALCOHOL IN THE PAST YEAR?NO POINTS0 INTERPRETATIONNEGATIVE RECREATIONAL DRUG USE DRUG USE?NO CAFFEINE CAFFEINE USE?NO UATSDIN [id number] [employer] LANG[employer] LANGUAGES SPOKEN:[place] EDUCATION LEVEL OF EDUCATION:HIGH SCHOOL LEARNING BARRIERS / SPECIAL NEEDS BARRIERS TO LEARNING?YES COMMENTS DIFFICULTY REMEMBERING SINCE THE STROKE HEARING IMPAIRED?YES : HARD OF HEARING BILATERAL EARS VISION IMPAIRED?YES :CORRECTIVE LENSES COGNITIVELY IMPAIRED?YES DIFF. REMEMBERING THINGS SINCE THE STROKE READINESS TO LEARN?YES LEARNING PREFERENCES?YES :TAPES/VIDEOS, DEMONSTRATION/VERBAL INSTRUCTION LEARNING CAPABILITIES PRESENT?YES EMOTIONAL BARRIERS?NO SPECIAL DEVICES?YES :CANE NEEDED MONEY MANAGER NEEDED?NO DOMESTIC VIOLENCE DO YOU FEEL SAFE IN YOUR ENVIRONMENT?YES - PFS REFERRAL NEEDED?NO CLERGY REFERRAL NEEDED?NO PUBLIC HEALTH REFERRAL NEEDED?NO WAS THE PROVIDER NOTIFIED OF ANY PERTINENT INFO? N/A HAS THE PATIENT BEEN EDUCATED REGARDING HIS/HER PLAN OF CARE?YES HAS THE PATIENT BEEN EDUCATED REGARDING PAIN, THE RISK FOR PAIN, THE IMPORTANCE OF EFFECTIVE PAIN MANAGEMENT, AND THE PAIN ASSESSMENT PROCESS?YES ADVANCE DIRECTIVE ADVANCE DIRECTIVE DISCUSSED WITH PATIENT:YES PT HAS HCP AND POA -SKY [phone] HOSPITALIZATION/MAJOR DIAGNOSTIC PROCEDURE TORN ROTATOR CUFF STROKE SURGERIES REVIEW OF SYSTEMS CONSTITUTIONAL: ANY RECENT FEVER NO . CHILLS NO . WEIGHT CHANGE OF UNKNOWN REASONS NO . GASTROENTEROLOGY: NEW UNEXPLAINABLE CHANGES IN BOWEL CONTROL NO . CONSTIPATION NO . GENITOURINARY: ANY NEW CHANGE IN BLADDER CONTROL? NO . NEUROLOGY: NEW ONSET DIZZINESS OR NEUROLOGICAL CHANGES NOT MENTIONED NO . NEW NUMBNESS OR PAIN PATTERNS NOT MENTIONED AND PERTINENT TO TODAY'S VISIT NO . CARDIOLOGY: NEW CHEST PRESSURE NO . PATIENT DENIES NO . RESPIRATORY: UNEXPLAINABLE COUGH NO . NEW SHORTNESS OF BREATH NO . VITAL SIGNS WT 225.8 LBS, HT 68", BMI 34.33 INDEX, BP 119/67 MM HG, HR 69 /MIN, RR 18 /MIN, TEMP 97.0 F, OXYGEN SAT % 92%, SAFE IN ENV? (Y/N) YES, NA INITIALS AW 0849T.[employer] FIELDS. EXAMINATION GENERAL EXAMINATION: GENERALNO ACUTE DISTRESS, WELL NOURISHED AND HYDRATED. PSYCHAPPROPRIATE MOOD AND AFFECT . LUNGS:CLEAR TO AUSCULTATION BILATERALLY, NO WHEEZES, RHONCHI, RALES. HEART:NO MURMURS, REGULAR RATE AND RHYTHM. BACK:POINT TENDER BILATERAL LOW BACK, SURROUNDING SKIN SHOWS NO ERYTHEMA, ECCHYMOSIS, INCREASED WARMTH, AND/OR SKIN ERUPTIONS NOTED. BANDS OF RESTRICTIVE TISSUE NOTED OVER TRIGGER POINTS. ASSESSMENTS MYALGIA, OTHER SITE - M79.18 (PRIMARY), RISK: (NULL) TREATMENT MYALGIA, OTHER SITE MEDICATION: VALIUM TAB 10MG ORALLY (DIAZEPAM) (ORDERED FOR 11/21/2020) MEDICATION: OXYCODONE HCL TAB 10MG ORALLY (ORDERED FOR 11/21/2020) NOTES: 69-YEAR-OLD MALE IN FOR CHRONIC PAIN FOLLOW-UP. GIVEN PRESENTING SYMPTOMS RECOMMENDED CONTINUATION OF CURRENT MEDICATION REGIMEN AND BILATERAL LOW BACK TRIGGER POINT INJECTIONS WITH POSTPROCEDURAL FOLLOW-UP. PATIENT AND HIS HAVE EXPRESSED UNDERSTANDING OF AND WAS IN AGREEMENT WITH TREATMENT PLAN. GIVEN TIME TO ASK QUESTIONS AND EXPRESS CONCERNS. ISTOP REGISTRY REVIEWED AND DEMONSTRATES COMPLLIANCE. (REF # [id number] ) BRINGS IN MEDICATIONS WHICH IS APPROPRIATE FOR WHAT WAS DISPENSED. RECENT URINE TOXICOLOGY REVIEWED. NO UNAUTHORIZED MEDICATIONS. NO ILLICIT SUBSTANCES AND PRESCRIBED MEDICATIONS WERE PRESENT. PRINTED AND REVIEWED PRE PROCEDURE TEACHING, PATIENT VERBALIZED UNDERSTANDING, PATIENT STATED THAT THEY HAVE NOT HOLD OFF ON THERE WARFARIN ON PPROCEDURE ONLY THERE ALLOPURINOL WHICH WILL BE HOLD 3 DAYS BEFORE AND RESTART 3 DAYS AFTER VINCE FIELDS. OTHERS CONTINUE LYRICA CAPSULE, 200 MG, 1 CAPSULE, ORALLY, BID, 30 DAY(S), 60 CAPSULE(S), REFILLS 2 DISPOSITION & COMMUNICATION FOLLOW UP POST PROCEDURE (REASON: BILATERAL LOW BACK TRIGGER POINT INJECTIONS ) ELECTRONICALLY SIGNED BY FEROZ MCQUEEN ON 11/14/2020 AT 08:43 AM EDT DISCLAIMER : THIS IS A VISIT SUMMARY EXTRACTED FROM THE [email or web address] CHART. IT IS NOT A COPY OF THE [email or web address] PROGRESS NOTE. MTDD
== END ==
LOC: M PAIN 09:00
PROVIDERS: ATTEND Family Medicine
DX: M79.18 Myalgia, other site (principal); I69.351 Hemiplegia and hemiparesis following cerebral infarction affecting right dominant side; G62.9 Polyneuropathy, unspecified; I69.320 Aphasia following cerebral infarction; I69.398 Other sequelae of cerebral infarction; F32.9 Major depressive disorder, single episode, unspecified; M25.511 Pain in right shoulder; Z79.01 Long term (current) use of anticoagulants; Z79.891 Long term (current) use of opiate analgesic; Z79.899 Other long term (current) drug therapy; I69.311 Memory deficit following cerebral infarction

== ENCOUNTER → 2020-11-22 | Outpatient (CLI) | payer MEDICARE, MEDICAID ==
[~2020-11-22] MED LIST changes: +BUPIVACAINE HCL 0.25% 10ML VIAL As Ordered ONE; +BUPIVACAINE HCL 0.25% 30ML VIAL As Ordered ONE; +TRIAMCINOLONE ACETONIDE SUSP 40 MG/ML VIAL (J3301) As Ordered ONE; +diazePAM 5MG TABLET As Ordered ONE; +oxyCODONE 5MG TAB As Ordered ONE
--- NOTE | 2020-11-26 00:07 | ECWPNPC ---
PATIENT NAME: MARY MOODY : 1950 GENDER: MALE VISIT DATE: 11/22/2020 DISCHARGE DATE: 11/22/20 0950 VISIT LOCKED DATE TIME: PHYSICIAN: PRATEEK CARRILLO MD RESOURCE: PRATEEK CARRILLO MD REASON FOR APPOINTMENT 1. TRIGGER POINT INJECTIONS BILATERAL LOW BACK HISTORY OF PRESENT ILLNESS GENERAL: -. FALL RISK SCREENING: SCREENING : NO FALLS REPORTED IN THE LAST YEAR. PAIN SCREENING: PATIENT HAS A COMPLAINT OF ACUTE OR CHRONIC PAIN :YES LOCATION OF PAIN:LOW BACK INTENSITY OF PAIN (SCALE OF 1 TO 10):8 WHAT DOES YOUR PAIN FEEL LIKE:ACHING, CONTINOUS, SHARP, TENDER DURATION:CONTINOUS PAIN IS INCREASED BY:ACTIVITIES PAIN IS DECREASED BY:USE OF PAIN MEDICATIONS, OTHERS REST NURSING NOTE: -. PAIN CENTER INTAKE QUESTIONS: DO YOU HAVE A HISTORY OF MRSA? :NO DO YOU TAKE A BLOOD THINNERS? :YES WARFARIN DO YOU HAVE ANY BLEEDING DISORDERS? :NO ANY NEW NUMBNESS OR WEAKNESS IN YOUR LEGS OR ARMS? :NO ANY PACEMAKER,DEFIBRILLATOR, OR DORSAL COLUMN STIMULATOR? :NO DO YOU HAVE ANY RASHES OR OPEN SORES? :NO ARE YOU ALLERGIC TO IV DYE? :NO ARE YOU DIABETIC? :NO ANY NEW PROBLEMS WITH YOUR MEDICATIONS? :NO HAVE YOU RECEIVED A VACCINE IN THE PAST 30 DAYS? :NO DO YOU PLAN TO RECEIVE A VACCINE IN THE NEXT 21 DAYS? :NO DO YOU TAKE ANY IMMUNOSUPPRESSIVE MEDICATIONS? :YES ALLOPURINOL-LAST DOSE 11/19/20 ANY HISTORY OF SEIZURES? :NO ANY HISTORY OF CARDIAC ISSUES OR EVENTS? :NO DO YOU HAVE ANY KIDNEY OR LIVER DISEASE? :NO DO YOU HAVE SLEEP APNEA? :NO ANY RECENT HEAD INJURY? :NO DO YOU HAVE ANY NEW INFECTIONS? :NO IS THERE A CHANCE YOU COULD BE ? :NO ARE YOU BREAST FEEDING? :NO WHEN DID YOU LAST EAT? : 11/21 1899 WHEN DID YOU LAST DRINK? : WATER WHAT DID YOU LAST DRINK? : 11/21 2099 NAME OF PERSON DRIVING YOU HOME? : - ONEIL DO YOU HAVE ANY OTHER QUESTIONS OR CONCERNS? : NONE CURRENT MEDICATIONS TAKING LYRICA 200 MG CAPSULE 1 CAPSULE ORALLY BID TAKING [id number] ETHYL ESTERS 1 GM CAPSULE ORAL TWICE DAILY TAKING POLYETHYLENE GLYCOL 3350 POWDER ORAL Q 3 DAYS TAKING ALLOPURINOL 100 MG TABLET TAKE 1 TABLET BY MOUTH ONCE DAILY ORAL , NOTES: LAST DOSE 11/19/20 TAKING TAMSULOSIN HCL 0.4 MG CAPSULE ORAL DAILY TAKING WARFARIN SODIUM 5 MG TABLET TAKE 1 TABLET BY MOUTH ONCE DAILY ORAL SATURDAY AND SATURDAY 7.5MG, NOTES: 11/20 TAKING PRAVASTATIN SODIUM 40 MG TABLET ORAL Q P.M. TAKING CITALOPRAM HYDROBROMIDE 20 MG TABLET TAKE 1 TABLET BY MOUTH ONCE DAILY ORAL TAKING VALIUM 5 MG TABLET 1 TABLET NEEDED ORALLY TWICE A DAY, NOTES: NONE LATELY TAKING ALBUTEROL SULFATE (2.5 MG/3ML) 0.083% NEBULIZATION SOLUTION 3 ML INHALATION THREE TIMES A DAY PRN, NOTES: NONE RECENT TAKING VITAMIN A & D 5000-400 UNIT CAPSULE DIRECTED ORALLY TAKING TIZANIDINE HCL 4 MG TABLET 1 TABLET NEEDED ORALLY THREE TIMES A DAY, NOTES: 11/21 2099 TAKING TRAMADOL HCL 50 MG TABLET 1 TAB ORALLY EVERY 6 HOURS NEEDED/MMD#4, NOTES: 11/22 1999 TAKING FAMOTIDINE 20 MG TABLET 1 TABLET AT BEDTIME NEEDED ORALLY ONCE A DAY NOT-TAKING RANITIDINE HCL 150 MG TABLET ORAL BID NOT-TAKING PERCOCET 5-325 MG TABLET 1 TABLET NEEDED ORALLY DAILY NEEDED FOR SEVERE PAIN MDD=1 NOT-TAKING LIDOCAINE 4 % CREAM ONE APPLICATION EXTERNALLY Q 6 HRS PRN PAIN - APPLY TO LOW BACK MEDICATION LIST REVIEWED AND RECONCILED WITH THE PATIENT PAST MEDICAL HISTORY STROKE WITH RIGHT SIDED WEAKNESS AND SPEECH APHASIA ALSO CHRONIC NUMBNESS AND TINGLING TO RIGHTLEG AND FOOT PERIPHERAL NEUROPATHY HYPECHOLESTEROLEMIA DEPRESSION SPINAL STENOSIS TIA MYALGIA NECK AND LOW BACK BACK PAIN RIGHT SHOULDER PAIN ALLERGIES N.K.D.A. SURGICAL HISTORY L4-5 AND L3-4 DECOMPRESSIVE LUMBAR SPINE SURGURY RIGHT ROTATOR CUFF SURGURY FAMILY HISTORY FATHER: 82 YRS, DIAGNOSED WITH UNSPECIFIED CEREBRAL ARTERY OCCLUSION WITH CEREBRAL INFARCTION MOTHER: 59 YRS, OTHER MALIGNANT NEOPLASM OF UNSPECIFIED SITE SIBLINGS: ALIVE, BROTHER-PROSTATE CA 2DAUGHTER(S) - HEALTHY. MOM-LUNG CA\\NBROTHER-- HAD MS/ BROTHER WITH CAD. SOCIAL HISTORY GENERAL: TOBACCO USE ARE YOU A:NONSMOKER LATEX QUESTIONNAIRE LATEX ALLERGY : HAVE YOU EVER DEVELOPED ANY TYPE OF REACTION AFTER HANDLING LATEX PRODUCTS SUCH RUBBER GLOVES, CONDOMS, DIAPHRAGMS, BALLOONS, SOCKS, OR UNDERWEAR?NO LATEX ALLERGY : HAVE YOU EVER DEVELOPED ANY TYPE OF REACTION DURING OR AFTER DENTAL APPOINTMENT, VAGINAL/RECTAL EXAMINATION, SURGICAL PROCEDURE, OR ANY OTHER EXPOSURE?NO LATEX RISK : HAVE YOU EVER HAD ANY DIFFICULTY BREATHING OR HIVES AFTER EATING OR HANDLING ANY FRUITS, OR VEGETABLES; SUCH KIWI, BANANAS, STONE FRUITS, OR CHESTNUTSNO LATEX RISK : DO YOU HAVE A PREVIOUS PERSONAL HISTORY OF MORE THAN NINE SURGERIES, SPINA BIFIDA, OR REPEATED CATHERIZATIONS? NO LATEX RISK : ARE YOU FREQUENTLY EXPOSED TO LATEX PRODUCTS IN YOUR OCCUPATION?NO DATE ASKED : 11/21/2020 ALCOHOL USE: NO. ALCOHOL SCREENING DID YOU HAVE A DRINK CONTAINING ALCOHOL IN THE PAST YEAR?NO POINTS0 INTERPRETATIONNEGATIVE RECREATIONAL DRUG USE DRUG USE?NO CAFFEINE CAFFEINE USE?NO ANABAPTIST [id number] [employer] LANGUAGE LANGUAGES SPOKEN:SWAZI EDUCATION LEVEL OF EDUCATION:HIGH SCHOOL LEARNING BARRIERS / SPECIAL NEEDS BARRIERS TO LEARNING?YES COMMENTS DIFFICULTY REMEMBERING SINCE THE STROKE HEARING IMPAIRED?YES : HARD OF HEARING BILATERAL EARS. NO HEARING AIDES VISION IMPAIRED?YES :CORRECTIVE LENSES COGNITIVELY IMPAIRED?YES DIFF. REMEMBERING THINGS SINCE THE STROKE READINESS TO LEARN?YES LEARNING PREFERENCES?YES :TAPES/VIDEOS, DEMONSTRATION/VERBAL INSTRUCTION LEARNING CAPABILITIES PRESENT?YES EMOTIONAL BARRIERS?NO SPECIAL DEVICES?YES :CANE NEEDED DENTAL INSTRUMENT MAKER NEEDED?NO DOMESTIC VIOLENCE DO YOU FEEL SAFE IN YOUR ENVIRONMENT?YES - PFS REFERRAL NEEDED?NO CLERGY REFERRAL NEEDED?NO PUBLIC HEALTH REFERRAL NEEDED?NO WAS THE PROVIDER NOTIFIED OF ANY PERTINENT INFO? N/A HAS THE PATIENT BEEN EDUCATED REGARDING HIS/HER PLAN OF CARE?YES HAS THE PATIENT BEEN EDUCATED REGARDING PAIN, THE RISK FOR PAIN, THE IMPORTANCE OF EFFECTIVE PAIN MANAGEMENT, AND THE PAIN ASSESSMENT PROCESS?YES ADVANCE DIRECTIVE ADVANCE DIRECTIVE DISCUSSED WITH PATIENT:YES PT HAS HCP AND POA -SKY [phone] HOSPITALIZATION/MAJOR DIAGNOSTIC PROCEDURE TORN ROTATOR CUFF STROKE SURGERIES VITAL SIGNS WT 225.4 LBS, HT 68", BMI 34.27 INDEX, BP 147/82 MM HG, HR 62 /MIN, RR 18 /MIN, TEMP 97.6 F, OXYGEN SAT % 92%, SAFE IN ENV? (Y/N) Y, NA INITIALS SC 08:50, REVIEWED BY: Genet ROGERS RN. EXAMINATION GENERAL: A HISTORY AND PHYSICAL EXAM ON THE PATIENT WAS DONE ON 11/11/2020 (DATE OF ORIGINAL ASSESSMENT) IN PREPARATION OF SURGERY/PROCEDURE. I HAVE NOW REASSESSED THIS PATIENT'S HEALTH STATUS AND PERFORMED AN UPDATED EXAM TODAY. ALL CHANGES IN THE PATIENT'S HISTORY, PHYSICAL EXAM, PRE-EXISTING CONDITONS, AND INDICATIONS/CONTRAINDICATIONS TO THE PLANNED PROCEDURE AND ANESTHESIA ARE DOCUMENTED AND EVALUATED BELOW. I ATTEST TO THE ADEQUACY AND APPROPRIATENESS OF MY ASSESSMENT, AND CONFIRM THE NECESSITY FOR THE PLANNED PROCEDURE. THE PATIENT IS ALERT, ORIENTED TIMES THREE AND COOPERATIVE. LUNGS ARE CLEAR TO AUSCULTATION. HEART SHOWS REGULAR RHYTHM, NO MURMURS AND NO GALLOPS. ASSESSMENTS MYALGIA, OTHER SITE - M79.18 (PRIMARY) TREATMENT MYALGIA, OTHER SITE COMPLETION OF PROCEDURAL VISIT WHEN MEETS CRITERIA MEDICATION: VALIUM TAB 10MG ORALLY (DIAZEPAM)JOANA TRUJILLO 11/22/2020 8:34:47 AM > VERIFIED SLIME ROGERS 11/22/2020 8:52:17 AM > ADMINISTERED MEDICATION: OXYCODONE HCL TAB 10MG ORALLYMAURER,JOANA 11/22/2020 8:35:08 AM > VERIFIED SLIME ROGERS 11/22/2020 8:52:44 AM > ADMINISTERED OTHERS NOTES: PAT COMPLETED 11/21/20 Javy FRAGA RN PATIENT'S STATES COVID TEST DONE AT [facility] 11/17/20. I SPOKE WITH DAGO AT [facility], , WHO STATES COVID TEST NOT RESULTED YET. I SPOPKE WITH RICKY SÁNCHEZ, AND PATIENT'S . WE WILL RESCHEDULE WITH AGREEMENT PATIENT WILL HAVE COVID TEST AT [facility] AND BRING RESULTS WITH HIM TO [facility] ON DATE OF PROCEDURE. [facility] CALLED STATING THEY HAD PATIENT'S 11/17/20 NEGATIVE COVID RESULTS. THEY FAXED REPORT TO [facility]. PROCEDURES PAIN NURSING RECORD PROCEDURE IN ROOM 0830, PHYSICIAN IN ROOM 0928, START 0931, FINISH 0934, PHYSICIAN OUT OF ROOM 0934, OUT OF ROOM 0949, ECG N/A, PATIENT SHIELDED N/A, SAFETY STRAP N/A, PREP ALCOHOL DR. CARRILLO, DRESSING TEGADEGABBY ROGERS RN LOC: SLIME ROGERS 11/22/2020 9:07:47 AM > 1. ALERT, ORIENTED RESP: SLIME ROGERS 11/22/2020 9:07:50 AM > 1. REGULAR, NO DYSPNEA COLOR: SLIME ROGERS 11/22/2020 9:07:55 AM > 1. PINK SKIN: SLIME ROGERS 11/22/2020 9:08:01 AM > 1. WARM, DRY POSITION: SLIME ROGERS 11/22/2020 9:08:05 AM > 5. SITTING VITALS: SLIME ROGERS 11/22/2020 9:05:12 AM > 145/84,60,16,93% SLIME ROGERS 11/22/2020 9:20:35 AM > 148/84,66,16,93% SLIME ROGERS 11/22/2020 9:38:18 AM > 135/92,66,18,93% COMPLETION OF PROCEDURE APPOINTMENT: POST PAIN 3, DRESSING SITE DRY AND INTACT, IV N/A, GAIT WHEELCHAIR GAIT UNSTEADY FROM PRE-SEDATION MEDICATION, SAFETY ISSUES REVIEWED WITH AND SHE VERBALIZED UNDERSTANDING Genet ROGERS RN, TEACHING COMPLETED, PATIENT ACKNOWLEDGES UNDERSTANDING YES PRINTED POST-PROCEDURE AND COVID MONITORING SYMPTOMS INSTRUCTIONS GIVEN TO AND REVIEWED WITH PATIENT AND AND BOTH VERBALIZED UNDERSTANDING, PROCEDURE APPOINTMENT COMPLETED AT 0949 BY: Genet ROGERS RN PN TRIGGER POINT INJECTION WITH STEROIDS PRE PROCEDURE DIAGNOSIS 1. MYALGIA 2. PAIN AT BILATERAL LOW BACK AREA POST PROCEDURE DIAGNOSIS 1. MYALGIA 2. PAIN AT BILATERAL LOW BACK AREA PROCEDURE TRIGGER POINT INJECTION AT BILATERAL LOW BACK AREA SURGEON DR. PRATEEK CARRILLO COMMUNITY RECREATION PROGRAMMER NONE ANESTHESIA LOCAL PRE PROCEDURE NOTE THE PATIENT HAS A HISTORY OF CHRONIC PAIN AT THE RIGHT AND LEFT LOW BACK AREA. I EVALUATED THE PATIENT AND REVIEWED THE CHART. THERE IS EVIDENCE OF BANDS OF TISSUE WITH RESTRICTION OF MOVEMENT AND PRESENCE OF TRIGGER POINT AT THE RIGHT AND LEFT LOW BACK AREA. I WENT OVER THE RISKS, ALTERNATIVES, AND BENEFITS ASSOCIATED WITH THIS PROCEDURE. THE PATIENT WOULD LIKE TO PROCEED AND GIVE CONSENT TO PERFORMED THE PROCEDURE. THE PATIENT DENIES UNEXPLAINABLE WEIGHT LOSS, FEVER, CHILLS, OR NEW CHANGES IN URINARY OR BOWEL CONTROL. THE PATIENT IS COVID-19 NEGATIVE DESCRIPTION OF PROCEDURE THE PATIENT WAS BROUGHT TO THE PROCEDURE ROOM AND PLACED IN THE SITTING POSITION. THE AREA WAS CLEANED WITH ALCOHOL. THE PROCEDURE WAS DONE USING ASEPTIC STERILE TECHNIQUE. A TIMEOUT WAS PERFORMED WHERE THE CONSENTED SITE WAS VERIFIED WITH EVERYONE IN THE ROOM. USING A 25-GAUGE NEEDLE, TRIGGER POINTS WERE INJECTED AT THE RIGHT AND LEFT LOW BACK AREA WITH A TOTAL OF 40 ML OF BUPIVACAINE 0.25% AND KENALOG 40 MG. THE MEDICATIONS WERE VERIFIED WITH THE NURSE. THERE WAS NO EVIDENCE OF BLOOD OR PARESTHESIA DURING THE PROCEDURE. THE PATIENT WAS SENT TO THE RECOVERY ROOM. THE PATIENT WAS MOVING THE EXTREMITIES AND DOING WELL. THERE WERE NO COMPLICATIONS DURING THE PROCEDURE. ESTIMATED BLOOD LOSS WAS LESS THAN 5 ML POST PROCEDURE NOTE THE PROCEDURE DONE WAS DISCUSSED WITH THE PATIENT. THE PATIENT WILL BE SEEN IN A FOLLOW UP IN THE NEXT FEW WEEKS. I AM LOOKING FOR LONG LASTING PAIN RELIEF FOR THE PATIENT WITH THIS INTERVENTION. INSTRUCTIONS WERE GIVEN, QUESTIONS WERE ANSWERED, AND THE PATIENT EXPRESSED UNDERSTANDING AND AGREES WITH THE PLAN. I, MAURY PEMBERTON, DOCUMENTED THE ABOVE INFORMATION ACTING A SCRIBE FOR DR. CARRILLO. I HAVE REVIEWED THE ABOVE DOCUMENT, WRITTEN BY MAURY PEMBERTON, CIVIL ENGINEER LAND DEVELOPMENT, AND I VERIFY THAT IT IS ACCURATE PROCEDURE CODES 14524 INJ TRIGGER POINT 07/16 [facility] [place] DISPOSITION & COMMUNICATION FOLLOW UP FOLLOW UP WITH DIGITAL IMAGER (REASON: POST TRIGGER POINT INJECTION BILATERAL LOW BACK) ELECTRONICALLY SIGNED BY PRATEEK CARRILLO MD, MD ON 11/25/2020 AT 03:51 PM EDT DISCLAIMER : THIS IS A VISIT SUMMARY EXTRACTED FROM THE [employer] CHART. IT IS NOT A COPY OF THE [employer] PROGRESS NOTE. INO
== END ==
LOC: M PAIN 08:30
PROVIDERS: ATTEND Anesthesiology
DX: M79.18 Myalgia, other site (principal); Z86.73 Personal history of transient ischemic attack (TIA), and cerebral infarction without residual deficits; Z86.59 Personal history of other mental and behavioral disorders; Z79.01 Long term (current) use of anticoagulants; Z79.899 Other long term (current) drug therapy
CPT/HCPCS: 20552; J3301

== ENCOUNTER → 2020-12-08 | Outpatient (CLI) | payer MEDICARE, MEDICAID ==
[~2020-12-08] MED LIST changes: -BUPIVACAINE HCL 0.25% 10ML VIAL As Ordered ONE; -BUPIVACAINE HCL 0.25% 30ML VIAL As Ordered ONE; -TRIAMCINOLONE ACETONIDE SUSP 40 MG/ML VIAL (J3301) As Ordered ONE; -diazePAM 5MG TABLET As Ordered ONE; -oxyCODONE 5MG TAB As Ordered ONE
--- NOTE | 2020-12-10 03:36 | ECWPNPC ---
PATIENT NAME: MARY MOODY : 1950 GENDER: MALE VISIT DATE: 12/08/2020 DISCHARGE DATE: 12/08/20 1135 VISIT LOCKED DATE TIME: PHYSICIAN: LYNDSEY SWARTZ RESOURCE: LYNDSEY SWARTZ REASON FOR APPOINTMENT 1. POST BILATERAL LOW BACK TRIGGER POINT INJECTIONS HISTORY OF PRESENT ILLNESS GENERAL: HPI 70-YEAR-OLD MALE IN FOR POST BILATERAL LOW BACK TO POINT INJECTIONS FOLLOW-UP. PATIENT FEELS THE PROCEDURE WAS SUCCESSFUL OVERALL RATING HIS PAIN PREPROCEDURE AT A 8-9 OUT OF 10 AND POSTPROCEDURE AT A 4-5 OUT OF 10. HE FURTHER STATES THE PROCEDURE CONTINUES TO HELP HIM TODAY.. -. FALL RISK SCREENING: SCREENING : NO FALLS REPORTED IN THE LAST YEAR. PAIN SCREENING: PATIENT HAS A COMPLAINT OF ACUTE OR CHRONIC PAIN :YES LOCATION OF PAIN:LOW BACK INTENSITY OF PAIN (SCALE OF 1 TO 10):6 WHAT DOES YOUR PAIN FEEL LIKE:ACHING, BURNING, STABBING, SHOOTING DURATION:INTERMITTENT PAIN IS INCREASED BY:ACTIVITIES, PROLONGED STANDING PAIN IS DECREASED BY:USE OF PAIN MEDICATIONS NURSING NOTE: -. PAIN CENTER INTAKE QUESTIONS: DO YOU HAVE A HISTORY OF MRSA? :NO DO YOU TAKE A BLOOD THINNERS? :YES WARFARIN DO YOU HAVE ANY BLEEDING DISORDERS? :YES ANY NEW NUMBNESS OR WEAKNESS IN YOUR LEGS OR ARMS? :YES FROM THE LOWER BACK DOWN TO THE RIGHT LEG ANY PACEMAKER,DEFIBRILLATOR, OR DORSAL COLUMN STIMULATOR? :NO DO YOU HAVE ANY RASHES OR OPEN SORES? :NO ARE YOU ALLERGIC TO IV DYE? :NO ARE YOU DIABETIC? :NO ANY NEW PROBLEMS WITH YOUR MEDICATIONS? :NO HAVE YOU RECEIVED A VACCINE IN THE PAST 30 DAYS? :NO DO YOU PLAN TO RECEIVE A VACCINE IN THE NEXT 21 DAYS? :NO DO YOU NEED ANY PRESCRIPTION? :NO DO YOU TAKE ANY IMMUNOSUPPRESSIVE MEDICATIONS? :YES ALLOPURINOL DO YOU HAVE ANY KIDNEY OR LIVER DISEASE? :NO IS THERE A CHANCE YOU COULD BE ? :NO ARE YOU BREAST FEEDING? :NO CURRENT MEDICATIONS TAKING LYRICA 200 MG CAPSULE 1 CAPSULE ORALLY BID TAKING [id number] ETHYL ESTERS 1 GM CAPSULE ORAL TWICE DAILY TAKING POLYETHYLENE GLYCOL 3350 POWDER ORAL Q 3 DAYS TAKING ALLOPURINOL 100 MG TABLET TAKE 1 TABLET BY MOUTH ONCE DAILY ORAL TAKING TAMSULOSIN HCL 0.4 MG CAPSULE ORAL DAILY TAKING WARFARIN SODIUM 5 MG TABLET TAKE 1 TABLET BY MOUTH ONCE DAILY ORAL SATURDAY AND SATURDAY 7.5MG TAKING PRAVASTATIN SODIUM 40 MG TABLET ORAL Q P.M. TAKING CITALOPRAM HYDROBROMIDE 20 MG TABLET TAKE 1 TABLET BY MOUTH ONCE DAILY ORAL TAKING VALIUM 5 MG TABLET 1 TABLET NEEDED ORALLY TWICE A DAY TAKING ALBUTEROL SULFATE (2.5 MG/3ML) 0.083% NEBULIZATION SOLUTION 3 ML INHALATION THREE TIMES A DAY PRN TAKING VITAMIN A & D 5000-400 UNIT CAPSULE DIRECTED ORALLY TAKING TIZANIDINE HCL 4 MG TABLET 1 TABLET NEEDED ORALLY THREE TIMES A DAY TAKING TRAMADOL HCL 50 MG TABLET 1 TAB ORALLY EVERY 6 HOURS NEEDED/MMD#4 TAKING FAMOTIDINE 20 MG TABLET 1 TABLET AT BEDTIME NEEDED ORALLY ONCE A DAY NOT-TAKING RANITIDINE HCL 150 MG TABLET ORAL BID NOT-TAKING PERCOCET 5-325 MG TABLET 1 TABLET NEEDED ORALLY DAILY NEEDED FOR SEVERE PAIN MDD=1 NOT-TAKING LIDOCAINE 4 % CREAM ONE APPLICATION EXTERNALLY Q 6 HRS PRN PAIN - APPLY TO LOW BACK MEDICATION LIST REVIEWED AND RECONCILED WITH THE PATIENT PAST MEDICAL HISTORY STROKE WITH RIGHT SIDED WEAKNESS AND SPEECH APHASIA ALSO CHRONIC NUMBNESS AND TINGLING TO RIGHTLEG AND FOOT PERIPHERAL NEUROPATHY HYPECHOLESTEROLEMIA DEPRESSION SPINAL STENOSIS TIA MYALGIA NECK AND LOW BACK BACK PAIN RIGHT SHOULDER PAIN ALLERGIES N.K.D.A. SOCIAL HISTORY GENERAL: TOBACCO USE ARE YOU A:NONSMOKER LATEX QUESTIONNAIRE LATEX ALLERGY : HAVE YOU EVER DEVELOPED ANY TYPE OF REACTION AFTER HANDLING LATEX PRODUCTS SUCH RUBBER GLOVES, CONDOMS, DIAPHRAGMS, BALLOONS, SOCKS, OR UNDERWEAR?NO LATEX ALLERGY : HAVE YOU EVER DEVELOPED ANY TYPE OF REACTION DURING OR AFTER DENTAL APPOINTMENT, VAGINAL/RECTAL EXAMINATION, SURGICAL PROCEDURE, OR ANY OTHER EXPOSURE?NO LATEX RISK : HAVE YOU EVER HAD ANY DIFFICULTY BREATHING OR HIVES AFTER EATING OR HANDLING ANY FRUITS, OR VEGETABLES; SUCH KIWI, BANANAS, STONE FRUITS, OR CHESTNUTSNO LATEX RISK : DO YOU HAVE A PREVIOUS PERSONAL HISTORY OF MORE THAN NINE SURGERIES, SPINA BIFIDA, OR REPEATED CATHERIZATIONS? NO LATEX RISK : ARE YOU FREQUENTLY EXPOSED TO LATEX PRODUCTS IN YOUR OCCUPATION?NO DATE ASKED : 12/08/2020 ALCOHOL USE: NO. ALCOHOL SCREENING DID YOU HAVE A DRINK CONTAINING ALCOHOL IN THE PAST YEAR?NO POINTS0 INTERPRETATIONNEGATIVE RECREATIONAL DRUG USE DRUG USE?NO CAFFEINE CAFFEINE USE?NO MANDAEN [id number] BAP[employer]ISM LANGUAGE LANGUAGES SPOKEN:[place] R[place] EDUCATION LEVEL OF EDUCATION:HIGH SCHOOL LEARNING BARRIERS / SPECIAL NEEDS BARRIERS TO LEARNING?YES COMMENTS DIFFICULTY REMEMBERING SINCE THE STROKE HEARING IMPAIRED?YES : HARD OF HEARING BILATERAL EARS. NO HEARING AIDES VISION IMPAIRED?YES :CORRECTIVE LENSES COGNITIVELY IMPAIRED?YES DIFF. REMEMBERING THINGS SINCE THE STROKE READINESS TO LEARN?YES LEARNING PREFERENCES?YES :TAPES/VIDEOS, DEMONSTRATION/VERBAL INSTRUCTION LEARNING CAPABILITIES PRESENT?YES EMOTIONAL BARRIERS?NO SPECIAL DEVICES?YES :CANE NEEDED POTTERY DECORATOR NEEDED?NO DOMESTIC VIOLENCE DO YOU FEEL SAFE IN YOUR ENVIRONMENT?YES - PFS REFERRAL NEEDED?NO CLERGY REFERRAL NEEDED?NO PUBLIC HEALTH REFERRAL NEEDED?NO WAS THE PROVIDER NOTIFIED OF ANY PERTINENT INFO? N/A HAS THE PATIENT BEEN EDUCATED REGARDING HIS/HER PLAN OF CARE?YES HAS THE PATIENT BEEN EDUCATED REGARDING PAIN, THE RISK FOR PAIN, THE IMPORTANCE OF EFFECTIVE PAIN MANAGEMENT, AND THE PAIN ASSESSMENT PROCESS?YES ADVANCE DIRECTIVE ADVANCE DIRECTIVE DISCUSSED WITH PATIENT:YES PT HAS HCP AND POA -SKY [phone] REVIEW OF SYSTEMS CONSTITUTIONAL: ANY RECENT FEVER NO . CHILLS NO . WEIGHT CHANGE OF UNKNOWN REASONS NO . GASTROENTEROLOGY: NEW UNEXPLAINABLE CHANGES IN BOWEL CONTROL NO . CONSTIPATION NO . GENITOURINARY: ANY NEW CHANGE IN BLADDER CONTROL? NO . NEUROLOGY: NEW ONSET DIZZINESS OR NEUROLOGICAL CHANGES NOT MENTIONED NO . NEW NUMBNESS OR PAIN PATTERNS NOT MENTIONED AND PERTINENT TO TODAY'S VISIT NO . CARDIOLOGY: NEW CHEST PRESSURE NO . PATIENT DENIES NO . RESPIRATORY: UNEXPLAINABLE COUGH NO . NEW SHORTNESS OF BREATH NO . VITAL SIGNS WT 224.4 LBS, HT 68", BMI 34.12 INDEX, BP 149/70 MM HG, HR 88 /MIN, RR 18 /MIN, TEMP 98.6 F, OXYGEN SAT % 94%, SAFE IN ENV? (Y/N) YES, NA INITIALS AW 1118T.MODESTO FIELDS. EXAMINATION GENERAL EXAMINATION: GENERALNO ACUTE DISTRESS, WELL NOURISHED AND HYDRATED. PSYCHAPPROPRIATE MOOD AND AFFECT . LUNGS:CLEAR TO AUSCULTATION BILATERALLY, NO WHEEZES, RHONCHI, RALES. HEART:NO MURMURS, REGULAR RATE AND RHYTHM. ASSESSMENTS OTHER CHRONIC PAIN - G89.29 (PRIMARY) MYALGIA, OTHER SITE - M79.18, RISK: (NULL) TREATMENT OTHER CHRONIC PAIN PAIN PROCEDURE LOGDATE OF PROCEDURE1PROCEDURE:TRIGGER POINT INJECTION BILATERAL LOW BACKAMOUNT OF PRE SEDATEVALIUM 10MG, OXYCODONE 10MGRESULT:PRE 8-03/24 POST 4-10 CONTINUES TO HELP TODAY NOTES: 70-YEAR-OLD MALE IN FOR POST TRIGGER POINT INJECTION FOLLOW-UP. GIVEN PRESENTING SYMPTOMS RECOMMENDED FOLLOW-UP IN 2 MONTHS. PATIENT HAS EXPRESSED UNDERSTANDING OF AND WAS IN AGREEMENT WITH TREATMENT PLAN. GIVEN TIME TO ASK QUESTIONS AND EXPRESS CONCERNS. ISTOP REGISTRY REVIEWED AND DEMONSTRATES COMPLLIANCE. (REF # [id number] ) BRINGS IN MEDICATIONS WHICH IS APPROPRIATE FOR WHAT WAS DISPENSED. RECENT URINE TOXICOLOGY REVIEWED. NO UNAUTHORIZED MEDICATIONS. NO ILLICIT SUBSTANCES AND PRESCRIBED MEDICATIONS WERE PRESENT. PROCEDURE CODES FA211 ESTABILISHED PATIENT [facility] FACILITY CHARGE DISPOSITION & COMMUNICATION FOLLOW UP 2 MONTHS (REASON: MYALGIA ) ELECTRONICALLY SIGNED BY FEROZ MCQUEEN ON 12/09/2020 AT 08:48 AM EDT DISCLAIMER : THIS IS A VISIT SUMMARY EXTRACTED FROM THE [employer] CHART. IT IS NOT A COPY OF THE [employer] PROGRESS NOTE. INO
== END ==
LOC: M PAIN 11:30
PROVIDERS: ATTEND Family Medicine
DX: G89.29 Other chronic pain (principal); M79.18 Myalgia, other site; I69.320 Aphasia following cerebral infarction; I69.354 Hemiplegia and hemiparesis following cerebral infarction affecting left non-dominant side; I69.398 Other sequelae of cerebral infarction; R20.0 Anesthesia of skin; G62.9 Polyneuropathy, unspecified; E78.00 Pure hypercholesterolemia, unspecified; F32.9 Major depressive disorder, single episode, unspecified; M54.2 Cervicalgia; M54.6 Pain in thoracic spine; M25.511 Pain in right shoulder; Z79.891 Long term (current) use of opiate analgesic; Z79.01 Long term (current) use of anticoagulants; Z79.899 Other long term (current) drug therapy

== ENCOUNTER 2021-01-29 11:34 | Emergency (ER) | payer MEDICARE ==
[~2021-01-29] VITALS: Ht 175.3 cm; Wt 100.2 kg
--- NOTE | 2021-01-29 12:09 | REP ---
INDICATION: pain. COMPARISON: None. TECHNIQUE: Three views. 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 No elevation of the clavicle in relationship to the acromion. There are 2 a metallic anchors over the greater tuberosity humeral head from prior rotator cuff surgery. There is some degenerative changes the glenohumeral joint. There is no subluxation or dislocation of the humeral head in relationship to the glenoid. No abnormal soft tissue calcifications. No visible fracture. Ribs intact. No pneumothorax. IMPRESSION: 1. Some AC and glenohumeral joint arthritic changes as well as 2 surgical anchors from rotator cuff repair over the greater tuberosity humeral head. No visible fracture, subluxation, dislocation or abnormal soft tissue calcification. 2. Adjacent ribs intact and no evidence of a pneumothorax. <Electronically signed by Lonnie Woodson > 01/29/21 5118
[2021-01-29] MEDS ORDERED: PERCOCET 5MG/325MG TAB PO ONE (13:30)
[2021-01-29] MEDS ORDERED: methocarbamoL 500 MG TAB PO ONE (13:30)
[2021-01-29] MEDS ORDERED: PERC5TAB12 PO (13:38)
[2021-01-29 13:52] VITALS: BP 140/80
[2021-01-29] MEDS ORDERED: METH-1164 PO (13:53)
== END 2021-01-29 13:55 | disposition home or self-care (01) ==
LOC: M ED 11:34
DX: M25.511 Pain in right shoulder (principal); Z98.890 Other specified postprocedural states; M19.011 Primary osteoarthritis, right shoulder; M32.9 Systemic lupus erythematosus, unspecified; E78.5 Hyperlipidemia, unspecified; K21.9 Gastro-esophageal reflux disease without esophagitis; G43.909 Migraine, unspecified, not intractable, without status migrainosus; N40.0 Benign prostatic hyperplasia without lower urinary tract symptoms; M10.9 Gout, unspecified; Z79.01 Long term (current) use of anticoagulants; Z79.899 Other long term (current) drug therapy

== ENCOUNTER → 2021-02-07 | Outpatient (CLI) | payer MEDICARE, MEDICAID ==
[~2021-02-07] MED LIST changes: +METH-1164 PO; +PERC5TAB12 PO
--- NOTE | 2021-02-09 04:17 | ECWPNPC ---
PATIENT NAME: MARY MOODY : 1950 GENDER: MALE VISIT DATE: 02/07/2021 DISCHARGE DATE: 02/07/21 1038 VISIT LOCKED DATE TIME: PHYSICIAN: LYNDSEY SWARTZ RESOURCE: LYNDSEY SWARTZ REASON FOR APPOINTMENT 1. MYALGIA HISTORY OF PRESENT ILLNESS GENERAL: HPI 70-YEAR-OLD MALE IN FOR CHRONIC PAIN FOLLOW-UP. HE RATES HIS PAIN CURRENTLY AT A 5 OUT OF 10 AND DESCRIBES IT ACHING, CONTINUOUS, AND SHARP. HE FEELS HIS MEDICATIONS ARE HELPFUL AND DENIES MED SIDE EFFECTS AT THIS TIME.. -. FALL RISK SCREENING: SCREENING : NO FALLS REPORTED IN THE LAST YEAR. PAIN SCREENING: PATIENT HAS A COMPLAINT OF ACUTE OR CHRONIC PAIN :YES LOCATION OF PAIN:LOW BACK INTENSITY OF PAIN (SCALE OF 1 TO 10):5 WHAT DOES YOUR PAIN FEEL LIKE:ACHING, CONTINOUS, SHARP DURATION:CONTINOUS, CONSTANT PAIN IS INCREASED BY:ACTIVITIES, PROLONGED STANDING PAIN IS DECREASED BY:USE OF PAIN MEDICATIONS NURSING NOTE: -. PAIN CENTER INTAKE QUESTIONS: DO YOU HAVE A HISTORY OF MRSA? :NO DO YOU TAKE A BLOOD THINNERS? :YES COUMADIN DO YOU HAVE ANY BLEEDING DISORDERS? :NO ANY NEW NUMBNESS OR WEAKNESS IN YOUR LEGS OR ARMS? :YES RIGHT LEG ANY PACEMAKER,DEFIBRILLATOR, OR DORSAL COLUMN STIMULATOR? :NO DO YOU HAVE ANY RASHES OR OPEN SORES? :NO ARE YOU ALLERGIC TO IV DYE? :NO ARE YOU DIABETIC? :NO ANY NEW PROBLEMS WITH YOUR MEDICATIONS? :NO HAVE YOU RECEIVED A VACCINE IN THE PAST 30 DAYS? :NO SECOND COVID VACCINATION 10/07/2020 DO YOU PLAN TO RECEIVE A VACCINE IN THE NEXT 21 DAYS? :NO DO YOU NEED ANY PRESCRIPTION? :NO DO YOU TAKE ANY IMMUNOSUPPRESSIVE MEDICATIONS? :YES ALLOPURINOL DO YOU HAVE ANY KIDNEY OR LIVER DISEASE? :NO IS THERE A CHANCE YOU COULD BE ? :NO ARE YOU BREAST FEEDING? :NO CURRENT MEDICATIONS TAKING LYRICA 200 MG CAPSULE 1 CAPSULE ORALLY BID TAKING FYODS-3-YNEV ETHYL ESTERS 1 GM CAPSULE ORAL TWICE DAILY TAKING POLYETHYLENE GLYCOL 3350 POWDER ORAL Q 3 DAYS TAKING ALLOPURINOL 100 MG TABLET TAKE 1 TABLET BY MOUTH ONCE DAILY ORAL TAKING TAMSULOSIN HCL 0.4 MG CAPSULE ORAL DAILY TAKING WARFARIN SODIUM 5 MG TABLET TAKE 1 TABLET BY MOUTH ONCE DAILY ORAL SATURDAY AND SATURDAY 7.5MG TAKING PRAVASTATIN SODIUM 40 MG TABLET ORAL Q P.M. TAKING CITALOPRAM HYDROBROMIDE 20 MG TABLET TAKE 1 TABLET BY MOUTH ONCE DAILY ORAL TAKING VALIUM 5 MG TABLET 1 TABLET NEEDED ORALLY TWICE A DAY TAKING ALBUTEROL SULFATE (2.5 MG/3ML) 0.083% NEBULIZATION SOLUTION 3 ML INHALATION THREE TIMES A DAY PRN TAKING VITAMIN A & D 5000-400 UNIT CAPSULE DIRECTED ORALLY TAKING FAMOTIDINE 20 MG TABLET 1 TABLET AT BEDTIME NEEDED ORALLY ONCE A DAY TAKING TRAMADOL HCL 50 MG TABLET 1 TAB ORALLY EVERY 6 HOURS NEEDED/MMD#4 TAKING TIZANIDINE HCL 4 MG TABLET 1 TABLET NEEDED ORALLY THREE TIMES A DAY NOT-TAKING RANITIDINE HCL 150 MG TABLET ORAL BID NOT-TAKING PERCOCET 5-325 MG TABLET 1 TABLET NEEDED ORALLY DAILY NEEDED FOR SEVERE PAIN MDD=1 NOT-TAKING LIDOCAINE 4 % CREAM ONE APPLICATION EXTERNALLY Q 6 HRS PRN PAIN - APPLY TO LOW BACK MEDICATION LIST REVIEWED AND RECONCILED WITH THE PATIENT PAST MEDICAL HISTORY STROKE WITH RIGHT SIDED WEAKNESS AND SPEECH APHASIA ALSO CHRONIC NUMBNESS AND TINGLING TO RIGHTLEG AND FOOT PERIPHERAL NEUROPATHY HYPECHOLESTEROLEMIA DEPRESSION SPINAL STENOSIS TIA MYALGIA NECK AND LOW BACK BACK PAIN RIGHT SHOULDER PAIN ALLERGIES N.K.D.A. SOCIAL HISTORY GENERAL: TOBACCO USE ARE YOU A:NONSMOKER LATEX QUESTIONNAIRE LATEX ALLERGY : HAVE YOU EVER DEVELOPED ANY TYPE OF REACTION AFTER HANDLING LATEX PRODUCTS SUCH RUBBER GLOVES, CONDOMS, DIAPHRAGMS, BALLOONS, SOCKS, OR UNDERWEAR?NO LATEX ALLERGY : HAVE YOU EVER DEVELOPED ANY TYPE OF REACTION DURING OR AFTER DENTAL APPOINTMENT, VAGINAL/RECTAL EXAMINATION, SURGICAL PROCEDURE, OR ANY OTHER EXPOSURE?NO LATEX RISK : HAVE YOU EVER HAD ANY DIFFICULTY BREATHING OR HIVES AFTER EATING OR HANDLING ANY FRUITS, OR VEGETABLES; SUCH KIWI, BANANAS, STONE FRUITS, OR CHESTNUTSNO LATEX RISK : DO YOU HAVE A PREVIOUS PERSONAL HISTORY OF MORE THAN NINE SURGERIES, SPINA BIFIDA, OR REPEATED CATHERIZATIONS? NO LATEX RISK : ARE YOU FREQUENTLY EXPOSED TO LATEX PRODUCTS IN YOUR OCCUPATION?NO DATE ASKED : 02/07/2021 ALCOHOL USE: NO. ALCOHOL SCREENING DID YOU HAVE A DRINK CONTAINING ALCOHOL IN THE PAST YEAR?NO POINTS0 INTERPRETATIONNEGATIVE RECREATIONAL DRUG USE DRUG USE?NO CAFFEINE CAFFEINE USE?NO GNOSTICISM [id number] YAZIDISM LANGUAGE LANGUAGES SPOKEN:ESTONIAN EDUCATION LEVEL OF EDUCATION:HIGH SCHOOL LEARNING BARRIERS / SPECIAL NEEDS CHANGE FROM LAST VISIT?NO BARRIERS TO LEARNING?YES COMMENTS DIFFICULTY REMEMBERING SINCE THE STROKE HEARING IMPAIRED?YES : HARD OF HEARING BILATERAL EARS. NO HEARING AIDES VISION IMPAIRED?YES :CORRECTIVE LENSES COGNITIVELY IMPAIRED?YES DIFF. REMEMBERING THINGS SINCE THE STROKE READINESS TO LEARN?YES LEARNING PREFERENCES?YES :TAPES/VIDEOS, DEMONSTRATION/VERBAL INSTRUCTION LEARNING CAPABILITIES PRESENT?YES EMOTIONAL BARRIERS?NO SPECIAL DEVICES?YES :CANE NEEDED NARROW GAUGE ENGINEER NEEDED?NO DOMESTIC VIOLENCE DO YOU FEEL SAFE IN YOUR ENVIRONMENT?YES - PFS REFERRAL NEEDED?NO CLERGY REFERRAL NEEDED?NO PUBLIC HEALTH REFERRAL NEEDED?NO WAS THE PROVIDER NOTIFIED OF ANY PERTINENT INFO? N/A HAS THE PATIENT BEEN EDUCATED REGARDING HIS/HER PLAN OF CARE?YES HAS THE PATIENT BEEN EDUCATED REGARDING PAIN, THE RISK FOR PAIN, THE IMPORTANCE OF EFFECTIVE PAIN MANAGEMENT, AND THE PAIN ASSESSMENT PROCESS?YES ADVANCE DIRECTIVE ADVANCE DIRECTIVE DISCUSSED WITH PATIENT:YES PT HAS HCP AND POA -SKY [phone] REVIEW OF SYSTEMS CONSTITUTIONAL: ANY RECENT FEVER NO . CHILLS NO . WEIGHT CHANGE OF UNKNOWN REASONS NO . GASTROENTEROLOGY: NEW UNEXPLAINABLE CHANGES IN BOWEL CONTROL NO . CONSTIPATION NO . GENITOURINARY: ANY NEW CHANGE IN BLADDER CONTROL? NO . NEUROLOGY: NEW ONSET DIZZINESS OR NEUROLOGICAL CHANGES NOT MENTIONED NO . NEW NUMBNESS OR PAIN PATTERNS NOT MENTIONED AND PERTINENT TO TODAY'S VISIT NO . CARDIOLOGY: NEW CHEST PRESSURE NO . PATIENT DENIES NO . RESPIRATORY: UNEXPLAINABLE COUGH NO . NEW SHORTNESS OF BREATH NO . VITAL SIGNS WT 224 LBS, HT 68", BMI 34.06 INDEX, BP 122/79 MM HG, HR 83 /MIN, RR 18 /MIN, TEMP 98.5 F, OXYGEN SAT % 95%, SAFE IN ENV? (Y/N) YES, NA INITIALS PR 09:33, REVIEWED BY: ROBERT ROSE MA. EXAMINATION GENERAL EXAMINATION: GENERALNO ACUTE DISTRESS, WELL NOURISHED AND HYDRATED. PSYCHAPPROPRIATE MOOD AND AFFECT . LUNGS:CLEAR TO AUSCULTATION BILATERALLY, NO WHEEZES, RHONCHI, RALES. HEART:NO MURMURS, REGULAR RATE AND RHYTHM. ASSESSMENTS MYALGIA - M79.1 (PRIMARY), RISK: (NULL) CHRONIC PRESCRIPTION OPIATE USE - Z79.891 TREATMENT MYALGIA NOTES: 70-YEAR-OLD MALE IN FOR CHRONIC PAIN FOLLOW-UP. GIVEN PRESENTING SYMPTOMS RECOMMEND CONTINUATION OF CURRENT MEDICATION REGIMEN WITH FOLLOW-UP IN 3 MONTHS. PATIENT HAS EXPRESSED UNDERSTANDING OF AND WAS IN AGREEMENT WITH TREATMENT PLAN. GIVEN TIME TO ASK QUESTIONS AND EXPRESS CONCERNS. ISTOP REGISTRY REVIEWED AND DEMONSTRATES COMPLLIANCE. (REF # [id number] ) BRINGS IN MEDICATIONS WHICH IS APPROPRIATE FOR WHAT WAS DISPENSED. RECENT URINE TOXICOLOGY REVIEWED. NO UNAUTHORIZED MEDICATIONS. NO ILLICIT SUBSTANCES AND PRESCRIBED MEDICATIONS WERE PRESENT. CHRONIC PRESCRIPTION OPIATE USE LAB: URINE TEST GROUP [facility]SE 02/07/2021 10:31:13 AM > LAST DOSE: TRAMADOL 02/03/2021 AT 2100; TIZANIDINE 02/03/2021 AT 2100 PROCEDURE CODES [id number] ESTABILISHED PATIENT [facility] CHARGE DISPOSITION & COMMUNICATION FOLLOW UP 3 MONTHS (REASON: MYALGIA ) ELECTRONICALLY SIGNED BY FEROZ MCQUEEN ON 02/08/2021 AT 08:18 AM EDT DISCLAIMER : THIS IS A VISIT SUMMARY EXTRACTED FROM THE [employer] CHART. IT IS NOT A COPY OF THE [employer] PROGRESS NOTE. MELINDAD
== END ==
LOC: M PAIN 09:45
PROVIDERS: ATTEND Family Medicine
DX: M79.18 Myalgia, other site (principal); I69.351 Hemiplegia and hemiparesis following cerebral infarction affecting right dominant side; I69.320 Aphasia following cerebral infarction; I69.398 Other sequelae of cerebral infarction; R20.0 Anesthesia of skin; G62.9 Polyneuropathy, unspecified; E78.00 Pure hypercholesterolemia, unspecified; F32.9 Major depressive disorder, single episode, unspecified; M25.511 Pain in right shoulder; Z79.01 Long term (current) use of anticoagulants; Z79.891 Long term (current) use of opiate analgesic; Z79.899 Other long term (current) drug therapy

== ENCOUNTER → 2021-04-25 | Outpatient (CLI) | payer MEDICARE, MEDICAID | LOC: M PAIN 14:00 | PROVIDERS: ATTEND Nurse Practitioner Family | DX: M79.18 Myalgia, other site (principal); I69.351 Hemiplegia and hemiparesis following cerebral infarction affecting right dominant side; I69.320 Aphasia following cerebral infarction; I69.398 Other sequelae of cerebral infarction; G62.9 Polyneuropathy, unspecified; E78.00 Pure hypercholesterolemia, unspecified; F32.9 Major depressive disorder, single episode, unspecified; M54.2 Cervicalgia; M54.50 Low back pain, unspecified; M25.511 Pain in right shoulder; Z79.01 Long term (current) use of anticoagulants; Z79.891 Long term (current) use of opiate analgesic; Z79.899 Other long term (current) drug therapy ==

== ENCOUNTER → 2021-05-16 | Outpatient (CLI) | payer MEDICARE, MEDICAID ==
[~2021-05-16] MED LIST changes: +GASTROGRAFIN SOLUTION 30ML (Q9963) As Ordered ONE; +ISOVUE-370 76% 100ML VIAL As Ordered ONE
--- NOTE | 2021-05-16 14:03 | REP ---
INDICATION: NAUSEA, RLQ PAIN. COMPARISON: 07/15/2019 TECHNIQUE: Oral Gastrografin mixture 10 mL in 290 mL flavored water x2 per our bowel contrast protocol and bolus 100 mL Isovue 370 scanning through the abdomen and pelvis with both coronal and sagittal reconstructions. FINDINGS: CT abdomen: Lung bases show minor dependent atelectatic changes and some mild compressive atelectasis adjacent to the right diaphragm due to slight diaphragmatic elevation as before no effusion infiltrate nodule or mass. Heart is not grossly enlarged. There is no pericardial thickening or effusion. The liver is hypodense and without discrete mass or cyst. There is no biliary dilatation or adjacent ascites. Gallbladder without calcified stone or mass. No splenomegaly or focal splenic lesion. See no hiatal hernia. Adrenal glands are normal. Pancreas without focal abnormality. The aorta has scattered calcifications but no periaortic, other retroperitoneal or mesenteric pathologic sized lymphadenopathy. Kidneys show a retroaortic left renal vein as anatomic variant. No renal stone, hydronephrosis, solid mass or cyst. No periaortic, other retroperitoneal or mesenteric pathologic sized lymphadenopathy. There are no inflammatory changes about the cecum or adenopathy. Stool and gas seen in the colon without sign of colitis or diverticulitis within the abdomen proper. No stricture or mass. Small bowel loops contrast filled without dilatation. Lung window review of all CT slices in the abdomen and pelvis shows no perforation or free air. Bone windows show degenerative disc changes at L5-S1 with vacuum phenomenon there and at L 3-4. There are a few mm of retrolisthesis of L2 on L3. No compression deformity noted. Facet arthropathy throughout the lower lumbar spine with some central canal stenosis due to combined factors at the L2-3 and L3-4, less at L4-5 and L5-S1. 0 visualized lower ribs were grossly intact. CT pelvis: Sacrum, pelvic bones and hips show some degenerative changes without destructive lesion, fracture or AVN. The distal left colon and sigmoid show muscular hypertrophy and diverticulosis without definite diverticulitis. Distal sigmoid and rectum are unremarkable. Prostate is enlarged and elevates the bladder base no bladder wall thickening or mass distal ureters without dilatation or stone no bladder calculus. No ventral or inguinal hernia nor pathologic sized inguinal adenopathy. Small bowel loops in the upper pelvis were unremarkable. No inflammatory changes adjacent to the cecum or adenopathy. IMPRESSION: 1. Muscular hypertrophy and diverticulosis distal left colon and proximal half of the sigmoid without definite signs of diverticulitis, colitis, stricture or mass. No ascites, abscess or free air. Abdominal portion of the colon without any significant finding. 2. Cecum without pericecal inflammatory changes, adenopathy or mass. No evidence for appendicitis. 3. Extensive degenerative disc and facet arthritic changes with spinal central stenosis from L2-3 through L5-S1, greater at the upper 2 of those levels. 4. Solid organs in the upper abdomen without acute finding. No adenopathy, a calcified gallstones, hiatal hernia or other acute finding. <Electronically signed by Lonnie Woodson > 05/16/21 1470
== END ==
LOC: M RAD 11:22
PROVIDERS: ATTEND Nurse Practitioner Family
DX: R11.0 Nausea (principal); R10.31 Right lower quadrant pain
CPT/HCPCS: 74177; Q9963; Q9967

== ENCOUNTER → 2021-06-07 | Outpatient (CLI) | payer MEDICARE, MEDICAID ==
[~2021-06-07] MED LIST changes: -GASTROGRAFIN SOLUTION 30ML (Q9963) As Ordered ONE; -ISOVUE-370 76% 100ML VIAL As Ordered ONE
== END ==
LOC: M LABSMTC 11:28
PROVIDERS: ATTEND Anesthesiology
DX: Z20.822 Contact with and (suspected) exposure to COVID-19 (principal)

== ENCOUNTER → 2021-06-13 | Outpatient (CLI) | payer MEDICARE, MEDICAID ==
[~2021-06-13] MED LIST changes: +BUPIVACAINE HCL 0.25% 10ML VIAL As Ordered ONE; +BUPIVACAINE HCL 0.25% 30ML VIAL As Ordered ONE; +TRIAMCINOLONE ACETONIDE SUSP 40 MG/ML VIAL (J3301) As Ordered ONE; +diazePAM 5MG TABLET As Ordered ONE; +oxyCODONE 5MG TAB As Ordered ONE
== END ==
LOC: M PAIN 10:00
PROVIDERS: ATTEND Anesthesiology
DX: M79.18 Myalgia, other site (principal); I69.351 Hemiplegia and hemiparesis following cerebral infarction affecting right dominant side; I69.320 Aphasia following cerebral infarction; G62.9 Polyneuropathy, unspecified; E78.00 Pure hypercholesterolemia, unspecified; F32.A Depression, unspecified; M25.511 Pain in right shoulder; Z79.01 Long term (current) use of anticoagulants; Z79.891 Long term (current) use of opiate analgesic; Z79.899 Other long term (current) drug therapy
CPT/HCPCS: 20552; J3301

== ENCOUNTER → 2021-06-28 | Outpatient (CLI) | payer MEDICARE ==
[~2021-06-28] MED LIST changes: -BUPIVACAINE HCL 0.25% 10ML VIAL As Ordered ONE; -BUPIVACAINE HCL 0.25% 30ML VIAL As Ordered ONE; -TRIAMCINOLONE ACETONIDE SUSP 40 MG/ML VIAL (J3301) As Ordered ONE; -diazePAM 5MG TABLET As Ordered ONE; -oxyCODONE 5MG TAB As Ordered ONE
== END ==
LOC: M PAIN 10:30
PROVIDERS: ATTEND Nurse Practitioner Family
DX: G89.29 Other chronic pain (principal); M79.18 Myalgia, other site; I69.351 Hemiplegia and hemiparesis following cerebral infarction affecting right dominant side; I69.320 Aphasia following cerebral infarction; I69.398 Other sequelae of cerebral infarction; R20.0 Anesthesia of skin; G62.9 Polyneuropathy, unspecified; E78.00 Pure hypercholesterolemia, unspecified; F32.A Depression, unspecified; Z79.01 Long term (current) use of anticoagulants; Z79.891 Long term (current) use of opiate analgesic; Z79.899 Other long term (current) drug therapy

== ENCOUNTER → 2021-07-06 | Outpatient (CLI) | payer MEDICARE | LOC: M PAIN 10:30 | PROVIDERS: ATTEND Anesthesiology | DX: M79.18 Myalgia, other site (principal); I69.351 Hemiplegia and hemiparesis following cerebral infarction affecting right dominant side; I69.320 Aphasia following cerebral infarction; I69.398 Other sequelae of cerebral infarction; R20.0 Anesthesia of skin; E78.00 Pure hypercholesterolemia, unspecified; F32.A Depression, unspecified; M54.2 Cervicalgia; M54.50 Low back pain, unspecified; M25.511 Pain in right shoulder; Z79.01 Long term (current) use of anticoagulants; Z79.891 Long term (current) use of opiate analgesic; Z79.899 Other long term (current) drug therapy ==

== ENCOUNTER → 2021-07-21 | Outpatient (CLI) | payer MEDICARE | LOC: M PAIN 09:15 | PROVIDERS: ATTEND Anesthesiology | DX: M79.18 Myalgia, other site (principal); Z79.891 Long term (current) use of opiate analgesic; Z79.01 Long term (current) use of anticoagulants; Z79.899 Other long term (current) drug therapy ==

== ENCOUNTER → 2021-08-24 | Outpatient (CLI) | payer MEDICARE | LOC: M PAIN 10:45 | PROVIDERS: ATTEND Anesthesiology | DX: M79.10 Myalgia, unspecified site (principal); M79.18 Myalgia, other site; M54.50 Low back pain, unspecified; I69.351 Hemiplegia and hemiparesis following cerebral infarction affecting right dominant side; I69.320 Aphasia following cerebral infarction; R20.0 Anesthesia of skin; I69.398 Other sequelae of cerebral infarction; G62.9 Polyneuropathy, unspecified; E78.00 Pure hypercholesterolemia, unspecified; F32.A Depression, unspecified; M54.2 Cervicalgia; M25.511 Pain in right shoulder; Z79.01 Long term (current) use of anticoagulants; Z79.891 Long term (current) use of opiate analgesic; Z79.899 Other long term (current) drug therapy ==

== ENCOUNTER → 2022-05-02 | Outpatient (CLI) | payer MEDICARE | LOC: M PAIN 10:45 | PROVIDERS: ATTEND Anesthesiology | DX: M79.18 Myalgia, other site (principal); M54.2 Cervicalgia; M54.50 Low back pain, unspecified; G89.29 Other chronic pain; M48.00 Spinal stenosis, site unspecified; Z86.73 Personal history of transient ischemic attack (TIA), and cerebral infarction without residual deficits; Z86.59 Personal history of other mental and behavioral disorders; Z79.01 Long term (current) use of anticoagulants; Z79.899 Other long term (current) drug therapy ==

== ENCOUNTER → 2022-05-22 | Outpatient (CLI) | payer MEDICARE | LOC: M RAD 07:20 | PROVIDERS: ATTEND Anesthesiology | DX: M99.71 Connective tissue and disc stenosis of intervertebral foramina of cervical region (principal); M48.02 Spinal stenosis, cervical region; M79.10 Myalgia, unspecified site ==

== ENCOUNTER → 2022-07-31 | Outpatient (CLI) | payer MEDICARE | LOC: M LABSMTC 08:59 | PROVIDERS: ATTEND Anesthesiology | DX: Z01.812 Encounter for preprocedural laboratory examination (principal); Z20.822 Contact with and (suspected) exposure to COVID-19 ==

== ENCOUNTER → 2022-08-02 | Outpatient (CLI) | payer MEDICARE ==
[~2022-08-02] MED LIST changes: +BUPIVACAINE HCL 0.25% 10ML VIAL As Ordered ONE; +BUPIVACAINE HCL 0.25% 30ML VIAL As Ordered ONE; +TRIAMCINOLONE ACETONIDE SUSP 40MG/ML 1ML VIAL As Ordered ONE; +diazePAM 5MG TABLET As Ordered ONE; +oxyCODONE 5MG TAB As Ordered ONE
== END ==
LOC: M PAIN 11:00
PROVIDERS: ATTEND Anesthesiology
DX: M79.18 Myalgia, other site (principal); I69.320 Aphasia following cerebral infarction; G62.9 Polyneuropathy, unspecified; E78.00 Pure hypercholesterolemia, unspecified; F32.A Depression, unspecified; M48.00 Spinal stenosis, site unspecified; M54.50 Low back pain, unspecified; M54.2 Cervicalgia; M25.511 Pain in right shoulder; Z79.01 Long term (current) use of anticoagulants; Z79.891 Long term (current) use of opiate analgesic; Z79.899 Other long term (current) drug therapy

== ENCOUNTER → 2022-08-03 | Outpatient (CLI) | payer MEDICARE ==
[~2022-08-03] MED LIST changes: -BUPIVACAINE HCL 0.25% 10ML VIAL As Ordered ONE; -BUPIVACAINE HCL 0.25% 30ML VIAL As Ordered ONE; -TRIAMCINOLONE ACETONIDE SUSP 40MG/ML 1ML VIAL As Ordered ONE; -diazePAM 5MG TABLET As Ordered ONE; -oxyCODONE 5MG TAB As Ordered ONE
== END ==
LOC: M PAIN 09:30
PROVIDERS: ATTEND Nurse Practitioner Family
DX: M50.10 Cervical disc disorder with radiculopathy, unspecified cervical region (principal); G89.29 Other chronic pain; M48.00 Spinal stenosis, site unspecified; Z86.73 Personal history of transient ischemic attack (TIA), and cerebral infarction without residual deficits; Z86.59 Personal history of other mental and behavioral disorders; Z79.01 Long term (current) use of anticoagulants; Z79.899 Other long term (current) drug therapy

== ENCOUNTER 2022-08-28 11:04 | Emergency (ER) | payer MEDICARE ==
[~2022-08-28] VITALS: Ht 175.3 cm; Wt 99.5 kg
[~2022-08-28 11:04] MED LIST changes: -ERGO500029; -TIZA10TA
[2022-08-28] MEDS ORDERED: ERGO500029 (11:48)
[2022-08-28] MEDS ORDERED: TIZA10TA (11:48)
[2022-08-28 11:57] LABS: BASO % 0.6 % (0.0-1.0); EOS # 0.3 10^3/uL (0.0-0.5); EOS % 3.6 % (0.0-3.0); HEMATOCRIT 47.6 % (42.0-52.0); HEMOGLOBIN 15.6 g/dl (13.5-17.5); LYMPH % 28.3 % (24.0-44.0); MEAN CORPUSCULAR HEMOGLOBIN 28.9 pg (27.0-33.0); MEAN CORPUSCULAR HGB CONC 32.8 g/dl (32.0-36.5); MEAN CORPUSCULAR VOLUME 88.3 fl (80.0-96.0); MONO # 0.5 10^3/uL (0.0-0.8); MONO % 7.5 % (2.0-8.0); NEUTROPHILS # 4.2 10^3/uL (1.5-8.5); NEUTROPHILS % 59.7 % (36.0-66.0); PLATELET COUNT, AUTOMATED 119 10^3/uL (150-450); RED BLOOD COUNT 5.39 10^6/uL (4.30-6.10)
[2022-08-28 12:08] LABS: INR 2.37; PROTHROMBIN TIME 26.3 SECONDS (12.5-14.5)
[2022-08-28 12:09] LABS: PARTIAL THROMBOPLASTIN TIME 59.9 SECONDS (24.8-34.2)
[2022-08-28 12:25] LABS: LIPASE 44 U/L (12-53)
[2022-08-28 12:27] LABS: CPK CREATINE PHOSPHOKINASE 169 U/L (46-171)
[2022-08-28 12:39] LABS: ALBUMIN 3.6 G/DL (3.2-5.2); ALKALINE PHOSPHATASE 77 U/L (46-116); ALT/SGPT 42 U/L (7.0-40); AST/SGOT 27 U/L (<34); BILIRUBIN,DIRECT 0.3 MG/DL (<0.4); BLOOD UREA NITROGEN 19 MG/DL (9-23); CALCIUM LEVEL 8.7 MG/DL (8.3-10.6); CARBON DIOXIDE LEVEL 28 MMOL/L (20-31); CHLORIDE LEVEL 105 MMOL/L (98-107); CK-MB VALUE MASS 4.8 NG/ML (<3.6); CREATININE FOR GFR 0.82 MG/DL (0.70-1.30); FREE T4 1.24 NG/DL (0.89-1.76); GLOMERULAR FILTRATION RATE > 60.0 (>42); GLUCOSE, FASTING 121 MG/DL (74-106); MB/CK RELATIVE INDEX 2.84 (< OR =4); POTASSIUM SERUM 3.8 MMOL/L (3.5-5.1); SODIUM LEVEL 140 MMOL/L (136-145); THYROID STIMULATING HORMONE 3.283 uIU/ML (0.55-4.78); TOTAL PROTEIN 6.5 G/DL (5.7-8.2)
[2022-08-28 13:16] LABS: CK-MB VALUE MASS 5.3 NG/ML (<3.6)
[2022-08-28 13:19] LABS: MB/CK RELATIVE INDEX 3.46 (< OR =4)
[2022-08-28 13:51] LABS: RSV AMPLIFICATION NEGATIVE (NEGATIVE)
[2022-08-28 14:00] VITALS: BP 155/84
== END 2022-08-28 14:23 | disposition home or self-care (01) ==
LOC: M ED 11:04
DX: R07.89 Other chest pain (principal); M32.9 Systemic lupus erythematosus, unspecified; Z86.73 Personal history of transient ischemic attack (TIA), and cerebral infarction without residual deficits; N40.0 Benign prostatic hyperplasia without lower urinary tract symptoms; Z79.01 Long term (current) use of anticoagulants; Z79.899 Other long term (current) drug therapy
CPT/HCPCS: 71045; 80048; 80076; 82550; 82553; 83690; 84439; 84443; 84484; 85025; 85610; 85730; 87631; 93005; 99284; G0463

== ENCOUNTER → 2022-08-28 | Outpatient (CLI) | payer MEDICARE ==
[~2022-08-28] MED LIST changes: +ERGO500029; +TIZA10TA
== END ==
LOC: M PAIN 08:45
PROVIDERS: ATTEND Nurse Practitioner Family
DX: M79.12 Myalgia of auxiliary muscles, head and neck (principal); G62.9 Polyneuropathy, unspecified; I69.320 Aphasia following cerebral infarction; I69.351 Hemiplegia and hemiparesis following cerebral infarction affecting right dominant side; E78.00 Pure hypercholesterolemia, unspecified; F32.A Depression, unspecified; M48.00 Spinal stenosis, site unspecified; M54.2 Cervicalgia; M54.50 Low back pain, unspecified; M25.511 Pain in right shoulder; Z79.01 Long term (current) use of anticoagulants; Z79.891 Long term (current) use of opiate analgesic; Z79.899 Other long term (current) drug therapy

== ENCOUNTER → 2022-10-29 | Outpatient (CLI) | payer MEDICARE ==
[~2022-10-29] MED LIST changes: +BUPIVACAINE HCL 0.25% 10ML VIAL As Ordered ONE; +BUPIVACAINE HCL 0.25% 30ML VIAL As Ordered ONE; +ERGO500029; +TIZA10TA; +TRIAMCINOLONE ACETONIDE SUSP 40MG/ML 1ML VIAL As Ordered ONE; +diazePAM 5MG TABLET As Ordered ONE; +oxyCODONE 5MG TAB As Ordered ONE
== END ==
LOC: M PAIN 07:45
PROVIDERS: ATTEND Anesthesiology
DX: M79.18 Myalgia, other site (principal); G89.29 Other chronic pain; M48.00 Spinal stenosis, site unspecified; Z86.59 Personal history of other mental and behavioral disorders; Z79.01 Long term (current) use of anticoagulants; Z79.899 Other long term (current) drug therapy
CPT/HCPCS: 20552; J3301

== ENCOUNTER → 2023-01-08 | Outpatient (CLI) | payer MEDICARE ==
[~2023-01-08] MED LIST changes: -BUPIVACAINE HCL 0.25% 10ML VIAL As Ordered ONE; -BUPIVACAINE HCL 0.25% 30ML VIAL As Ordered ONE; -TRIAMCINOLONE ACETONIDE SUSP 40MG/ML 1ML VIAL As Ordered ONE; -diazePAM 5MG TABLET As Ordered ONE; -oxyCODONE 5MG TAB As Ordered ONE
== END ==
LOC: M RAD 08:02
PROVIDERS: ATTEND Nurse Practitioner
DX: R27.0 Ataxia, unspecified (principal)

== ENCOUNTER → 2023-01-08 | Outpatient (CLI) | payer MEDICARE | LOC: M PAIN 11:30 | PROVIDERS: ATTEND Nurse Practitioner Family | DX: M79.18 Myalgia, other site (principal); Z79.891 Long term (current) use of opiate analgesic; I69.351 Hemiplegia and hemiparesis following cerebral infarction affecting right dominant side; I69.320 Aphasia following cerebral infarction; I69.398 Other sequelae of cerebral infarction; G62.9 Polyneuropathy, unspecified; E78.00 Pure hypercholesterolemia, unspecified; F32.A Depression, unspecified; M48.00 Spinal stenosis, site unspecified; M54.2 Cervicalgia; M54.50 Low back pain, unspecified; M25.511 Pain in right shoulder; Z79.899 Other long term (current) drug therapy ==

== ENCOUNTER → 2023-07-23 | Outpatient (CLI) | payer MEDICARE | LOC: M PAIN 09:45 | PROVIDERS: ATTEND Nurse Practitioner Family | DX: M79.18 Myalgia, other site (principal); G89.29 Other chronic pain; G62.9 Polyneuropathy, unspecified; F32.A Depression, unspecified; E78.00 Pure hypercholesterolemia, unspecified; Z79.891 Long term (current) use of opiate analgesic; Z79.899 Other long term (current) drug therapy ==

== ENCOUNTER → 2024-03-02 | Outpatient (CLI) | payer MEDICARE | LOC: M PAIN 10:45 | PROVIDERS: ATTEND Nurse Practitioner Family | DX: M79.18 Myalgia, other site (principal); G89.29 Other chronic pain; I69.351 Hemiplegia and hemiparesis following cerebral infarction affecting right dominant side; I69.320 Aphasia following cerebral infarction; G62.9 Polyneuropathy, unspecified; E78.00 Pure hypercholesterolemia, unspecified; F32.A Depression, unspecified; M54.2 Cervicalgia; M54.50 Low back pain, unspecified; Z79.899 Other long term (current) drug therapy ==

== ENCOUNTER → 2024-08-11 | Outpatient (CLI) | payer MEDICARE | LOC: M PAIN 13:00 | PROVIDERS: ATTEND Nurse Practitioner Family | DX: M79.18 Myalgia, other site (principal); G89.29 Other chronic pain; M54.50 Low back pain, unspecified; I69.351 Hemiplegia and hemiparesis following cerebral infarction affecting right dominant side; I69.320 Aphasia following cerebral infarction; M25.511 Pain in right shoulder; Z79.899 Other long term (current) drug therapy ==